=== PATIENT | female | born 1940 | race Caucasian/White ===

== ENCOUNTER 2017-04-30 22:44 | Inpatient (IN) | payer MEDICARE, OTHER, SELFPAY ==
[2017-04-30 22:53] VITALS: BP 136/67; PULSE 71; RESP 18; TEMP 36.5; O2SAT 100
--- NOTE | 2017-04-30 23:20 | PCM.HP.STD ---
Problem List (1) Generalized weakness Status: Acute (2) Anemia Status: Chronic Comment: acute on chronic (3) Anxiety Status: Chronic (4) COPD (chronic obstructive pulmonary disease) Status: Chronic (5) Constipation Status: Chronic (6) Coronary artery disease Status: Chronic (7) Depression Status: Chronic History of Present Illness Date of Admission: 04/30/17 Chief Complaint: Generalized weakness The patient is a 76 y/o female w/ h/o COPD, CAD, s/p total hip replacement, OA, rotator cuff tear, depression and HTN admitted for generalized weakness. She did a lot of walking yesterday and when she got home, she felt exhausted. She ate only once yesterday and this morning she had a light breakfast. She felt mostly sleepy and did not eat most part of the day. She was mildly SOB that started this morning. There is no cough. No chest pain. No confusion. She has chronic weakness in the right arm because of a rotator cuff tear. It was torn because she did not move by herself much and staff had to drag her. She was transferred from [place] to [place] for admission. 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, w/ acetabular component Osteoarthritis of left hip (Chronic) Edema (Chronic) Constipation (Chronic) Irritable bowel syndrome (Chronic) Anxiety (Chronic) Depression (Chronic) Respiratory acidosis (Chronic) Hypertension (Chronic) Hyperlipidemia (Chronic) GERD (gastroesophageal reflux disease) (Chronic) Fibromyalgia (Chronic) NSTEMI (non-ST elevated myocardial infarction) (Chronic) Allergies hydrocodone bitartrate [From Vicodin] Allergy (Unknown, Verified 08/19/16 12:01) Rash make me crazy propoxyphene Allergy (Unknown, Verified 08/19/16 12:01) Unknown Pt unsure NSAIDS (Non-Steroidal Anti-Inflamma Adverse Reaction (Unknown, Verified 08/19/16 12:01) Unknown doesn't work. Unsure of any reaction acetaminophen [From Tylenol] Adverse Reaction (Verified 08/19/16 12:01) Nausea diazepam [From Valium] Adverse Reaction (Verified 08/19/16 12:01) Other makes me crazy Home Medications: Ambulatory Orders Medication Instructions Recorded Gabapentin [Neurontin] 100 mg PO TID 05/15/15 Lorazepam [Ativan] 1 mg PO 4X/DAY PRN 02/28/17 Oxycodone [Oxyir] 20 mg PO 4X/DAY 02/28/17 Potassium Chloride [Klor-Con M10] 20 meq PO DAILY 02/28/17 Aspirin [Aspirin, Baby] 81 mg PO DAILY@0800 04/30/17 Lisinopril/Hydrochlorothiazide 1 each PO DAILY 04/30/17 [Zestoretic 20-12.5 mg Tablet] Naloxegol Oxalate [Movantik] 25 mg PO DAILY 04/30/17 Trazodone HCl [Desyrel] 50 mg PO QHS 04/30/17 Surgical History: herniorrhaphy - Ventral, hysterectomy, total hip arthroplasty - Left, 07/31/2013., total knee arthroplasty - Bilateral., - - Bilateral shoulder arthroscopy, R shoulder repair, L shoulder replacement 2012, L reverse total shoulder replacement 2015, Bladder surgery, back surgery x 2, LLE venous repair secondary to complications with knee replacement, carpal tunnel release, L Total Hip Revision. Psychiatric History: Anxiety, Depression PERIANESTHESIA RN History: No pertinent PERIANESTHESIA RN history Smoking Status: Never smoker - *Family History Offspring History Items: No pertinent history Maternal History Items: No pertinent history Paternal History Items: No pertinent history Review of Systems Constitutional: Denies: Chills, Fever, Weight Change HEENT: Denies: Head Aches, Sinus Congestion, Sinus Drainage Cardiovascular: Denies: Chest Pain, Palpitations Respiratory: Denies: Cough, Shortness of breath at rest, Sputum production Gastrointestinal: Denies: Abdominal Pain, Nausea, Vomiting Genitourinary: Denies: Dysuria Musculoskeletal: Denies: Joint Pain, Joint Tenderness Skin: Denies: Rash, Wounds Neurological: Denies: Numbness, Tingling, Focal weakness Psychiatric: Denies: Anxiety, Depression, Homicidal Ideations, Suicidal Ideations Hematologic/ Lymphatic: Denies: Easy Bruising, Easy Bleeding VTE Information - Inpt Only VTE Present on Admission: No VTE Mechan Device Prophylaxis: SCD's VTE Pharm Prophylaxis ordered?: Yes Patient Problems: Active and Suspected Problems Generalized weakness (Acute) - Physical Exam General: Alert, Oriented x3, Cooperative HEENT: Atraumatic, PERRLA, EOMI, Normocephalic Neck: Supple, No JVD, Negative Carotid Bruits Lungs: Clear to auscultation, Normal air movement Cardiovascular: Regular rate, No murmurs Abdomen: Bowel Sounds Present, Soft, Non Tender Extremities: No edema, Capillary Refill Less than 3 Seconds Skin: No rashes, No breakdown Musculoskeletal: No Tenderness to Palpation of Joints or Extremities Neurological: Cranial nerves II-XII grossly intact Psych/Mental Status: Normal Affect, Appropriate Vital Signs Temp Pulse Resp BP Pulse Ox 97.7 F L 71 18 136/67 H 100 04/30/17 22:53 04/30/17 22:53 04/30/17 22:53 04/30/17 22:53 04/30/17 22:53 Oxygen Delivery Method Room Air Assessment/Plan Active and Suspected Problems Generalized weakness (Acute) 76 y/o female w/ h/o COPD, CAD, s/p total hip replacement, OA, rotator cuff tear, depression and HTN admitted for generalized weakness. 1) Generalized weakness: Possible effort dependent as exam is very variable. Will get ammonia, B12, folate, and TSH. Will also get CT head in AM. Will also get cultures. PT/OT. 2) Pulmonary congestion: CTA disclosed no PE CT chest disclosed congestion. Will start lasix. Will follow electrolytes and renal function. 3) Chronic issues: HTN, COPD, CAD: Resume home meds. 4) Dispo: May need SNF placement as pt is a high risk for readmission and has multiple previous admissions.
[2017-04-30 23:29] VITALS: BMI 37.0
[2017-04-30 23:39] VITALS: BMI 37.1
[2017-05-01 01:26] LABS: Hematocrit 35.6 % (37-47); Hemoglobin 10.5 g/dl (12.0-15.0); Mean Corp Hgb Conc 29.5 g/gl (32-36); Mean Corpuscular Hgb 24.7 pg (27.0-32.0); Mean Corpuscular Volume 83.8 fL (81-99); Mean Platelet Vol. 9.6 fl (6.2-12.0); Platelet Count 232 K/mm3 (150-450); RBC Distribution Width CV 18.2 % (11.6-14.6); RBC Distribution Width SD 56.1 fl (35.1-43.9); Red Blood Count 4.25 M/mm3 (4.2-5.4); White Blood Count 6.2 K/mm3 (4.4-11.0)
[2017-05-01 01:29] LABS: Scan Indicated on CBC? Y/N NO
[2017-05-01 01:49] LABS: Anion Gap 6 (5-15); BUN 19 mg/dL (7-18); BUN/Creat Ratio 23.3 RATIO (10-20); Calcium,Total 8.3 mg/dL (8.5-10.1); Chloride 103 mmol/L (98-107); Creatinine, Serum 0.81 mg/dL (0.55-1.02); EST Glomerular Filtration Rate 73 mL/min (>60); Est Glom Filt Rate - Afr Amer 88 mL/min (>60); Estimated Creatinine Clearance 43.77 ml/min; Glucose 101 mg/dL (74-106); Potassium 3.7 mmol/L (3.5-5.1); Sodium Level 138 mmol/L (136-145); Thyroid Stim Hormone (TSH) 0.62 uIU/mL (0.358-3.74)
[2017-05-01 04:27] VITALS: BP 116/60; PULSE 76; RESP 19; TEMP 36.6; O2SAT 95
[2017-05-01 04:50] LABS: Absolute Lymphocyte Count 1.67 X10^3/ul (0.83-4.51); Absolute Neutrophil Count 3.6 X10^3/uL (2.0-7.7); Basophil# 0.01 X10^3/uL; Basophil% 0.2 % (0-1); Eosinophil# 0.17 X10^3/uL; Eosinophils% 2.9 % (0-5); Hematocrit 34.6 % (37-47); Hemoglobin 10.2 g/dl (12.0-15.0); Lymphocyte # 1.67 X10^3/ul (4.0); Lymphocyte % 28.4 % (19-41); Mean Corp Hgb Conc 29.5 g/gl (32-36); Mean Corpuscular Hgb 24.6 pg (27.0-32.0); Mean Corpuscular Volume 83.6 fL (81-99); Monocyte# 0.45 X10^3/uL; Monocyte% 7.7 % (0-10); Neutrophil # 3.56 X10^3/uL (2.7-7.7); Neutrophil % 60.6 % (47-70); Platelet Count 257 K/mm3 (150-450); RBC Distribution Width CV 18.2 % (11.6-14.6); RBC Distribution Width SD 56.2 fl (35.1-43.9); Red Blood Count 4.14 M/mm3 (4.2-5.4); White Blood Count 5.9 K/mm3 (4.4-11.0)
[2017-05-01 04:53] LABS: POSITIVE COUNT NO; POSITIVE DIFFERENTIAL NO; POSITIVE MORPHOLOGY NO
[2017-05-01 05:08] LABS: Anion Gap 6 (5-15); BUN 16 mg/dL (7-18); BUN/Creat Ratio 22.3 RATIO (10-20); Calcium,Total 8.5 mg/dL (8.5-10.1); Chloride 101 mmol/L (98-107); Cholesterol 149 mg/dL (200); Creatinine, Serum 0.72 mg/dL (0.55-1.02); EST Glomerular Filtration Rate 84 mL/min (>60); Est Glom Filt Rate - Afr Amer 102 mL/min (>60); Estimated Creatinine Clearance 35.45 ml/min; Glucose 103 mg/dL (74-106); High Density Lipoprotein 47 mg/dL; Sodium Level 137 mmol/L (136-145); Triglycerides 81 mg/dL; Very Low Density Lipoprotein 16 mg/dL (5-40)
--- NOTE | 2017-05-01 05:55 | CT_ITS ---
STUDY: CT BRAIN WITHOUT CONTRAST REASON FOR EXAM: Female, 76 years old. Weakness RADIATION DOSAGE (If Supplied By Facility): CTDIvol = ( 44.99 ) mGy, DLP = ( 745.49 ) mGycm TECHNIQUE: Transaxial CT imaging of the brain was performed without administration of intravenous contrast material. Individualized dose optimization techniques were used for this CT. COMPARISON: 03-14. FINDINGS: Normal soft tissue structures. Normal calvarium. There is mild cerebral atrophy with widening of the extra-axial spaces and ventricular dilatation. There are areas of decreased attenuation within the white matter tracts of the supratentorial brain, consistent with microvascular disease changes. Normal basal ganglia and thalami. Normal brainstem. Normal cerebellum. There is no intracranial hemorrhage. There are no findings of an acute ischemic infarction. Normal visualized paranasal sinuses. CT/Brain/Head without Contrast IMPRESSION: Normal unenhanced CT scan of the brain. Electronically Signed: Jaime Koch DO at 9:52 EST , Service support ,
[2017-05-01] MEDS: 0.9% NaCl Peripheral Flush Adult/Peds IV (06:18)
[2017-05-01] MEDS: Furosemide 20 MG/2 ML VIAL IV (06:18)
[2017-05-01 08:05] VITALS: BP 149/70; PULSE 79; RESP 18; TEMP 36.8; O2SAT 95
[2017-05-01] MEDS: Aspirin 81 MG TAB.CHEW PO (08:11)
[2017-05-01] MEDS: HYDROCHLOROTHIAZIDE 12.5 MG CAPSULE PO (08:12)
[2017-05-01] MEDS: Lisinopril 20 MG Tablet PO (08:12)
[2017-05-01] MEDS: Gabapentin 100 MG Capsule PO ×2 (08:12→11:52)
--- NOTE | 2017-05-01 10:37 | CASEMGMT ---
See RN CM Assessment. DC PLAN: Home on discharge. May need Home Health RN/PT. Will evaluate PT/OT notes. -pt states she has difficulty walking due to neuropathy on her L leg and weakness on right. Pt states she sleeps on day bed as it is lower and easier to get in and out. - provides transportation. -If home health is recommended, pt is agreeable to [facility]. Heena STEVENSON RN ACM
[2017-05-01 11:24] LABS: Color, Urine Straw (Yellow); Glucose, Dipstick Normal (Normal); Ketone-Dipstick Negative (Negative); Leukocyte Esterase-Dipstick Negative /ul (Negative); Nitrite-Dipstick Negative (Negative); Occult Blood-Urine Negative /ul (Negative); Protein-Dipstick Negative (Negative); Urine Bilirubin Dipstick Negative (Negative); Urine Clarity Clear (Clear); Urine Urobilinogen Normal (Normal)
[2017-05-01 11:50] VITALS: BP 165/82; PULSE 84; RESP 16; TEMP 36.9; O2SAT 96
--- NOTE | 2017-05-01 12:06 | PCM.PROGNOTE ---
Patient Problems: Active and Suspected Problems Generalized weakness (Acute) Subjective: Patient is a 76-year-old female with a past medical history of benzodiazepine dependence, chronic anxiety, COPD, coronary artery disease, depression and multiple joint replacements who was sent to [facility] from [facility] with a complaint of generalized weakness. She told the admitting physician that she had done a lot of walking on 05-16 and when she got home she felt exhausted. She is afebrile with stable vital signs. She is 95-100% saturated on room air. Lab at admission was unremarkable. Serial cardiac enzymes have been negative. TSH is normal at 0.62. UA was negative. - Physical Exam Vital Signs Temp Pulse Resp BP Pulse Ox 98.4 F 84 16 165/82 H 96 05/01/17 11:50 05/01/17 11:50 05/01/17 11:50 05/01/17 11:50 05/01/17 11:50 Oxygen Delivery Method Room Air Weight: 190 lb 0.615 oz Body Mass Index (BMI) 37.0 Intake and Output for Last 24 Hours 04/29/17 04/30/17 05/01/17 23:59 23:59 23:59 Intake Total 400 / 400 Output Total 600 / 600 Balance -200 / -200 Laboratory Tests Past 24 Hrs 05/01/17 05/01/17 05/01/17 01:05 01:05 04:33 WBC 6.2 5.9 RBC 4.25 4.14 L Hgb 10.5 L 10.2 L Hct 35.6 L 34.6 L MCV 83.8 83.6 MCH 24.7 L 24.6 L MCHC 29.5 L 29.5 L RDW 18.2 H 18.2 H RDW Differential 56.1 H 56.2 H Plt Count 232 257 MPV 9.6 10.0 Immature Gran % (Auto) 0.200 Neut % (Auto) 60.6 Lymph % (Auto) 28.4 [place] % (Auto) 7.7 Eos % (Auto) 2.9 Baso % (Auto) 0.2 Absolute Neuts (auto) 3.6 Absolute Lymphs (auto) 1.67 Total Counted Not Reportable Sodium 138 Potassium 3.7 Chloride 103 Carbon Dioxide 29.0 Anion Gap 6 BUN 19 H Creatinine 0.81 Estim Creat Clear Calc 43.77 Est GFR (MDRD) Af Amer 88 Est GFR (MDRD) Non-Af 73 BUN/Creatinine Ratio 23.3 H Glucose 101 Calcium 8.3 L Ammonia Troponin I < 0.02 Triglycerides Cholesterol LDL Cholesterol VLDL Cholesterol HDL Cholesterol Vitamin B12 Folate TSH 0.62 Cortisol Urine Color Urine Clarity Urine pH Ur Specific [place] Urine Protein Urine Glucose (UA) Urine Ketones Urine Occult Blood Urine Nitrite Urine Bilirubin Urine Urobilinogen Ur Leukocyte Esterase RPR 05/01/17 05/01/17 05/01/17 04:33 04:33 06:48 WBC RBC Hgb Hct MCV MCH MCHC RDW RDW Differential Plt Count MPV Immature Gran % (Auto) Neut % (Auto) Lymph % (Auto) [place] % (Auto) Eos % (Auto) Baso % (Auto) Absolute Neuts (auto) Absolute Lymphs (auto) Total Counted Sodium 137 Potassium 4.0 Chloride 101 Carbon Dioxide 30.0 Anion Gap 6 BUN 16 Creatinine 0.72 Estim Creat Clear Calc 35.45 Est GFR (MDRD) Af Amer 102 Est GFR (MDRD) Non-Af 84 BUN/Creatinine Ratio 22.3 H Glucose 103 Calcium 8.5 Ammonia Troponin I < 0.02 Triglycerides 81 Cholesterol 149 LDL Cholesterol 86 VLDL Cholesterol 16 HDL Cholesterol 47 Vitamin B12 Pending Folate TSH Cortisol Urine Color Urine Clarity Urine pH Ur Specific [place] Urine Protein Urine Glucose (UA) Urine Ketones Urine Occult Blood Urine Nitrite Urine Bilirubin Urine Urobilinogen Ur Leukocyte Esterase RPR 05/01/17 05/01/17 05/01/17 06:48 06:48 06:48 WBC RBC Hgb Hct MCV MCH MCHC RDW RDW Differential Plt Count MPV Immature Gran % (Auto) Neut % (Auto) Lymph % (Auto) [place] % (Auto) Eos % (Auto) Baso % (Auto) Absolute Neuts (auto) Absolute Lymphs (auto) Total Counted Sodium Potassium Chloride Carbon Dioxide Anion Gap BUN Creatinine Estim Creat Clear Calc Est GFR (MDRD) Af Amer Est GFR (MDRD) Non-Af BUN/Creatinine Ratio Glucose Calcium Ammonia Troponin I Triglycerides Cholesterol LDL Cholesterol VLDL Cholesterol HDL Cholesterol Vitamin B12 Folate 12.40 TSH Cortisol Pending Urine Color Urine Clarity Urine pH Ur Specific [place] Urine Protein Urine Glucose (UA) Urine Ketones Urine Occult Blood Urine Nitrite Urine Bilirubin Urine Urobilinogen Ur Leukocyte Esterase RPR Pending 05/01/17 05/01/17 05/01/17 06:48 07:15 08:00 WBC RBC Hgb Hct MCV MCH MCHC RDW RDW Differential Plt Count MPV Immature Gran % (Auto) Neut % (Auto) Lymph % (Auto) [place] % (Auto) Eos % (Auto) Baso % (Auto) Absolute Neuts (auto) Absolute Lymphs (auto) Total Counted Sodium Potassium Chloride Carbon Dioxide Anion Gap BUN Creatinine Estim Creat Clear Calc Est GFR (MDRD) Af Amer Est GFR (MDRD) Non-Af BUN/Creatinine Ratio Glucose Calcium Ammonia 13.0 Troponin I < 0.02 Triglycerides Cholesterol LDL Cholesterol VLDL Cholesterol HDL Cholesterol Vitamin B12 Folate TSH Cortisol Urine Color Straw Urine Clarity Clear Urine pH 7.0 Ur Specific [place] 1.010 Urine Protein Negative Urine Glucose (UA) Normal Urine Ketones Negative Urine Occult Blood Negative Urine Nitrite Negative Urine Bilirubin Negative Urine Urobilinogen Normal Ur Leukocyte Esterase Negative RPR Assessment/Plan Active and Suspected Problems Generalized weakness (Acute)
--- NOTE | 2017-05-01 12:12 | PCM.DC ---
- Discharge Diagnoses Current Active Problems: Current Active and Chronic Problems Generalized weakness (Acute) You will use the following diet at home:: Other - Resume previous diet Your food should be the consistency of: Regular Your liquids should be the consistency of: Regular/Thin Discharge Activity: - - Activity as tolerated Call your doctor if you observe: Fever of 101 or Higher, Shortness of breath, Dizziness, Fainting spells, Chest pain, Uncontrolled pain Additional Instructions: I think you did too much yesterday and that is why you got so tired. Try and pace yourself and do not try to get everything done in 1 day! Allergies/Adverse Reactions: Allergies hydrocodone bitartrate [From Vicodin] Allergy (Unknown, Verified 08/19/16 12:01) Rash make me crazy propoxyphene Allergy (Unknown, Verified 08/19/16 12:01) Unknown Pt unsure NSAIDS (Non-Steroidal Anti-Inflamma Adverse Reaction (Unknown, Verified 08/19/16 12:01) Unknown doesn't work. Unsure of any reaction acetaminophen [From Tylenol] Adverse Reaction (Verified 08/19/16 12:01) Nausea diazepam [From Valium] Adverse Reaction (Verified 08/19/16 12:01) Other makes me crazy Medications to take at Discharge Gabapentin [Neurontin] 100 mg PO TID 05/15/15 Lorazepam [Ativan] 1 mg PO 4X/DAY PRN 02/28/17 Oxycodone [Oxyir] 20 mg PO 4X/DAY 02/28/17 Potassium Chloride [Klor-Con M10] 20 meq PO DAILY 02/28/17 Aspirin [Aspirin, Baby] 81 mg PO DAILY@0800 04/30/17 Lisinopril/Hydrochlorothiazide [Zestoretic 20-12.5 mg Tablet] 1 each PO DAILY 04/30/17 Naloxegol Oxalate [Movantik] 25 mg PO DAILY 04/30/17 Trazodone HCl [Desyrel] 50 mg PO QHS 04/30/17 Primary Care Physician: Dada Arguelles MD [Primary Care Provider] - Please Follow Up With: Renata Mathews MD When: call the office Wednesday for an appt and tell them you were in the hospital Proposed Discharge Date: 05/01/17
--- NOTE | 2017-05-01 12:23 | DCINST_ITS ---
- Discharge Diagnoses Current Active Problems: Current Active and Chronic Problems Generalized weakness (Acute) You will use the following diet at home:: Other - Resume previous diet Your food should be the consistency of: Regular Your liquids should be the consistency of: Regular/Thin Discharge Activity: - - Activity as tolerated Call your doctor if you observe: Fever of 101 or Higher, Shortness of breath, Dizziness, Fainting spells, Chest pain, Uncontrolled pain Additional Instructions: I think you did too much yesterday and that is why you got so tired. Try and pace yourself and do not try to get everything done in 1 day! Allergies/Adverse Reactions: Allergies hydrocodone bitartrate [From Vicodin] Allergy (Unknown, Verified 08/19/16 12:01) Rash make me crazy propoxyphene Allergy (Unknown, Verified 08/19/16 12:01) Unknown Pt unsure NSAIDS (Non-Steroidal Anti-Inflamma Adverse Reaction (Unknown, Verified 12:01) Unknown doesn't work. Unsure of any reaction acetaminophen [From Tylenol] Adverse Reaction (Verified 08/19/16 12:01) Nausea diazepam [From Valium] Adverse Reaction (Verified 08/19/16 12:01) Other makes me crazy Medications to take at Discharge Gabapentin [Neurontin] 100 mg PO TID 05/15/15 Lorazepam [Ativan] 1 mg PO 4X/DAY PRN 02/28/17 Oxycodone [Oxyir] 20 mg PO 4X/DAY 02/28/17 Potassium Chloride [Klor-Con M10] 20 meq PO DAILY 02/28/17 Aspirin [Aspirin, Baby] 81 mg PO DAILY@0800 04/30/17 Lisinopril/Hydrochlorothiazide [Zestoretic 20-12.5 mg Tablet] 1 each PO DAILY Naloxegol Oxalate [Movantik] 25 mg PO DAILY 04/30/17 Trazodone HCl [Desyrel] 50 mg PO QHS 04/30/17 Primary Care Physician: Dada Arguelles MD [Primary Care Provider] - Please Follow Up With: Renata Mathews MD When: call the office Wednesday for an appt and tell them you were in the hospital Proposed Discharge Date: 05/01/17
[2017-05-01 12:25] VITALS: BP 165/82; PULSE 84; RESP 16; TEMP 37; O2SAT 96
--- NOTE | 2017-05-01 12:38 | DS.PCM_ITS ---
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, w/ acetabular component Osteoarthritis of left hip (Chronic) Edema (Chronic) Constipation (Chronic) Irritable bowel syndrome (Chronic) Anxiety (Chronic) Depression (Chronic) Respiratory acidosis (Chronic) Hypertension (Chronic) Hyperlipidemia (Chronic) GERD (gastroesophageal reflux disease) (Chronic) Fibromyalgia (Chronic) NSTEMI (non-ST elevated myocardial infarction) (Chronic) Hospital Course and Treatment Imaging Results: 05/01/17 05:55 CT Head [Brain/Head without Contrast] [CT] AM (NON MEDS) Clinical Impression(s) from Imaging Studies Brain CT 05/01/17 05:55 IMPRESSION: Normal unenhanced CT scan of the brain. Electronically Signed: Jaime Koch DO at 9:52 EST , Service support , Laboratory Results - last 24 hr 05/01/17 05/01/17 05/01/17 01:05 01:05 04:33 WBC 6.2 5.9 RBC 4.25 4.14 L Hgb 10.5 L 10.2 L Hct 35.6 L 34.6 L MCV 83.8 83.6 MCH 24.7 L 24.6 L MCHC 29.5 L 29.5 L RDW 18.2 H 18.2 H RDW Differential 56.1 H 56.2 H Plt Count 232 257 MPV 9.6 10.0 Immature Gran % (Auto) 0.200 Neut % (Auto) 60.6 Lymph % (Auto) 28.4 [place] % (Auto) 7.7 Eos % (Auto) 2.9 Baso % (Auto) 0.2 Absolute Neuts (auto) 3.6 Absolute Lymphs (auto) 1.67 Total Counted Not Reportable Sodium 138 Potassium 3.7 Chloride 103 Carbon Dioxide 29.0 Anion Gap 6 BUN 19 H Creatinine 0.81 Estim Creat Clear Calc 43.77 Est GFR (MDRD) Af Amer 88 Est GFR (MDRD) Non-Af 73 BUN/Creatinine Ratio 23.3 H Glucose 101 Calcium 8.3 L Ammonia Troponin I < 0.02 Triglycerides Cholesterol LDL Cholesterol VLDL Cholesterol HDL Cholesterol Folate TSH 0.62 Urine Color Urine Clarity Urine pH Ur Specific [place] Urine Protein Urine Glucose (UA) Urine Ketones Urine Occult Blood Urine Nitrite Urine Bilirubin Urine Urobilinogen Ur Leukocyte Esterase 05/01/17 05/01/17 05/01/17 04:33 04:33 06:48 WBC RBC Hgb Hct MCV MCH MCHC RDW RDW Differential Plt Count MPV Immature Gran % (Auto) Neut % (Auto) Lymph % (Auto) [place] % (Auto) Eos % (Auto) Baso % (Auto) Absolute Neuts (auto) Absolute Lymphs (auto) Total Counted Sodium 137 Potassium 4.0 Chloride 101 Carbon Dioxide 30.0 Anion Gap 6 BUN 16 Creatinine 0.72 Estim Creat Clear Calc 35.45 Est GFR (MDRD) Af Amer 102 Est GFR (MDRD) Non-Af 84 BUN/Creatinine Ratio 22.3 H Glucose 103 Calcium 8.5 Ammonia Troponin I < 0.02 Triglycerides 81 Cholesterol 149 LDL Cholesterol 86 VLDL Cholesterol 16 HDL Cholesterol 47 Folate 12.40 TSH Urine Color Urine Clarity Urine pH Ur Specific [place] Urine Protein Urine Glucose (UA) Urine Ketones Urine Occult Blood Urine Nitrite Urine Bilirubin Urine Urobilinogen Ur Leukocyte Esterase 05/01/17 05/01/17 05/01/17 06:48 07:15 08:00 WBC RBC Hgb Hct MCV MCH MCHC RDW RDW Differential Plt Count MPV Immature Gran % (Auto) Neut % (Auto) Lymph % (Auto) [place] % (Auto) Eos % (Auto) Baso % (Auto) Absolute Neuts (auto) Absolute Lymphs (auto) Total Counted Sodium Potassium Chloride Carbon Dioxide Anion Gap BUN Creatinine Estim Creat Clear Calc Est GFR (MDRD) Af Amer Est GFR (MDRD) Non-Af BUN/Creatinine Ratio Glucose Calcium Ammonia 13.0 Troponin I < 0.02 Triglycerides Cholesterol LDL Cholesterol VLDL Cholesterol HDL Cholesterol Folate TSH Urine Color Straw Urine Clarity Clear Urine pH 7.0 Ur Specific [place] 1.010 Urine Protein Negative Urine Glucose (UA) Normal Urine Ketones Negative Urine Occult Blood Negative Urine Nitrite Negative Urine Bilirubin Negative Urine Urobilinogen Normal Ur Leukocyte Esterase Negative none Operations: None, - - left shoulder hemiarthroplasty Procedures: None Summary of Care Provided: Patient is a 76-year-old female with a past medical history of benzodiazepine dependence, chronic anxiety, COPD, coronary artery disease, depression and multiple joint replacements who was sent to [facility] from [facility] with a complaint of generalized weakness. She told the admitting physician that she had done a lot of walking on 04/30/17 and when she got home she felt exhausted. CT brain at admission was unremarkable and had no acute findings. Vital signs in the emergency room were temp 97.7, pulse rate 71, blood pressure 136/67, respiratory rate 18 and she was 100% saturated on room air. White blood cell count was within normal limits and the differential was unremarkable. Hemoglobin was 10.5 and the MCV was 83.8. The RDW is increased at 18.2. Hemoglobin in 2016 was normal. BUN was mildly increased at 19 and creatinine was 0.81. She is on hydrochlorothiazide. Serial troponins were negative. TSH and folate were normal. B12 is still pending and iron studies are also pending. She was able to ambulate with a front wheeled walker and was happy that she could walk. She was recently released from all restrictions by Dr. Dia. She felt that she was ready to go home and thought that she would do better at home. She is a very anxious woman and was rather afraid to walk. She will continue the Ativan 1 mg 4 times daily at home which she has taken for many years. She was previously seen by Dr. Arguelles as an outpatient but is unable to follow- up with Dr. Arguelles anymore. She requested a referral to a primary care physician and I recommended Dr. Mathews. She would like to keep all her physicians in [place]. She was discharged home in a stable condition and will call Dr. Mathews's office on Wednesday to schedule an appointment. Physical exam at the time of discharge-alert and oriented ?3, no apparent distress. Skin is warm and dry with no wounds and no openings in the skin. Mucous membranes are moist. Lungs are clear to auscultation throughout and the heart had a regular rate and rhythm with no gallop and no murmur. She had no peripheral edema and the abdomen was soft, nontender nondistended. This note was generated with Dragon dictation software. It may contain incorrect words, spelling, and punctuation that were not noted in checking the note before signing. Discharge Activity: - - Activity as tolerated Call your doctor if you observe: Fever of 101 or Higher, Shortness of breath, Dizziness, Fainting spells, Chest pain, Uncontrolled pain Home Medications: Medications to take at Discharge Gabapentin [Neurontin] 100 mg PO TID 05/15/15 Lorazepam [Ativan] 1 mg PO 4X/DAY PRN 02/28/17 Oxycodone [Oxyir] 20 mg PO 4X/DAY 02/28/17 Potassium Chloride [Klor-Con M10] 20 meq PO DAILY 02/28/17 Aspirin [Aspirin, Baby] 81 mg PO DAILY@0800 04/30/17 Lisinopril/Hydrochlorothiazide [Zestoretic 20-12.5 mg Tablet] 1 each PO DAILY Naloxegol Oxalate [Movantik] 25 mg PO DAILY 04/30/17 Trazodone HCl [Desyrel] 50 mg PO QHS 04/30/17 Primary Care Physician: Dada Arguelles MD [Primary Care Provider] - Please Follow Up With: Renata Mathews MD When: call the office Wednesday for an appt and tell them you were in the hospital Disposition: Home Minutes spent on discharge:: 30 Meaningful Use Info Meaningful Use Diagnoses (Choose all that apply): None applicable Code Visit OBSV E&M: 02149 Observation care discharge
[2017-05-01] MEDS: ALPRAZolam 0.5 MG Tablet 1 MG PO (12:40)
[2017-05-03 10:04] LABS: Vitamin B12 288 pg/mL (211-911)
[2017-05-07 03:48] LABS: Rapid Plasmin Reagin (RPR) NONREACTIVE (NONREACTIVE)
== END 2017-05-01 13:20 | disposition home health service (06) | DRG 948 ==
PROVIDERS: Admitting Provider Internal Medicine; Family Provider Family Medicine; PCP Family Medicine; Visit Provider Internal Medicine Nephrology
DX: R53.1 Weakness (principal); J44.9 Chronic obstructive pulmonary disease, unspecified; D64.9 Anemia, unspecified; R09.89 Other specified symptoms and signs involving the circulatory and respiratory systems; I25.10 Atherosclerotic heart disease of native coronary artery without angina pectoris; I10 Essential (primary) hypertension; M16.12 Unilateral primary osteoarthritis, left hip; E78.5 Hyperlipidemia, unspecified; K58.1 Irritable bowel syndrome with constipation; M79.7 Fibromyalgia; K21.9 Gastro-esophageal reflux disease without esophagitis; F32.9 Major depressive disorder, single episode, unspecified; F41.9 Anxiety disorder, unspecified; F13.21 Sedative, hypnotic or anxiolytic dependence, in remission; Z96.612 Presence of left artificial shoulder joint; Z96.653 Presence of artificial knee joint, bilateral; I25.2 Old myocardial infarction; Z79.82 Long term (current) use of aspirin; Z79.891 Long term (current) use of opiate analgesic; Z79.899 Other long term (current) drug therapy
CPT/HCPCS: 36415; 70450; 80048; 80061; 81002; 82140; 82533; 82607; 82746; 84443; 84484; 85025; 85027; 86592; 87040; 87086; 87088; 97162; 97166; A4216; J1940

== ENCOUNTER → 2017-05-21 12:39 | Outpatient (CLI) | payer MEDICARE, OTHER, SELFPAY ==
--- NOTE | 2017-05-21 12:41 | CDU_ITS ---
Reason For Study: TIA Rt. Velocities/BP Lt. Velocities/BP Prox CCA 96.7/17.6 cm/sec. Prox CCA 109.0/21.1 cm/sec. Mid CCA 99.7/14.1 cm/sec. Mid CCA 107.0/20.5 cm/sec. Dist CCA 98.5/19.9 cm/sec. Dist CCA 94.4/18.2 cm/sec. Prox ICA 86.8/19.3 cm/sec. Prox ICA 104.0/19.3 cm/sec. Mid ICA 82.1/25.2 cm/sec. Mid ICA 88.5/24.0 cm/sec. Dist ICA 85.7/20.3 cm/sec. Dist ICA 84.4/21.0 cm/sec. Rt. ICA/CCA = 86.8/99.7=0.87. Lt. ICA/CCA = 104.0/107.0=0.95. Prox ECA 88.5/11.7 cm/sec. Prox ECA 210.0/22.6 cm/sec. Rt. Vert. 43.6/10.2 cm/sec. Lt. Vert. 59.7/14.6 cm/sec. Right Extracranial There is intimal thickening but no significant atherosclerotic plaque noted in the right common carotid artery. There is heterogeneous, irregular atherosclerotic plaque noted in the right internal carotid artery. The right internal carotid artery is very tortuous. There is intimal thickening but no significant atherosclerotic plaque noted in the right external carotid artery. Antegrade flow is noted in the right vertebral artery. There is heterogeneous, irregular atherosclerotic plaque noted in the right bulb. Left Extracranial There is homogeneous, smooth atherosclerotic plaque noted in the left common carotid artery. There is homogeneous, smooth atherosclerotic plaque noted in the left internal carotid artery. There is intimal thickening but no significant atherosclerotic plaque noted in the left external carotid artery. Antegrade flow is noted in the left vertebral artery. There is heterogeneous, irregular atherosclerotic plaque noted in the left bulb. Procedure Carotid Duplex 19650. The exam was diagnostic. Exam performed in department. Interpretation Summary Mild (<50%) stenosis right extracranial internal carotid. Mild (<50%) stenosis left extracranial internal carotid. Flow within the vertebral arteries is antegrade bilaterally. Elevated velocities within the left external carotid artery are suggestive of stenosis. Heterogeneous, irregular atherosclerotic plaque is noted in the carotid bulbs bilaterally, which does not appear to be hemodynamically significant. Ordering Physician: Radhames Hodges Referring Physician: Radhames Hodges Performed By: Zuleyma Fontenot, DEISY, RVT
== END ==
PROVIDERS: Family Provider Internal Medicine; PCP Internal Medicine; Visit Provider Internal Medicine
DX: Z86.73 Personal history of transient ischemic attack (TIA), and cerebral infarction without residual deficits (principal)
CPT/HCPCS: 93880

== ENCOUNTER 2018-05-10 14:11 | Emergency (ER) | payer MEDICARE, OTHER, SELFPAY ==
[2018-05-10 14:11] VITALS: BMI 37.0
[2018-05-10 14:12] VITALS: BP 202/114; PULSE 98; RESP 16; TEMP 36.6; O2SAT 99; BMI 40.8
--- NOTE | 2018-05-10 14:27 | VDLE_ITS ---
Reason For Study: pain RIGHT LEFT CFV is compressible, spontaneous, phasic, GSV is normal. competent and demonstrates normal CFV is compressible, spontaneous, phasic, augmentation. competent, and demonstrates normal Procedure augmentation. Exam performed portable in ED. FV is compressible, spontaneous, phasic, The exam was diagnostic. competent and demonstrates normal A preliminary report was called and/or faxed augmentation. to Dr. Bowman. POP V is compressible, spontaneous, phasic, competent and demonstrates normal augmentation. T/P Trunk is compressible. PTV is compressible. LT PerV is compressible. Interpretation Summary There is no evidence of left lower extremity deep vein thrombosis. Left greater saphenous vein appears patent and compressible segmentally. Normal flow patterns right common femoral vein Ordering Physician: Alvin Bowman Performed By: Vinod Reyez RVT
--- NOTE | 2018-05-10 14:30 | RAD_ITS ---
STUDY: X-RAY - PELVIS REASON FOR EXAM: Female, 77 years old. Total hip replacement. Pain. History of fall. TECHNIQUE: One view of the pelvis was obtained. COMPARISON: Comparison is made with prior examination dated December 15, 2016. FINDINGS: There is a non-specific bowel gas pattern. Normal visualized soft tissue structures. Normal bilateral iliac wings, sacroiliac joints and visualized sacrum. Normal visualized bilateral superior and inferior pubic rami. Normal pubic symphysis. Normal ischial tuberosities. The patient is status post left total hip replacement. There is good alignment. There has been no change. Osteoarthritis of the right hip joint. RAD/Pelvis 1 or 2 Views IMPRESSION: Stable examination. No fracture or dislocation is seen. Electronically Signed: Yuri Miller MD at 15:19 EST , Service support ,
--- NOTE | 2018-05-10 14:34 | ED.VISSUMM ---
- ER Visit Summary Date of Service: 05/10/18 Chief Complaint: Left hip and left thigh pain status post fall 2 months ago. History of Present Illness: The patient is a 77 F who presents for evaluation of left thigh and hip pain as well as left calf pain. She had a fall 2 months ago. She was seen by her PCP. No imaging was obtained. She is status post right and left total knee arthroplasty and left total hip arthroplasty. She denies shortness of breath or any type of chest pain. He denies history of PE or DVT. She does report decreased motility and difficulty walking because of pain. She states she took OxyContin 2 hours ago and the pain has not diminished. She denies any paresthesia, anesthesia motor weakness. She does complain of pain going down the backside of her leg. He denies bowel or bladder dysfunction. She denies saddle paresthesia or anesthesia. She denies foot drop. She denies weakness in her thigh muscles going up or down steps. She denies dysuria, frequency, urgency or hematuria. Past medical history of coronary disease with non-ST elevation ME, COPD, GERD, hypertension, hypercholesterolemia and fibromyalgia. There is history of depression anxiety as well. Physical Examination: Vital signs noted and remarkable for a blood pressure of 202/114. She appears uncomfortable. She is not hypoxic, tachycardic and tachypneic. Head is atraumatic normocephalic. Pupils are equal round reactive. Extraocular muscles are intact. TMs are pearly white with landmarks noted. Nares patent with no drainage. Posterior pharynx without erythema or exudate. Uvula is midline. There is no dysphonia or dysphasia. Trachea is midline. There is no stridor with auscultation of the neck. Lungs are clear to auscultation. Heart is regular. Abdomen soft nontender. There is pain palpation over the left ischial tuberosity. Logrolling of the left lower extremity causes no discomfort. She has minimal discomfort over the left greater trochanteric region. Incision is well-healed without evidence of infection. There is pain palpation along the distribution deep venous system in the calf popliteal region. There is bilateral edema. Pulses are palpable diminished, 1+. Straight leg test is negative. DTRs patella and ankle are 1+. EHL is intact. Normal perianal sensation. Test Results: Single view x-ray of the pelvis reveals no fracture. There is evidence of a left total hip arthroplasty. The hardware appears unremarkable. The right hip is unremarkable. Venous duplex study was negative for DVT. Emergency Department Course and Treatment: With recent immobility pain Distribution of deep venous system with swelling of the left lower extremity will obtain venous duplex study to evaluate for DVT. X-ray of the pelvis obtained since she has tenderness to palpation of the left ischial tuberosity to evaluate for healing fracture or nonhealing fracture. She was medicated with IV morphine. Treatment Plan: states Dr. Dai's office would like notification of the findings. Disposition: Discharge to home Impression: 1. Back pain with radiculopathy 2. Left hip pain status post fall 3. Left calf pain no evidence of DVT 4. Bilateral lymphedema left greater than right 5. History coronary disease 6. History of COPD 7. Hypertension This note was generated with [employer] dictation software. It may contain incorrect words, spelling, and punctuation that were not noted in review of the chart prior to signing ED Disposition - Plan for ED Patient: Disposition: Home or Assisted Living Instructions: ED Sciatica, ED Lymphedema, ED Hypertension Conf Out Of Control Referrals: Radhames Hodges MD [Primary Care Provider] - 5-7 Days Adrian Dai MD [STAFF PHYSICIAN] - 5-7 Days Additional Instructions: You need to follow-up with your primary care physician Dr. Radhames Hodges for blood pressure recheck in 5-7 days. You will need to follow-up with Dr. Dai for your persistent hip pain and back pain.
[2018-05-10] MEDS: Morphine 4 MG/ML Syringe IV (14:42)
[2018-05-10] MEDS: Ondansetron 4 MG/2 ML Vial IV (14:42)
[2018-05-10 15:18] VITALS: BP 180/89
== END 2018-05-10 15:20 | disposition home or self-care (01) ==
PROVIDERS: Emergency Provider Emergency Medicine; Family Provider Internal Medicine; PCP Internal Medicine
DX: M54.9 Dorsalgia, unspecified (principal); M54.10 Radiculopathy, site unspecified; M25.552 Pain in left hip; M79.662 Pain in left lower leg; I89.0 Lymphedema, not elsewhere classified; J44.9 Chronic obstructive pulmonary disease, unspecified; I25.10 Atherosclerotic heart disease of native coronary artery without angina pectoris; I10 Essential (primary) hypertension; E78.00 Pure hypercholesterolemia, unspecified; M79.7 Fibromyalgia; F32.9 Major depressive disorder, single episode, unspecified; F41.9 Anxiety disorder, unspecified; E66.9 Obesity, unspecified; K21.9 Gastro-esophageal reflux disease without esophagitis; Z79.899 Other long term (current) drug therapy; I25.2 Old myocardial infarction; Z96.653 Presence of artificial knee joint, bilateral; Z96.642 Presence of left artificial hip joint
CPT/HCPCS: 72170; 93971; 96374; 96375; 99282; A4216; J2405

== ENCOUNTER 2018-07-17 18:45 | Inpatient (IN) | payer MEDICARE, OTHER, SELFPAY ==
[2018-07-17] VITALS (7 sets, daily range): BP systolic 150–164; BP diastolic 77–92; PULSE 55–91; RESP 18; TEMP 36.7–36.8; O2SAT 91–99; BMI 39.8
--- NOTE | 2018-07-17 19:05 | HP.PCM_ITS ---
Problem List (1) Benzodiazepine withdrawal Status: Acute Qualifiers: Complication of substance-induced condition: with unspecified complication Qualified Code(s): F13.239 - Sedative, hypnotic or anxiolytic dependence with withdrawal, unspecified (2) Coronary artery disease Status: Chronic Qualifiers: Coronary Disease-Associated Artery/Lesion type: [place] artery [place] vs. transplanted heart: [place] heart Associated angina: without angina Qualified Code(s): I25.10 - Atherosclerotic heart disease of [place] coronary artery without angina pectoris (3) Hypertension Status: Chronic Qualifiers: Hypertension type: essential hypertension Qualified Code(s): I10 - Essential (primary) hypertension (4) Hyperlipidemia Status: Chronic Qualifiers: Hyperlipidemia type: pure hypercholesterolemia Qualified Code(s): E78.00 - Pure hypercholesterolemia, unspecified; E78.0 - Pure hypercholesterolemia (5) Fibromyalgia Status: Chronic History of Present Illness Date of Admission: 07/17/18 Chief Complaint: Generalized shaking, tremors The patient is a 78 year old F with past medical history of severe anxiety disorder, chronic pain syndrome, hypertension, hyperlipidemia who comes in as a transfer from [place] ED with complaints of generalized shakiness. Recent was initially transferred to the [place] ED by EMS for possible seizure. She was found by the to be sitting position, was said to be shaking, no loss of consciousness was reported from the . No slurred speech, no aphasia. Patient had admitted to loss of recent stresses including recovering from recent stroke, patient thinking that she generally is not able to do well. Workup for possible stroke was negative in the [place] ED. Her daughter reports that patient has run out of her chronic Ativan medication for the past 5 days. She initially had elevated blood pressure with tachycardia. These vital signs improved with 0.5 mg IV x1. Patient does have Ativan from her primary care doctor. Her family expresses concern about her multiple medications and the fact that patient has a lot of medications available at home from old prescriptions and previous doctors. She has been falling and has fallen twice over the last few days prior to admission. Patient admits to feeling very anxious, unable to control her anxiety, she has been using more Ativan than usual. Vitals on admission show temperature of 90 8.1F, heart rate 6 blood pressure 164/77, respiratory rate 18, SPO2 was 91% on room air. 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, w/ acetabular component Osteoarthritis of left hip (Chronic) Edema (Chronic) Constipation (Chronic) Irritable bowel syndrome (Chronic) Anxiety (Chronic) Depression (Chronic) Acute respiratory failure with hypoxia (Chronic) Respiratory acidosis (Chronic) Hypertension (Chronic) Hyperlipidemia (Chronic) GERD (gastroesophageal reflux disease) (Chronic) Fibromyalgia (Chronic) NSTEMI (non-ST elevated myocardial infarction) (Chronic) Medical History: Medical History (Last Updated 11/23/17 @ 16:43 by Ashely Esparza) Generalized weakness (Chronic) R53.1 COPD (chronic obstructive pulmonary disease) (Chronic) J44.9 Coronary artery disease (Chronic) I25.10 Anemia (Chronic) D64.9 acute on chronic Aseptic loosening of prosthetic hip (Resolved) T84.038A, Z96.649 Osteoarthritis of left hip (Chronic) M16.12 Edema (Chronic) R60.9 Constipation (Chronic) K59.00 Irritable bowel syndrome (Chronic) Anxiety (Chronic) F41.9 Depression (Chronic) F32.9 Acute respiratory failure with hypoxia (Chronic) J96.01 Respiratory acidosis (Chronic) E87.2 Hypertension (Chronic) I10 Hyperlipidemia (Chronic) E78.5 GERD (gastroesophageal reflux disease) (Chronic) K21.9 Fibromyalgia (Chronic) NSTEMI (non-ST elevated myocardial infarction) (Chronic) I21.4 Allergies hydrocodone bitartrate [From Vicodin] Allergy (Unknown, Verified 05/10/18 14:16) Rash make me crazy propoxyphene Allergy (Unknown, Verified 05/10/18 14:16) Unknown Pt unsure fentanyl Allergy (Verified 05/10/18 14:16) feels terrible NSAIDS (Non-Steroidal Anti-Inflamma Adverse Reaction (Unknown, Verified 05/10/18 14:16) Unknown doesn't work. Unsure of any reaction acetaminophen [From Tylenol] Adverse Reaction (Verified 05/10/18 14:16) Nausea diazepam [From Valium] Adverse Reaction (Verified 05/10/18 14:16) Other makes me crazy Home Medications: Ambulatory Orders Medication Instructions Recorded Lorazepam [Ativan] 1 mg PO 4X/DAY PRN 02/28/17 Oxycodone [Oxyir] 20 mg PO 4X/DAY 02/28/17 Naloxegol Oxalate [Movantik] 25 mg PO DAILY 04/30/17 potassium chloride ER 10 mEq 20 meq PO DAILY #180 tab 07/01/17 tablet,extended release(part/cryst) Surgical History: Surgical History (Last Updated 11/23/17 @ 16:43 by Ashely Esparza) Status post revision of total hip replacement (Chronic) Z96.649 left, w/ acetabular component History of bilateral knee replacement Z96.653 History of left heart catheterization Onset Date: ~01/15/15 Z98.890 History of total hysterectomy Z90.710 Surgical History: herniorrhaphy - Ventral, hysterectomy, total hip arthroplasty - Left, 07/31/2013., total knee arthroplasty - Bilateral., - - Bilateral shoulder arthroscopy, R shoulder repair, L shoulder replacement 2012, L reverse total shoulder replacement 2015, Bladder surgery, back surgery x 2, LLE venous repair secondary to complications with knee replacement, carpal tunnel release, L Total Hip Revision. Psychiatric History: Anxiety, Depression PROFESSIONAL SKATER History: No pertinent PROFESSIONAL SKATER history Lives: Spouse/ Significant Other, With Family Smoking Status: Never smoker Tobacco Use: Non-smoker Alcohol: None Drugs: None - *Family History Offspring Family History: Family History (Last Updated 11/23/17 @ 16:45 by Ashely Esparza) Father Heart disease Mother Hyperlipidemia Diabetes Sister Thyroid disorder Sister Thyroid disorder History Items: No pertinent history Maternal Family History: Family History (Last Updated 11/23/17 @ 16:45 by Ashely Esparza) Father Heart disease Mother Hyperlipidemia Diabetes Sister Thyroid disorder Sister Thyroid disorder History Items: Diabetes Paternal Family History: Family History (Last Updated 11/23/17 @ 16:45 by Ashely Esparza) Father Heart disease Mother Hyperlipidemia Diabetes Sister Thyroid disorder Sister Thyroid disorder History Items: Heart Disease Review of Systems Constitutional: Reports: Malaise, Weakness, Fatigue. Denies: Anorexia, Chills, Fever, Night Sweats, Weight Change Eyes: Denies: Blurred vision, Cataracts, Conjunctivae Inflammation, Double vision, Pain, Vision Change HEENT: Denies: Difficulty Hearing, Difficulty Swallowing, Head Aches, Sinus Congestion, Sinus Drainage Cardiovascular: Denies: Chest Pain, Claudication, Chest Pressure, Orthopnea, Palpitations, Paroxysmal Noc. Dyspnea Respiratory: Denies: Cough, Hemoptysis, Shortness of breath at rest, Shortness of breath upon exertion, Sputum production Gastrointestinal: Denies: Abdominal Pain, Constipation, Hematemesis, Hematochezia, Nausea, Vomiting Genitourinary: Denies: Dysuria Musculoskeletal: Denies: Joint Pain, Joint Tenderness Skin: Denies: Rash, Wounds Neurological: Denies: Numbness, Tingling, Focal weakness Psychiatric: Denies: Anxiety, Depression, Homicidal Ideations, Suicidal Ideations Hematologic/ Lymphatic: Denies: Easy Bruising, Easy Bleeding VTE Information - Inpt Only VTE Present on Admission: No VTE Pharm Prophylaxis ordered?: Yes Patient Problems: Active and Suspected Problems (Last Updated 11/23/17 @ 16:43 by Ashely Nolt) Benzodiazepine withdrawal (Acute) - Physical Exam General: Alert, Oriented x3, Cooperative, No apparent distress, - - anxious, crying, morbidly obese HEENT: Atraumatic, PERRLA, EOMI, Normocephalic Neck: Supple, No JVD, Negative Carotid Bruits Lungs: Normal air movement, Diminished Cardiovascular: Regular rate, Regular Rhythm, Normal S1, Normal S2, No murmurs Abdomen: Bowel Sounds Present, Soft, Non Tender, Non-Distended, No Hepato- splenomegaly, Obese Extremities: Edema - Bilateral lower extremity edema +1, chronic scab over the right lower extremity, Skin: - - Scalp over the lower extremity, scaliness of the skin Musculoskeletal: No Tenderness to Palpation of Joints or Extremities Lymphatic: No Cervical, Supraclavicular, or Inguinal Adenopathy Neurological: Cranial nerves II-XII grossly intact, Neuro grossly intact Psych/Mental Status: Appropriate, Anxious Vital Signs Temp Pulse Resp BP Pulse Ox 98.1 F 67 18 164/77 H 91 07/17/18 18:57 07/17/18 18:57 07/17/18 18:57 07/17/18 18:57 07/17/18 18:57 Oxygen Delivery Method Room Air Weight: 92.5 kg Body Mass Index (BMI) 39.8 Assessment/Plan All Active Problems (Last Updated 11/23/17 @ 16:43 by Ashely Nolt) Benzodiazepine withdrawal (Acute) Aseptic loosening of prosthetic hip (Resolved) Colitis, acute (Resolved) Encephalopathy acute (Resolved) Pneumonia (Resolved) Septic shock (Resolved) Severe sepsis with acute organ dysfunction (Resolved) 78 year old F with past medical history of severe anxiety disorder, chronic pain syndrome, hypertension, hyperlipidemia who comes in as a transfer from [place] ED with complaints of generalized shakiness confusion. Patient had run out of her Ativan 5 days prior. 1. Altered mental status due to benzodiazepine withdrawal, reports of running out of her chronic Ativan earlier because of increased use And request transfer to the [facility] from [place] ED. Patient is alert oriented x3 at the time of admission to [facility] Plan: Admit to PCU, monitor on telemetry, continue on chronic Ativan, monitor vitals closely especially oxygenation Discussed with the patient my concern for use of multiple medications. Patient would need to follow-up with a psychiatrist or therapist at discharge. 2. Hypoxia, noted in the low the ED, resolved, continue to monitor, incentive spirometer 3. Chronic pain syndrome, history of multiple surgeries, patient is on oxycodone 4 times a day, will decrease to 3 times a day with holding parameters Concern for drug interactions, will have to monitor the patient closely, continue with scheduled Tylenol, oxycodone 5 mg p.o. 3 times daily as needed 4. Hypertension, reported but not on medications, continue to monitor 5. Hyperlipidemia, reported in medical chart but not on medication, check lipid profile 6. Obesity, BMI 39.8 7. DVT prophylaxis with heparin subcu Consider patient for palliative care referral on discharge as her performance status is low. Code Visit Inpatient E&M: 10671 Init Hosp L3
[2018-07-17 20:46] LABS: Allen Test POS; Base Excess 3 mmol/L (-2 to +2); Bicarbonate 27.5 mmol/L (22-26); Blood Gas Specimen Type ART; O2 Delivery Device Room Air; PO2 53 mmHG (75-100); SITE L Radial; SO2 87 % (95-99); Time Given 2025; Total Carbon Dioxide 29 mmol/L; pCO2 43.7 mmHg (35-45); pH 7.41 (7.35-7.45)
[2018-07-17] MEDS: Heparin Injection (Vial) 5,000 UNIT/ML VIAL 5000 UNIT SC (22:01)
[2018-07-17] MEDS: oxyCODONE 5 MG Tablet PO (22:02)
[2018-07-18] VITALS (17 sets, daily range): BP systolic 156–196; BP diastolic 71–94; PULSE 58–98; RESP 16–18; TEMP 36.6–37.1; O2SAT 93–99
[2018-07-18] MEDS: LORazepam 1 MG Tablet PO ×4 (02:58→22:59)
[2018-07-18 05:58] LABS: Eosinophils% 2.6 % (0-5); Hematocrit 32.6 % (37-47); Lymphocyte % 24.7 % (19-41); Mean Corp Hgb Conc 30.7 g/gl (32-36); Mean Corpuscular Hgb 27.5 pg (27.0-32.0); Mean Corpuscular Volume 89.8 fL (81-99); Mean Platelet Vol. 10.3 fl (6.2-12.0); Monocyte% 6.3 % (0-10); Platelet Count 248 K/mm3 (150-450); RBC Distribution Width CV 15.7 % (11.6-14.6); RBC Distribution Width SD 50.9 fl (35.1-43.9); Red Blood Count 3.63 M/mm3 (4.2-5.4); White Blood Count 4.6 K/mm3 (4.4-11.0)
[2018-07-18 05:59] LABS: Absolute Lymphocyte Count 1.13 X10^3/ul (0.83-4.51); Basophil# 0.01 X10^3/uL; Basophil% 0.2 % (0-1); Eosinophil# 0.12 X10^3/uL; Lymphocyte # 1.13 X10^3/ul (4.0); Monocyte# 0.29 X10^3/uL; Neutrophil # 3.01 X10^3/uL (2.7-7.7)
[2018-07-18] MEDS: oxyCODONE 5 MG Tablet PO ×2 (05:59→13:45)
[2018-07-18] MEDS: Heparin Injection (Vial) 5,000 UNIT/ML VIAL 5000 UNIT SC ×3 (05:59→21:41)
[2018-07-18 06:09] LABS: Anion Gap 5 (5-15); BUN 17 mg/dL (7-18); BUN/Creat Ratio 23.5 RATIO (10-20); Calcium,Total 8.3 mg/dL (8.5-10.1); Chloride 108 mmol/L (98-107); Cholesterol 151 mg/dL (200); Creatinine, Serum 0.72 mg/dL (0.55-1.02); EST Glomerular Filtration Rate 83 mL/min (>60); Est Glom Filt Rate - Afr Amer 101 mL/min (>60); Estimated Creatinine Clearance 34.38 ml/min; Glucose 79 mg/dL (74-106); High Density Lipoprotein 58 mg/dL; Potassium 3.5 mmol/L (3.5-5.1); Sodium Level 142 mmol/L (136-145); Triglycerides 57 mg/dL; Very Low Density Lipoprotein 11 mg/dL (5-40)
[2018-07-18 06:15] LABS: POSITIVE COUNT NO; POSITIVE DIFFERENTIAL NO; POSITIVE MORPHOLOGY NO
--- NOTE | 2018-07-18 06:34 | PCM.PN.BLA ---
Progress Note Patient noted to have elevated blood pressures with current blood pressure 181/87. Nurse reported that per extended home medication list, patient was on lisinopril and hydrochlorothiazide. Patient thinks that her hydrochlorothiazide has been stopped and she is only on lisinopril. Patient is not 100% sure of this. Will start patient on lisinopril 10 mg PO daily; hydralazine 5 mg IV x1 and then as needed. Nurse reports the family will bring med list today.
[2018-07-18] MEDS: Ipratropium/Albuterol Sulfate 3 ML AMPUL.NEB INHALATION (06:51)
[2018-07-18] MEDS: hydrALAZINE 20 MG/ML Vial 5 MG IV ×3 (06:54→21:41)
[2018-07-18] MEDS: 0.9% NaCl Peripheral Flush Adult/Peds IV ×3 (06:54→21:43)
[2018-07-18] MEDS: Lisinopril 10 MG Tablet PO ×2 (07:30→15:33)
--- NOTE | 2018-07-18 11:32 | PCM.PROGNOTE ---
Subjective: The patient is a 78-year-old female with a past medical history of severe anxiety disorder, chronic pain syndrome, hypertension, morbid obesity and hyperlipidemia who was transferred to [facility] on 07/17/2018 from [facility] emergency department complaining of generalized shakiness. She was apparently found by her in the seated position shaking. There was no loss of consciousness and she had no slurred speech or difficulty with word finding. Her daughter reported that the patient had run out of her Ativan that she takes every day....ran out 5 days prior to presenting to the ED. She is prescribed 1 mg of Ativan 4 times a day as needed. She is also taking oxycodone 20 mg mg 3 times daily as needed. She has been falling at home. She has also been taking more Oxycodone than what she is prescribed. Her recently had a stroke and [facility] and recently returned home. While she was home by herself she was afraid at night and was taking extra Ativan. She manages her own medications with no supervision. She does not have a pill box. Her OARRS report was reviewed and she received 120 tablets of lorazepam 1 mg on 06/22/2018. Also on 06/22 she received 120 oxycodone 20 mg tablets. These prescriptions are being given to her monthly by Dr. Audi Ricci. The next RX for Oxycodone is for 10 mg tabs. - Physical Exam General: Alert, Oriented x3, Cooperative, - - very anxious HEENT: Atraumatic, PERRLA, EOMI, Normocephalic Oral: Moist Mucosa Neck: Supple, No JVD Lungs: Clear to auscultation Cardiovascular: Regular rate, Regular Rhythm, Normal S1, Normal S2, No murmurs, No Gallop Abdomen: Bowel Sounds Present, Soft, Non Tender, Non-Distended Extremities: No clubbing, No cyanosis, Edema - 1+ distal LE's and ankles Skin: - - dry skin Musculoskeletal: Arthritic Changes Neurological: Cranial nerves II-XII grossly intact, Neuro grossly intact Psych/Mental Status: Appropriate, Anxious Vital Signs Temp Pulse Resp BP Pulse Ox 98.3 F 94 18 156/71 H 96 07/18/18 09:20 07/18/18 09:20 07/18/18 09:20 07/18/18 09:20 07/18/18 09:20 Oxygen Flow Rate (L/min) 2 Oxygen Delivery Method Room Air Weight: 207 lb 3.752 oz Body Mass Index (BMI) 39.8 Intake and Output for Last 24 Hours 07/16/18 07/17/18 07/18/18 23:59 23:59 23:59 Intake Total 60 / 60 120 / 120 Output Total 250 / 250 300 / 300 Balance -190 / -190 -180 / -180 Laboratory Tests Past 24 Hrs 07/17/18 07/18/18 07/18/18 20:41 05:14 05:14 WBC 4.6 RBC 3.63 L Hgb 10.0 L Hct 32.6 L MCV 89.8 MCH 27.5 MCHC 30.7 L RDW 15.7 H RDW Differential 50.9 H Plt Count 248 MPV 10.3 Immature Gran % (Auto) 0.200 Neut % (Auto) 66.0 Lymph % (Auto) 24.7 [place] % (Auto) 6.3 Eos % (Auto) 2.6 Baso % (Auto) 0.2 Absolute Neuts (auto) 3.0 Absolute Lymphs (auto) 1.13 Total Counted Not Reportable Specimen Type ART Sample Site L Radial pH 7.41 Bicarbonate Actual 27.5 H POC Total CO2 29 Base Excess 3 H O2 Saturation 87 L ABG pCO2 43.7 ABG pO2 53 L Hans Test POS O2 Delivery Device Room Air Blood Gas Notified Whom HOSP Blood Gas Notified Time 2024 Sodium 142 Potassium 3.5 Chloride 108 H Carbon Dioxide 29.0 Anion Gap 5 BUN 17 Creatinine 0.72 Estim Creat Clear Calc 34.38 Est GFR (MDRD) Af Amer 101 Est GFR (MDRD) Non-Af 83 BUN/Creatinine Ratio 23.5 H Glucose 79 Calcium 8.3 L Triglycerides 57 Cholesterol 151 LDL Cholesterol 82 VLDL Cholesterol 11 HDL Cholesterol 58 Medical Necessity - Tobacco Use Smoking Status: Never smoker Tobacco Use: Non-smoker Assessment/Plan All Active Problems (Last Updated 11/23/17 @ 16:43 by Ashely Esparza) Benzodiazepine withdrawal (Acute) Aseptic loosening of prosthetic hip (Resolved) Colitis, acute (Resolved) Encephalopathy acute (Resolved) Pneumonia (Resolved) Septic shock (Resolved) Severe sepsis with acute organ dysfunction (Resolved) Impressions 1. acute benzodiazepine withdrawal with acute toxic encephalopathy 2. hypoxia - transient/resolved 3. chronic pain S with narcotic dependence 4. benzodiazepine dependence 5. chronic anxiety 6. obesity 7. HTN 8. HLD 9. non-compliance with medications/dosages keep in the hospital overnight and allow her to return to baseline. Dtr will meet with the KEISHA and DC vacation planner to establish a plan for care when she returns home. She can no longer be allowed to manage her own medications. Her dtr is going to throw away all the old medication that is in the house and has obtained a current list of meds from her pharmacy. Code Visit Inpatient E&M: 10753 Subs Hosp L2
--- NOTE | 2018-07-18 11:39 | PN_ITS ---
Subjective: The patient is a 78-year-old female with a past medical history of severe anxiety disorder, chronic pain syndrome, hypertension, morbid obesity and hyperlipidemia who was transferred to [facility] on 07/17/2018 from [facility] emergency department complaining of generalized shakiness. She was apparently found by her in the seated position shaking. There was no loss of consciousness and she had no slurred speech or difficulty with word finding. Her daughter reported that the patient had run out of her Ativan that she takes every day....ran out 5 days prior to presenting to the ED. She is prescribed 1 mg of Ativan 4 times a day as needed. She is also taking oxycodone 20 mg mg 3 times daily as needed. She has been falling at home. She has also been taking more Oxycodone than what she is prescribed. Her recently had a stroke and has been in halfway and recently returned home. While she was home by herself she was afraid at night and was taking extra Ativan. She manages her own medications with no supervision. She does not have a pill box. Her OARRS report was reviewed and she received 120 tablets of lorazepam 1 mg on 06/22/2018. Also on 06/22 she received 120 oxycodone 20 mg tablets. These prescriptions are being given to her monthly by Dr. Audi Ricci. The next RX for Oxycodone is for 10 mg tabs. - Physical Exam General: Alert, Oriented x3, Cooperative, - - very anxious HEENT: Atraumatic, PERRLA, EOMI, Normocephalic Oral: Moist Mucosa Neck: Supple, No JVD Lungs: Clear to auscultation Cardiovascular: Regular rate, Regular Rhythm, Normal S1, Normal S2, No murmurs, No Gallop Abdomen: Bowel Sounds Present, Soft, Non Tender, Non-Distended Extremities: No clubbing, No cyanosis, Edema - 1+ distal LE's and ankles Skin: - - dry skin Musculoskeletal: Arthritic Changes Neurological: Cranial nerves II-XII grossly intact, Neuro grossly intact Psych/Mental Status: Appropriate, Anxious Vital Signs Temp Pulse Resp BP Pulse Ox 98.3 F 94 18 156/71 H 96 07/18/18 09:20 07/18/18 09:20 07/18/18 09:20 07/18/18 09:20 07/18/18 09:20 Oxygen Flow Rate (L/min) 2 Oxygen Delivery Method Room Air Weight: 207 lb 3.752 oz Body Mass Index (BMI) 39.8 Intake and Output for Last 24 Hours 07/16/18 07/17/18 07/18/18 23:59 23:59 23:59 Intake Total 60 / 60 120 / 120 Output Total 250 / 250 300 / 300 Balance -190 / -190 -180 / -180 Laboratory Tests Past 24 Hrs 07/17/18 07/18/18 07/18/18 20:41 05:14 05:14 WBC 4.6 RBC 3.63 L Hgb 10.0 L Hct 32.6 L MCV 89.8 MCH 27.5 MCHC 30.7 L RDW 15.7 H RDW Differential 50.9 H Plt Count 248 MPV 10.3 Immature Gran % (Auto) 0.200 Neut % (Auto) 66.0 Lymph % (Auto) 24.7 [place] % (Auto) 6.3 Eos % (Auto) 2.6 Baso % (Auto) 0.2 Absolute Neuts (auto) 3.0 Absolute Lymphs (auto) 1.13 Total Counted Not Reportable Specimen Type ART Sample Site L Radial pH 7.41 Bicarbonate Actual 27.5 H POC Total CO2 29 Base Excess 3 H O2 Saturation 87 L ABG pCO2 43.7 ABG pO2 53 L Hans Test POS O2 Delivery Device Room Air Blood Gas Notified Whom HOSP Blood Gas Notified Time 2024 Sodium 142 Potassium 3.5 Chloride 108 H Carbon Dioxide 29.0 Anion Gap 5 BUN 17 Creatinine 0.72 Estim Creat Clear Calc 34.38 Est GFR (MDRD) Af Amer 101 Est GFR (MDRD) Non-Af 83 BUN/Creatinine Ratio 23.5 H Glucose 79 Calcium 8.3 L Triglycerides 57 Cholesterol 151 LDL Cholesterol 82 VLDL Cholesterol 11 HDL Cholesterol 58 Medical Necessity - Tobacco Use Smoking Status: Never smoker Tobacco Use: Non-smoker Assessment/Plan All Active Problems (Last Updated 11/23/17 @ 16:43 by Ashely Esparza) Benzodiazepine withdrawal (Acute) Aseptic loosening of prosthetic hip (Resolved) Colitis, acute (Resolved) Encephalopathy acute (Resolved) Pneumonia (Resolved) Septic shock (Resolved) Severe sepsis with acute organ dysfunction (Resolved) Impressions 1. acute benzodiazepine withdrawal with acute toxic encephalopathy 2. hypoxia - transient/resolved 3. chronic pain S with narcotic dependence 4. benzodiazepine dependence 5. chronic anxiety 6. obesity 7. HTN 8. HLD 9. non-compliance with medications/dosages keep in the hospital overnight and allow her to return to baseline. Dtr will meet with the KEISHA and DC estate planner to establish a plan for care when she returns home. She can no longer be allowed to manage her own medications. Her dtr is going to throw away all the old medication that is in the house and has obtained a current list of meds from her pharmacy. Code Visit Inpatient E&M: 23641 Subs Hosp L2
--- NOTE | 2018-07-18 15:15 | CASEMGMT ---
Per Dr. Weaver, pt needs assist with medication management and per José from [facility], they do go to [facility]. Order placed for [facility] at this time after ok from pt/daughter. Pt is active with [facility] for PT at this time and call to Amy at [facility] to notify about [facility] and that this RN CM is adding SW to order at this time, voices understanding. Pt also provided with local PCP list at this time per request. Pt/daughter voice no further questions/concerns/needs at this time. LENI order placed with addition of SW. Armin RN CM
[2018-07-18 15:41] LABS: Magnesium 2.2 mg/dL (1.6-2.6)
[2018-07-18] MEDS: oxyCODONE 5 MG Tablet 10 MG PO (21:40)
[2018-07-18] MEDS: traZODone 100 MG Tablet PO (21:40)
[2018-07-19] VITALS (10 sets, daily range): BP systolic 137–166; BP diastolic 75–103; PULSE 73–90; RESP 16; TEMP 36.8–37.1; O2SAT 93–95
[2018-07-19] MEDS: oxyCODONE 5 MG Tablet 10 MG PO ×2 (06:08→13:28)
[2018-07-19] MEDS: hydrALAZINE 20 MG/ML Vial 5 MG IV (06:09)
[2018-07-19] MEDS: 0.9% NaCl Peripheral Flush Adult/Peds IV (06:10)
[2018-07-19] MEDS: LORazepam 1 MG Tablet PO ×2 (06:32→14:29)
[2018-07-19 06:54] LABS: Hematocrit 36.8 % (37-47); Hemoglobin 11.9 g/dl (12.0-15.0); Mean Corp Hgb Conc 32.3 g/gl (32-36); Mean Corpuscular Hgb 27.9 pg (27.0-32.0); Mean Corpuscular Volume 86.2 fL (81-99); Platelet Count 282 K/mm3 (150-450); RBC Distribution Width CV 15.7 % (11.6-14.6); RBC Distribution Width SD 49.8 fl (35.1-43.9); Red Blood Count 4.27 M/mm3 (4.2-5.4); White Blood Count 7.5 K/mm3 (4.4-11.0)
[2018-07-19 06:56] LABS: Scan Indicated on CBC? Y/N NO
[2018-07-19 07:02] LABS: ALB/GLOB Ratio 0.7 RATIO (0.9-2.4); AST(SGOT) 18 U/L (15-37); Alanine Aminotransfer ALT/SGPT 12 U/L (13-56); Albumin, Serum 3.4 g/dL (3.2-5.0); Alkaline Phosphatase 77 U/L (45-117); Anion Gap 7 (5-15); BUN 12 mg/dL (7-18); Calcium,Total 8.9 mg/dL (8.5-10.1); Chloride 105 mmol/L (98-107); EST Glomerular Filtration Rate 86 mL/min (>60); Est Glom Filt Rate - Afr Amer 104 mL/min (>60); Estimated Creatinine Clearance 34.38 ml/min; Globulin 4.6 g/dL (2.2-4.2); Glucose 104 mg/dL (74-106); Phosphorus 2.4 mg/dL (2.5-4.9); Potassium 3.1 mmol/L (3.5-5.1); Sodium Level 139 mmol/L (136-145)
[2018-07-19] MEDS: Lisinopril 20 MG Tablet PO (09:23)
--- NOTE | 2018-07-19 11:20 | CASEMGMT ---
PATRICIO CRUZ assessment: Face to Face with patient for initial transition planning/care coordination assessment. RN NANCY introduced self and role at [facility], pt voices understanding and consents to assessment at this time. Pt is lying in bed in no distress at this time. Pt is A/Ox4 at this time and answers all questions appropriately at this time. Care providers, pharmacy, and demographics verified/updated at this time. PCP: Radhames Hodges but pt would like to switch to a Ronald PCP and provided with list at this time. Specialists: Abraham [facility]; Marija, cardio; ramon Dai Preferred Pharmacy: [facility] Insurance: [facility] A/B, [employer] Prescription Benefit: Silver Rx Living Will/HPOA: Pt states has LW/HPOA and that her daughter/son are HPOA's. Pt is aware that only the LW is on file at this time. LNOK: Myriam Eisenberg, daughter; Alli Waller, son Living Arrangements: Pt states lives with in ranch home with 2 steps into home and states no concerns at home at this time. Pt states that just recently had a stroke and was in a SNF/rehab for the last 30 days and was just discharged home on 07/16/18. Pt states is independent with ADL's but uses a walker to ambulate currently. Transportation: Pt states that neither her or her are cleared to drive at this time but states they have family to drives and states no transportation concerns. DME/HHC: Pt states has the following DME: cane, walker, w/c, grab bars, shower chair, and raised toilet seat. Pt states no need for any further DME at this time. Pt states is current with [facility] for PT and per note from yesterday, SW was added as well as referral to [facility] for med management. Pt states no hx of SNF in the past. Pt states no concerns with going home at time of discharge. Pt is retired. Pt states does not smoke or drink ETOH. Pt states no further concerns/needs at this time. CM to follow for any further discharge planning/needs. Advised pt to ask for CM if any further questions/concerns/needs arise, voices understanding. Plan: Home w/ [facility] and [facility]. SStaten PATRICIO CRUZ
[2018-07-19] MEDS: Heparin Injection (Vial) 5,000 UNIT/ML VIAL 5000 UNIT SC (13:26)
[2018-07-19] MEDS: Na Biphos/Potassium Phosphate PACKET 1 PACKET PO (14:23)
--- NOTE | 2018-07-19 17:13 | PCM.DC ---
- Discharge Diagnoses Current Active Problems: Current Active and Chronic Problems (Last Updated 11/23/17 @ 16:43 by Ashely Esparza) Benzodiazepine withdrawal (Acute) You will use the following diet at home:: Other - Resume previous diet Your food should be the consistency of: Regular Your liquids should be the consistency of: Regular/Thin Discharge Activity: Return to Normal Activity Call your doctor if you observe: Fever of 101 or Higher, Dizziness, Fainting spells, Chest pain, Calf discomfort Additional Instructions: Your body is addicted to Ativan (Lorazepam) and when you did not have any for a few days you went into withdrawal. Oxycodone is also an addictive drug and when you do not have it you can experience sweating, nausea, restless leg, diarrhea, and a runny nose. You would be better off if you can be weaned off these drugs. You have a lot of loss in your life and your stress level increased significantly while your was in the long-term. I really strongly encourage you to get some counselling to learn how to cope with stressors without using addictive drugs. There is a very good counselling center on [facility] called [facility] and their phone number is [phone]. They are very nice there and I think they can help you. Allergies/Adverse Reactions: Allergies hydrocodone bitartrate [From Vicodin] Allergy (Unknown, Verified 05/10/18 14:16) Rash make me crazy propoxyphene Allergy (Unknown, Verified 05/10/18 14:16) Unknown Pt unsure fentanyl Allergy (Verified 05/10/18 14:16) feels terrible NSAIDS (Non-Steroidal Anti-Inflamma Adverse Reaction (Unknown, Verified 05/10/18 14:16) Unknown doesn't work. Unsure of any reaction acetaminophen [From Tylenol] Adverse Reaction (Verified 05/10/18 14:16) Nausea diazepam [From Valium] Adverse Reaction (Verified 05/10/18 14:16) Other makes me crazy Medications to take at Discharge Naloxegol Oxalate [Movantik] 25 mg PO DAILY 04/30/17 potassium chloride ER 10 mEq tablet,extended release(part/cryst) 20 meq PO DAILY #180 tab 07/01/17 Betamethasone Valerate [Valisone Lotion] 1 applic TOPICAL BID 07/18/18 Escitalopram Oxalate [Lexapro] 20 mg PO DAILY 07/18/18 Fluticasone/Salmeterol [Advair 100-50 Diskus] 1 each IH BID 07/18/18 Lisinopril/Hydrochlorothiazide [Lisinopril-Hctz 10-12.5 mg Tab] 1 tab PO DAILY 07/18/18 Mupirocin 1 applic TOPICAL BID 07/18/18 Oxycodone [Oxyir] 10 mg PO 4X/DAY PRN 07/18/18 traZODone [Desyrel] 50 mg PO QHS 07/18/18 Lorazepam [Ativan] 1 mg PO TID PRN PRN #0 07/19/18 Na Biphos/Potassium Phosphate [Neutra-Phos Packet] 1 packet PO TID #6 packet 07/19/18 The following prescriptions were given: Na Biphos/Potassium Phosphate [Neutra-Phos Packet] 1 packet PO TID #6 packet Primary Care Physician: Radhames Hodges MD [Primary Care Provider] - Test Results: Test results from this visit will be discussed in further detail at your follow-up appointment, if applicable. Please Follow Up With: PCP - wants to see Tevin Borges When: within the next 2 weeks Proposed Discharge Date: 07/19/18
--- NOTE | 2018-07-19 17:21 | DCINST_ITS ---
- Discharge Diagnoses Current Active Problems: Current Active and Chronic Problems (Last Updated 11/23/17 @ 16:43 by Ashely Esparza) Benzodiazepine withdrawal (Acute) You will use the following diet at home:: Other - Resume previous diet Your food should be the consistency of: Regular Your liquids should be the consistency of: Regular/Thin Discharge Activity: Return to Normal Activity Call your doctor if you observe: Fever of 101 or Higher, Dizziness, Fainting spells, Chest pain, Calf discomfort Additional Instructions: Your body is addicted to Ativan (Lorazepam) and when you did not have any for a few days you went into withdrawal. Oxycodone is also an addictive drug and when you do not have it you can experience sweating, nausea, restless leg, diarrhea, and a runny nose. You would be better off if you can be weaned off these drugs. You have a lot of loss in your life and your stress level increased significantly while your was in the fpc. I really strongly encourage you to get some counselling to learn how to cope with stressors without using addictive drugs. There is a very good counselling center on [facility] called [facility] and their phone number is [phone]. They are very nice there and I think they can help you. Allergies/Adverse Reactions: Allergies hydrocodone bitartrate [From Vicodin] Allergy (Unknown, Verified 05/10/18 14:16) Rash make me crazy propoxyphene Allergy (Unknown, Verified 05/10/18 14:16) Unknown Pt unsure fentanyl Allergy (Verified 05/10/18 14:16) feels terrible NSAIDS (Non-Steroidal Anti-Inflamma Adverse Reaction (Unknown, Verified 05/10/18 14:16) Unknown doesn't work. Unsure of any reaction acetaminophen [From Tylenol] Adverse Reaction (Verified 05/10/18 14:16) Nausea diazepam [From Valium] Adverse Reaction (Verified 05/10/18 14:16) Other makes me crazy Medications to take at Discharge Naloxegol Oxalate [Movantik] 25 mg PO DAILY 04/30/17 potassium chloride ER 10 mEq tablet,extended release(part/cryst) 20 meq PO DAILY #180 tab 07/01/17 Betamethasone Valerate [Valisone Lotion] 1 applic TOPICAL BID 07/18/18 Escitalopram Oxalate [Lexapro] 20 mg PO DAILY 07/18/18 Fluticasone/Salmeterol [Advair 100-50 Diskus] 1 each IH BID 07/18/18 Lisinopril/Hydrochlorothiazide [Lisinopril-Hctz 10-12.5 mg Tab] 1 tab PO DAILY 07/18/18 Mupirocin 1 applic TOPICAL BID 07/18/18 Oxycodone [Oxyir] 10 mg PO 4X/DAY PRN 07/18/18 traZODone [Desyrel] 50 mg PO QHS 07/18/18 Lorazepam [Ativan] 1 mg PO TID PRN PRN #0 07/19/18 Na Biphos/Potassium Phosphate [Neutra-Phos Packet] 1 packet PO TID #6 packet 07/19/18 The following prescriptions were given: Na Biphos/Potassium Phosphate [Neutra-Phos Packet] 1 packet PO TID #6 packet Primary Care Physician: Radhames Hodges MD [Primary Care Provider] - Test Results: Test results from this visit will be discussed in further detail at your follow- up appointment, if applicable. Please Follow Up With: PCP - wants to see Tevin Borges When: within the next 2 weeks Proposed Discharge Date: 07/19/18
--- NOTE | 2018-07-19 17:22 | PCM.DC.SUM ---
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, w/ acetabular component Osteoarthritis of left hip (Chronic) Edema (Chronic) Constipation (Chronic) Irritable bowel syndrome (Chronic) Anxiety (Chronic) Depression (Chronic) Acute respiratory failure with hypoxia (Chronic) Respiratory acidosis (Chronic) Hypertension (Chronic) Hyperlipidemia (Chronic) GERD (gastroesophageal reflux disease) (Chronic) Fibromyalgia (Chronic) NSTEMI (non-ST elevated myocardial infarction) (Chronic) Benzodiazepine dependence Narcotic dependence Hospital Course and Treatment none Operations: None, - - left shoulder hemiarthroplasty Procedures: None Summary of Care Provided: The patient is a 78 year old F with a PMH of HTN, HLD, chronic pain S, severe anxiety, obesity, CAD, fibromyalgia, benzodiazepine dependence and narcotic dependence who was transferred to [facility] from the [facility] ED for possible seizure. she was found by her sitting in a chair shaking all over. She did not loss consciousness and was not incontinent. She did not bite her tongue and she had no hx of seizures. W/U from [facility] was negative for CVA. It later came out that she had been taking more than the prescribed amount of Ativan at home and had been out of Ativan for 5 days prior to coming to the ED. She had also been taking more than the prescribed amount of Oxycodone 20 mg although she had not yet run out. Her had recently been in the [place] for a stroke and she was afraid to stay at home by herself at night. Her DTR had come up from [place] to get things straightened out for her parents. The patient was administered Ativan in the ED and was admitted to the hospital and started on scheduled Ativan at a decreased dose. Her dtr contacted the pharmacy and got a list of medications the patient was currently prescribed. All old medication was thrown out. DC planning and the SW met with the dtr to make arrangements for proper administration of medication. she is already active with [facility]. The patient wanted a PCP in [place] as her other doctors all are in [place] and she was given a list to choose from. She chose Dr. Tevin Borges and will follow up within 2 weeks after DC. She was discharged home with her and daughter. I think she would benefit greatly from psychotherapy to learn to control her anxiety and pain without relying on addictive medications. she was discharged on decreased doses of Oxycodone and Ativan and I presume Dr. Borges will continue to taper these medications as appropriate. - Physical Exam General: Alert, Oriented x3, Cooperative, No apparent distress, - - much more calm today HEENT: Atraumatic, PERRLA, EOMI, Normocephalic Oral: Moist Mucosa Neck: Supple Lungs: Clear to auscultation, Diminished Cardiovascular: Regular rate, Regular Rhythm, Normal S1, Normal S2, No murmurs, No Gallop Abdomen: Bowel Sounds Present, Soft, Non Tender, Non-Distended Extremities: No clubbing, No cyanosis, No edema Skin: No rashes, - - dryskin Neurological: Cranial nerves II-XII grossly intact, Neuro grossly intact Psych/Mental Status: Normal Affect, Appropriate, Anxious - less anxious today andis aware that she will need further adjustments on medications Vital Signs Temp Pulse Resp BP Pulse Ox 98.7 F 76 16 165/87 H 93 07/19/18 16:58 07/19/18 16:58 07/19/18 16:58 07/19/18 16:58 07/19/18 16:58 Oxygen Flow Rate (L/min) 2 Oxygen Delivery Method Room Air Weight: 202 lb 6.15 oz Body Mass Index (BMI) 39.8 Intake and Output for Last 24 Hours 07/17/18 07/18/18 07/19/18 23:59 23:59 23:59 Intake Total 60 / 60 1100 / 1100 340 / 340 Output Total 250 / 250 1360 / 1360 Balance -190 / -190 -260 / -260 340 / 340 Laboratory Tests Past 24 Hrs 07/19/18 07/19/18 06:10 06:10 WBC 7.5 RBC 4.27 Hgb 11.9 L Hct 36.8 L MCV 86.2 MCH 27.9 MCHC 32.3 RDW 15.7 H RDW Differential 49.8 H Plt Count 282 MPV 10.0 Sodium 139 Potassium 3.1 L Chloride 105 Carbon Dioxide 27.0 Anion Gap 7 BUN 12 Creatinine 0.70 Estim Creat Clear Calc 34.38 Est GFR (MDRD) Af Amer 104 Est GFR (MDRD) Non-Af 86 BUN/Creatinine Ratio 17.0 Glucose 104 Calcium 8.9 Phosphorus 2.4 L Magnesium 2.0 Total Bilirubin 0.70 AST 18 ALT 12 L Alkaline Phosphatase 77 Total Protein 8.0 Albumin 3.4 Globulin 4.6 H Albumin/Globulin Ratio 0.7 L Discharge Activity: Return to Normal Activity Call your doctor if you observe: Fever of 101 or Higher, Dizziness, Fainting spells, Chest pain, Calf discomfort Home Medications: Medications to take at Discharge Naloxegol Oxalate [Movantik] 25 mg PO DAILY 04/30/17 potassium chloride ER 10 mEq tablet,extended release(part/cryst) 20 meq PO DAILY #180 tab 07/01/17 Betamethasone Valerate [Valisone Lotion] 1 applic TOPICAL BID 07/18/18 Escitalopram Oxalate [Lexapro] 20 mg PO DAILY 07/18/18 Fluticasone/Salmeterol [Advair 100-50 Diskus] 1 each IH BID 07/18/18 Lisinopril/Hydrochlorothiazide [Lisinopril-Hctz 10-12.5 mg Tab] 1 tab PO DAILY 07/18/18 Mupirocin 1 applic TOPICAL BID 07/18/18 Oxycodone [Oxyir] 10 mg PO 4X/DAY PRN 07/18/18 traZODone [Desyrel] 50 mg PO QHS 07/18/18 Lorazepam [Ativan] 1 mg PO TID #35 tab 07/19/18 Lorazepam [Ativan] 1 mg PO TID PRN PRN #0 07/19/18 Na Biphos/Potassium Phosphate [Neutra-Phos Packet] 1 packet PO TID #6 packet 07/19/18 Following Prescrptions Were Given to Patient: Lorazepam [Ativan] 1 mg PO TID #35 tab Na Biphos/Potassium Phosphate [Neutra-Phos Packet] 1 packet PO TID #6 packet Primary Care Physician: Radhames Hodges MD [Primary Care Provider] - Please Follow Up With: PCP - wants to see Tevin Borges When: within the next 2 weeks Disposition: Home Minutes spent on discharge:: 30 Patient Condition:: Stable Medical Necessity - Tobacco Use Smoking Status: Never smoker Tobacco Use: Non-smoker Meaningful Use Info Meaningful Use Diagnoses (Choose all that apply): None applicable Code Visit Inpatient E&M: 02621 Disch Hosp
--- NOTE | 2018-07-21 09:08 | CCN.REFER ---
PATIENT LIVES IN [facility], SO PATIENT DOES NOT QUALIFY FOR [facility]. [facility] SW IS SEEING PATIENT THIS MORNING, AND SHE IS GIVING INFORMATION ON [employer] FOR FAMILY TO PURCHASE. PATIENT'S DAUGHTER STATES PATIENT IS ALSO GETTING SOME HELP FROM A LOW INCOME HOME [facility]ALTH PROGRAM IN [facility].
== END 2018-07-19 18:02 | disposition home or self-care (01) | DRG 897 ==
PROVIDERS: Admitting Provider Internal Medicine; Family Provider Internal Medicine; PCP Internal Medicine; Visit Provider Internal Medicine
DX: F13.239 Sedative, hypnotic or anxiolytic dependence with withdrawal, unspecified (principal); G89.4 Chronic pain syndrome; R09.02 Hypoxemia; I10 Essential (primary) hypertension; E87.6 Hypokalemia; E83.39 Other disorders of phosphorus metabolism; J44.9 Chronic obstructive pulmonary disease, unspecified; Z96.642 Presence of left artificial hip joint; F41.9 Anxiety disorder, unspecified
CPT/HCPCS: 36415; 36600; 80048; 80053; 80061; 82803; 83735; 84100; 85025; 85027; 94640; 97162; 97166; 97530; A4216

== ENCOUNTER 2018-08-04 14:46 | Emergency (ER) | payer MEDICARE, OTHER, SELFPAY ==
[2018-07-17 18:57] VITALS: BMI 39.8
[2018-08-04 14:47] VITALS: BP 193/129; PULSE 98; RESP 12; TEMP 36.9; O2SAT 95; BMI 39.4
--- NOTE | 2018-08-04 15:11 | EKG12_ITS ---
Test Reason : CP Blood Pressure : / mmHG Vent. Rate : 098 BPM Atrial Rate : 098 BPM P-R Int : 188 ms QRS Dur : 126 ms QT Int : 390 ms P-R-T Axes : 052 -48 077 degrees QTc Int : 497 ms Normal sinus rhythm Left axis deviation , LAHB Left ventricular hypertrophy with QRS widening and repolarization abnormality Abnormal ECG Confirmed by REMI PURI ([id number]), film editor GRICELDA KOEHLER ([id number]) on 08/08/2018 2:08:17 PM Referred By: DARY Confirmed By:REMI PURI
--- NOTE | 2018-08-04 15:16 | RAD_ITS ---
STUDY: X-RAY CHEST REASON FOR EXAM: Female, 78 years old. Chest pain. TECHNIQUE: Single AP portable view of the chest. COMPARISON: Comparison is made with prior study dated February 28, 2017. FINDINGS: EKG electrodes are seen. The lungs are clear and expanded. There is no demonstrated pleural abnormality. Normal size heart. Normal mediastinum and jose. Normal visualized pulmonary arteries. There is atherosclerotic tortuosity of the aortic arch and descending thoracic aorta. There are diffuse degenerative changes of the visualized thoracic spine. Status post reverse left shoulder replacement. There is no demonstrated abnormality of the visualized soft tissue structures of the upper abdomen. RAD/Chest 1 View (Portable) IMPRESSION: No acute abnormality is seen. Electronically Signed: Yuri Miller, at 15:41 EDT , Service support ,
--- NOTE | 2018-08-04 15:26 | ED.DCSUM_ITS ---
- ER Visit Summary Date of Service: 08/04/18 Chief Complaint: [Chest pain] History of Present Illness: The patient is a 78 F [presents the emergency department with chest pain that started 3 days ago. Patient states the pains been intermittent. Patient describes it as sharp and stabbing and worse with deep breath. Patient tells me she has a history of chronic pericarditis. She currently rates her pain an 8 out of 10. Patient does feel somewhat short of breath with it. Patient denies recent travel or surgery. Patient states that she did have 2 falls 3 weeks ago but she does not think the pain is related. Patient has history of CHF, COPD, GERD, anxiety, depression, anemia, and pericarditis. Patient also states that her doctor has been taken her off her blood pressure medications. Patient currently taking lisinopril with hydrochlorothiazide. She denies severe headaches. She denies fever cough.] Physical Examination: [HEENT-PERRLA, EOMI. Cranial nerves II through XII grossly intact. TMs clear. Mucous membranes moist. No adenopathy. Cardiovascular-regular rate and rhythm without murmur or ectopy. Patient does have tenderness palpation over left anterior chest wall that somewhat reproduces her pain. Lungs-clear to auscultation, chest wall stable without crepitus or subcu emphysema Abdomen-normoactive bowel sounds, soft, nontender, no rebound or rigidity, no peritoneal signs. Extremities-intact ?4, normal range of motion, normal pulses, atraumatic] Test Results: [EKG obtained showed a sinus rhythm with a ventricular rate of 98 bpm with LVH noted and some early re-pole.] CBC with differential showed a white count of 5.7, hemoglobin 12.3, hematocrit 38, platelets 293. Sed rate was elevated 53. D-dimer was 1.51. Chemistries unremarkable other than a slightly depressed potassium at 3.1 which is a chronic finding for her. Troponin is less than 0.015. CTA of the chest was obtained due to the elevated d-dimer which showed no evidence for PE or dissection. Patient had a 5 mm nodule left lower lobe. Emergency Department Course and Treatment: [Patient given 4 mg of morphine and she had good pain relief.] Treatment Plan: [Patient will be given a prescription for a few oxycodone for her pain. Patient states she cannot take NSAIDs. Etiology of her pain is unclear however I do not feel is cardiac in either the she. Suspect it could be musculoskeletal versus pleurisy versus pericarditis although there are no EKGs changes to indicate this.] Disposition: [Discharged home in stable condition] Impression: [Chest pain-etiology uncertain] This note was generated with [employer] dictation software. It may contain incorrect words, spelling, and punctuation that were not noted in review of the chart prior to signing ED Disposition - Plan for ED Patient: Referrals: Radhames Hodges MD [NON-STAFF] -
[2018-08-04 15:34] VITALS: BP 187/99; PULSE 89
[2018-08-04] MEDS: Morphine 4 MG/ML Syringe IV (15:34)
[2018-08-04] MEDS: Nitroglycerin (INPATIENT USE) 0.4 MG TAB.SUBL SUBLINGUAL ×3 (15:34→15:55)
[2018-08-04] MEDS: Ondansetron 4 MG/2 ML Vial IV (15:34)
[2018-08-04 15:44] LABS: Absolute Lymphocyte Count 1.17 X10^3/ul (0.83-4.51); Absolute Neutrophil Count 4.2 X10^3/uL (2.0-7.7); Basophil# 0.01 X10^3/uL; Basophil% 0.2 % (0-1); Eosinophil# 0.08 X10^3/uL; Eosinophils% 1.4 % (0-5); Hematocrit 38.6 % (37-47); Hemoglobin 12.3 g/dl (12.0-15.0); Lymphocyte # 1.17 X10^3/ul (4.0); Lymphocyte % 20.5 % (19-41); Mean Corp Hgb Conc 31.9 g/gl (32-36); Mean Corpuscular Hgb 27.5 pg (27.0-32.0); Mean Corpuscular Volume 86.4 fL (81-99); Mean Platelet Vol. 10.1 fl (6.2-12.0); Monocyte% 5.2 % (0-10); Neutrophil # 4.15 X10^3/uL (2.7-7.7); Neutrophil % 72.5 % (47-70); Platelet Count 293 K/mm3 (150-450); RBC Distribution Width CV 14.7 % (11.6-14.6); RBC Distribution Width SD 46.1 fl (35.1-43.9); Red Blood Count 4.47 M/mm3 (4.2-5.4); White Blood Count 5.7 K/mm3 (4.4-11.0)
[2018-08-04 15:46] VITALS: BP 180/96; PULSE 93
[2018-08-04 15:49] LABS: POSITIVE COUNT NO; POSITIVE DIFFERENTIAL NO; POSITIVE MORPHOLOGY NO
[2018-08-04 15:53] LABS: D-Dimer Quantitative (DVT/PE) 1.51 FEU/ug/m (0.27-0.49)
--- NOTE | 2018-08-04 15:53 | CT_ITS ---
STUDY: CTA CHEST REASON FOR EXAM: Female, 78 years old. Chest pain with elevated d-dimer RADIATION DOSAGE (If Supplied By Facility): CTDIvol = ( 16.15 ) mGy, DLP = ( 660.59 ) mGycm TECHNIQUE: The examination was performed with the intravenous administration of 100 IV Isovue 370. Post-processing of the angiographic images was performed, with multiplanar reformation and 3D reconstruction. Individualized dose optimization techniques were used for this CT. COMPARISON: None. FINDINGS: Pulmonary arteries appear mildly dilated which may be consistent with pulmonary hypertension. Normal enhancement of the main pulmonary artery and right and left pulmonary arteries. Normal enhancement of the bilateral peripheral pulmonary arteries. There is no demonstrated pulmonary embolism. Atherosclerotic changes of the aorta without evidence for aneurysm. There is no demonstrated aortic dissection. Heart is enlarged and there is multivessel coronary artery calcification. Normal mediastinum. Normal hilar regions. Normal visualized trachea and bronchi. The lungs are well expanded. There is mild diffuse interstitial thickening most pronounced at the lung bases and mild focal bronchiectatic changes in left lower lobe. No focal infiltrates. There is a small rounded nodule in the right lower lobe measuring 5 mm in size Normal pleura. Normal chest wall structures. Dorsal spine demonstrates moderate spondylosis Moderate-sized hiatal hernia is noted Small cyst in the right lobe of the liver. CT/CTA Chest W/WO Contrast IMPRESSION: No evidence for pulmonary embolus Mild diffuse interstitial thickening and focal bronchiectatic changes at the left lung base Small noncalcified nodule in the right lower lobe measuring 5 mm in size Electronically Signed: David Escobar MD at 17:04 EDT , Service support ,
[2018-08-04 15:55] VITALS: BP 180/96; PULSE 96
[2018-08-04 16:14] VITALS: BP 187/100; PULSE 89; RESP 16; O2SAT 100
[2018-08-04 16:15] LABS: Erythrocyte Sedimentation Rate 53 mm/hr (0-30)
[2018-08-04 16:17] LABS: Anion Gap 8 (5-15); BUN 10 mg/dL (7-18); BUN/Creat Ratio 13.4 RATIO (10-20); Calcium,Total 9.1 mg/dL (8.5-10.1); Chloride 101 mmol/L (98-107); Creatinine, Serum 0.75 mg/dL (0.55-1.02); EST Glomerular Filtration Rate 80 mL/min (>60); Est Glom Filt Rate - Afr Amer 97 mL/min (>60); Estimated Creatinine Clearance 34.38 ml/min; Glucose 113 mg/dL (74-106); Potassium 3.1 mmol/L (3.5-5.1); Sodium Level 137 mmol/L (136-145)
--- NOTE | 2018-08-04 16:17 | ED.RN ---
LAB CALLED [facility] RESULT ON THIS PT OF D-DIMER OF 1.51
--- NOTE | 2018-08-04 17:29 | ED.DEP ---
ED Disposition - Plan for ED Patient: Instructions: ED Chest Pain Atypical Unkn Cause Prescriptions: Oxycodone [Oxyir] 5 mg PO Q4H PRN PRN #14 tab PRN Reason: Pain Referrals: Radhames Hodges MD [NON-STAFF] - Additional Instructions: Keep your doctor appointment next week.
[2018-08-04 17:38] VITALS: BP 161/77; PULSE 90; RESP 16; O2SAT 98
== END 2018-08-04 17:43 | disposition home or self-care (01) ==
LOC: ED 15:43
PROVIDERS: Emergency Provider Emergency Medicine; Family Provider Internal Medicine; PCP Internal Medicine
DX: R07.9 Chest pain, unspecified (principal); R91.1 Solitary pulmonary nodule; R70.0 Elevated erythrocyte sedimentation rate; R74.8 Abnormal levels of other serum enzymes; I31.9 Disease of pericardium, unspecified; I25.10 Atherosclerotic heart disease of native coronary artery without angina pectoris; I11.0 Hypertensive heart disease with heart failure; I50.9 Heart failure, unspecified; J44.9 Chronic obstructive pulmonary disease, unspecified; K58.9 Irritable bowel syndrome, unspecified; D64.9 Anemia, unspecified; K21.9 Gastro-esophageal reflux disease without esophagitis; F32.9 Major depressive disorder, single episode, unspecified; F41.9 Anxiety disorder, unspecified; R29.6 Repeated falls; Z79.899 Other long term (current) drug therapy
CPT/HCPCS: 71045; 71275; 80048; 84484; 85025; 85379; 85652; 93005; 96374; 96375; 99285; Q9967; A4216; J2405

== ENCOUNTER → 2018-09-05 14:59 | Outpatient (CLI) | payer MEDICARE, OTHER, SELFPAY ==
--- NOTE | 2018-09-05 15:04 | RAD_ITS ---
STUDY: X-RAY - LUMBAR SPINE REASON FOR EXAM: Female, 78 years old. Back pain TECHNIQUE: 5 view(s) of the lumbar spine were obtained. COMPARISON: CT of the abdomen and pelvis dated 05/16/2015 FINDINGS: There is no evidence of fracture or dislocation in the lumbar spine. The vertebral body heights are well-maintained. There are stable severe degenerative changes. RAD/L/S Spine Min 4 Views IMPRESSION: No fracture or dislocation in the lumbar spine. Stable severe degenerative changes. Electronically Signed: Adrian Cobb, at 16:34 EDT Tel , Service support ,
== END ==
PROVIDERS: Family Provider Internal Medicine; PCP Internal Medicine; Referring Provider Nurse Practitioner Family; Visit Provider Nurse Practitioner Family
DX: M54.9 Dorsalgia, unspecified (principal); M96.1 Postlaminectomy syndrome, not elsewhere classified
CPT/HCPCS: 72110

== ENCOUNTER → 2018-12-10 10:37 | Outpatient (CLI) | payer MEDICARE, OTHER, SELFPAY ==
[2018-11-07 14:07] VITALS: BMI 42.2
--- NOTE | 2018-12-10 10:46 | CT_ITS ---
STUDY: CT RIGHT SHOULDER REASON FOR EXAM: Female, 78 years old. Arthritis RADIATION DOSAGE (If Supplied By Facility): CTDIvol = ( 57.90 ) mGy, DLP = ( 1935.15 ) mGycm TECHNIQUE: The patient was scanned in a multi detector CT scanner. High resolution transaxial imaging was performed without the administration of intravenous contrast material. Sagittal and coronal images were reconstructed. Individualized dose optimization techniques were used for this CT. COMPARISON: None. FINDINGS: There is severe osteoarthritis, with severe articular joint space narrowing, osteoarthritic spurring, articular remodeling, and with articular erosions. Degenerative remodeling of the glenoid but no discrete fracture or destructive process. Fixation anchor of the lateral and anterior humerus identified. Cephalad migration of the humeral head in relation to the glenoid fossa compatible chronic rotator cuff injury. Normal coracoid process. Normal visualized lateral clavicle. There is severe hypertrophic osteoarthritis with prominent osseous hypertrophy, with a potential for impingement upon the supraspinatus muscle. There is a Type II morphology (curved), with a neutral orientation. There is a small volume joint effusion in the subdeltoid and subcoracoid bursae. CT/Extremity Upper without Contra IMPRESSION: 1. Glenohumeral and acromioclavicular joint arthrosis without erosive features. 2. Cephalad migration of the humeral head suggesting chronic rotator cuff pathology. 3. Prior surgery 4. Small joint effusion. Electronically Signed: Naveen Scott MD ([place]) at 19:06 EDT , Service support ,
== END ==
PROVIDERS: Family Provider Internal Medicine; PCP Internal Medicine; Referring Provider Specialist; Visit Provider Specialist
DX: M19.211 Secondary osteoarthritis, right shoulder (principal)
CPT/HCPCS: 73200

== ENCOUNTER → 2020-02-28 14:23 | Outpatient (CLI) | payer MEDICARE, OTHER, SELFPAY ==
[2018-11-07 14:07] VITALS: BMI 42.2
--- NOTE | 2020-02-28 14:26 | RAD_ITS ---
STUDY: X-RAY - ABDOMEN/PELVIS REASON FOR EXAM: Female, 79 years old. PAIN, BLOATING, ABDOMEN IS STIFF TO THE TOUCH TECHNIQUE: AP supine and upright views of the abdomen and pelvis. COMPARISON: None. FINDINGS: Normal visualized lung bases. Moderate-sized hiatal hernia. There is an abundance of fecal material throughout the colon. There is no demonstrated free abdominal air. The visualized liver, spleen and kidneys are grossly normal in size and morphology. Normal soft tissue structures. Dextroscoliosis of the thoracolumbar spine with degenerative disc disease. RAD/Abd Inc Decub and/or Erect IMPRESSION: Suspect constipation. Electronically Signed: Danish Miner MD at 17:01 EST Tel , Service support ,
== END ==
PROVIDERS: PCP Internal Medicine; Referring Provider Internal Medicine Gastroenterology; Visit Provider Internal Medicine Gastroenterology
DX: R10.9 Unspecified abdominal pain (principal); R14.0 Abdominal distension (gaseous)
CPT/HCPCS: 74019

== ENCOUNTER → 2020-03-28 14:11 | Outpatient (CLI) | payer MEDICARE, OTHER, SELFPAY ==
[2018-11-07 14:07] VITALS: BMI 42.2
[2020-03-28 16:56] LABS: Absolute Lymphocyte Count 2.42 X10^3/uL (0.83-4.51); Absolute Neutrophil Count 3.5 X10^3/uL (2.0-7.7); Basophil# 0.03 X10^3/uL; Basophil% 0.5 % (0-1); Eosinophil# 0.13 X10^3/uL; Hematocrit 41.3 % (37-47); Lymphocyte # 2.42 X10^3/ul (4.0); Lymphocyte % 37.7 % (19-41); Mean Corp Hgb Conc 31.5 g/dL (32-36); Mean Corpuscular Hgb 29.3 pg (27.0-32.0); Monocyte# 0.38 X10^3/uL; Monocyte% 5.9 % (0-10); NRBC Flagged by Analyzer 0 % (0-5); Neutrophil # 3.45 X10^3/uL (2.7-7.7); Neutrophil % 53.7 % (47-70); Platelet Count 249 K/mm3 (150-450); RBC Distribution Width CV 13.2 % (11.6-14.6); RBC Distribution Width SD 45.4 fl (35.1-43.9); Red Blood Count 4.44 M/mm3 (4.2-5.4); White Blood Count 6.4 K/mm3 (4.4-11.0)
[2020-03-28 17:25] LABS: Erythrocyte Sedimentation Rate 32 mm/hr (0-30)
== END ==
PROVIDERS: PCP Internal Medicine; Referring Provider Specialist; Visit Provider Specialist
DX: Z96.611 Presence of right artificial shoulder joint (principal)
CPT/HCPCS: 36415; 85025; 85652; 86140

== ENCOUNTER → 2020-04-11 09:17 | Outpatient (CLI) | payer MEDICARE, OTHER, SELFPAY ==
[2018-11-07 14:07] VITALS: BMI 42.2
--- NOTE | 2020-04-11 09:25 | RAD_ITS ---
PROCEDURE: Fluoroscopic guided right shoulder aspiration. DATE: 04/11/2020 INDICATION: Female, 79 years old. Painful right shoulder. The patient is status post right shoulder replacement. PHYSICIAN: Yuri Miller M.D. ACCESS SITE: Right shoulder. NEEDLE: 22-gauge spinal needle. FLUOROSCOPY TIME (if supplied): (0:32) minutes/seconds FINDINGS: The risks, benefits, and alternatives to the procedure were explained to the patient. The specific risks of bleeding, infection, and neurovascular injury were detailed and accepted. Witnessed informed consent was obtained. A 22-gauge spinal needle was positioned under radiographic fluoroscopic localization. No fluid was aspirated. The patient tolerated the procedure well without any immediate complications. RAD/Inj/Asp Lee Jt Should/Hip/Knee IMPRESSION: Attempted right shoulder aspiration. No fluid was aspirated. Electronically Signed: Yuri Miller, at 10:15 EST , Service support ,
== END ==
PROVIDERS: PCP Internal Medicine; Referring Provider Family Medicine; Visit Provider Family Medicine
DX: Z96.611 Presence of right artificial shoulder joint (principal)
CPT/HCPCS: 20610; 77002; Q9965

== ENCOUNTER → 2020-05-22 15:04 | Outpatient (CLI) | payer MEDICARE, OTHER, SELFPAY ==
[2018-11-07 14:07] VITALS: BMI 42.2
--- NOTE | 2020-05-22 15:09 | RAD_ITS ---
STUDY: X-RAY - LEFT FOOT CLINICAL: Female, 79 years old. Inflammatory polyarthropathy TECHNIQUE: 3 view(s) of the foot. COMPARISON: Right foot x-ray May 22, 2020 FINDINGS: There is a plantar calcaneal spur. There is visualized degenerative change of the midfoot. There is degenerative change of the carpometacarpal joints. There is demineralization of the metatarsi. There is degenerative arthrosis of the metatarsophalangeal joint of the hallux with a hallux valgus deformity. Normal tibial and fibular sesamoid bones. There is mild degenerative arthrosis of the interphalangeal joint of the great toe. Normal phalanges of the great toe. There is angulation of the second and third metatarsophalangeal joints and degenerative change. There is Hammer toe deformity of the second through fifth toes. The soft tissue structures are unremarkable. RAD/Foot min 3 Views IMPRESSION: Degenerative changes as detailed above fairly similar to the right side. There is a severe hallux valgus deformity with degenerative change. There is degenerative change of the metatarsophalangeal joints of the second and third digits with degenerative change of the midfoot. No visualized acute fracture. There is a plantar spur. Electronically Signed: Marely Aguilar MD at 2:44 EST Tel , Service support ,
--- NOTE | 2020-05-22 15:09 | RAD_ITS ---
STUDY: X-RAY - LEFT HAND REASON FOR EXAM: Female, 79 years old. Inflammatory polyarthropathy TECHNIQUE: 3 view(s) of the hand. There is a bracelet overlying the wrist. COMPARISON: None. FINDINGS: There is mild narrowing radiocarpal articulation. Degenerative distal radioulnar joint. There is diffuse demineralization of the carpal bones. Normal carpal articulations There is degenerative arthrosis of the carpometacarpal (CMC) articulation of the thumb. Normal second through fifth carpometacarpal joints. There are marginal erosions. There is narrowing of the second and third metacarpophalangeal joints. There is slight volar subluxation of the phalanges relative to the metacarpal similar to the right side but to a lesser extreme. Normal metacarpophalangeal joint of the thumb. Normal interphalangeal joint of the thumb. Normal proximal and distal phalanges of the thumb. There is metacarpophalangeal joint and predominantly second and third digit. There is mild articular joint space narrowing of the proximal and distal interphalangeal joints of the second through fifth fingers, but without erosive changes or periarticular soft tissue swelling. Normal phalanges of the second through fifth fingers. The soft tissue structures are unremarkable. RAD/Hand Min 3 Views IMPRESSION: Degenerative change of the left hand as detailed above with findings suggestive of possible rheumatoid arthritis versus psoriatic arthritis. There are also findings of osteoarthritis involving the first carpometacarpal joint. Electronically Signed: Marely Aguilar MD at 3:24 EST Tel , Service support ,
--- NOTE | 2020-05-22 15:09 | RAD_ITS ---
STUDY: X-RAY - RIGHT FOOT CLINICAL: Female, 79 years old. Inflammatory polyarthropathy TECHNIQUE: 3 view(s) of the foot. COMPARISON: None. FINDINGS: There is a plantar calcaneal spur. There is degenerative change within the tarsometatarsal joints and tarsometatarsal joints. Normal visualized subtalar, talonavicular, calcaneocuboid, tarsal and tarsometatarsal articulations. There is demineralization of the metatarsi. There is significant degenerative arthrosis of the metatarsophalangeal joint of the hallux with a hallux valgus deformity. Normal tibial and fibular sesamoid bones. There is degenerative arthrosis of the interphalangeal joint of the great toe. Normal phalanges of the great toe. There is medial apex angulation of the metatarsophalangeal joints. There is Hammer toe deformity of the second through fifth toes. Soft tissue edema overlying the midfoot. RAD/Foot min 3 Views IMPRESSION: Degenerative change including a prominent hallux valgus deformity of the metatarsophalangeal joint of the first digit. No visualized acute fracture. Plantar spur. Soft tissue edema. Electronically Signed: Marely Aguilar MD at 2:32 EST Tel , Service support ,
--- NOTE | 2020-05-22 15:09 | RAD_ITS ---
STUDY: X-RAY - RIGHT HAND REASON FOR EXAM: Female, 79 years old. Inflammatory polyarthropathy TECHNIQUE: 3 view(s) of the hand. COMPARISON: None. FINDINGS: Normal radiocarpal articulation. There is a negative ulnar variant of the distal radioulnar articulation. There is diffuse demineralization of the carpal bones. There is mild degenerative joint disease of the scaphotrapezium / trapezoid articulation. The remainder of the carpal articulations are normal. There is degenerative arthrosis of the carpometacarpal articulation of the thumb with lateral subluxation of the first metacarpus. Normal second through fifth carpometacarpal joints. There is marginal erosion. There is volar subluxation of the proximal phalanges relative to the metacarpal joints at the level at the second and third digits. There is foreshortening. There is soft tissue edema. There is visualizing hooklike osteophyte at the second and third metacarpal. Normal metacarpophalangeal joint of the thumb. Normal interphalangeal joint of the thumb. Normal proximal and distal phalanges of the thumb. Normal metacarpophalangeal joints of the second through fifth fingers. There is minimal articular joint space narrowing of the proximal and distal interphalangeal joints of the second through fifth fingers, but without erosive changes or periarticular soft tissue swelling. Normal phalanges of the second through fifth fingers. RAD/Hand Min 3 Views IMPRESSION: Degenerative change which appears to predominate the metacarpophalangeal joints of the second and third digit with subluxation with a mixed pattern of osteoarthritis at the first carpometacarpal joint. Consider possible mixed arthritides, with metatarsophalangeal predominance rheumatoid arthritis versus psoriatic arthritis. There is soft tissue edema. Electronically Signed: Marely Aguilar MD at 2:36 EST Tel , Service support ,
[2020-05-22 17:49] LABS: Absolute Lymphocyte Count 1.64 X10^3/uL (0.83-4.51); Absolute Neutrophil Count 3.8 X10^3/uL (2.0-7.7); Basophil# 0.01 X10^3/uL; Basophil% 0.2 % (0-1); Eosinophil# 0.15 X10^3/uL; Eosinophils% 2.5 % (0-5); Hematocrit 37.6 % (37-47); Hemoglobin 11.6 g/dL (12.0-15.0); Lymphocyte # 1.64 X10^3/ul (4.0); Lymphocyte % 27.5 % (19-41); Mean Corp Hgb Conc 30.9 g/dL (32-36); Mean Corpuscular Hgb 29.2 pg (27.0-32.0); Mean Corpuscular Volume 94.7 fL (81-99); Monocyte# 0.34 X10^3/uL; Monocyte% 5.7 % (0-10); NRBC Flagged by Analyzer 0 % (0-5); Neutrophil # 3.82 X10^3/uL (2.7-7.7); Neutrophil % 63.9 % (47-70); Platelet Count 267 K/mm3 (150-450); RBC Distribution Width CV 13.3 % (11.6-14.6); RBC Distribution Width SD 45.4 fl (35.1-43.9); Red Blood Count 3.97 M/mm3 (4.2-5.4)
[2020-05-22 18:49] LABS: ALB/GLOB Ratio 0.8 RATIO (0.9-2.4); AST(SGOT) 14 U/L (15-37); Alanine Aminotransfer ALT/SGPT 15 U/L (13-56); Albumin, Serum 3.4 g/dL (3.2-5.0); Alkaline Phosphatase 95 U/L (45-117); Anion Gap 7 (5-15); BUN 18 mg/dL (7-18); BUN/Creat Ratio 17.5 RATIO (10-20); Calcium,Total 8.9 mg/dL (8.5-10.1); Chloride 102 mmol/L (98-107); Creatinine, Serum 1.03 mg/dL (0.55-1.02); EST Glomerular Filtration Rate 55 mL/min (>60); Est Glom Filt Rate - Afr Amer 67 mL/min (>60); Globulin 4.5 g/dL (2.2-4.2); Glucose 121 mg/dL (74-106); Potassium 3.7 mmol/L (3.5-5.1); Protein, Total 7.9 g/dL (6.4-8.2); Sodium Level 139 mmol/L (136-145)
[2020-05-23 09:17] LABS: Hepatitis B Surface Antibody Non-Reactive; Hepatitis B Surface Antigen Non-Reactive (Nonreactive); Hepatitis C Antibody Non-Reactive (Nonreactive)
[2020-05-24 14:10] LABS: SJOGREN'S Anti-SS-A test 6.2 AI (0.0-0.9); SJOGREN'S Anti-SS-B test < 0.2 AI (0.0-0.9)
[2020-05-24 17:04] LABS: ANTINUCLEAR ANTIBODIES DIRECT Positive (Negative)
[2020-05-25 09:19] LABS: CCP IgG Antibodies 4 units (0-19)
== END ==
PROVIDERS: PCP Internal Medicine; Referring Provider Internal Medicine Rheumatology; Visit Provider Internal Medicine Rheumatology
DX: M06.4 Inflammatory polyarthropathy (principal); M79.7 Fibromyalgia; M35.00 Sjogren syndrome, unspecified; M21.41 Flat foot [pes planus] (acquired), right foot; M47.897 Other spondylosis, lumbosacral region; K21.9 Gastro-esophageal reflux disease without esophagitis; F41.9 Anxiety disorder, unspecified; I11.0 Hypertensive heart disease with heart failure; I50.9 Heart failure, unspecified; I11.9 Hypertensive heart disease without heart failure; K44.9 Diaphragmatic hernia without obstruction or gangrene; J45.909 Unspecified asthma, uncomplicated; G62.9 Polyneuropathy, unspecified; M19.042 Primary osteoarthritis, left hand; M19.041 Primary osteoarthritis, right hand; M19.072 Primary osteoarthritis, left ankle and foot; M19.071 Primary osteoarthritis, right ankle and foot; M20.12 Hallux valgus (acquired), left foot; M20.11 Hallux valgus (acquired), right foot
CPT/HCPCS: 36415; 73130; 73630; 80053; 85025; 86038; 86200; 86235; 86431; 86706; 86803; 87340

== ENCOUNTER → 2020-06-27 14:43 | Outpatient (CLI) | payer MEDICARE, OTHER, SELFPAY ==
[2018-11-07 14:07] VITALS: BMI 42.2
[2020-06-27 17:34] LABS: Absolute Lymphocyte Count 1.92 X10^3/uL (0.83-4.51); Absolute Neutrophil Count 3.7 X10^3/uL (2.0-7.7); Basophil# 0.02 X10^3/uL; Basophil% 0.3 % (0-1); Eosinophil# 0.28 X10^3/uL; Eosinophils% 4.4 % (0-5); Hematocrit 39.2 % (37-47); Hemoglobin 11.9 g/dL (12.0-15.0); Lymphocyte # 1.92 X10^3/ul (4.0); Mean Corp Hgb Conc 30.4 g/dL (32-36); Mean Corpuscular Hgb 28.3 pg (27.0-32.0); Mean Corpuscular Volume 93.1 fL (81-99); Mean Platelet Vol. 10.8 fl (6.2-12.0); Monocyte# 0.43 X10^3/uL; Monocyte% 6.7 % (0-10); NRBC Flagged by Analyzer 0 % (0-5); Neutrophil # 3.74 X10^3/uL (2.7-7.7); Neutrophil % 58.3 % (47-70); Platelet Count 313 K/mm3 (150-450); RBC Distribution Width CV 14.3 % (11.6-14.6); RBC Distribution Width SD 47.6 fl (35.1-43.9); Red Blood Count 4.21 M/mm3 (4.2-5.4); White Blood Count 6.4 K/mm3 (4.4-11.0)
[2020-06-27 20:29] LABS: ALB/GLOB Ratio 0.8 RATIO (0.9-2.4); AST(SGOT) 17 U/L (15-37); Alanine Aminotransfer ALT/SGPT 15 U/L (13-56); Albumin, Serum 3.8 g/dL (3.2-5.0); Alkaline Phosphatase 89 U/L (45-117); Anion Gap 8 (5-15); BUN 22 mg/dL (7-18); BUN/Creat Ratio 22.7 RATIO (10-20); Calcium,Total 9.3 mg/dL (8.5-10.1); Chloride 101 mmol/L (98-107); Creatinine, Serum 0.97 mg/dL (0.55-1.02); EST Glomerular Filtration Rate 59 mL/min (>60); Est Glom Filt Rate - Afr Amer 72 mL/min (>60); Globulin 4.7 g/dL (2.2-4.2); Glucose 79 mg/dL (74-106); Potassium 3.8 mmol/L (3.5-5.1); Protein, Total 8.5 g/dL (6.4-8.2); Sodium Level 136 mmol/L (136-145)
== END ==
PROVIDERS: PCP Internal Medicine; Referring Provider Internal Medicine Rheumatology; Visit Provider Internal Medicine Rheumatology
DX: M06.4 Inflammatory polyarthropathy (principal); M79.7 Fibromyalgia; M35.00 Sjogren syndrome, unspecified; M21.41 Flat foot [pes planus] (acquired), right foot; M47.897 Other spondylosis, lumbosacral region; K21.9 Gastro-esophageal reflux disease without esophagitis; F41.9 Anxiety disorder, unspecified; I11.0 Hypertensive heart disease with heart failure; I50.9 Heart failure, unspecified; K44.9 Diaphragmatic hernia without obstruction or gangrene; J45.909 Unspecified asthma, uncomplicated; G62.9 Polyneuropathy, unspecified; Z79.899 Other long term (current) drug therapy
CPT/HCPCS: 36415; 80053; 85025

== ENCOUNTER → 2020-08-12 14:06 | Outpatient (CLI) | payer MEDICARE, OTHER, SELFPAY ==
[2018-11-07 14:07] VITALS: BMI 42.2
[2020-08-12 15:20] LABS: Absolute Lymphocyte Count 1.91 X10^3/uL (0.83-4.51); Basophil# 0.03 X10^3/uL; Basophil% 0.3 % (0-1); Eosinophil# 0.16 X10^3/uL; Eosinophils% 1.9 % (0-5); Hematocrit 40.9 % (37-47); Hemoglobin 12.8 g/dL (12.0-15.0); Lymphocyte # 1.91 X10^3/ul (0.83-4.51); Lymphocyte % 22.2 % (19-41); Mean Corp Hgb Conc 31.3 g/dL (32-36); Mean Corpuscular Hgb 28.7 pg (27.0-32.0); Mean Corpuscular Volume 91.7 fL (81-99); Mean Platelet Vol. 10.6 fl (6.2-12.0); Monocyte# 0.51 X10^3/uL; Monocyte% 5.9 % (0-10); NRBC Flagged by Analyzer 0 % (0-5); Neutrophil # 5.97 X10^3/uL (2.7-7.7); Neutrophil % 69.5 % (47-70); Platelet Count 356 K/mm3 (150-450); RBC Distribution Width CV 15.2 % (11.6-14.6); RBC Distribution Width SD 51.4 fl (35.1-43.9); Red Blood Count 4.46 M/mm3 (4.2-5.4); White Blood Count 8.6 K/mm3 (4.4-11.0)
[2020-08-12 16:00] LABS: ALB/GLOB Ratio 0.8 RATIO (0.9-2.4); AST(SGOT) 16 U/L (15-37); Alanine Aminotransfer ALT/SGPT 15 U/L (13-56); Albumin, Serum 3.8 g/dL (3.2-5.0); Alkaline Phosphatase 101 U/L (45-117); Anion Gap 7 (5-15); BUN 29 mg/dL (7-18); BUN/Creat Ratio 29.4 RATIO (10-20); Chloride 101 mmol/L (98-107); Creatinine, Serum 0.99 mg/dL (0.55-1.02); EST Glomerular Filtration Rate 58 mL/min (>60); Est Glom Filt Rate - Afr Amer 70 mL/min (>60); Globulin 4.8 g/dL (2.2-4.2); Glucose 111 mg/dL (74-106); Potassium 3.8 mmol/L (3.5-5.1); Protein, Total 8.6 g/dL (6.4-8.2); Sodium Level 136 mmol/L (136-145)
== END ==
PROVIDERS: PCP Internal Medicine; Referring Provider Internal Medicine Rheumatology; Visit Provider Internal Medicine Rheumatology
DX: M05.79 Rheumatoid arthritis with rheumatoid factor of multiple sites without organ or systems involvement (principal); M79.7 Fibromyalgia; M35.00 Sjogren syndrome, unspecified; M21.41 Flat foot [pes planus] (acquired), right foot; M21.42 Flat foot [pes planus] (acquired), left foot; M47.897 Other spondylosis, lumbosacral region; K21.9 Gastro-esophageal reflux disease without esophagitis; I11.0 Hypertensive heart disease with heart failure; I50.9 Heart failure, unspecified; F41.9 Anxiety disorder, unspecified; K44.9 Diaphragmatic hernia without obstruction or gangrene; J45.909 Unspecified asthma, uncomplicated; G62.9 Polyneuropathy, unspecified; Z79.899 Other long term (current) drug therapy
CPT/HCPCS: 36415; 80053; 85025

== ENCOUNTER → 2020-10-02 14:37 | Outpatient (CLI) | payer MEDICARE, OTHER, SELFPAY ==
[2018-11-07 14:07] VITALS: BMI 42.2
--- NOTE | 2020-10-02 14:41 | RAD_ITS ---
STUDY: X-RAY - LEFT WRIST REASON FOR EXAM: Female, 80 years old. PAIN FROM INJURY TECHNIQUE: 3 view(s) of the wrist were obtained. COMPARISON: None. FINDINGS: No acute fracture or dislocation. Scaphoid cyst/erosion. Osteopenia. Moderate first carpometacarpal joint arthrosis. Mild/moderate radiocarpal arthrosis. Mild intracarpal joint arthrosis. Mild soft tissue swelling. RAD/Wrist min 3 Views IMPRESSION: Left wrist acutely intact Degenerative changes, as above Mild soft tissue swelling Electronically Signed: Tevin Joy DO at 12:36 EDT Tel , Service support ,
[2020-10-02 17:41] LABS: Absolute Lymphocyte Count 1.36 X10^3/uL (0.83-4.51); Absolute Neutrophil Count 4.5 X10^3/uL (2.0-7.7); Basophil# 0.04 X10^3/uL; Basophil% 0.6 % (0-1); Eosinophil# 0.21 X10^3/uL; Eosinophils% 3.2 % (0-5); Hematocrit 37.4 % (37-47); Hemoglobin 11.9 g/dL (12.0-15.0); Lymphocyte # 1.36 X10^3/ul (0.83-4.51); Lymphocyte % 20.9 % (19-41); Mean Corp Hgb Conc 31.8 g/dL (32-36); Mean Corpuscular Volume 91.2 fL (81-99); Mean Platelet Vol. 10.3 fl (6.2-12.0); Monocyte# 0.43 X10^3/uL; Monocyte% 6.6 % (0-10); NRBC Flagged by Analyzer 0 % (0-5); Neutrophil # 4.45 X10^3/uL (2.7-7.7); Neutrophil % 68.4 % (47-70); Platelet Count 311 K/mm3 (150-450); RBC Distribution Width CV 15.5 % (11.6-14.6); RBC Distribution Width SD 51.6 fl (35.1-43.9); White Blood Count 6.5 K/mm3 (4.4-11.0)
[2020-10-02 18:15] LABS: ALB/GLOB Ratio 0.8 RATIO (0.9-2.4); AST(SGOT) 19 U/L (15-37); Alanine Aminotransfer ALT/SGPT 22 U/L (13-56); Albumin, Serum 3.6 g/dL (3.2-5.0); Alkaline Phosphatase 96 U/L (45-117); Anion Gap 8 (5-15); BUN 21 mg/dL (7-18); BUN/Creat Ratio 26.4 RATIO (10-20); Chloride 92 mmol/L (98-107); Creatinine, Serum 0.79 mg/dL (0.55-1.02); EST Glomerular Filtration Rate 74 mL/min (>60); Est Glom Filt Rate - Afr Amer 90 mL/min (>60); Globulin 4.5 g/dL (2.2-4.2); Glucose 86 mg/dL (74-106); Protein, Total 8.1 g/dL (6.4-8.2); Sodium Level 130 mmol/L (136-145)
== END ==
PROVIDERS: Internal Medicine Rheumatology; PCP Internal Medicine; Referring Provider Nurse Practitioner Family; Visit Provider Nurse Practitioner Family
DX: M05.79 Rheumatoid arthritis with rheumatoid factor of multiple sites without organ or systems involvement (principal); Z79.899 Other long term (current) drug therapy; M79.7 Fibromyalgia; M35.00 Sjogren syndrome, unspecified; M21.41 Flat foot [pes planus] (acquired), right foot; M47.897 Other spondylosis, lumbosacral region; K21.9 Gastro-esophageal reflux disease without esophagitis; F41.9 Anxiety disorder, unspecified; I50.9 Heart failure, unspecified; I51.81 Takotsubo syndrome; K44.9 Diaphragmatic hernia without obstruction or gangrene; J45.909 Unspecified asthma, uncomplicated; G62.9 Polyneuropathy, unspecified; I11.0 Hypertensive heart disease with heart failure
CPT/HCPCS: 36415; 73110; 80053; 85025

== ENCOUNTER → 2020-11-29 15:21 | Outpatient (CLI) | payer MEDICARE, OTHER, SELFPAY ==
[2020-11-29 17:40] LABS: Absolute Lymphocyte Count 1.43 X10^3/uL (0.83-4.51); Absolute Neutrophil Count 3.3 X10^3/uL (2.0-7.7); Basophil# 0.03 X10^3/uL; Basophil% 0.6 % (0-1); Eosinophil# 0.16 X10^3/uL; Hematocrit 36.8 % (37-47); Hemoglobin 11.8 g/dL (12.0-15.0); Lymphocyte # 1.43 X10^3/ul (0.83-4.51); Lymphocyte % 27.2 % (19-41); Mean Corp Hgb Conc 32.1 g/dL (32-36); Mean Corpuscular Hgb 29.9 pg (27.0-32.0); Mean Corpuscular Volume 93.2 fL (81-99); Mean Platelet Vol. 10.6 fl (6.2-12.0); Monocyte# 0.32 X10^3/uL; Monocyte% 6.1 % (0-10); NRBC Flagged by Analyzer 0 % (0-5); Neutrophil % 62.7 % (47-70); Platelet Count 272 K/mm3 (150-450); RBC Distribution Width CV 15.8 % (11.6-14.6); RBC Distribution Width SD 52.8 fl (35.1-43.9); Red Blood Count 3.95 M/mm3 (4.2-5.4); White Blood Count 5.3 K/mm3 (4.4-11.0)
[2020-11-29 18:01] LABS: ALB/GLOB Ratio 0.9 RATIO (0.9-2.4); AST(SGOT) 17 U/L (15-37); Alanine Aminotransfer ALT/SGPT 23 U/L (13-56); Albumin, Serum 3.7 g/dL (3.2-5.0); Alkaline Phosphatase 80 U/L (45-117); Anion Gap 8 (5-15); BUN 18 mg/dL (7-18); BUN/Creat Ratio 20.5 RATIO (10-20); Calcium,Total 8.8 mg/dL (8.5-10.1); Chloride 94 mmol/L (98-107); Creatinine, Serum 0.88 mg/dL (0.55-1.02); EST Glomerular Filtration Rate 66 mL/min (>60); Est Glom Filt Rate - Afr Amer 80 mL/min (>60); Globulin 3.9 g/dL (2.2-4.2); Glucose 101 mg/dL (74-106); Potassium 3.8 mmol/L (3.5-5.1); Protein, Total 7.6 g/dL (6.4-8.2); Sodium Level 131 mmol/L (136-145)
== END ==
PROVIDERS: PCP Internal Medicine; Referring Provider Internal Medicine Rheumatology; Visit Provider Internal Medicine Rheumatology
DX: M05.79 Rheumatoid arthritis with rheumatoid factor of multiple sites without organ or systems involvement (principal); Z79.899 Other long term (current) drug therapy; M79.7 Fibromyalgia; M35.00 Sjogren syndrome, unspecified
CPT/HCPCS: 36415; 80053; 85025

== ENCOUNTER → 2021-01-24 14:16 | Outpatient (CLI) | payer MEDICARE, OTHER, SELFPAY ==
[2021-01-24 17:32] LABS: Absolute Lymphocyte Count 1.66 X10^3/uL (0.83-4.51); Absolute Neutrophil Count 3.6 X10^3/uL (2.0-7.7); Basophil# 0.04 X10^3/uL; Basophil% 0.7 % (0-1); Eosinophil# 0.15 X10^3/uL; Eosinophils% 2.7 % (0-5); Lymphocyte # 1.66 X10^3/ul (0.83-4.51); Lymphocyte % 29.4 % (19-41); Mean Corp Hgb Conc 32.4 g/dL (32-36); Mean Corpuscular Volume 95.6 fL (81-99); Mean Platelet Vol. 10.8 fl (6.2-12.0); Monocyte# 0.23 X10^3/uL; Monocyte% 4.1 % (0-10); NRBC Flagged by Analyzer 0 % (0-5); Neutrophil # 3.55 X10^3/uL (2.7-7.7); Neutrophil % 62.7 % (47-70); Platelet Count 256 K/mm3 (150-450); RBC Distribution Width CV 17.2 % (11.6-14.6); RBC Distribution Width SD 59.4 fl (35.1-43.9); Red Blood Count 3.87 M/mm3 (4.2-5.4); White Blood Count 5.7 K/mm3 (4.4-11.0)
[2021-01-24 18:04] LABS: ALB/GLOB Ratio 0.9 RATIO (0.9-2.4); AST(SGOT) 18 U/L (15-37); Alanine Aminotransfer ALT/SGPT 18 U/L (13-56); Albumin, Serum 3.8 g/dL (3.2-5.0); Alkaline Phosphatase 72 U/L (45-117); Anion Gap 7 (5-15); BUN 16 mg/dL (7-18); BUN/Creat Ratio 16.5 RATIO (10-20); Calcium,Total 9.5 mg/dL (8.5-10.1); Chloride 99 mmol/L (98-107); Creatinine, Serum 0.97 mg/dL (0.55-1.02); EST Glomerular Filtration Rate 59 mL/min (>60); Est Glom Filt Rate - Afr Amer 71 mL/min (>60); Globulin 4.4 g/dL (2.2-4.2); Glucose 90 mg/dL (74-106); Potassium 3.3 mmol/L (3.5-5.1); Protein, Total 8.2 g/dL (6.4-8.2); Sodium Level 135 mmol/L (136-145)
== END ==
PROVIDERS: PCP Internal Medicine; Referring Provider Internal Medicine Rheumatology; Visit Provider Internal Medicine Rheumatology
DX: M05.79 Rheumatoid arthritis with rheumatoid factor of multiple sites without organ or systems involvement (principal); M79.7 Fibromyalgia; M35.00 Sjogren syndrome, unspecified; M21.41 Flat foot [pes planus] (acquired), right foot; M21.42 Flat foot [pes planus] (acquired), left foot; M47.897 Other spondylosis, lumbosacral region; K21.9 Gastro-esophageal reflux disease without esophagitis; F32.A Depression, unspecified; F41.9 Anxiety disorder, unspecified; I11.0 Hypertensive heart disease with heart failure; I50.9 Heart failure, unspecified; K44.9 Diaphragmatic hernia without obstruction or gangrene; J45.909 Unspecified asthma, uncomplicated; G62.9 Polyneuropathy, unspecified; Z79.899 Other long term (current) drug therapy
CPT/HCPCS: 36415; 80053; 85025

== ENCOUNTER → 2021-02-04 15:43 | Outpatient (CLI) | payer MEDICARE, OTHER, SELFPAY ==
--- NOTE | 2021-02-04 15:45 | RAD_ITS ---
STUDY: X-RAY - RIGHT FOOT CLINICAL: Female, 80 years old. FOOT/ TOE ULCER TECHNIQUE: 3 view(s) of the foot. COMPARISON: None. FINDINGS: Normal talus, calcaneus, and tarsal bones. Small plantar calcaneal enthesophyte. Severe midfoot arthrosis primarily of the tarsometatarsal joints. Normal metatarsi. There is degenerative arthrosis of the metatarsophalangeal joint of the hallux with a hallux valgus deformity. Normal tibial and fibular sesamoid bones. Normal interphalangeal joint of the great toe. Normal phalanges of the great toe. Normal second through fifth metatarsophalangeal joints. There is Hammer toe deformity of the second through fifth toes. The soft tissue structures are unremarkable. RAD/Foot min 3 Views IMPRESSION: 1. No radiographic evidence of osteomyelitis. 2. Severe hallux valgus deformity. 3. Severe tarsometatarsal joint arthrosis. 4. Hammertoe deformities. Electronically Signed: Danish Miner MD at 8:41 EST Tel , Service support ,
== END ==
PROVIDERS: PCP Internal Medicine; Referring Provider Podiatrist; Visit Provider Podiatrist
DX: L97.512 Non-pressure chronic ulcer of other part of right foot with fat layer exposed (principal); M20.41 Other hammer toe(s) (acquired), right foot; M19.071 Primary osteoarthritis, right ankle and foot; M20.11 Hallux valgus (acquired), right foot
CPT/HCPCS: 11042; 73630

== ENCOUNTER 2021-02-05 13:00 | Outpatient (RCR) | payer MEDICARE, OTHER, SELFPAY ==
[2021-01-29 13:16] VITALS: BP 175/99; PULSE 84; RESP 16; TEMP 36.5; BMI 40.6
--- NOTE | 2021-01-29 14:35 | HP.PCM_ITS ---
History of Present Illness Date of Service: 01/29/21 Chief Complaint: right fourth toe ulcer History of Wound: This pleasant 80-year-old female that is hard of hearing was seen at the wound healing center today for right fourth painful toe ulcer. She does have a history of diabetes and her toes are very close approximation. She noticed this within the past month. She denies injury. She denies claudication. She denies burning tingling numbness. She denies odor or redness. She has been applying Neosporin. It is hard for her to keep pressure off of the site. She is seen by receipt and report clerk, Dr. Hodges. Progress of Wound: stable [facility] Medical History (Updated 01/31/21 @ 16:[address] Yumiko Shea, TOS[place]) Anemia Anxiety Arthritis Aseptic loosening of prosthetic hip Asthma Back problem Carpal tunnel syndrome Constipation COPD (chronic obstructive pulmonary disease) Coronary artery disease Depression Edema Fibromyalgia Gastrointestinal problem Generalized weakness GERD (gastroesophageal reflux disease) Heart disease Heart valve problem History of blood transfusion History of emotional problems History of pneumonia Hyperlipidemia Hypertension Irritable bowel syndrome NSTEMI (non-ST elevated myocardial infarction) Osteoarthritis of left hip Ulcer Home Medications potassium chloride 10 mEq tablet,extended release(part/cryst) 20 meq PO DAILY #180 tab 07/01/17 [Rx Last Taken 07/17/18 05:00] lisinopril-hydrochlorothiazide 1 tab PO DAILY 07/18/18 [History Last Taken Unknown] oxycodone 20 mg tablet 20 mg PO DAILY 08/09/18 [History Last Taken Unknown] lorazepam 1 mg tablet 0.5 mg PO TID PRN PRN tab 11/07/18 [History Last Taken Unknown] folic acid 1 mg PO DAILY 01/29/21 [History Last Taken Unknown] methotrexate (PF) 25 mg SUBCUT QWEEK 01/29/21 [History Last Taken Unknown] pantoprazole 20 mg PO DAILY 01/29/21 [History Last Taken Unknown] Allergy/AdvReac Type Severity Reaction Status Date / Time hydrocodone bitartrate Allergy Unknown Rash Verified 01/29/21 13:34 [From Vicodin] propoxyphene Allergy Unknown Unknown Verified 11/07/18 14:07 fentanyl Allergy feels Verified 01/29/21 13:34 terrible NSAIDS (Non-Steroidal AdvReac Unknown Unknown Verified 11/07/18 14:07 Anti-Inflamma acetaminophen [From Tylenol] AdvReac Nausea Verified 11/07/18 14:07 diazepam [From Valium] AdvReac Other Verified 11/07/18 14:07 oxycodone [From Percocet] AdvReac Other Verified 01/29/21 13:41 Family History Father Heart disease Myocardial infarction Mother Hyperlipidemia Diabetes Anxiety Arthritis Depression Sister Thyroid disorder Sister Thyroid disorder Surgical History History of bilateral knee replacement History of left heart catheterization (~01/15/15) History of total hysterectomy Status post revision of total hip replacement Social History (Updated 11/07/18 @ 14:46 by Amy GLASS, PA) Smoking Status: Never smoker alcohol intake: never caffeine: No what type of physical activity do you participate in: other frequency: 3-4 times per week ROS ROS Narrative Reports foot deformities consistent with her rheumatoid arthritis and joint pains Denies shortness of breath or chest pain or cough Denies fever, chill, nausea, vomiting, claudication, neuropathy Vital Signs Vital Signs Vital Signs: 01/29/21 13:16 Temperature 97.7 F L Temperature Source Temporal Pulse Rate 84 Respiratory Rate 16 Blood Pressure 175/99 H Blood Pressure Mean 124 Blood Pressure Source Monitor Blood Pressure Position Sitting Blood Pressure Location Right Forearm Oxygen Delivery Method Room Air Weight Weight: 85.275 kg Body Mass Index (BMI) 40.6 Physical Exam Const alert and oriented x3 General Appearance: cooperative HEENT normocephalic Extremity Extremity Narrative: No calf tenderness Diminished pulses; palpable DP and nonpalpable PT. Capillary fill time is less than 3 seconds to all digits of the right foot Edema moderate bilateral lower extremities with varicosities Muscle wasting noted Fibular deviation of toe and hammertoe deformities with prominent metatarsal heads. Lesser toes abut General Extremity: edema and no tenderness to palpation of joints or extremities; Negative for cyanosis Skin Skin Narrative: no purulence, no streaking, no odor, no infection. Perfectly circumscribed ulcer to the fourth toe without probe to bone. The ulcer bed is mainly granular and there is no purulence or erythema. There is no exposed bone or joint General Skin Exam: Negative for erythema Neuro Neuro Narrative: normal epicritic sensation via light touch-very painful Psych cooperative and affect normal Debridement Note Debridement Note Post-Debridement Measurements and Additional Note: Post-Debridement Measurements/Treatment - Nurse 1 - General Ulcer Assessment Start: 01/29/21 13:10 Freq: Status: Active Protocol: AZIZA Activity Type Activity Date Activity User E-Sign Co-Sign Detail Recorded Client Recorded Date Recorded By Document 01/29/21 13:16 [facility] [id number] 01/29/21 13:33 [facility] 01/29/21 13:16 - Today's Visit Information Type of service Initial Visit Arrival Mode Ambulatory, Walker Transfer Assistance None Patient Identification Verified (Name & Yes ) Patient Requires Transmission-Based No Precautions Height and Weight Height 4 ft 9 in Weight 85.275 kg Weight in Pounds 188.0 lbs Weight Measurement Method Stated by Patient Body Mass Index (BMI) 40.6 BMI Classification Obese BSA - Rito 1.75 Vital Signs Temperature (97.8 F-99.1 F) 97.7 F L Temperature Source Temporal Pulse Rate (60-100) 84 Pulse Location Monitor Respiratory Rate (12-18) 16 Respiratory rate source Observation Oxygen Delivery Method Room Air Blood Pressure (90/60-120/80) 175/99 H Blood Pressure Mean 124 Source Monitor Position Sitting Blood Pressure Location Right Forearm History Since Last Visit- (Skip if this is Patient's initial visit) Left Footwear Regular Shoe Right Footwear Regular Shoe Pain Scale: 0-10 Numeric Is Patient Pain Free? Yes Lower Extremity Assessment/ Foot Assessment/ Toe Nail Assessment Right -Posterior Tibial Palpable Yes -Posterior Tibial Doppler Multiphasic -Dorsalis Pedis Palpable Yes -Dorsalis Pedis Doppler Multiphasic -Extremity Color Pale -Hair Growth on Legs No -Hair Growth on Toes No -Temperature of Extremity Cool -Other Deformity No -Prior Foot Ulcer No -Charcot Joint No -Prior Amputation No -Thick Yes -Discolored Yes -Deformed No -Improper Length & Hygeine No Left -Posterior Tibial Palpable Yes -Posterior Tibial Doppler Multiphasic -Dorsalis Pedis Palpable Yes -Dorsalis Pedis Doppler Multiphasic -Extremity Color Pale -Hair Growth on Legs No -Hair Growth on Toes No -Temperature of Extremity Cool -Capillary Refill Less than 3 Seconds -Other Deformity No -Prior Foot Ulcer No -Charcot Joint No -Prior Amputation No -Thick Yes -Discolored Yes -Deformed No -Improper Length & Hygeine No Neuropathy Assessment Feet - Top Side and Bottom <Entered> (a) Communication Assessment Preferred language Swedish Gang Pusher Required No Able to Read Yes Able to Write Yes Communication Tools None Right Hearing Abillity Normal Left Hearing Abillity Normal Visual Assistive Devices Glasses Teaching Assessment Preferences Verbal,Written, Audio/Visual, Demonstration Barriers to Learning None Readiness To Learn Excellent Willingness to Engage in Self Management High Activies Readiness to Engage in Self Management High Activities Anxiety Level Calm Cooperation Cooperative Perception Coherent Interest in Health Problem Asks Questions Education Importance Acknowledges Need Does Patient Smoke tobacco or other No substances Smoking Status Never smoker Is Patient Diabetic No Functional Assessment Recent Decline in Ability to Perform Denies Any Declines Culture/Anabaptist/Rolloff Driver Cultural/Anabaptist Needs that may affect No Treatment Plan Teaching: Wound Center *Welcome to the Wound Center -Person Taught Patient -Teaching Method Discussion -Response to teaching Verbalize understanding Welcome to the Wound Care Center Swedish (a) 1 - + 2 - - 3 - + 4 - - 5 - + 6 - - WC - Nurse 1 - General Ulcer Measurement Start: 01/29/21 13:10 Freq: Status: Active Protocol: Activity Type Activity Date Activity User E-Sign Co-Sign Detail Recorded Client Recorded Date Recorded By Document 01/29/21 13:16 [facility] [id number] 01/29/21 13:33 [facility] 01/29/21 13:16 Wound Center Nurse 1 #1- R 4TH TOE -Combined with other wound No -Current Size (cm) - Length 0.5 -Current Size (cm) - Width 0.3 -Current Size (cm) - Depth 0.2 -Total Square Cm 0.15 -Date of Last Picture (Recall this 01/29/21 field) -Photo Taken Yes -Epithelialization None Present -Tunneling No -Undermining/Tunneling No -Circular Undermining No -Exudate Amt Small -Exudate Type Serosanguineous -Wound Margin Distinct, Outline Attached -Granulation Amt Large (67-100%) -Granulation Quality Red -Slough/Fibrin No -Necrosis Amt None Present (0 %) -Texture (Jayla-wound Skin Appearance) Assessed, Scarring -Moisture (Jayla-wound Skin Appearance) Assessed, Maceration -Color (Jayla-wound Skin Appearance) No Abnormality, Erythema,Palor -Temperature (Jayla-wound Skin No Abnormality Appearance) (Pt Warm) -Tenderness on Palpation (Jayla-wound No Skin Appearance) -Ulcer Cleansing Rinsed/ Irrigated with Saline -Foul Odor after Cleansing No -Anesthetic Used 5% Lidocaine Gel Lower Limb Edema Present Yes Right Calf (cm) 40.6 Right Ankle (cm) 27.5 Left Calf (cm) 40.1 Left Ankle (cm) 28.3 - Nurse 2 - General Ulcer CM Notes Start: 01/29/21 13:10 Freq: Status: Active Protocol: Activity Type Activity Date Activity User E-Sign Co-Sign Detail Recorded Client Recorded Date Recorded By Document 01/29/21 13:57 [id number] 01/29/21 14:09 01/29/21 13:57 Wound Center Nurse 2 #1- R 4TH TOE -Time 13:57 -Correct Patient No -Correct Side, Site, Position No -Correct Procedure No -Procedure Performed No -Tunneling No -Undermining/Tunneling No -Circular Undermining No -Wound/Ulcer Outcome Not Healed -Bleeding Controlled with NA -Offloading Yes -Type of Offloading Surgical Shoe -Treatment Response Procedure Tolerated Well Pain Scale: 0-10 Numeric Is Patient Pain Free? Yes - Nurse 3 - General Ulcer D/C NN Start: 01/29/21 13:10 Freq: Status: Active Protocol: Activity Type Activity Date Activity User E-Sign Co-Sign Detail Recorded Client Recorded Date Recorded By Document 01/29/21 14:18 [id number] 01/29/21 14:19 01/29/21 14:18 Wound Care Nurse 3 #1- R 4TH TOE -Ulcer Cleansing Rinsed/ Irrigated with Saline -Primary Dressing Applied C Hydrogel ($) -Primary Dressing Covered/Secured with Dry Gauze,Dry Gauze & Roll Gauze,Secured with Tape Treatment Response Procedure Tolerated Well Pain Scale: 0-10 Numeric Is Patient Pain Free? Yes - Visit Discharge Discharge Condition Stable Ambulatory Status Wheelchair Transportation Private Auto Medication Reconcilliation completed & No provided to patient/care provider Clinical Summary of Care Provided Yes Assessment/Plan Assessment/Plan (1) Ulcer of right foot with fat layer exposed: CODE(S): L97.512 - Non-pressure chronic ulcer of other part of right foot with fat layer exposed (2) Hammer toe of right foot: CODE(S): M20.41 - Other hammer toe(s) (acquired), right foot (3) Rheumatoid arthritis: CODE(S): M06.9 - Rheumatoid arthritis, unspecified (4) Other specified peripheral vascular diseases: CODE(S): I73.89 - Other specified peripheral vascular diseases (5) Venous insufficiency (chronic) (peripheral): CODE(S): I87.2 - Venous insufficiency (chronic) (peripheral) PLAN: I reviewed and discussed his case today. Debridement was not performed today because she is not able to tolerate this due to pain. The following work up and care recommendations were made: Dressing: Change daily with hydrogel and gauze Wash: Antibacterial soap and water. Avoid soaking Tissue growth optimization: This will be considered after her initial work-up if continued delayed healing is noted Offload: I recommend wearing a surgical shoe and this was offered today. To also apply the gauze to the base of the interdigital space to take pressure off of the 2 abutting toes. This was demonstrated Vascular: I recommend noninvasive vascular studies screening test including HUGH, systolic toe pressure and segmental limb pressures. An order was provided Edema: To wear Tubigrip. To elevate. She will also be screened with a venous duplex Doppler with reflux evaluation to assess for venous insufficiency Infection: She was reassured no local signs of infection are noted. She was advised to monitor. I do not recommend antibiotics. Pain: Debridement was avoided today due to pain intolerance. Her also will be better offloaded to reduce pain. She already feels better with the toe spacer in place. Host factors: Her rheumatoid arthritis is noted. She understands prednisone may reduce her healing capabilities. Is noted she is only taking methotrexate for her rheumatoid arthritis and was advised to follow-up with her receipt and report clerk. I recommend nutritional supplementation to optimize healing with Bryan and by eating whole food low processed diet. Diagnostic data: I recommend foot x-rays in order was provided today. I did review her most recent labs that are on file from 10?29 with a white blood cell count of 5.7. Is also noted that she does have some reduced kidney function with a GFR of 59. I answered all the patient's questions. To return to the wound healing center in 1 week or call sooner if the patient has any questions or concerns. The medical decision making level is moderate. There is noted moderate risk of morbidity after considering this treatment plan and diagnostic data. Considerations were given to prescription management, decisions regarding surgical options, or social determinants of health. The medical decision making level is moderate based on data including at least three of the following: review of prior external notes, review of a test, ordering a test, assessment requiring an independent historian.
[2021-02-05 13:02] VITALS: BP 158/99; PULSE 75; RESP 16; TEMP 35.7; BMI 40.6
--- NOTE | 2021-02-05 16:04 | PN.PCM_ITS ---
History of Present Illness Date of Service: 02/05/21 Chief Complaint: right fourth toe ulcer History of Wound: This pleasant 80-year-old female that is hard of hearing was seen at the wound healing center today for right fourth painful toe ulcer. She does have a history of rheumatoid arthritis and her toes are very close approximation. She denies claudication. She denies burning tingling numbness. She denies odor or redness. It is hard for her to keep pressure off of the site; she has been using a gauze roll toe spacer this past week. She is seen by hazardous materials handler, Dr. Hodges. Progress of Wound: stable Objective Data Objective Data Vital Signs: Vital Signs Temp Pulse Resp BP 96.2 F L 75 16 158/99 H 02/05/21 13:02 02/05/21 13:02 02/05/21 13:02 02/05/21 13:02 Oxygen Delivery Method Room Air Weight: 85.275 kg Body Mass Index (BMI) 40.6 Physical Exam Const alert and oriented x3 General Appearance: cooperative HEENT normocephalic Extremity Extremity Narrative: No calf tenderness Diminished pulses; palpable DP and nonpalpable PT. Capillary fill time is less than 3 seconds to all digits of the right foot Edema moderate bilateral lower extremities with varicosities Muscle wasting noted Fibular deviation of toe and hammertoe deformities with prominent metatarsal heads. Lesser toes abut General Extremity: edema and no tenderness to palpation of joints or extremities; Negative for cyanosis Skin Skin Narrative: no purulence, no streaking, no odor, no infection. Perfectly circumscribed ulcer to the fourth toe without probe to bone. The ulcer bed is mainly granular and there is no purulence or erythema. There is no exposed bone or joint General Skin Exam: Negative for erythema Neuro Neuro Narrative: normal epicritic sensation via light touch-very painful Psych cooperative and affect normal Debridement Note Debridement Note Wound debrided: right fourth toe Type of Debridement: Excisional debridement Anesthesia Used: 4% Lidocaine Solution Depth: in the subcutaneous layer Percentage of wound debrided: 100 Instrument Used: #15 blade Tissue Removed: fibrous, devitalized subcutaneous, biofilm, slough Severity: Fat Layer Exposed Amount of bleeding with debridement: Mild Bleeding Controlled with: Pressure Patient tolerated procedure: Patient tolerated procedure well Post-Debridement Measurements and Additional Note: Post-Debridement Measurements/Treatment WC - Nurse 1 - General Ulcer Assessment Start: 01/29/21 13:10 Freq: Status: Active Protocol: WC.LOWEXT Activity Type Activity Date Activity User E-Sign Co-Sign Detail Recorded Client Recorded Date Recorded By Document 01/29/21 13:16 [facility] [id number] 01/29/21 13:33 [facility] Document 02/05/21 13:02 [facility] [id number] 02/05/21 13:07 [facility] 01/29/21 02/05/21 13:16 13:02 WC - Today's Visit Information Type of service Initial Visit Follow-up Visit (Physician/BROOM STITCHER ) Arrival Mode Ambulatory, Ambulatory, Walker Walker Transfer Assistance None None Patient Identification Verified (Name & Yes Yes ) Patient Requires Transmission-Based No No Precautions Height and Weight Height 4 ft 9 in Weight 85.275 kg Weight in Pounds 188.0 lbs Weight Measurement Method Stated by Patient Body Mass Index (BMI) 40.6 40.6 BMI Classification Obese Obese BSA - Rito 1.75 Vital Signs Temperature (97.8 F-99.1 F) 97.7 F L 96.2 F L Temperature Source Temporal Temporal Pulse Rate (60-100) 84 75 Pulse Location Monitor Monitor Respiratory Rate (12-18) 16 16 Respiratory rate source Observation Observation Oxygen Delivery Method Room Air Room Air Blood Pressure (90/60-120/80) 175/99 H 158/99 H Blood Pressure Mean (mm Hg) 124 118 Source Monitor Monitor Position Sitting Sitting Blood Pressure Location Right Forearm Right Arm Have you changed medications since your Yes last visit? Any new allergies or adverse reactions No Had a fall/change in ADL's that may No increase risk of falls Signs or symptoms of abuse and/or No neglect since last visit Have you been in the hospital since your No last visit? Has dressing in place as prescribed Yes Has compression in place as prescribed N/A Has offloadiing in place as prescribed Yes Experienced any changes in pain level or No management History Since Last Visit- (Skip if this is Patient's initial visit) Left Footwear Regular Shoe Regular Shoe Right Footwear Regular Shoe Surgical Shoe with pressure relief insole Pain Scale: 0-10 Numeric Is Patient Pain Free? Yes Lower Extremity Assessment/ Foot Assessment/ Toe Nail Assessment Right -Posterior Tibial Palpable Yes -Posterior Tibial Doppler Multiphasic -Dorsalis Pedis Palpable Yes -Dorsalis Pedis Doppler Multiphasic -Extremity Color Pale -Hair Growth on Legs No -Hair Growth on Toes No -Temperature of Extremity Cool -Other Deformity No -Prior Foot Ulcer No -Charcot Joint No -Prior Amputation No -Thick Yes -Discolored Yes -Deformed No -Improper Length & Hygeine No Left -Posterior Tibial Palpable Yes -Posterior Tibial Doppler Multiphasic -Dorsalis Pedis Palpable Yes -Dorsalis Pedis Doppler Multiphasic -Extremity Color Pale -Hair Growth on Legs No -Hair Growth on Toes No -Temperature of Extremity Cool -Capillary Refill Less than 3 Seconds -Other Deformity No -Prior Foot Ulcer No -Charcot Joint No -Prior Amputation No -Thick Yes -Discolored Yes -Deformed No -Improper Length & Hygeine No Neuropathy Assessment Feet - Top Side and Bottom <Entered> (a) Communication Assessment Preferred language Maltese Behavior Clinician Required No Able to Read Yes Able to Write Yes Communication Tools None Right Hearing Abillity Normal Left Hearing Abillity Normal Visual Assistive Devices Glasses Teaching Assessment Preferences Verbal,Written, Audio/Visual, Demonstration Barriers to Learning None Readiness To Learn Excellent Willingness to Engage in Self Management High Activies Readiness to Engage in Self Management High Activities Anxiety Level Calm Cooperation Cooperative Perception Coherent Interest in Health Problem Asks Questions Education Importance Acknowledges Need Does Patient Smoke tobacco or other No substances Smoking Status Never smoker Is Patient Diabetic No Functional Assessment Recent Decline in Ability to Perform Denies Any Declines Culture/Orthodoxy/Videogame Tester Cultural/Orthodoxy Needs that may affect No Treatment Plan Teaching: Wound Center *Welcome to the Wound Center -Person Taught Patient -Teaching Method Discussion -Response to teaching Verbalize understanding Welcome to the Wound Care Center Maltese (a) 1 - + 2 - - 3 - + 4 - - 5 - + 6 - - WC - Nurse 1 - General Ulcer Measurement Start: 01/29/21 13:10 Freq: Status: Active Protocol: Activity Type Activity Date Activity User E-Sign Co-Sign Detail Recorded Client Recorded Date Recorded By Document 01/29/21 13:16 [facility] [id number] 01/29/21 13:33 [facility] Document 02/05/21 13:02 [facility] [id number] 02/05/21 13:07 [facility] 01/29/21 02/05/21 13:16 13:02 Wound Center Nurse 1 #1- R 4TH TOE -Combined with other wound No No -Current Size (cm) - Length 0.5 0.3 -Current Size (cm) - Width 0.3 0.3 -Current Size (cm) - Depth 0.2 0.3 -Total Square Cm 0.15 0.09 -Date of Last Picture (Recall this 01/29/21 field) -Photo Taken Yes No -Epithelialization None Present Small 1-33% -Tunneling No No -Undermining/Tunneling No No -Circular Undermining No No -Exudate Amt Small Small -Exudate Type Serosanguineous Serosanguineous -Wound Margin Distinct, Distinct, Outline Outline Attached Attached -Granulation Amt Large (67-100%) Large (67-100%) -Granulation Quality Red Red -Slough/Fibrin No No -Necrosis Amt None Present (0 None Present (0 %) %) -Texture (Jayla-wound Skin Appearance) Assessed, Assessed Scarring -Moisture (Jayla-wound Skin Appearance) Assessed, Assessed, Maceration Maceration -Color (Jayla-wound Skin Appearance) No Abnormality, Assessed, Erythema,Palor Erythema,Palor -Temperature (Jayla-wound Skin No Abnormality No Abnormality Appearance) (Pt Warm) (Pt Warm) -Tenderness on Palpation (Jayla-wound No Yes Skin Appearance) -Ulcer Cleansing Rinsed/ Rinsed/ Irrigated with Irrigated with Saline Saline -Foul Odor after Cleansing No No -Anesthetic Used 5% Lidocaine 5% Lidocaine Gel Gel Lower Limb Edema Present Yes Right Calf (cm) 40.6 Right Ankle (cm) 27.5 Left Calf (cm) 40.1 Left Ankle (cm) 28.3 WC - Nurse 2 - General Ulcer CM Notes Start: 01/29/21 13:10 Freq: Status: Active Protocol: Activity Type Activity Date Activity User E-Sign Co-Sign Detail Recorded Client Recorded Date Recorded By Document 01/29/21 13:57 JF [id number] 01/29/21 14:09 Document 02/05/21 13:23 JF [id number] 02/05/21 13:28 01/29/21 02/05/21 13:57 13:23 Wound Center Nurse 2 #1- R 4TH TOE -Time 13:57 13:24 -Correct Patient No Yes -Correct Side, Site, Position No Yes -Correct Procedure No Yes -Procedure Performed No Yes -Type of Procedure Debridement -Clinical Debridement Subcutaneous -Tissue Removed Subcutaneous -Post Debridement (cm) - Length 0.4 -Post Debridement (cm) - Width 0.4 -Post Debridement (cm) - Depth 0.1 -Total Square (Post) (cm) 0.16 -Area of Debridement (cm) - Length 0.4 -Area of Debridement (cm) - Width 0.4 -Total Square (Area) (cm) 0.16 -Tunneling No -Undermining/Tunneling No No -Circular Undermining No No -Wound/Ulcer Outcome Not Healed Not Healed -Ulcer Cleansing Rinsed/ Irrigated with Saline -Foul Odor after Cleansing No -Bioengineered Tissue No -Bleeding Controlled with NA Pressure -Offloading Yes Yes -Type of Offloading Surgical Shoe Camwalker -Treatment Response Procedure Procedure Tolerated Well Tolerated Well -Debridement - Subq, 1st 20sq cm Yes Pain Scale: 0-10 Numeric Is Patient Pain Free? Yes Yes - Nurse 3 - General Ulcer D/C NN Start: 01/29/21 13:10 Freq: Status: Active Protocol: Activity Type Activity Date Activity User E-Sign Co-Sign Detail Recorded Client Recorded Date Recorded By Document 01/29/21 14:18 [id number] 01/29/21 14:19 RB Document 02/05/21 13:44 RB [id number] 02/05/21 13:46 RB 01/29/21 02/05/21 14:18 13:44 Wound Care Nurse 3 #1- R 4TH TOE -Ulcer Cleansing Rinsed/ Rinsed/ Irrigated with Irrigated with Saline Saline -Primary Dressing Applied C Hydrogel ($) -Other Dressing hyrdogel 2x2 between 4th toe -Primary Dressing Covered/Secured with Dry Gauze,Dry Dry Gauze,Dry Gauze & Roll Gauze & Roll Gauze,Secured Gauze,Secured with Tape with Tape Treatment Response Procedure Procedure Tolerated Well Tolerated Well Pain Scale: 0-10 Numeric Is Patient Pain Free? Yes Yes - Visit Discharge Discharge Condition Stable Stable Ambulatory Status Wheelchair Ambulatory Transportation Private Auto Private Auto Medication Reconcilliation completed & No No provided to patient/care provider Clinical Summary of Care Provided Yes Yes Assessment/Plan Assessment/Plan (1) Ulcer of right foot with fat layer exposed: CODE(S): L97.512 - Non-pressure chronic ulcer of other part of right foot with fat layer exposed (2) Hammer toe of right foot: CODE(S): M20.41 - Other hammer toe(s) (acquired), right foot (3) Rheumatoid arthritis: CODE(S): M06.9 - Rheumatoid arthritis, unspecified (4) Other specified peripheral vascular diseases: CODE(S): I73.89 - Other specified peripheral vascular diseases (5) Venous insufficiency (chronic) (peripheral): CODE(S): I87.2 - Venous insufficiency (chronic) (peripheral) PLAN: I reviewed and discussed his case today. Debridement was performed today as noted. The following work up and care recommendations were made: Dressing: Change daily with hydrogel and gauze Wash: Antibacterial soap and water. Avoid soaking Tissue growth optimization: This will be considered after her initial work-up if continued delayed healing is noted Offload: I recommend wearing a surgical shoe and this was offered today. To also apply the gauze to the base of the interdigital space to take pressure off of the 2 abutting toes. This was demonstrated Vascular: I recommend noninvasive vascular studies screening test including HUGH, systolic toe pressure and segmental limb pressures. An order was provided and she is waiting to schedule. Edema: To wear Tubigrip. To elevate. She will also be screened with a venous duplex Doppler with reflux evaluation to assess for venous insufficiency Infection: She was reassured no local signs of infection are noted. She was advised to monitor. I do not recommend antibiotics. Pain: Debridement was avoided today due to pain intolerance. Her also will be better offloaded to reduce pain. She already feels better with the toe spacer in place. Host factors: Her rheumatoid arthritis is noted. She understands prednisone may reduce her healing capabilities. Is noted she is only taking methotrexate for her rheumatoid arthritis and was advised to follow-up with her hazardous materials handler. I recommend nutritional supplementation to optimize healing with Bryan and by eating whole food low processed diet. Diagnostic data: I recommend foot x-rays in order was provided today. I did review her most recent labs that are on file from ?29 with a white blood cell count of 5.7. Is also noted that she does have some reduced kidney function with a GFR of 59. I answered all the patient's questions. To return to the wound healing center in 1 week or call sooner if the patient has any questions or concerns. The medical decision making level is limited based on data including the review of prior external notes, review of a prior test, or ordering a test. The medical decision making level is low. There is noted low risk of morbidity after considering this treatment plan and diagnostic data.
== END 2021-02-25 23:59 ==
LOC: WC 13:00
PROVIDERS: PCP Internal Medicine; Visit Provider Podiatrist
DX: E11.621 Type 2 diabetes mellitus with foot ulcer (principal); L97.512 Non-pressure chronic ulcer of other part of right foot with fat layer exposed; E11.51 Type 2 diabetes mellitus with diabetic peripheral angiopathy without gangrene; J44.9 Chronic obstructive pulmonary disease, unspecified; I25.10 Atherosclerotic heart disease of native coronary artery without angina pectoris; M79.7 Fibromyalgia; K21.9 Gastro-esophageal reflux disease without esophagitis; E78.5 Hyperlipidemia, unspecified; I25.2 Old myocardial infarction; I10 Essential (primary) hypertension; I51.9 Heart disease, unspecified; K58.9 Irritable bowel syndrome, unspecified; Z79.899 Other long term (current) drug therapy; M20.41 Other hammer toe(s) (acquired), right foot; M06.9 Rheumatoid arthritis, unspecified; I87.2 Venous insufficiency (chronic) (peripheral)
CPT/HCPCS: 11042; 99214; G0463

== ENCOUNTER 2021-03-05 15:45 | Outpatient (RCR) | payer MEDICARE, OTHER, SELFPAY ==
[2021-02-26 00:09] VITALS: BP 158/99; PULSE 75; RESP 16; TEMP 35.7; BMI 40.6
[2021-02-26 15:09] VITALS: BP 190/97; PULSE 98; RESP 18; TEMP 36.5; BMI 40.6
--- NOTE | 2021-02-26 15:38 | PCM.WC.PN ---
History of Present Illness Date of Service: 02/26/21 Chief Complaint: right fourth toe ulcer History of Wound: This pleasant 80-year-old female that is hard of hearing was seen at the wound healing center today for right fourth painful toe ulcer. She does have a history of rheumatoid arthritis and her toes are very close approximation. She denies claudication. She denies burning tingling numbness. She denies odor or redness. It is hard for her to keep pressure off of the site; she has been using a gauze roll toe spacer this past week. She is seen by architectural associate, Dr. Hodges. Progress of Wound: stable Objective Data Objective Data Vital Signs: Vital Signs Temp Pulse Resp BP 97.7 F L 98 18 190/97 H 02/26/21 15:09 02/26/21 15:09 02/26/21 15:09 02/26/21 15:09 Weight: 85.275 kg Body Mass Index (BMI) 40.6 Physical Exam Const alert and oriented x3 General Appearance: cooperative HEENT normocephalic Extremity Extremity Narrative: No calf tenderness Diminished pulses; palpable DP and nonpalpable PT. Capillary fill time is less than 3 seconds to all digits of the right foot Edema moderate bilateral lower extremities with varicosities Muscle wasting noted Fibular deviation of toe and hammertoe deformities with prominent metatarsal heads. Lesser toes abut General Extremity: edema and no tenderness to palpation of joints or extremities; Negative for cyanosis Skin Skin Narrative: no purulence, no streaking, no odor, no infection. Perfectly circumscribed ulcer to the fourth toe without probe to bone. The ulcer bed is mainly granular and there is no purulence or erythema. There is no exposed bone or joint General Skin Exam: Negative for erythema Neuro Neuro Narrative: normal epicritic sensation via light touch-very painful Psych cooperative and affect normal Debridement Note Debridement Note Wound debrided: right fourth toe Wound Grade/Stage: Type of Debridement: Excisional debridement Anesthesia Used: 4% Lidocaine Solution Depth: in the subcutaneous layer Percentage of wound debrided: 100 Instrument Used: #15 blade Tissue Removed: fibrous, devitalized subcutaneous, biofilm, slough Severity: Fat Layer Exposed Amount of bleeding with debridement: Mild Bleeding Controlled with: Pressure Patient tolerated procedure: Patient tolerated procedure well Post-Debridement Measurements and Additional Note: Post-Debridement Measurements/Treatment WC - Nurse 1 - General Ulcer Assessment Start: 02/26/21 15:08 Freq: Status: Active Protocol: AZIZA Activity Type Activity Date Activity User E-Sign Co-Sign Detail Recorded Client Recorded Date Recorded By Document 02/26/21 15:09 RB [id number] 02/26/21 15:10 RB 02/26/21 15:09 WC - Today's Visit Information Type of service Follow-up Visit (Physician/SCALE AGENT ) Arrival Mode Ambulatory, Walker Transfer Assistance None Patient Identification Verified (Name & Yes ) Patient Requires Transmission-Based No Precautions Height and Weight Body Mass Index (BMI) 40.6 BMI Classification Obese Vital Signs Temperature (97.8 F-99.1 F) 97.7 F L Temperature Source Temporal Pulse Rate (60-100) 98 Pulse Location Monitor Respiratory Rate (12-18) 18 Respiratory rate source Observation Blood Pressure (90/60-120/80) 190/97 H Blood Pressure Mean (mm Hg) 128 Source Monitor Position Sitting Blood Pressure Location Left Arm History Since Last Visit- (Skip if this is Patient's initial visit) Have you changed medications since your No last visit? Any new allergies or adverse reactions No Had a fall/change in ADL's that may No increase risk of falls Signs or symptoms of abuse and/or No neglect since last visit Have you been in the hospital since your No last visit? Has dressing in place as prescribed Yes Has compression in place as prescribed No Has offloadiing in place as prescribed No Experienced any changes in pain level or No management - Nurse 1 - General Ulcer Measurement Start: 02/26/21 15:08 Freq: Status: Active Protocol: Activity Type Activity Date Activity User E-Sign Co-Sign Detail Recorded Client Recorded Date Recorded By Document 02/26/21 15:09 [id number] 02/26/21 15:10 RB 02/26/21 15:09 Wound Center Nurse 1 #1- R 4TH TOE -Combined with other wound No -Current Size (cm) - Length 0.2 -Current Size (cm) - Width 0.2 -Current Size (cm) - Depth 0.2 -Total Square Cm 0.04 -Tunneling No -Undermining/Tunneling No -Circular Undermining No -Exudate Amt Small -Exudate Type Serosanguineous -Wound Margin Flat & Intact -Granulation Amt Medium (34-66%) -Granulation Quality Paul -Slough/Fibrin Yes -Necrosis Amt Medium (34-66%) -Necrotic Tissue Type Adherent Slough -Structure Exposed N/A -Texture (Jayla-wound Skin Appearance) Assessed -Moisture (Jayla-wound Skin Appearance) Assessed -Color (Jayla-wound Skin Appearance) Assessed -Temperature (Jayla-wound Skin No Abnormality Appearance) (Pt Warm) -Tenderness on Palpation (Jayla-wound No Skin Appearance) -Ulcer Cleansing Wound Cleanser -Foul Odor after Cleansing No -Anesthetic Used 5% Lidocaine Gel WC - Nurse 2 - General Ulcer CM Notes Start: 02/26/21 15:08 Freq: Status: Active Protocol: Activity Type Activity Date Activity User E-Sign Co-Sign Detail Recorded Client Recorded Date Recorded By Document 02/26/21 15:32 RAE [id number] 02/26/21 15:34 RAE 02/26/21 15:32 Wound Center Nurse 2 -Time 15:32 -Correct Patient Yes -Correct Side, Site, Position Yes -Correct Procedure Yes -Procedure Performed Yes -Type of Procedure Debridement -Clinical Debridement Subcutaneous -Tissue Removed Subcutaneous -Post Debridement (cm) - Length 0.3 -Post Debridement (cm) - Width 0.2 -Post Debridement (cm) - Depth 0.2 -Total Square (Post) (cm) 0.06 -Area of Debridement (cm) - Length 0.3 -Area of Debridement (cm) - Width 0.2 -Total Square (Area) (cm) 0.06 -Tunneling No -Undermining/Tunneling No -Circular Undermining No -Wound/Ulcer Outcome Not Healed -Ulcer Cleansing Rinsed/ Irrigated with Saline -Foul Odor after Cleansing No -Bioengineered Tissue No -Bleeding Controlled with Pressure -Offloading Yes -Type of Offloading Surgical Shoe -Treatment Response Procedure Tolerated Well -Debridement - Subq, 1st 20sq cm Yes Pain Scale: 0-10 Numeric Is Patient Pain Free? Yes Assessment/Plan Assessment/Plan (1) Ulcer of right foot with fat layer exposed: CODE(S): L97.512 - Non-pressure chronic ulcer of other part of right foot with fat layer exposed (2) Hammer toe of right foot: CODE(S): M20.41 - Other hammer toe(s) (acquired), right foot (3) Rheumatoid arthritis: CODE(S): M06.9 - Rheumatoid arthritis, unspecified (4) Other specified peripheral vascular diseases: CODE(S): I73.89 - Other specified peripheral vascular diseases (5) Venous insufficiency (chronic) (peripheral): CODE(S): I87.2 - Venous insufficiency (chronic) (peripheral) PLAN: I reviewed and discussed his case today. Debridement was performed today as noted. The following work up and care recommendations were made: Dressing: Change daily with hydrogel and gauze Wash: Antibacterial soap and water. Avoid soaking Tissue growth optimization: This will be considered after her initial work-up if continued delayed healing is noted Offload: I recommend wearing a surgical shoe and this was offered today. To also apply the gauze to the base of the interdigital space to take pressure off of the 2 abutting toes. This was demonstrated Vascular: I recommend noninvasive vascular studies screening test including HUGH, systolic toe pressure and segmental limb pressures. An order was provided and she is waiting to schedule. She was advised to proceed forward in a timely manner. Edema: To wear Tubigrip. To elevate. She will also be screened with a venous duplex Doppler with reflux evaluation to assess for venous insufficiency Infection: She was reassured no local signs of infection are noted. She was advised to monitor. I do not recommend antibiotics. Pain: Debridement was avoided today due to pain intolerance. Her also will be better offloaded to reduce pain. She already feels better with the toe spacer in place. Host factors: Her rheumatoid arthritis is noted. She understands prednisone may reduce her healing capabilities. Is noted she is only taking methotrexate for her rheumatoid arthritis and was advised to follow-up with her architectural associate. I recommend nutritional supplementation to optimize healing with Bryan and by eating whole food low processed diet. Diagnostic data: Her x-rays were reviewed from 02-04-21 with forefoot deformities including hallux valgus and hammertoes. This is consistent with a rheumatoid foot. There is no osseous destruction, soft tissue emphysema or foreign body of the right foot. I did review her most recent labs that are on file from with a white blood cell count of 5.7. Is also noted that she does have some reduced kidney function with a GFR of 59. I answered all the patient's questions. To return to the wound healing center in 1 week or call sooner if the patient has any questions or concerns. The medical decision making level is limited based on data including the review of prior external notes, review of a prior test, or ordering a test. The medical decision making level is low. There is noted low risk of morbidity after considering this treatment plan and diagnostic data.
[2021-03-05 15:42] VITALS: RESP 22; TEMP 37; BMI 40.6
--- NOTE | 2021-03-05 16:06 | PCM.WC.PN ---
History of Present Illness Date of Service: 03/05/21 Chief Complaint: right fourth toe ulcer History of Wound: This pleasant 80-year-old female that is hard of hearing was seen at the wound healing center today for right fourth painful toe ulcer. She does have a history of rheumatoid arthritis and her toes are very close approximation. She denies claudication. She denies burning tingling numbness. She denies odor or redness. It is hard for her to keep pressure off of the site; she has been using a gauze roll toe spacer this past week. She is seen by director broadcast, Dr. Hodges. She is going to [place] and will return in March. She was unable to get her vascular scheduled until March as well. Progress of Wound: Improving Objective Data Objective Data Vital Signs: Vital Signs Temp Pulse Resp BP 98.6 F 98 22 H 190/97 H 03/05/21 15:42 02/26/21 15:09 03/05/21 15:42 02/26/21 15:09 Weight: 85.275 kg Body Mass Index (BMI) 40.6 Physical Exam Extremity Extremity Narrative: No calf tenderness Diminished pulses; palpable DP and nonpalpable PT. Capillary fill time is less than 3 seconds to all digits of the right foot Edema moderate bilateral lower extremities with varicosities Muscle wasting noted Fibular deviation of toe and hammertoe deformities with prominent metatarsal heads. Lesser toes abut Skin Skin Narrative: no purulence, no streaking, no odor, no infection. Perfectly circumscribed ulcer to the fourth toe without probe to bone. The ulcer bed is mainly granular and there is no purulence or erythema. There is no exposed bone or joint- decreased size Neuro Neuro Narrative: normal epicritic sensation via light touch-very painful Debridement Note Debridement Note Wound debrided: toe Wound Grade/Stage: Type of Debridement: Excisional debridement Anesthesia Used: 4% Lidocaine Solution Depth: in the subcutaneous layer Percentage of wound debrided: 100 Instrument Used: #15 blade Tissue Removed: fibrous, devitalized subcutaneous, biofilm, slough Severity: Fat Layer Exposed Amount of bleeding with debridement: Mild Bleeding Controlled with: Pressure Patient tolerated procedure: Patient tolerated procedure well Post-Debridement Measurements and Additional Note: Post-Debridement Measurements/Treatment MAG - Nurse 1 - General Ulcer Assessment Start: 02/26/21 15:08 Freq: Status: Active Protocol: WC.LOWEXT Activity Type Activity Date Activity User E-Sign Co-Sign Detail Recorded Client Recorded Date Recorded By Document 02/26/21 15:09 RB [id number] 02/26/21 15:10 RB Document 03/05/21 15:42 DL [id number] 03/05/21 15:45 DL 02/26/21 03/05/21 15:09 15:42 WC - Today's Visit Information Type of service Follow-up Visit Follow-up Visit (Physician/PARAPROFESSIONAL AIDE (Physician/PARAPROFESSIONAL AIDE ) ) Arrival Mode Ambulatory, Wheelchair Walker Transfer Assistance None Manual Transfer Assist (Other) x1 Patient Identification Verified (Name & Yes Yes ) Patient Requires Transmission-Based No No Precautions Height and Weight Body Mass Index (BMI) 40.6 40.6 BMI Classification Obese Obese Vital Signs Temperature (97.8 F-99.1 F) 97.7 F L 98.6 F Temperature Source Temporal Temporal Pulse Rate (60-100) 98 Pulse Location Monitor Respiratory Rate (12-18) 18 22 H Respiratory rate source Observation Observation Blood Pressure (90/60-120/80) 190/97 H Blood Pressure Mean (mm Hg) 128 Source Monitor Position Sitting Blood Pressure Location Left Arm History Since Last Visit- (Skip if this is Patient's initial visit) Have you changed medications since your No No last visit? Any new allergies or adverse reactions No No Had a fall/change in ADL's that may No No increase risk of falls Signs or symptoms of abuse and/or No No neglect since last visit Have you been in the hospital since your No No last visit? Has dressing in place as prescribed Yes Yes Has compression in place as prescribed No N/A Has offloadiing in place as prescribed No Yes Experienced any changes in pain level or No No management Right Footwear Surgical Shoe with pressure relief insole Pain Scale: 0-10 Numeric Is Patient Pain Free? Yes WC - Nurse 1 - General Ulcer Measurement Start: 02/26/21 15:08 Freq: Status: Active Protocol: Activity Type Activity Date Activity User E-Sign Co-Sign Detail Recorded Client Recorded Date Recorded By Document 02/26/21 15:09 RB [id number] 02/26/21 15:10 RB Document 03/05/21 15:42 DL [id number] 03/05/21 15:45 DL 02/26/21 03/05/21 15:09 15:42 Wound Center Nurse 1 #1- R 4TH TOE -Combined with other wound No -Current Size (cm) - Length 0.2 0.8 -Current Size (cm) - Width 0.2 0.7 -Current Size (cm) - Depth 0.2 0.2 -Total Square Cm 0.04 0.56 -Photo Taken No -Tunneling No -Undermining/Tunneling No -Circular Undermining No -Exudate Amt Small Small -Exudate Type Serosanguineous Serosanguineous -Wound Margin Flat & Intact Distinct, Outline Attached -Granulation Amt Medium (34-66%) Large (67-100%) -Granulation Quality [place] -Slough/Fibrin Yes -Necrosis Amt Medium (34-66%) Small (1-33%) -Necrotic Tissue Type Adherent Slough Adherent Slough -Structure Exposed N/A N/A -Texture (Jayla-wound Skin Appearance) Assessed Localized Edema ,Scarring -Moisture (Jayla-wound Skin Appearance) Assessed Maceration -Color (Jayla-wound Skin Appearance) Assessed Erythema -Temperature (Jayla-wound Skin No Abnormality No Abnormality Appearance) (Pt Warm) (Pt Warm) -Tenderness on Palpation (Jayla-wound No No Skin Appearance) -Ulcer Cleansing Wound Cleanser Rinsed/ Irrigated with Saline -Foul Odor after Cleansing No No -Anesthetic Used 5% Lidocaine 4% Lidocaine Gel Solution WC - Nurse 2 - General Ulcer CM Notes Start: 02/26/21 15:08 Freq: Status: Active Protocol: Activity Type Activity Date Activity User E-Sign Co-Sign Detail Recorded Client Recorded Date Recorded By Document 02/26/21 15:32 [id number] 02/26/21 15:34 Document 03/05/21 15:51 [id number] 03/05/21 15:53 02/26/21 03/05/21 15:32 15:51 Wound Center Nurse 2 #1- R 4TH TOE -Time 15:32 15:51 -Correct Patient Yes Yes -Correct Side, Site, Position Yes Yes -Correct Procedure Yes Yes -Procedure Performed Yes Yes -Type of Procedure Debridement Debridement -Clinical Debridement Subcutaneous Subcutaneous -Tissue Removed Subcutaneous Subcutaneous -Post Debridement (cm) - Length 0.3 0.4 -Post Debridement (cm) - Width 0.2 0.3 -Post Debridement (cm) - Depth 0.2 0.2 -Total Square (Post) (cm) 0.06 0.12 -Area of Debridement (cm) - Length 0.3 0.4 -Area of Debridement (cm) - Width 0.2 0.3 -Total Square (Area) (cm) 0.06 0.12 -Tunneling No No -Undermining/Tunneling No No -Circular Undermining No No -Wound/Ulcer Outcome Not Healed Not Healed -Ulcer Cleansing Rinsed/ Rinsed/ Irrigated with Irrigated with Saline Saline -Foul Odor after Cleansing No No -Bioengineered Tissue No No -Bleeding Controlled with Pressure Pressure -Offloading Yes Yes -Type of Offloading Surgical Shoe Surgical Shoe -Treatment Response Procedure Procedure Tolerated Well Tolerated Well -Debridement - Subq, 1st 20sq cm Yes Yes Pain Scale: 0-10 Numeric Is Patient Pain Free? Yes Yes - Nurse 3 - General Ulcer D/C NN Start: 02/26/21 15:08 Freq: Status: Active Protocol: Activity Type Activity Date Activity User E-Sign Co-Sign Detail Recorded Client Recorded Date Recorded By Document 02/26/21 15:44 [facility] [id number] 02/26/21 15:45 [facility] 02/26/21 15:44 Wound Care Nurse 3 #1- R 4TH TOE -Ulcer Cleansing Rinsed/ Irrigated with Saline -Foul Odor after Cleansing No -Primary Dressing Applied C Hydrogel ($) -Other Dressing drsg per ak casino banker -Other Covering apperture pad Treatment Response Procedure Tolerated Well Pain Scale: 0-10 Numeric Is Patient Pain Free? Yes - Visit Discharge Discharge Condition Stable Ambulatory Status Ambulatory, Walker Assessment/Plan Assessment/Plan (1) Ulcer of right foot with fat layer exposed: CODE(S): L97.512 - Non-pressure chronic ulcer of other part of right foot with fat layer exposed (2) Hammer toe of right foot: CODE(S): M20.41 - Other hammer toe(s) (acquired), right foot (3) Rheumatoid arthritis: CODE(S): M06.9 - Rheumatoid arthritis, unspecified (4) Other specified peripheral vascular diseases: CODE(S): I73.89 - Other specified peripheral vascular diseases (5) Venous insufficiency (chronic) (peripheral): CODE(S): I87.2 - Venous insufficiency (chronic) (peripheral) PLAN: I reviewed and discussed his case today. Debridement was performed today as noted. The following work up and care recommendations were made: Dressing: Change daily with hydrogel and gauze Wash: Antibacterial soap and water. Avoid soaking Tissue growth optimization: This will be considered after her initial work-up if continued delayed healing is noted Offload: I recommend wearing a surgical shoe and this was offered today. To also apply the gauze to the base of the interdigital space to take pressure off of the 2 abutting toes. This was demonstrated Vascular: I recommend noninvasive vascular studies screening test including HUGH, systolic toe pressure and segmental limb pressures. An order was provided and she is waiting to schedule. She is schedule in March 2021. Edema: To wear Tubigrip. To elevate. She will also be screened with a venous duplex Doppler with reflux evaluation to assess for venous insufficiency Infection: She was reassured no local signs of infection are noted. She was advised to monitor. I do not recommend antibiotics. Pain: Debridement was avoided today due to pain intolerance. Her also will be better offloaded to reduce pain. She already feels better with the toe spacer in place. Host factors: Her rheumatoid arthritis is noted. She understands prednisone may reduce her healing capabilities. Is noted she is only taking methotrexate for her rheumatoid arthritis and was advised to follow-up with her director broadcast. I recommend nutritional supplementation to optimize healing with [place] and by eating whole food low processed diet. Diagnostic data: Her x-rays were reviewed from 02-04-21 with forefoot deformities including hallux valgus and hammertoes. This is consistent with a rheumatoid foot. There is no osseous destruction, soft tissue emphysema or foreign body of the right foot. I did review her most recent labs that are on file from with a white blood cell count of 5.7. Is also noted that she does have some reduced kidney function with a GFR of 59. I answered all the patient's questions. To return to the wound healing center in 1 week or call sooner if the patient has any questions or concerns. She is leaving the state and will return to clinic in about a month.
== END 2021-03-28 23:59 ==
LOC: WC 15:45
PROVIDERS: PCP Internal Medicine; Visit Provider Podiatrist
DX: I87.2 Venous insufficiency (chronic) (peripheral) (principal); L97.512 Non-pressure chronic ulcer of other part of right foot with fat layer exposed; M20.41 Other hammer toe(s) (acquired), right foot; M06.9 Rheumatoid arthritis, unspecified; I73.89 Other specified peripheral vascular diseases
CPT/HCPCS: 11042

== ENCOUNTER 2021-04-24 16:45 | Outpatient (CLI) | payer MEDICARE, OTHER, SELFPAY ==
--- NOTE | 2021-04-24 16:58 | CT_ITS ---
EXAM: CT RIGHT UPPER EXTREMITY WITHOUT INTRAVENOUS CONTRAST, SHOULDER : 1940 CLINICAL INDICATION: PAIN IN RT SHOULDER TECHNIQUE: Helically acquired images were obtained of the right shoulder without intravenous contrast. 2-D reformats were performed by the technologist. This CT exam was performed using one or more of the following dose reduction techniques: automated exposure control, adjustment of the mA and/or kV according to patient size, and/or use of iterative reconstruction technique. This report was created using [employer] report [employer] technology. COMPARISON: December 10, 2018 FINDINGS: BONES/JOINTS: Interval placement of a reverse shoulder prosthesis which appears in satisfactory position. No evidence of hardware failure. The prominent arthrosis involving the AC joint is again seen. Residual fluid collection noted within the subacromial bursa. No acute fracture. No subluxation. Normal alignment. No sclerotic or destructive changes. SOFT TISSUES: Unremarkable. No soft tissue swelling or gas. No radiopaque foreign body. CT/Extremity Upper without Contra IMPRESSION: 1. Satisfactory postop changes. 2. Residual fluid within the subacromial bursa. Individualized dose optimization techniques were used for this CT. at 1000 Reported and signed by: Gabino Marcano MD Electronically Signed: Gabino Marcano MD at 9:58 EST ,
== END 2021-04-24 23:59 | disposition short-term general hospital (02) ==
LOC: CT 16:50
PROVIDERS: PCP Internal Medicine; Referring Provider Specialist; Visit Provider Specialist
DX: M25.511 Pain in right shoulder (principal)
CPT/HCPCS: 73200

== ENCOUNTER 2021-05-06 14:59 | Outpatient (CLI) | payer MEDICARE, OTHER, SELFPAY ==
[2021-05-06 17:18] LABS: Absolute Lymphocyte Count 3.12 X10^3/uL (0.83-4.51); Absolute Neutrophil Count 6.7 X10^3/uL (2.0-7.7); Basophil# 0.04 X10^3/uL; Basophil% 0.4 % (0-1); Eosinophil# 0.25 X10^3/uL; Eosinophils% 2.3 % (0-5); Hematocrit 41.8 % (37-47); Hemoglobin 13.9 g/dL (12.0-15.0); Lymphocyte # 3.12 X10^3/ul (0.83-4.51); Mean Corp Hgb Conc 33.3 g/dL (32-36); Mean Corpuscular Hgb 31.6 pg (27.0-32.0); Mean Platelet Vol. 11.3 fl (6.2-12.0); Monocyte# 0.58 X10^3/uL; Monocyte% 5.4 % (0-10); NRBC Flagged by Analyzer 0 % (0-5); Neutrophil # 6.74 X10^3/uL (2.7-7.7); Neutrophil % 62.6 % (47-70); Platelet Count 281 K/mm3 (150-450); RBC Distribution Width CV 13.2 % (11.6-14.6); RBC Distribution Width SD 46.5 fl (35.1-43.9); White Blood Count 10.8 K/mm3 (4.4-11.0)
[2021-05-06 17:55] LABS: ALB/GLOB Ratio 0.9 RATIO (0.9-2.4); AST(SGOT) 14 U/L (15-37); Alanine Aminotransfer ALT/SGPT 14 U/L (13-56); Alkaline Phosphatase 86 U/L (45-117); Anion Gap 7 (5-15); BUN 19 mg/dL (7-18); BUN/Creat Ratio 20.1 RATIO (10-20); Calcium,Total 9.3 mg/dL (8.5-10.1); Chloride 104 mmol/L (98-107); Creatinine, Serum 0.94 mg/dL (0.55-1.02); EST Glomerular Filtration Rate 61 mL/min (>60); Est Glom Filt Rate - Afr Amer 74 mL/min (>60); Globulin 4.6 g/dL (2.2-4.2); Glucose 100 mg/dL (74-106); Potassium 3.5 mmol/L (3.5-5.1); Protein, Total 8.6 g/dL (6.4-8.2); Sodium Level 139 mmol/L (136-145); Thyroid Stim Hormone (TSH) 1.47 uIU/mL (0.358-3.74)
[2021-05-07 10:53] LABS: Hepatitis C Antibody Non-Reactive (Nonreactive)
== END 2021-05-06 23:59 | disposition home or self-care (01) ==
LOC: POLAB3 15:00
PROVIDERS: PCP Family Medicine Geriatric Medicine; Visit Provider Family Medicine Geriatric Medicine
DX: Z00.00 Encounter for general adult medical examination without abnormal findings (principal); E55.9 Vitamin D deficiency, unspecified; R53.83 Other fatigue
CPT/HCPCS: 36415; 80053; 82306; 84443; 85025; 86803

== ENCOUNTER 2021-05-16 11:21 | Outpatient (CLI) | payer MEDICARE, OTHER, SELFPAY ==
[2021-05-16 12:41] LABS: Absolute Lymphocyte Count 1.26 X10^3/uL (0.83-4.51); Absolute Neutrophil Count 5.4 X10^3/uL (2.0-7.7); Basophil# 0.02 X10^3/uL; Basophil% 0.3 % (0-1); Eosinophil# 0.12 X10^3/uL; Eosinophils% 1.7 % (0-5); Hematocrit 39.5 % (37-47); Hemoglobin 12.3 g/dL (12.0-15.0); Lymphocyte # 1.26 X10^3/ul (0.83-4.51); Lymphocyte % 17.9 % (19-41); Mean Corp Hgb Conc 31.1 g/dL (32-36); Mean Corpuscular Hgb 30.4 pg (27.0-32.0); Mean Corpuscular Volume 97.5 fL (81-99); Mean Platelet Vol. 11.4 fl (6.2-12.0); Monocyte# 0.26 X10^3/uL; Monocyte% 3.7 % (0-10); NRBC Flagged by Analyzer 0 % (0-5); Neutrophil # 5.35 X10^3/uL (2.7-7.7); Neutrophil % 76.1 % (47-70); Platelet Count 213 K/mm3 (150-450); RBC Distribution Width CV 13.2 % (11.6-14.6); RBC Distribution Width SD 47.3 fl (35.1-43.9); Red Blood Count 4.05 M/mm3 (4.2-5.4)
[2021-05-16 13:05] LABS: ALB/GLOB Ratio 0.9 RATIO (0.9-2.4); AST(SGOT) 14 U/L (15-37); Alanine Aminotransfer ALT/SGPT 12 U/L (13-56); Albumin, Serum 3.6 g/dL (3.2-5.0); Alkaline Phosphatase 83 U/L (45-117); Anion Gap 5 (5-15); BUN 16 mg/dL (7-18); BUN/Creat Ratio 17.6 RATIO (10-20); Calcium,Total 9.1 mg/dL (8.5-10.1); Chloride 101 mmol/L (98-107); Creatinine, Serum 0.91 mg/dL (0.55-1.02); EST Glomerular Filtration Rate 64 mL/min (>60); Est Glom Filt Rate - Afr Amer 77 mL/min (>60); Globulin 4.1 g/dL (2.2-4.2); Glucose 91 mg/dL (74-106); Potassium 4.1 mmol/L (3.5-5.1); Protein, Total 7.7 g/dL (6.4-8.2); Sodium Level 136 mmol/L (136-145)
== END 2021-05-16 23:59 | disposition home or self-care (01) ==
LOC: LAB 11:23
PROVIDERS: PCP Family Medicine Geriatric Medicine; Visit Provider Internal Medicine Rheumatology
DX: M05.79 Rheumatoid arthritis with rheumatoid factor of multiple sites without organ or systems involvement (principal); M35.00 Sjogren syndrome, unspecified; I50.9 Heart failure, unspecified; I11.0 Hypertensive heart disease with heart failure; M79.7 Fibromyalgia; M21.41 Flat foot [pes planus] (acquired), right foot; K21.9 Gastro-esophageal reflux disease without esophagitis; F41.9 Anxiety disorder, unspecified; K44.9 Diaphragmatic hernia without obstruction or gangrene; J45.909 Unspecified asthma, uncomplicated; G62.9 Polyneuropathy, unspecified; Z79.899 Other long term (current) drug therapy
CPT/HCPCS: 36415; 80053; 85025

== ENCOUNTER 2021-06-10 15:41 | Outpatient (CLI) | payer MEDICARE, OTHER, SELFPAY ==
--- NOTE | 2021-06-10 15:48 | CT_ITS ---
INDICATION: ABD PAIN EXAMINATION: CT Abdomen And Pelvis W/ Contrast Injection TECHNIQUE: Helically acquired images were obtained of the abdomen and pelvis after IV contrast. A radiation dose optimization technique was used for this scan. IV Contrast dosage and agent: Oral and amp; IV . and amp; 100mL Isovue-300 Oral contrast: None. COMPARISON: 08/04/2018. FINDINGS: Visualized lung bases: Unremarkable Liver: Scattered hepatic cysts. Gallbladder: Unremarkable Spleen: Unremarkable Pancreas: Fatty atrophic changes. Adrenal Glands: Unremarkable Kidneys: Scattered too small to characterize subcentimeter hypodensities bilaterally. Vasculature: Mild scattered aortoiliac atherosclerotic calcifications. GI Tract: Moderate hiatal hernia. Scattered colonic scattered colonic diverticula. There is a large amount of stool within the colon. Lymphadenopathy: None Peritoneum: No ascites. Bladder: Unremarkable Reproductive organs: Status post hysterectomy. Bones/Soft tissues: There are diffuse degenerative changes of the spine. Multilevel spondylolisthesis. Left-sided hip replacement. CT/Abdomen/Pelvis WITH Contrast IMPRESSION: No acute abnormalities in the abdomen or pelvis. Moderate hiatal hernia. Large colonic stool burden. Diverticulosis. Electronically Signed: Randy Arzate MD at 20:16 EDT ,
== END 2021-06-10 23:59 | disposition home or self-care (01) ==
LOC: CT 15:43
PROVIDERS: PCP Family Medicine Geriatric Medicine; Referring Provider Family Medicine Geriatric Medicine; Visit Provider Family Medicine Geriatric Medicine
DX: K44.9 Diaphragmatic hernia without obstruction or gangrene (principal); K57.30 Diverticulosis of large intestine without perforation or abscess without bleeding
CPT/HCPCS: 74177; Q9967

== ENCOUNTER 2021-06-18 11:42 | Outpatient (CLI) | payer MEDICARE, OTHER, SELFPAY ==
[2021-06-18 15:13] LABS: Absolute Lymphocyte Count 1.65 X10^3/uL (0.83-4.51); Absolute Neutrophil Count 3.6 X10^3/uL (2.0-7.7); Basophil# 0.03 X10^3/uL; Basophil% 0.5 % (0-1); Eosinophil# 0.21 X10^3/uL; Eosinophils% 3.6 % (0-5); Hematocrit 36.9 % (37-47); Hemoglobin 11.8 g/dL (12.0-15.0); Lymphocyte # 1.65 X10^3/ul (0.83-4.51); Lymphocyte % 28.6 % (19-41); Mean Corpuscular Hgb 30.2 pg (27.0-32.0); Mean Corpuscular Volume 94.4 fL (81-99); Mean Platelet Vol. 11.1 fl (6.2-12.0); Monocyte# 0.24 X10^3/uL; Monocyte% 4.2 % (0-10); NRBC Flagged by Analyzer 0 % (0-5); Neutrophil # 3.62 X10^3/uL (2.7-7.7); Neutrophil % 62.8 % (47-70); Platelet Count 241 K/mm3 (150-450); RBC Distribution Width CV 13.6 % (11.6-14.6); Red Blood Count 3.91 M/mm3 (4.2-5.4); White Blood Count 5.8 K/mm3 (4.4-11.0)
[2021-06-18 15:15] LABS: Erythrocyte Sedimentation Rate 40 mm/hr (0-30)
[2021-06-18 15:30] LABS: CRP 7.42 mg/L (0.0-3.0)
== END 2021-06-18 23:59 | disposition home or self-care (01) ==
LOC: MTLAB 11:43
PROVIDERS: PCP Family Medicine Geriatric Medicine; Referring Provider Specialist; Visit Provider Specialist
DX: M25.511 Pain in right shoulder (principal); Z96.611 Presence of right artificial shoulder joint
CPT/HCPCS: 36415; 85025; 85652; 86140

== ENCOUNTER 2021-07-07 09:39 | Outpatient (CLI) | payer MEDICARE, OTHER, SELFPAY ==
--- NOTE | 2021-07-07 09:50 | ECHOD_ITS ---
Reason For Study: PRIMARY CARDIOMYOPATHY Left Ventricle Normal LV size. Left ventricular systolic function is normal. The estimated ejection fraction is 60 %. No regional wall motion abnormalities noted. Right Ventricle Normal RV size. Normal systolic function. Atria Normal left atrium. Normal right atrium. Mitral Valve Normal mitral valve. Mild (1+) mitral valve insufficiency. Tricuspid Valve Normal tricuspid valve. Trivial tricuspid valve insufficiency. Aortic Valve Trisinus/trileaflet aortic valve. Mild (1+) aortic valve insufficiency. Pulmonic Valve Normal pulmonic valve. Great Vessels Normal aortic root. Pericardium/Pleural No pericardial effusion. MMode/2D Measurements & Calculations LVIDd: 4.4 cm IVSd: 1.1 cm Ao root diam: 2.8 cm LVIDs: 2.6 cm LVPWd: 1.2 cm RVDd: 3.2 cm FS: 39.6 % LAV(MOD-bp): 61.6 ml LA A4 area: 21.5 cm2 LA dimension(2D): 4.2 cm LAV(MOD-bp) Indexed: 31.4 ml/m2 LAV(MOD-sp2): 56.3 ml LAV(MOD-sp4): 64.5 ml RA A4 area: 12.2 cm2 Doppler Measurements & Calculations Lat Peak E' [place]: 9.9 cm/sec Med Peak E' [place]: 5.6 cm/sec Ao V2 max: 153.2 cm/sec Ao max P.4 mmHg LV V1 max: 97.3 cm/sec PA V2 max: 78.1 cm/sec LV V1 max P.8 mmHg ECHO/Echo Complete Interpretation Summary Normal LV size. Left ventricular systolic function is normal. The estimated ejection fraction is 60 %. Mild (1+) mitral valve insufficiency. Trivial tricuspid valve insufficiency. Mild (1+) aortic valve insufficiency. Ordering Physician: Art Verduzco Referring Physician: Art Verduzco Chi Performed By: Zuleyma Fontenot, RDCS, RVT
== END 2021-07-07 23:59 | disposition home or self-care (01) ==
LOC: CVS 09:40
PROVIDERS: PCP Family Medicine Geriatric Medicine; Visit Provider Family Medicine Geriatric Medicine
DX: I42.8 Other cardiomyopathies (principal)
CPT/HCPCS: 93306

== ENCOUNTER 2021-07-16 15:27 | Inpatient (IN) | payer MEDICARE, OTHER, SELFPAY ==
[2021-07-16] VITALS (19 sets, daily range): BP systolic 107–204; BP diastolic 82–147; PULSE 95–122; RESP 12–32; TEMP 35.7–36.3; O2SAT 77–100; BMI 42.3; BMI 36.5
--- NOTE | 2021-07-16 15:42 | EKG12_ITS ---
Test Reason : CHEST PAIN Blood Pressure : / mmHG Vent. Rate : 107 BPM Atrial Rate : 107 BPM P-R Int : 180 ms QRS Dur : 114 ms QT Int : 326 ms P-R-T Axes : 047 -48 087 degrees QTc Int : 435 ms Sinus tachycardia Left anterior fascicular block Septal infarct , age undetermined T wave abnormality, consider lateral ischemia Abnormal ECG Confirmed by SAMUEL MORRIS, TC ([id number]), purchase request editor GRICELDA KOEHLER ([id number]) on 07/17/2021 12:49:37 P M Referred By: ZAY Confirmed By:EVIE BAKER MD
[2021-07-16] MEDS: LORazepam 2 MG/ML Syringe 0.5 MG IV (15:55)
--- NOTE | 2021-07-16 16:00 | RAD_ITS ---
EXAM: XR CHEST, 1 VIEW : 1940 CLINICAL INDICATION: sob TECHNIQUE: Frontal view of the chest. This report was created using SSEV report generation technology. COMPARISON: 08/04/2018 FINDINGS: LUNGS AND PLEURAL SPACES: There is a bilateral airspace disease. No pneumothorax. No effusion. HEART: Unremarkable. Cardiac silhouette not enlarged. MEDIASTINUM: Central airways and mediastinal contour are unremarkable. BONES/JOINTS: There are bilateral shoulder prostheses. SOFT TISSUES: Unremarkable. RAD/Chest 1 View (Portable) IMPRESSION: Bilateral airspace disease which may represent pneumonia. at 1624 Reported and signed by: Ash Hahn MD Electronically Signed: Ash Hahn MD at 16:23 EDT ,
--- NOTE | 2021-07-16 16:02 | EDS_ITS ---
HPI History of Present Illness Chief Complaint: Hypertension Informant: patient Narrative Narrative: Patient sent down from pain management office for evaluation for elevated blood pressure 208/110. Reports was being seen for increasing pain in her right arm. She has had pain in the right arm for past 2 years getting worse. She had shoulder issues managed previously followed by Dr. Dai. With her arm pain states needed to discuss with her pain management doctors for possible nerve block. She is on oxycodone 20 mg twice daily. She also states she takes Ativan as needed. Reports history of cardiomyopathy increasing leg swelling over the past 4 days. Reports orthopnea. Reports increasing dyspnea and weight gain. She denies cough. Today states has chest pains. However states having pain discomfort in right arm. Cannot do IV opioids however states Ativan can help her symptoms. She does not know her baseline blood pressure. Reports followed by cardiology Dr. Dutton. History of COPD no home oxygen. During evaluation oxygen pulse ox with good waveform fluctuating 88 to 91%. She does states she takes Bumex as needed has not taken in a while she states she is full to take 1 today however had her pain management appointment. [facility] Medical History Anemia Anxiety Arthritis Aseptic loosening of prosthetic hip Asthma Back problem Carpal tunnel syndrome Constipation COPD (chronic obstructive pulmonary disease) Coronary artery disease Depression Edema Fibromyalgia Gastrointestinal problem Generalized weakness GERD (gastroesophageal reflux disease) Heart disease Heart valve problem History of blood transfusion History of emotional problems History of pneumonia Hyperlipidemia Hypertension Irritable bowel syndrome NSTEMI (non-ST elevated myocardial infarction) Osteoarthritis of left hip Ulcer Home Medications potassium chloride 10 mEq tablet,extended release(part/cryst) 20 meq PO DAILY #180 tab 07/01/17 [Rx Last Taken 07/16/21] lisinopril-hydrochlorothiazide 1 tab PO DAILY 07/18/18 [History Last Taken 07/16/21] oxycodone 20 mg tablet 20 mg PO BID 08/09/18 [History Last Taken 07/16/21] lorazepam 1 mg tablet 0.5 mg PO TID PRN PRN tab 11/07/18 [History Last Taken 07/16/21] pantoprazole 20 mg PO DAILY 01/29/21 [History Last Taken 07/16/21] Allergy/AdvReac Type Severity Reaction Status Date / Time hydrocodone bitartrate Allergy Unknown Rash Verified 01/29/21 13:34 [From Vicodin] propoxyphene Allergy Unknown Unknown Verified 11/07/18 14:07 fentanyl Allergy feels Verified 01/29/21 13:34 terrible NSAIDS (Non-Steroidal AdvReac Unknown Unknown Verified 11/07/18 14:07 Anti-Inflamma acetaminophen [From Tylenol] AdvReac Nausea Verified 11/07/18 14:07 diazepam [From Valium] AdvReac Other Verified 11/07/18 14:07 oxycodone [From Percocet] AdvReac Other Verified 01/29/21 13:41 Family History Father Heart disease Myocardial infarction Mother Hyperlipidemia Diabetes Anxiety Arthritis Depression Sister Thyroid disorder Sister Thyroid disorder Surgical History History of bilateral knee replacement History of left heart catheterization (~01/15/15) History of total hysterectomy Status post revision of total hip replacement Social History Smoking Status: Never smoker alcohol intake: never caffeine: No what type of physical activity do you participate in: other frequency: 3-4 times per week ROS ROS ED Constitutional Constitutional ED: Denies chills, fever(s) or sweats Eyes Eyes: Denies change in vision ENT ENT ED: Denies dysphagia or sore throat Cardiovascular Cardiovascular: Reports chest pain; Denies leg edema, palpitations or racing heartbeat Respiratory/Chest Respiratory/Chest: Reports dyspnea; Denies cough or dyspnea on exertion Gastrointestinal Gastrointestinal: Denies abdominal pain, diarrhea, nausea or vomiting Genitourinary Genitourinary ED: Denies dysuria, hematuria or urinary frequency Musculoskeletal Musculoskeletal: Reports other Details: Right arm pain ; Denies back pain, extremity pain or neck pain Integumentary Denies rash or wounds Neurologic Neurologic: Denies headache(s), paresthesias or weakness EXAM Physical Exam Const Vital Signs: 07/16/21 15:28 07/16/21 15:33 07/16/21 15:45 Temperature 97.4 F L Temperature Source Temporal Pulse Rate 110 H Respiratory Rate 23 H Respiratory Effort Normal Respiratory Pattern Tachypnea Blood Pressure 189/132 H Blood Pressure Mean 151 Pulse Ox 92 Oxygen Delivery Method Room Air Nasal Cannula Oxygen Flow Rate (L/min) 3 Fraction of Inspired Oxygen (FIO2) 07/16/21 15:57 07/16/21 16:20 07/16/21 16:54 Temperature Temperature Source Pulse Rate Respiratory Rate Respiratory Effort Short of Breath Labored Respiratory Pattern Blood Pressure Blood Pressure Mean Pulse Ox 88 77 Oxygen Delivery Method Nasal Cannula Nasal Cannula Nasal Cannula Oxygen Flow Rate (L/min) 3 4 6 Fraction of Inspired Oxygen (FIO2) 07/16/21 17:05 07/16/21 17:10 07/16/21 17:15 Temperature Temperature Source Pulse Rate 122 H 120 H 110 H Respiratory Rate 28 H 32 H Respiratory Effort Respiratory Pattern Tachypnea Blood Pressure 204/147 H 204/147 H 176/134 H Blood Pressure Mean 166 148 Pulse Ox 94 Oxygen Delivery Method Bi-pap Bi-pap Oxygen Flow Rate (L/min) Fraction of Inspired Oxygen (FIO2) 80 07/16/21 17:20 Temperature Temperature Source Pulse Rate Respiratory Rate Respiratory Effort Respiratory Pattern Blood Pressure Blood Pressure Mean Pulse Ox Oxygen Delivery Method Oxygen Flow Rate (L/min) Fraction of Inspired Oxygen (FIO2) 70 Positive well nourished and well developed General Appearance ED: well developed and NAD HEENT Reports moist mucous membranes normocephalic and atraumatic Eyes PERRL, EOMs intact bilaterally and conjunctivae normal General Eye ED: Yes normal appearance of both eyes Neck no lymphadenopathy and supple General: Negative for tenderness Chest Wall Chest: Negative for tenderness Resp normal respiratory effort and normal air movement Effort and Inspection: symmetric chest movement; Negative for respiratory distress Cardio regular rhythm and no murmurs Rate: tachycardic Peripheral Pulses: pulses 2+ throughout GI normal to inspection, nondistended, normoactive bowel sounds and non-tender Palpation: Negative for guarding or rebound tenderness present Back/Spine no CVA tenderness and no thoracic nor lumbar tenderness Extremity normal to inspection Extremity Narrative: 2+ lower extremity edema. General Extremety ED: Yes edema; Negative for tenderness General Extremity: edema Neuro oriented x3 and no sensory deficits noted Sensorium / Orientation: awake and alert Skin no rashes or lesions noted and no wounds MDM MDM MDM Narrative Medical decision making narrative: Patient presenting with elevated blood pressure systolic 180s over 110s on arrival she is tachycardic. She is complaining for right arm pain that is chronic initial concerns for pain induced tachycardia and hypertension. However she was not hypoxic with good waveform from 88 to 91% during my evaluation. She has some leg swelling. CHF work-up was initiated. She was placed on oxygen per nursing up to 4 L. Chest x-ray 1 view reviewed by myself and read by radiology noted signs of bilateral infiltrate, however she denies any cough symptoms. Her labs white count is 7 hemoglobin 13 troponin with her chest pain returned negative at 12. Creatinine 0.91 BNP 240. I did discuss with hospitalist, Dr. Broussard after initially seeing the patient he saw the patient and saw the hypoxia and understands she will require admission. She did have a normal echocardiogram 9 days ago EF of 60% with trace mitral and atrial valve insufficiency is a 1+ noted. 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 However during treatment she was requiring more oxygen without cough symptoms and hypoxia a CT angiogram was obtained to rule out PE this returned negative. However reporting diffuse interstitial opacifications concerning for COVID. She is vaccinated with the booster along with influenza vaccination. Her blood pressure became elevated with her dyspnea into the systolic 200s over 140s. She denies any pneumonia symptoms. White count is normal. Respiratory placed her on a BiPAP reporting there was pink frothy sputum. Concern for potential flash pulmonary edema with her hypertension. She was given 80 of IV Lasix with her BiPAP along with the nitroglycerin paste. Her blood pressure heart rate was improving with this she is having urine output. Her ABG obtained noted PaO2 of 48 on a nonrebreather. pH of 7.3. I rediscussed with hospitalist for admission to ICU. Lab Data Attestation: I reviewed the patient's lab results. Labs: Laboratory Results - last 24 hr 07/16/21 07/16/21 07/16/21 15:40 15:40 15:40 WBC 7.0 RBC 4.34 Hgb 13.3 Hct 42.1 MCV 97.0 MCH 30.6 MCHC 31.6 L RDW Std Deviation 53.4 H RDW Coeff of Sin 15.0 H Plt Count 276 MPV 11.0 Immature Gran % (Auto) 0.300 Neut % (Auto) 56.2 Lymph % (Auto) 32.3 Crenshaw % (Auto) 8.2 Eos % (Auto) 2.6 Baso % (Auto) 0.4 Absolute Neuts (auto) 3.9 Absolute Lymphs (auto) 2.26 Nucleated RBC % 0 Sodium 137 Potassium 3.7 Chloride 103 Carbon Dioxide 26.0 Anion Gap 8 BUN 20 H Creatinine 0.91 Estim Creat Clear Calc 70.27 Est GFR (MDRD) Af Amer 76 Est GFR (MDRD) Non-Af 63 BUN/Creatinine Ratio 21.9 H Glucose 160 H Calcium 9.3 Troponin I High Sens 12 B-Natriuretic Peptide 240.4 H ABG Data ABG results: ABG 07/16/21 17:05 Specimen Type ART Sample Site L Radial pH 7.30 L Bicarbonate Actual 25.8 Total CO2 27 Base Excess -1 O2 Saturation 79 L O2 % 100 ABG pCO2 52.7 H ABG pO2 48 L O2 Delivery Device NRB Radiography Chest X-Ray - ED: 1 View, Read by ED Physician and Read by Radiologist Diagnostic Testing: Clinical Impression(s) from Imaging Studies Chest X-Ray 07/16/21 16:00 IMPRESSION: Bilateral airspace disease which may represent pneumonia. at 1624 Reported and signed by: Ash Hahn MD Electronically Signed: Ash Hahn MD at 16:23 EDT , Chest CTA 07/16/21 16:31 IMPRESSION: No demonstrated PE, or thoracic aortic aneurysm or dissection Diffuse interstitial and airspace opacifications in both lung ghotra without effusions. This pattern of opacification is highly suspicious for Covid pneumonia. No suspicious noncalcified mass or nodule Calcified coronary vessels No suspicious adenopathy Hiatal hernia Simple hepatic cyst, no specific follow-up needed Degenerative bony changes Electronically Signed: Evert Kilpatrick MD at 17:10 EDT , EKG Initial EKG: Attestation: I personally reviewed and interpreted this EKG as follows: Comments: Sinus rate of 107, no ST changes, T wave inversions leads I and aVL. Q waves noted in anterior leads. Critical Care Time Critical Care Time: Yes Critical care time (excluding procedures): 30-74 minutes, Discussing w/Patient &/or Family/Quotation Clerk, Discussing w/Consultants, Arranging Admission or Transfer, Performing Direct Patient Care at Bedside and - (45 minutes) Discharge Plan Dx/Rx/DC Orders Clinical Impression: Acute respiratory failure, CHF (congestive heart failure), Pulmonary edema, History of COPD, Hypoxemia Disposition Disposition: Acute Care Hospital [facility] Discharge Date/Time: 07/16/21 18:48
[2021-07-16 16:20] LABS: Absolute Lymphocyte Count 2.26 X10^3/uL (0.83-4.51); Absolute Neutrophil Count 3.9 X10^3/uL (2.0-7.7); Basophil# 0.03 X10^3/uL; Basophil% 0.4 % (0-1); Eosinophil# 0.18 X10^3/uL; Eosinophils% 2.6 % (0-5); Hematocrit 42.1 % (37-47); Hemoglobin 13.3 g/dL (12.0-15.0); Lymphocyte # 2.26 X10^3/ul (0.83-4.51); Lymphocyte % 32.3 % (19-41); Mean Corp Hgb Conc 31.6 g/dL (32-36); Mean Corpuscular Hgb 30.6 pg (27.0-32.0); Monocyte# 0.57 X10^3/uL; Monocyte% 8.2 % (0-10); NRBC Flagged by Analyzer 0 % (0-5); Neutrophil # 3.93 X10^3/uL (2.7-7.7); Neutrophil % 56.2 % (47-70); Platelet Count 276 K/mm3 (150-450); RBC Distribution Width SD 53.4 fl (35.1-43.9); Red Blood Count 4.34 M/mm3 (4.2-5.4)
[2021-07-16 16:24] LABS: Anion Gap 8 (5-15); BUN 20 mg/dL (7-18); BUN/Creat Ratio 21.9 RATIO (10-20); Calcium,Total 9.3 mg/dL (8.5-10.1); Chloride 103 mmol/L (98-107); Creatinine, Serum 0.91 mg/dL (0.55-1.02); EST Glomerular Filtration Rate 63 mL/min (>60); Est Glom Filt Rate - Afr Amer 76 mL/min (>60); Estimated Creatinine Clearance 70.27 ml/min; Glucose 160 mg/dL (74-106); Potassium 3.7 mmol/L (3.5-5.1); Sodium Level 137 mmol/L (136-145); Troponin-I HS 12 pg/mL (3.0-54.0)
--- NOTE | 2021-07-16 16:31 | CT_ITS ---
STUDY: CTA CHEST REASON FOR EXAM: Female, 81 years old. Shortness of breath, hypoxia RADIATION DOSAGE (If Supplied By Facility): CTDIvol = ( 15.04 ) mGy, DLP = ( 505.72 ) mGycm TECHNIQUE: The examination was performed with the intravenous administration of IV 100mL Isovue-370. Post-processing of the angiographic images was performed, with multiplanar reformation and 3D reconstruction. Individualized dose optimization techniques were used for this CT. COMPARISON: None. FINDINGS: Normal enhancement of the main pulmonary artery and right and left pulmonary arteries. Normal enhancement of the bilateral peripheral pulmonary arteries. There is no demonstrated pulmonary embolism. Normal thoracic aorta and visualized great vessels. There is no demonstrated aortic dissection. Normal heart and pericardium. There are calcifications of the coronary arteries. Normal mediastinum. Normal hilar regions. There is peribronchial thickening. The lungs are well expanded. Diffuse interstitial and airspace opacifications in both lung ghotra without effusions. This pattern of opacification is suspicious for Covid pneumonia. Follow-up recommended to a shorter complete resolution. Normal pleura. Normal chest wall structures. There are degenerative changes of thoracic spine. Limited cuts through the upper abdomen show intracardiac hiatal hernia. There is a simple right hepatic cyst. Bony structures show degenerative change CT/CTA Chest W/WO Contrast IMPRESSION: No demonstrated PE, or thoracic aortic aneurysm or dissection Diffuse interstitial and airspace opacifications in both lung ghotra without effusions. This pattern of opacification is highly suspicious for Covid pneumonia. No suspicious noncalcified mass or nodule Calcified coronary vessels No suspicious adenopathy Hiatal hernia Simple hepatic cyst, no specific follow-up needed Degenerative bony changes Electronically Signed: Evert Kilpatrick MD at 17:10 EDT ,
[2021-07-16 17:10] LABS: Base Excess -1 mmol/L (-2 to +2); Bicarbonate 25.8 mmol/L (22-26); Blood Gas Specimen Type ART; FI02 100; O2 Delivery Device NRB; PO2 48 mmHG (75-100); SITE L Radial; SO2 79 % (95-99); Total Carbon Dioxide 27 mmol/L; pCO2 52.7 mmHg (35-45)
[2021-07-16] MEDS: Nitroglycerin Oint 1 INCH PACKET TD (17:10)
[2021-07-16] MEDS: Furosemide 100 MG/10 ML Vial 80 MG IV (17:10)
[2021-07-16 17:12] LABS: BNP,B-Type NATRIURETIC PEPTIDE 240.4 pg/mL (0-100)
--- NOTE | 2021-07-16 17:15 | CPS ---
DR. VO AT BEDSIDE AND GAVE ORDER FOR BIPAP SETUP.
--- NOTE | 2021-07-16 17:37 | PCM.HP.STD ---
Documented by User: William GLASS 07/16/21 18:04 HPI - General HPI Narrative PADMA DAHL is a 81-year-old female who presents to the ED at [facility] on 07/16/2021 with a chief complaint of elevated blood pressure. Patient reports that she was at her pain management clinic where she is being managed for chronic shoulder pain, it was noted about the pain management clinic that her blood pressures were significantly elevated with systolics above 200. While being evaluated in the ED patient became significantly hypoxic and short of breath, throughout her time in the ED she has had increasing oxygen requirements, as she was on BiPAP on my evaluation. Although not on the initial complaint, patient does report that she has been short of breath and that her lower extremities have been swollen for about the past 3 to 4 days. Patient denies any orthopnea or paroxysmal nocturnal dyspnea. Patient denies any infectious symptoms to include fevers, chills, difficulty urinating or N/V/D. Patient does report a significant past med history of Takotsubo's cardiomyopathy as well as asthma. Vital signs in the ED are temperature 97.4 ?F, HR 110, BP of 176/134, RR of 32 and patient is currently satting 97% on BiPAP. Chest x-ray shows bilateral airspace disease concerning for pneumonia. CT-A does not demonstrate any PE or aortic dissection, although there is diffuse interstitial and airspace opacifications bilaterally concerning for possible COVID-pneumonia. CBC is unremarkable. Arterial gas shows pH of 7.3, PCO2 52.7, HCO3 of 25.8 and pO2 48. BMP is unremarkable. BNP is mildly elevated to 40.4 rapid COVID and flu are negative. [facility] Medical History Anemia Anxiety Arthritis Aseptic loosening of prosthetic hip Asthma Back problem Carpal tunnel syndrome Constipation COPD (chronic obstructive pulmonary disease) Coronary artery disease Depression Edema Fibromyalgia Gastrointestinal problem Generalized weakness GERD (gastroesophageal reflux disease) Heart disease Heart valve problem History of blood transfusion History of emotional problems History of pneumonia Hyperlipidemia Hypertension Irritable bowel syndrome NSTEMI (non-ST elevated myocardial infarction) Osteoarthritis of left hip Ulcer Home Medications potassium chloride 10 mEq tablet,extended release(part/cryst) 20 meq PO DAILY #180 tab 07/01/17 [Rx Last Taken 07/17/18 05:00] lisinopril-hydrochlorothiazide 1 tab PO DAILY 07/18/18 [History Last Taken Unknown] oxycodone 20 mg tablet 20 mg PO BID 08/09/18 [History Last Taken Unknown] lorazepam 1 mg tablet 0.5 mg PO TID PRN PRN tab 11/07/18 [History Last Taken Unknown] pantoprazole 20 mg PO DAILY 01/29/21 [History Last Taken Unknown] Allergy/AdvReac Type Severity Reaction Status Date / Time hydrocodone bitartrate Allergy Unknown Rash Verified 01/29/21 13:34 [From Vicodin] propoxyphene Allergy Unknown Unknown Verified 11/07/18 14:07 fentanyl Allergy feels Verified 01/29/21 13:34 terrible NSAIDS (Non-Steroidal AdvReac Unknown Unknown Verified 11/07/18 14:07 Anti-Inflamma acetaminophen [From Tylenol] AdvReac Nausea Verified 11/07/18 14:07 diazepam [From Valium] AdvReac Other Verified 11/07/18 14:07 oxycodone [From Percocet] AdvReac Other Verified 01/29/21 13:41 Family History Father Heart disease Myocardial infarction Mother Hyperlipidemia Diabetes Anxiety Arthritis Depression Sister Thyroid disorder Sister Thyroid disorder Surgical History History of bilateral knee replacement History of left heart catheterization (~01/15/15) History of total hysterectomy Status post revision of total hip replacement Social History Smoking Status: Never smoker alcohol intake: never caffeine: No what type of physical activity do you participate in: other frequency: 3-4 times per week ROS Constitutional Constitutional: Denies anorexia, change in weight, chills, fatigue, fever(s), malaise, night sweats, weakness or other Eyes Eyes: Denies blurry vision, change in eye color, change in vision, discharge from eye(s), double vision, erythema, eye pain, loss of vision or other ENT HEENT: Denies abnormal hearing, dysphagia, ear pain, epistaxis, headache(s), hearing loss, nasal congestion, nasal discharge, post nasal drip, sinus pressure, sore throat or other Cardiovascular Cardiovascular: Reports dyspnea on exertion and edema; Denies chest pain, claudication, lightheadedness, orthopnea, palpitations, paroxysmal nocturnal dyspnea, rapid heart rate, syncope or other Respiratory/Chest Respiratory/Chest: Reports cough, productive cough, shortness of breath at rest and shortness of breath with exertion; Denies dyspnea, excessive phlegm production, hemoptysis, wheezing or other Gastrointestinal Gastrointestinal: Denies abdominal pain, coffee ground emesis, constipation, diarrhea, dyspepsia, hematemesis, hematochezia, loose stools, melena, nausea, vomiting or other Genitourinary Genitourinary: Denies burning urination, difficulty urinating, dysuria, hematuria, nocturia, urinary frequency, urinary hesitancy, urinary incontinence, urinary urgency or other Musculoskeletal Musculoskeletal: Denies arthralgias, back pain, joint pain, joint stiffness, joint swelling, myalgias, neck pain or other Neurologic Neurologic: Denies abnormal gait, abnormal speech, confusion, disequilibrium, dizziness, focal weakness, headache(s), numbness, paresthesias, seizure-like activity, seizures, syncope, tingling, tremor(s) or other Psychiatric Psychiatric: Denies anxiety, depression, homicidal ideation, suicidal ideation or other Endocrine Endocrinology: Denies change in body appearance, cold intolerance, excessive sweating, heat intolerance, polydipsia, polyuria or other Hematologic/Lymphatic Hematologic/Lymphatic: Denies anemia, easy bleeding, easy bruising, lymphadenopathy or other Allergic/Immunologic Allergic/Immunologic: Denies rhinitis, hives, eczemia, asthma or other Vital Signs Vital Signs Vital Signs: 07/16/21 15:28 07/16/21 15:33 07/16/21 15:45 Temperature 97.4 F L Temperature Source Temporal Pulse Rate 110 H Respiratory Rate 23 H Respiratory Effort Normal Respiratory Pattern Tachypnea Blood Pressure 189/132 H Blood Pressure Mean 151 Pulse Ox 92 Oxygen Delivery Method Room Air Nasal Cannula Oxygen Flow Rate (L/min) 3 Fraction of Inspired Oxygen (FIO2) 07/16/21 15:57 07/16/21 16:20 07/16/21 16:54 Temperature Temperature Source Pulse Rate Respiratory Rate Respiratory Effort Short of Breath Labored Respiratory Pattern Blood Pressure Blood Pressure Mean Pulse Ox 88 77 Oxygen Delivery Method Nasal Cannula Nasal Cannula Nasal Cannula Oxygen Flow Rate (L/min) 3 4 6 Fraction of Inspired Oxygen (FIO2) 07/16/21 17:05 07/16/21 17:10 07/16/21 17:15 Temperature Temperature Source Pulse Rate 122 H 120 H 110 H Respiratory Rate 28 H 32 H Respiratory Effort Respiratory Pattern Tachypnea Blood Pressure 204/147 H 204/147 H 176/134 H Blood Pressure Mean 166 148 Pulse Ox 94 Oxygen Delivery Method Bi-pap Bi-pap Oxygen Flow Rate (L/min) Fraction of Inspired Oxygen (FIO2) 80 07/16/21 17:20 Temperature Temperature Source Pulse Rate Respiratory Rate Respiratory Effort Respiratory Pattern Blood Pressure Blood Pressure Mean Pulse Ox Oxygen Delivery Method Oxygen Flow Rate (L/min) Fraction of Inspired Oxygen (FIO2) 70 Weight Weight: 195 lb 12.328 oz Body Mass Index (BMI) 42.3 Physical Exam Const alert and oriented x3 General Appearance: cooperative HEENT normocephalic, head/scalp atraumatic and hearing grossly normal bilaterally Eyes PERRL and conjunctivae normal Neck no lymphadenopathy, supple and no JVD Resp Effort and Inspection: tachypneic, respiratory distress and labored Auscultation: rhonchi left lower Cardio no murmurs and no JVD Rate: tachycardic GI normal to inspection, nondistended, normoactive bowel sounds Extremity Extremity Narrative: 2+ pitting edema bilaterally. Skin no rashes or lesions noted and no wounds Neuro CN's II-XII intact bilaterally Psych affect normal Results Lab / Micro Data Result Diagrams: 07/16/21 15:40 07/16/21 15:40 Labs: Laboratory Results - last 24 hr 07/16/21 15:40: WBC 7.0, RBC 4.34, Hgb 13.3, Hct 42.1, MCV 97.0, MCH 30.6, MCHC 31.6 L, RDW Std Deviation 53.4 H, RDW Coeff of Sin 15.0 H, Plt Count 276, MPV 11.0, Immature Gran % (Auto) 0.300, Neut % (Auto) 56.2, Lymph % (Auto) 32.3, [place] % (Auto) 8.2, Eos % (Auto) 2.6, Baso % (Auto) 0.4, Absolute Neuts (auto) 3.9, Absolute Lymphs (auto) 2.26, Nucleated RBC % 0 07/16/21 15:40: Sodium 137, Potassium 3.7, Chloride 103, Carbon Dioxide 26.0, Anion Gap 8, BUN 20 H, Creatinine 0.91, Estim Creat Clear Calc 70.27, Est GFR (MDRD) Af Amer 76, Est GFR (MDRD) Non-Af 63, BUN/Creatinine Ratio 21.9 H, Glucose 160 H, Calcium 9.3, Troponin I High Sens 12 07/16/21 15:40: B-Natriuretic Peptide 240.4 H Micro: Microbiology 07/16/21 16:05 Nasal Secretion SARS-CoV-2 & FLU Antigen (Rapid) - Final ABG Data ABG results: ABG 07/16/21 17:05 Specimen Type ART Sample Site L Radial pH 7.30 L Bicarbonate Actual 25.8 Total CO2 27 Base Excess -1 O2 Saturation 79 L O2 % 100 ABG pCO2 52.7 H ABG pO2 48 L O2 Delivery Device NRB Radiology Impression Chest X-Ray 07/16/21 16:00 IMPRESSION: Bilateral airspace disease which may represent pneumonia. at 1624 Reported and signed by: Ash Hahn MD Electronically Signed: Ash Hahn MD at 16:23 EDT , Chest CTA 07/16/21 16:31 IMPRESSION: No demonstrated PE, or thoracic aortic aneurysm or dissection Diffuse interstitial and airspace opacifications in both lung ghotra without effusions. This pattern of opacification is highly suspicious for Covid pneumonia. No suspicious noncalcified mass or nodule Calcified coronary vessels No suspicious adenopathy Hiatal hernia Simple hepatic cyst, no specific follow-up needed Degenerative bony changes Electronically Signed: Evert Kilpatrick MD at 17:10 EDT , Assessment & Plan Assessment/Plan (1) Respiratory acidosis: (2) Acute respiratory failure with hypoxia: (3) (HFpEF) heart failure with preserved ejection fraction: PLAN: Patient is a 81-year-old female who presents to the ED at [facility] on 07/16/2021 with a chief complaint of hypertensive emergency and shortness of breath. 1)Acute hypoxic respiratory failure Unclear etiology at this time, believe it is either due to community-acquired pneumonia or an acute HFpEF exacerbation. Chest x-ray demonstrates bilateral airspace disease concerning for pneumonia. Chest CTA was negative for PE or aortic dissection, but did show bilateral diffuse interstitial and airspace opacifications consistent with COVID-pneumonia. Rapid COVID is negative. Echocardiogram from 07/07/2021 demonstrated normal LV size and systolic function with an EF of 60% and no comment of diastolic dysfunction. Patient does report taking Bumex as needed at home. Plan; admit to ICU given increasing oxygen requirements, initiate IV Lasix, supplemental oxygen as needed, obtain troponins, initiate Levaquin, pulmonary consult ordered. 2) acute respiratory acidosis Secondary to #1, plan as above. 3) hypertensive emergency Patient with blood pressures in the 200s systolic while in the ED and at pain management clinic. There is evidence of endorgan damage given her heart failure. Initiate Norvasc, continue lisinopril hydrochlorothiazide and as needed hydralazine ordered. 4) morbid obesity Patient BMI is 42.4. Weight loss advised, calorie controlled diet ordered. Medications not reconciled at the time of this dictation, will continue or hold as appropriate. CODE STATUS: Full code. Patient seen by William Lynn PA-C, under the supervision of Dr. Broussard. Time spent on patient care: 25 minutes. Documented by User: Dr. Vince Broussard, 07/16/21 18:24 HPI - General General Date of Admission: 07/16/21 [facility] Medical History Anemia Anxiety Arthritis Aseptic loosening of prosthetic hip Asthma Back problem Carpal tunnel syndrome Constipation COPD (chronic obstructive pulmonary disease) Coronary artery disease Depression Edema Fibromyalgia Gastrointestinal problem Generalized weakness GERD (gastroesophageal reflux disease) Heart disease Heart valve problem History of blood transfusion History of emotional problems History of pneumonia Hyperlipidemia Hypertension Irritable bowel syndrome NSTEMI (non-ST elevated myocardial infarction) Osteoarthritis of left hip Ulcer Home Medications potassium chloride 10 mEq tablet,extended release(part/cryst) 20 meq PO DAILY #180 tab 07/01/17 [Rx Last Taken 07/17/18 05:00] lisinopril-hydrochlorothiazide 1 tab PO DAILY 07/18/18 [History Last Taken Unknown] oxycodone 20 mg tablet 20 mg PO BID 08/09/18 [History Last Taken Unknown] lorazepam 1 mg tablet 0.5 mg PO TID PRN PRN tab 11/07/18 [History Last Taken Unknown] pantoprazole 20 mg PO DAILY 01/29/21 [History Last Taken Unknown] Allergy/AdvReac Type Severity Reaction Status Date / Time hydrocodone bitartrate Allergy Unknown Rash Verified 01/29/21 13:34 [From Vicodin] propoxyphene Allergy Unknown Unknown Verified 11/07/18 14:07 fentanyl Allergy feels Verified 01/29/21 13:34 terrible NSAIDS (Non-Steroidal AdvReac Unknown Unknown Verified 11/07/18 14:07 Anti-Inflamma acetaminophen [From Tylenol] AdvReac Nausea Verified 11/07/18 14:07 diazepam [From Valium] AdvReac Other Verified 11/07/18 14:07 oxycodone [From Percocet] AdvReac Other Verified 01/29/21 13:41 Family History Father Heart disease Myocardial infarction Mother Hyperlipidemia Diabetes Anxiety Arthritis Depression Sister Thyroid disorder Sister Thyroid disorder Surgical History History of bilateral knee replacement History of left heart catheterization (~01/15/15) History of total hysterectomy Status post revision of total hip replacement Social History Smoking Status: Never smoker alcohol intake: never caffeine: No what type of physical activity do you participate in: other frequency: 3-4 times per week Results Lab / Micro Data Result Diagrams: 07/16/21 15:40 07/16/21 15:40 Charges/Coding Addendum Addendum: Patient was seen and examined today independently of William Lynn, she was sent to the emergency room at [facility] from her pain management physician's office due to elevated blood pressure. Patient's medical problems include hypertension, past history of Takotsubo's cardiomyopathy, osteoarthritis, chronic pain, and morbid obesity. Patient complained of shortness of breath, she did not complain of any chest pain to this examiner. On examination she appeared her stated age, she appeared to be in moderate distress at the time of my examination due to shortness of breath. Vital signs as documented. Skin warm and dry and without overt rashes. Neck without JVD, thyroid appears normal, trachea is midline, neck is supple. Lungs scattered expiratory rhonchi were noted bilaterally, decreased breath sounds were noted bilaterally. Heart exam notable for regular rhythm, normal sounds and absence of murmurs, rubs or gallops. Abdomen unremarkable and without evidence of organomegaly, masses, or abdominal aortic enlargement, bowel sounds are present in all 4 quadrants, no abdominal tenderness was noted. Extremities severely edematous lower legs, no cyanosis was noted, no clubbing was noted. Neuro: Cranial nerves II through XII are grossly intact, no focal motor deficits were noted, sensation to light touch and pinprick is intact, motor exam 5/5 throughout. Psych: Patient is alert and oriented x3, she does not appear anxious or depressed, she does not appear agitated. During the time the patient was in the emergency room, her respiratory status decompensated and she went from nasal cannula oxygen to being placed on BiPAP. Blood gases were obtained on a nonrebreather which showed a pH of 7.30, PCO2 of 52, PaO2 of 48. Labs were obtained, patient had normal white blood cell count, hemoglobin was normal, chemistry profile was remarkable for a glucose of 160 and a BUN of 20. Patient's beta natruretic peptide was elevated at 240, patient had a chest x-ray which showed bilateral infiltrates, rapid COVID test was performed which was negative, and patient had a CTA of the chest which showed no evidence of pulmonary emboli but showed the presence of bilateral infiltrates. Patient's narrative did not fit bilateral pneumonia, I felt that the patient most likely had acute congestive heart failure due to hypertensive emergency, she will be admitted to ICU, she is on BiPAP at this time, pulse ox will be monitored, I have decided to obtain a COVID PCR-patient is fully vaccinated and boosted-I think it is unlikely she has COVID but just to be on the safe side, I have ordered a PCR. Patient will be placed on IV Lasix, she will be given IV hydralazine as needed for hypertension, cardiac enzymes will be cycled, patient had an echocardiogram within the last 2 weeks which showed a normal EF-I do not feel at this time is necessary to repeat this echocardiogram. Finally, I have decided to place the patient on IV Levaquin, this can be discontinued at the discretion of pulmonary medicine who will be seeing the patient tomorrow. Impression: #1 acute combined respiratory failure-secondary to acute pulmonary edema from hypertensive emergency-again patient will be given IV Lasix, she will be seen in consultation by pulmonary medicine, pulse ox will be monitored. #2 hypertensive emergency-patient will be placed on her home blood pressure medication in addition I have decided to add Norvasc and give the patient IV hydralazine as needed. Again patient will be given IV Lasix and this will probably result in a lowering of her blood pressure. #3 acute diastolic congestive heart failure-again IV Lasix will be administered, chest x-ray will be repeated tomorrow, cardiac enzymes will be obtained #4 morbid obesity-complicates recovery prognosis and care #5 essential hypertension-again patient's blood pressure medications will be adjusted #6 chronic pain-patient is on OxyContin 20 mg twice daily, she will remain on this medication, patient tells me she cannot tolerate Tylenol due to nausea. IV morphine will be given as needed for pain control I have reviewed William Lynn's history and physical including his medical assessment and plan of care and with the above additions endorse it. Total clinical time spent by myself addressing the patient's medical issues, reviewing the patient's medical record, and collaborating with the patient's care team: 50 minutes Visit Charges Inpatient E&M: [id number] Init Hosp L3
--- NOTE | 2021-07-16 18:21 | ED.RN ---
Report given to [facility] ICU.
--- NOTE | 2021-07-16 20:05 | NURSING ---
Pt's son, Alli, and DIL, Silvia, called to convey that pt's spouse is very ELEM, lost a hearing aid and has had a hemorrhagic stroke so has difficulty understanding and remembering things having been told to him. Alli and Silvia given updates, as pt stated that this was ok to do. Alli and Silvia added to contact list per pt request.
[2021-07-16 20:17] LABS: Troponin-I HS 647 pg/mL (3.0-54.0)
[2021-07-16] MEDS: levoFLOXacin IV 750 MG/150 ML BAG 100 MG IV (20:26)
[2021-07-16] MEDS: oxyCODONE 5 MG Tablet 20 MG PO (21:16)
[2021-07-16] MEDS: Potassium Chloride Oral Tablet 20 MEQ PO (21:23)
[2021-07-16] MEDS: Furosemide 40 MG/4 ML Vial IV (21:26)
[2021-07-16] MEDS: Heparin Injection (Vial) 5,000 UNIT/ML VIAL 5000 UNIT SC (21:28)
[2021-07-16 23:37] LABS: Troponin-I HS 1188 pg/mL (3.0-54.0)
[2021-07-16] MEDS: LORazepam 2 MG/ML Syringe 0.25 MG IV (23:56)
[2021-07-16] MEDS: amLODIPine 5 MG Tablet PO (23:56)
[2021-07-17] VITALS (18 sets, daily range): BP systolic 111–136; BP diastolic 70–99; PULSE 76–115; RESP 13–20; TEMP 36.3–37; O2SAT 90–99
[2021-07-17 04:50] LABS: Absolute Lymphocyte Count 1.49 X10^3/uL (0.83-4.51); Absolute Neutrophil Count 8.2 X10^3/uL (2.0-7.7); Basophil# 0.01 X10^3/uL; Basophil% 0.1 % (0-1); Eosinophil# 0.01 X10^3/uL; Eosinophils% 0.1 % (0-5); Hematocrit 40.8 % (37-47); Hemoglobin 13.1 g/dL (12.0-15.0); Lymphocyte # 1.49 X10^3/ul (0.83-4.51); Lymphocyte % 14.5 % (19-41); Mean Corp Hgb Conc 32.1 g/dL (32-36); Mean Corpuscular Hgb 30.5 pg (27.0-32.0); Mean Corpuscular Volume 95.1 fL (81-99); Mean Platelet Vol. 10.8 fl (6.2-12.0); Monocyte# 0.51 X10^3/uL; NRBC Flagged by Analyzer 0 % (0-5); Neutrophil # 8.23 X10^3/uL (2.7-7.7); Platelet Count 293 K/mm3 (150-450); RBC Distribution Width SD 51.5 fl (35.1-43.9); Red Blood Count 4.29 M/mm3 (4.2-5.4); White Blood Count 10.3 K/mm3 (4.4-11.0)
[2021-07-17 05:03] LABS: Anion Gap 8 (5-15); BUN 20 mg/dL (7-18); BUN/Creat Ratio 21.8 RATIO (10-20); Calcium,Total 8.5 mg/dL (8.5-10.1); Chloride 97 mmol/L (98-107); Creatinine, Serum 0.92 mg/dL (0.55-1.02); EST Glomerular Filtration Rate 63 mL/min (>60); Est Glom Filt Rate - Afr Amer 76 mL/min (>60); Estimated Creatinine Clearance 64.26 ml/min; Glucose 140 mg/dL (74-106); Potassium 3.6 mmol/L (3.5-5.1); Sodium Level 138 mmol/L (136-145)
[2021-07-17] MEDS: Heparin Injection (Vial) 5,000 UNIT/ML VIAL 5000 UNIT SC ×3 (05:49→20:00)
[2021-07-17] MEDS: Furosemide 40 MG/4 ML Vial IV (05:50)
--- NOTE | 2021-07-17 05:55 | RAD_ITS ---
STUDY: X-RAY CHEST REASON FOR EXAM: Female, 81 years old. CHF TECHNIQUE: AP portable COMPARISON: None. FINDINGS: Infiltrate in the right mid in the left lower lung field has cleared. There is no demonstrated pleural abnormality. Normal size heart. Normal mediastinum and jose. Normal visualized pulmonary arteries. Normal visualized aortic arch and descending thoracic aorta. Normal visualized thoracic spine. Normal visualized ribs, clavicles, and shoulders. There is no demonstrated abnormality of the visualized soft tissue structures of the upper abdomen. RAD/Chest 1 View (Portable) IMPRESSION: Infiltrate seen previously has cleared. Electronically Signed: Dennis Mccray MD at 5:43 EDT ,
--- NOTE | 2021-07-17 06:07 | CON.PCM.CC_ITS ---
Assessment & Plan Assessment/Plan (1) Acute respiratory failure: PLAN: RECOMMENDATIONS: 1. Okay to discontinue Lasix for now, given interval improvement respiratory status and possible contraction alkalosis. 2. Antibiotics can be discontinued from my perspective. 3. Encourage incentive spirometer use and mobilize patient as tolerated. 4. Aggressive blood pressure control. 5. Encourage incentive spirometer use and mobilize patient as tolerated. 6. The patient is medically stable for transfer out of the intensive care unit. IMPRESSIONS: 1. Acute combined respiratory failure Appears to be most likely secondary to flash pulmonary edema in the setting of hypertensive emergency. The patient was noted to have a systolic pressure in excess of 200 mmHg upon presentation. COVID testing was negative. The patient responded avidly to the use of noninvasive positive pressure ventilatory support and IV diuretic therapy. She has been weaned to room air as of this morning. Recommend continue to encourage incentive spirometer use. Continue aggressive blood pressure control. Given that the patient's respiratory status has impr dana and she appears to have developed a contraction alkalosis overnight, will hold her Lasix. In addition, my suspicion for an underlying pulmonary infectious process is quite low. Therefore, antibiotics can be discontinued from my perspective. 2. Advanced age/obesity/hypertension/anxiety/GERD Complicates care, management, recovery and prognosis. The patient has a great deal of home social stressors. Consultation will be placed to case management and social work. Ultimately, I think the patient will benefit from some form of outpatient psychological therapy, as she appears to be clinically depressed. This note was generated with Ce[employer] dictation software. It may contain incorrect words, spelling, and punctuation that were not noted in checking the note before signing. HPI Consult Data Date of Consult: 07/17/21 HPI Narrative Reason for Consultation: Respiratory failure HPI Narrative: The patient is a 81-year-old female, with a history as outlined below, who presented to the emergency department on July 16 via EMS with uncontrolled hypertension. According to EMS documentation, on arrival, the patient was noted to have a blood pressure of 208/112 mmHg. 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 Upon having her blood pressure checked there, she was noted to be significantly hypertensive. The patient does have a medical history that includes prior Takotsubo cardiomyopathy, hypertension, hyperlipidemia, and chronic pain syndrome. She also appears to have a great deal of home stressors, becoming tearful at times when discussing her who had some form of a brain bleed several years ago and has been relatively sedentary since that time. This is left a great deal of the home upkeep to the patient, who was ultimately unable to do everything on her own. Surface echocardiogram from July 07 demonstrated normal LV size and function with an ejection fraction of 60%. Pulmonary function studies completed in 2015 demonstrated no evidence of COPD. On presentation to the emergency department, the patient was noted to be hypertensive, tachycardic and tachypneic. There are documented blood pressures in the emergency department in excess of 200 mmHg systolic. Laboratory evaluation revealed no evidence of a leukocytosis. Chemistry profile was unremarkable. Initial troponin was negative. However, her troponin increased over the course of the night to 1188. BNP was elevated at 240. COVID PCR was negative. CTA chest showed no evidence for pulmonary embolism. However, there was evidence of interstitial septal thickening along with bilateral groundglass opacities. The patient was ultimately placed on BiPAP therapy and admitted to the medical intensive care unit. The patient was managed with aggressive blood pressure control and IV diuretic therapy. [facility] Medical History Anemia Anxiety Arthritis Aseptic loosening of prosthetic hip Asthma Back problem Carpal tunnel syndrome Constipation COPD (chronic obstructive pulmonary disease) Coronary artery disease Depression Edema Fibromyalgia Gastrointestinal problem Generalized weakness GERD (gastroesophageal reflux disease) Heart disease Heart valve problem History of blood transfusion History of emotional problems History of pneumonia Hyperlipidemia Hypertension Irritable bowel syndrome NSTEMI (non-ST elevated myocardial infarction) Osteoarthritis of left hip Ulcer Home Medications potassium chloride 10 mEq tablet,extended release(part/cryst) 20 meq PO DAILY #180 tab 07/01/17 [Rx Last Taken 07/16/21] lisinopril-hydrochlorothiazide 1 tab PO DAILY 07/18/18 [History Last Taken 07/16/21] oxycodone 20 mg tablet 20 mg PO BID 08/09/18 [History Last Taken 07/16/21] lorazepam 1 mg tablet 0.5 mg PO TID PRN PRN tab 11/07/18 [History Last Taken 07/16/21] pantoprazole 20 mg PO DAILY 01/29/21 [History Last Taken 07/16/21] Allergy/AdvReac Type Severity Reaction Status Date / Time hydrocodone bitartrate Allergy Unknown Rash Verified 01/29/21 13:34 [From Vicodin] propoxyphene Allergy Unknown Unknown Verified 11/07/18 14:07 fentanyl Allergy feels Verified 01/29/21 13:34 terrible NSAIDS (Non-Steroidal AdvReac Unknown Unknown Verified 11/07/18 14:07 Anti-Inflamma acetaminophen [From Tylenol] AdvReac Nausea Verified 11/07/18 14:07 diazepam [From Valium] AdvReac Other Verified 11/07/18 14:07 Family History Father Heart disease Myocardial infarction Mother Hyperlipidemia Diabetes Anxiety Arthritis Depression Sister Thyroid disorder Sister Thyroid disorder Surgical History History of bilateral knee replacement History of left heart catheterization (~01/15/15) History of total hysterectomy Status post revision of total hip replacement Social History Smoking Status: Never smoker alcohol intake: never caffeine: No what type of physical activity do you participate in: other frequency: 3-4 times per week ROS Constitutional Constitutional: Denies chills, fatigue or fever(s) Eyes Eyes: Denies blurry vision or change in vision ENT HEENT: Denies dysphagia, epistaxis or headache(s) Cardiovascular Cardiovascular: Reports chest pain and edema Respiratory/Chest Respiratory/Chest: Denies cough Gastrointestinal Gastrointestinal: Denies abdominal pain, diarrhea, nausea or vomiting Genitourinary Genitourinary: Denies difficulty urinating Musculoskeletal Musculoskeletal: Reports arthralgias and joint pain Integumentary Integumentary: Denies lesions, rash or skin ulcer Neurologic Neurologic: Denies abnormal gait, abnormal speech or confusion Psychiatric Psychiatric: Reports anxiety and depression Endocrine Endocrinology: Denies fatigue, polydipsia or polyuria Hematologic/Lymphatic Hematologic/Lymphatic: Denies easy bleeding or easy bruising Physical Exam Const alert and oriented x3 General Appearance: cooperative Nutritional Appearance: obese HEENT normocephalic, head/scalp atraumatic and moist oral mucous membranes Eyes PERRL, EOMs intact bilaterally and conjunctivae normal Neck supple General: trachea midline Chest inspection of chest normal Resp normal respiratory effort Auscultation: Negative for rales, rhonchi or wheezes Cardio regular rate and regular rhythm GI normal to inspection, nondistended, normoactive bowel sounds Extremity General Extremity: edema; Negative for clubbing Skin no rashes or lesions noted Neuro CN's II-XII intact bilaterally, moves all extremities and no focal motor deficits Psych Psych Narrative: Tearful at times during my interaction with her. Mood & Affect: anxious Lab / Micro Data Result Diagrams: 07/17/21 04:36 07/17/21 04:36 Labs: Laboratory Results - last 24 hr 07/16/21 15:40: WBC 7.0, RBC 4.34, Hgb 13.3, Hct 42.1, MCV 97.0, MCH 30.6, MCHC 31.6 L, RDW Std Deviation 53.4 H, RDW Coeff of Sin 15.0 H, Plt Count 276, MPV 11.0, Immature Gran % (Auto) 0.300, Neut % (Auto) 56.2, Lymph % (Auto) 32.3, [place] % (Auto) 8.2, Eos % (Auto) 2.6, Baso % (Auto) 0.4, Absolute Neuts (auto) 3.9, Absolute Lymphs (auto) 2.26, Nucleated RBC % 0 07/16/21 15:40: Sodium 137, Potassium 3.7, Chloride 103, Carbon Dioxide 26.0, Anion Gap 8, BUN 20 H, Creatinine 0.91, Estim Creat Clear Calc 70.27, Est GFR (MDRD) Af Amer 76, Est GFR (MDRD) Non-Af 63, BUN/Creatinine Ratio 21.9 H, Glucose 160 H, Calcium 9.3, Troponin I High Sens 12 07/16/21 15:40: B-Natriuretic Peptide 240.4 H 07/16/21 18:18: COVID-19 (NIKA) Not Detected 07/16/21 18:25: Troponin I High Sens 647 H* 07/16/21 22:41: Troponin I High Sens 1188 H* 07/17/21 04:36: WBC 10.3, RBC 4.29, Hgb 13.1, Hct 40.8, MCV 95.1, MCH 30.5, MCHC 32.1, RDW Std Deviation 51.5 H, RDW Coeff of Sin 15.0 H, Plt Count 293, MPV 10.8, Immature Gran % (Auto) 0.300, Neut % (Auto) 80.0 H, Lymph % (Auto) 14.5 L, [place] % (Auto) 5.0, Eos % (Auto) 0.1, Baso % (Auto) 0.1, Absolute Neuts (auto) 8.2 H, Absolute Lymphs (auto) 1.49, Nucleated RBC % 0 07/17/21 04:36: Sodium 138, Potassium 3.6, Chloride 97 L, Carbon Dioxide 33.0 H, Anion Gap 8, BUN 20 H, Creatinine 0.92, Estim Creat Clear Calc 64.26, Est GFR (MDRD) Af Amer 76, Est GFR (MDRD) Non-Af 63, BUN/Creatinine Ratio 21.8 H, Glucose 140 H, Calcium 8.5 Micro: Microbiology 07/16/21 16:05 Nasal Secretion SARS-CoV-2 & FLU Antigen (Rapid) - Final ABG Data ABG results: ABG 07/16/21 17:05 Specimen Type ART Sample Site L Radial pH 7.30 L Bicarbonate Actual 25.8 Total CO2 27 Base Excess -1 O2 Saturation 79 L O2 % 100 ABG pCO2 52.7 H ABG pO2 48 L O2 Delivery Device NRB Radiology Impression Chest X-Ray 07/16/21 16:00 IMPRESSION: Bilateral airspace disease which may represent pneumonia. at 1624 Reported and signed by: Ash Hahn MD Electronically Signed: Ash Hahn MD at 16:23 EDT , Chest CTA 07/16/21 16:31 IMPRESSION: No demonstrated PE, or thoracic aortic aneurysm or dissection Diffuse interstitial and airspace opacifications in both lung ghotra without effusions. This pattern of opacification is highly suspicious for Covid pneumonia. No suspicious noncalcified mass or nodule Calcified coronary vessels No suspicious adenopathy Hiatal hernia Simple hepatic cyst, no specific follow-up needed Degenerative bony changes Electronically Signed: Evert Kilpatrick MD at 17:10 EDT , Chest X-Ray 07/17/21 05:55 IMPRESSION: Infiltrate seen previously has cleared. Electronically Signed: Dennis Mccray MD at 5:43 EDT , Charges/Coding Visit Charges Inpatient E&M: 12442 Init Hosp L3
--- NOTE | 2021-07-17 07:24 | PCM.PN.HOSP ---
Subjective Subjective Patient is very anxious and looks sad. Shortness of breath is improved. Objective Data Objective Data Vital Signs: Vital Signs Temp Pulse Resp BP Pulse Ox 97.8 F 91 13 134/85 H 95 07/17/21 04:00 07/17/21 07:00 07/17/21 07:00 07/17/21 07:00 07/17/21 07:00 Oxygen Flow Rate (L/min) 2 Oxygen Delivery Method Room Air Weight: 175 lb 11.2 oz Body Mass Index (BMI) 36.5 Intake & Output: Intake and Output for Last 24 Hours 07/15/21 07/16/21 07/17/21 23:59 23:59 23:59 Intake Total 150 / 150 Output Total 3550 / 3550 1100 / 1100 Balance -3400 / -3400 -1100 / -1100 Lab / Micro Data Result Diagrams: 07/17/21 04:36 07/17/21 04:36 Labs: Laboratory Results - last 24 hr 07/16/21 15:40: WBC 7.0, RBC 4.34, Hgb 13.3, Hct 42.1, MCV 97.0, MCH 30.6, MCHC 31.6 L, RDW Std Deviation 53.4 H, RDW Coeff of Sin 15.0 H, Plt Count 276, MPV 11.0, Immature Gran % (Auto) 0.300, Neut % (Auto) 56.2, Lymph % (Auto) 32.3, [place] % (Auto) 8.2, Eos % (Auto) 2.6, Baso % (Auto) 0.4, Absolute Neuts (auto) 3.9, Absolute Lymphs (auto) 2.26, Nucleated RBC % 0 07/16/21 15:40: Sodium 137, Potassium 3.7, Chloride 103, Carbon Dioxide 26.0, Anion Gap 8, BUN 20 H, Creatinine 0.91, Estim Creat Clear Calc 70.27, Est GFR (MDRD) Af Amer 76, Est GFR (MDRD) Non-Af 63, BUN/Creatinine Ratio 21.9 H, Glucose 160 H, Calcium 9.3, Troponin I High Sens 12 07/16/21 15:40: B-Natriuretic Peptide 240.4 H 07/16/21 18:18: COVID-19 (NIKA) Not Detected 07/16/21 18:25: Troponin I High Sens 647 H* 07/16/21 22:41: Troponin I High Sens 1188 H* 07/17/21 04:36: WBC 10.3, RBC 4.29, Hgb 13.1, Hct 40.8, MCV 95.1, MCH 30.5, MCHC 32.1, RDW Std Deviation 51.5 H, RDW Coeff of Sin 15.0 H, Plt Count 293, MPV 10.8, Immature Gran % (Auto) 0.300, Neut % (Auto) 80.0 H, Lymph % (Auto) 14.5 L, [place] % (Auto) 5.0, Eos % (Auto) 0.1, Baso % (Auto) 0.1, Absolute Neuts (auto) 8.2 H, Absolute Lymphs (auto) 1.49, Nucleated RBC % 0 07/17/21 04:36: Sodium 138, Potassium 3.6, Chloride 97 L, Carbon Dioxide 33.0 H, Anion Gap 8, BUN 20 H, Creatinine 0.92, Estim Creat Clear Calc 64.26, Est GFR (MDRD) Af Amer 76, Est GFR (MDRD) Non-Af 63, BUN/Creatinine Ratio 21.8 H, Glucose 140 H, Calcium 8.5 Micro: Microbiology 07/16/21 16:05 Nasal Secretion SARS-CoV-2 & FLU Antigen (Rapid) - Final ABG Data ABG results: ABG 07/16/21 17:05 Specimen Type ART Sample Site L Radial pH 7.30 L Bicarbonate Actual 25.8 Total CO2 27 Base Excess -1 O2 Saturation 79 L O2 % 100 ABG pCO2 52.7 H ABG pO2 48 L O2 Delivery Device NRB Radiography Diagnostic Testing: Radiology Impression Chest X-Ray 07/16/21 16:00 IMPRESSION: Bilateral airspace disease which may represent pneumonia. -[phone], Service support , Chest CTA 07/16/21 16:31 IMPRESSION: No demonstrated PE, or thoracic aortic aneurysm or dissection Diffuse interstitial and airspace opacifications in both lung ghotra without effusions. This pattern of opacification is highly suspicious for Covid pneumonia. No suspicious noncalcified mass or nodule Calcified coronary vessels No suspicious adenopathy Hiatal hernia Simple hepatic cyst, no specific follow-up needed Degenerative bony changes Chest X-Ray 07/17/21 05:55 IMPRESSION: Infiltrate seen previously has cleared. 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 Besides that, she has worsening shortness of breath 4 days and has chronic left-sided chest pain most likely due to pericarditis. She has typical symptoms of pain over left side on deep breathing and coughing and she had it for long time, no change in frequency, severity or characteristic recently. She also has increased swelling of lower extremity last 4 days. General: Alert, Oriented x3, Cooperative HEENT: Atraumatic, PERRLA, EOMI, Normocephalic Oral: No Gingival or Mucosal Lesions/ Ulcerations Neck: Supple, No JVD, Negative Carotid Bruits Lungs: Air entry diminished in bilateral lung bases. No crepitation/rhonchi Cardiovascular: Regular rate, Regular Rhythm, Normal S1, Normal S2, No murmurs/rub/gallop Abdomen: Bowel Sounds Present, Soft, Non Tender, Non-Distended : No renal angle tenderness. No suprapubic tenderness. Extremities: Bilateral ankle pitting edema, Capillary Refill Less than 3 Seconds Skin: No rashes, No breakdown Musculoskeletal: No Tenderness to Palpation of Joints or Extremities Neurological: Cranial nerves II-XII grossly intact, DTR 2+/4 and Symmetrical, Neuro grossly intact Psych/Mental Status: Anxious, easily distractible. Assessment & Plan Assessment/Plan (1) Respiratory acidosis: (2) Acute respiratory failure with hypoxia: (3) (HFpEF) heart failure with preserved ejection fraction: PLAN: Patient is a 81-year-old female who presents to the ED at [facility] on 07/16/2021 with a chief complaint of uncontrolled hypertension, hypertensive emergency and shortness of breath. 1) Acute hypoxic respiratory failure most likely due to a flash pulmonary edema due to acute CHF exacerbation on chronic HFpEF: This might have been exacerbated by hypertensive emergency. BP was 208/112 patient is being admitted in ICU and evaluated by teacher tutor. Patient responded to IV diuretic and BiPAP. BP controlled. Chest CTA was negative for PE or aortic dissection, but did show bilateral diffuse interstitial and airspace opacifications. Rapid COVID and flu test is negative. Respiratory panel ordered. Echocardiogram from 07/07/2021 demonstrated normal LV size and systolic function with an EF of 60% mild MR. Patient on as needed Bumex at home probably has chronic HFpEF. COVID-19 PCR negative. Repeat chest x-ray shows clearance of alveolar opacity consistent with flash pulmonary edema. Patient empirically on Levaquin until infectious process is ruled out although less likely 2) non-STEMI most likely type II event due to increased demand ischemia/acute on chronic HFpEF/hypertensive emergency: Troponin went high, maximal 1188. BNP 240. Discussed with final operations technician Dr. Aragon. Limited echo ordered to look for pericardial effusion and change in EF. 3. Acute respiratory acidosis due to pulmonary edema: 7.3/52/48 on nonrebreather mask 4) hypertensive emergency with evidence of endorgan compromise, flash pulmonary edema: As mentioned above. Patient was treated with Lasix but currently on hold due to metabolic alkalosis. On amlodipine lisinopril. 4) morbid obesity BMI is 42.4. Weight loss advised, calorie controlled diet ordered. CODE STATUS: Full code. Total time of the visit including total time spent in counseling or coordination of care, (more than 50% of the total time, spent in obtaining medical information from nurses and other ancillary care providers,explaining to the patient about labs, imaging, diagnosis and management), discussion with consultants, review of labs and imaging is 40 minutes. Charges/Coding Visit Charges Inpatient E&M: 64359 Subs Hosp L3
[2021-07-17] MEDS: Potassium Chloride Oral Tablet 20 MEQ PO ×2 (07:50→17:05)
--- NOTE | 2021-07-17 08:21 | ECHOL_ITS ---
Reason For Study: PULM EDEMA, R/O PERICARDIAL EFFUSION Procedure This was a limited 2D transthoracic echocardiogram. Exam performed portable in ICU/CCU. Left Ventricle The estimated ejection fraction is 35 %. Base of the LV is luis well. Rest of the LV is akinetic. MMode/2D Measurements & Calculations LVAd ap4: 23.8 cm2 SV(MOD-sp4): 26.4 ml SV(sp4-el): 28.4 ml LVLd ap4: 7.7 cm EDV(MOD-sp4): 58.7 ml EDV(sp4-el): 62.1 ml LVAs ap4: 16.4 cm2 LVLs ap4: 6.8 cm ESV(MOD-sp4): 32.3 ml ESV(sp4-el): 33.7 ml EF(MOD-sp4): 45.0 % EF(sp4-el): 45.8 % ECHO/Echo, Limited Study Interpretation Summary Limited study done to evaluate LV systolic function and regional wall motion ab normalities. Left ventricular ejection fraction is 35% Base of the LV is luis well, rest of the LV is akinetic Ordering Physician: Reymundo Grullon Referring Physician: BORIS MUÑOZ Performed By: Jewell Donnelly, DEISY
[2021-07-17 08:24] LABS: Procalcitonin < 0.04 ng/mL (0.00-0.09)
[2021-07-17] MEDS: oxyCODONE 5 MG Tablet 20 MG PO ×2 (09:59→21:44)
[2021-07-17] MEDS: CHLORHEXIDINE GLUC 2% CLOTH 1 EACH TOWELETTE TOPICAL (09:59)
[2021-07-17] MEDS: amLODIPine 5 MG Tablet PO (10:00)
[2021-07-17] MEDS: Lisinopril 20 MG Tablet PO (10:00)
--- NOTE | 2021-07-17 10:33 | CON.PCM.CA_ITS ---
Assessment & Plan Assessment/Plan (1) CHF (congestive heart failure): QUALIFIERS: Heart failure type: systolic Heart failure chronicity: acute on chronic Qualified Code(s): I50.23 - Acute on chronic systolic (congestive) heart failure PLAN: Appears to be secondary to recurrence of Takotsubo cardiomyopathy. Discussed coronary angiography with the patient. Patient prefers to wait. There is a reasonable approach. We will proceed with a stress test. We can discontinue the amlodipine and add carvedilol. (2) NSTEMI (non-ST elevated myocardial infarction): PLAN: Appears to be secondary to Takotsubo cardiomyopathy. We will check a stress test. HPI Consult Data Date of Consult: 07/17/21 HPI Narrative HPI Narrative: PADMA DAHL, is a 81 F who presents with leg swelling, shortness of breath. 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 Patient states that she has been having leg edema and shortness of breath for the last 4 days. She has also been having chest pain on and off for several days. Patient's troponin was elevated. She responded well to Lasix and her shortness of breath and lower extremity edema have improved. She had a 2D echo which reveals wall motion abnormalities similar to Takotsubo cardiomyopathy. Patient states that she has been under a lot of stress recently with her pain issues and also because her mother is in a long term. Her also has some medical issues. Patient states that she has had recurrences of Takotsubo cardiomyopathy several times over the years. I discussed coronary angiography as her last coronary angiogram appears to be in 2014. Patient prefers to wait and see as she feels that her current presentation is not unusual for her due to recurrences of cardiomyopathy. Her 2D echo from July 07, 2021 reveals preserved EF with no significant wall motion abnormalities. Review of systems: All systems reviewed. All else is negative except that in [facility] Medical History Anemia Anxiety Arthritis Aseptic loosening of prosthetic hip Asthma Back problem Carpal tunnel syndrome Constipation COPD (chronic obstructive pulmonary disease) Coronary artery disease Depression Edema Fibromyalgia Gastrointestinal problem Generalized weakness GERD (gastroesophageal reflux disease) Heart disease Heart valve problem History of blood transfusion History of emotional problems History of pneumonia Hyperlipidemia Hypertension Irritable bowel syndrome NSTEMI (non-ST elevated myocardial infarction) Osteoarthritis of left hip Ulcer Home Medications potassium chloride 10 mEq tablet,extended release(part/cryst) 20 meq PO DAILY #180 tab 07/01/17 [Rx Last Taken 07/16/21] lisinopril-hydrochlorothiazide 1 tab PO DAILY 07/18/18 [History Last Taken 07/16/21] oxycodone 20 mg tablet 20 mg PO BID 08/09/18 [History Last Taken 07/16/21] lorazepam 1 mg tablet 0.5 mg PO TID PRN PRN tab 11/07/18 [History Last Taken 07/16/21] pantoprazole 20 mg PO DAILY 01/29/21 [History Last Taken 07/16/21] Allergy/AdvReac Type Severity Reaction Status Date / Time hydrocodone bitartrate Allergy Unknown Rash Verified 01/29/21 13:34 [From Vicodin] propoxyphene Allergy Unknown Unknown Verified 11/07/18 14:07 fentanyl Allergy feels Verified 01/29/21 13:34 terrible NSAIDS (Non-Steroidal AdvReac Unknown Unknown Verified 11/07/18 14:07 Anti-Inflamma acetaminophen [From Tylenol] AdvReac Nausea Verified 11/07/18 14:07 diazepam [From Valium] AdvReac Other Verified 11/07/18 14:07 Family History Father Heart disease Myocardial infarction Mother Hyperlipidemia Diabetes Anxiety Arthritis Depression Sister Thyroid disorder Sister Thyroid disorder Surgical History History of bilateral knee replacement History of left heart catheterization (~01/15/15) History of total hysterectomy Status post revision of total hip replacement Social History Smoking Status: Never smoker alcohol intake: never caffeine: No what type of physical activity do you participate in: other frequency: 3-4 times per week Physical Exam Const alert and oriented x3 Orientation / Consciousness: awake HEENT normocephalic Eyes no scleral icterus Neck supple Chest inspection of chest normal Resp normal respiratory effort and clear to auscultation bilaterally Cardio regular rate Extremity General Extremity: edema bilateral lower extremity Details: moderate Neuro oriented x3 Psych mental status grossly normal Risk Stratification Risk Stratification Applicable: No Charges/Coding Visit Charges Inpatient E&M: 94946 Init Hosp L2 Objective Data Vital Signs: Vital Signs Temp Pulse Resp BP Pulse Ox 97.7 F L 100 17 134/89 H 92 07/17/21 08:00 07/17/21 08:00 07/17/21 08:00 07/17/21 08:00 07/17/21 08:00 Oxygen Flow Rate (L/min) 2 Oxygen Delivery Method Room Air Weight: 175 lb 11.2 oz Body Mass Index (BMI) 36.5 Intake & Output: Intake and Output for Last 24 Hours 07/15/21 07/16/21 07/17/21 23:59 23:59 23:59 Intake Total 150 / 150 Output Total 3550 / 3550 1100 / 1100 Balance -3400 / -3400 -1100 / -1100 Lab / Micro Data Result Diagrams: 07/17/21 04:36 07/17/21 04:36 Labs: Laboratory Results - last 24 hr 07/16/21 15:40: WBC 7.0, RBC 4.34, Hgb 13.3, Hct 42.1, MCV 97.0, MCH 30.6, MCHC 31.6 L, RDW Std Deviation 53.4 H, RDW Coeff of Sin 15.0 H, Plt Count 276, MPV 11.0, Immature Gran % (Auto) 0.300, Neut % (Auto) 56.2, Lymph % (Auto) 32.3, [place] % (Auto) 8.2, Eos % (Auto) 2.6, Baso % (Auto) 0.4, Absolute Neuts (auto) 3.9, Absolute Lymphs (auto) 2.26, Nucleated RBC % 0 07/16/21 15:40: Sodium 137, Potassium 3.7, Chloride 103, Carbon Dioxide 26.0, Anion Gap 8, BUN 20 H, Creatinine 0.91, Estim Creat Clear Calc 70.27, Est GFR (MDRD) Af Amer 76, Est GFR (MDRD) Non-Af 63, BUN/Creatinine Ratio 21.9 H, Glucose 160 H, Calcium 9.3, Troponin I High Sens 12 07/16/21 15:40: B-Natriuretic Peptide 240.4 H 07/16/21 18:18: COVID-19 (NIKA) Not Detected 07/16/21 18:25: Troponin I High Sens 647 H* 07/16/21 22:41: Troponin I High Sens 1188 H* 07/17/21 04:36: WBC 10.3, RBC 4.29, Hgb 13.1, Hct 40.8, MCV 95.1, MCH 30.5, MCHC 32.1, RDW Std Deviation 51.5 H, RDW Coeff of Sin 15.0 H, Plt Count 293, MPV 10.8, Immature Gran % (Auto) 0.300, Neut % (Auto) 80.0 H, Lymph % (Auto) 14.5 L, [place] % (Auto) 5.0, Eos % (Auto) 0.1, Baso % (Auto) 0.1, Absolute Neuts (auto) 8.2 H, Absolute Lymphs (auto) 1.49, Nucleated RBC % 0 07/17/21 04:36: Sodium 138, Potassium 3.6, Chloride 97 L, Carbon Dioxide 33.0 H, Anion Gap 8, BUN 20 H, Creatinine 0.92, Estim Creat Clear Calc 64.26, Est GFR (MDRD) Af Amer 76, Est GFR (MDRD) Non-Af 63, BUN/Creatinine Ratio 21.8 H, Glucose 140 H, Calcium 8.5 07/17/21 06:50: Procalcitonin < 0.04 Micro: Microbiology 07/16/21 16:05 Nasal Secretion SARS-CoV-2 & FLU Antigen (Rapid) - Final ABG Data ABG results: ABG 07/16/21 17:05 Specimen Type ART Sample Site L Radial pH 7.30 L Bicarbonate Actual 25.8 Total CO2 27 Base Excess -1 O2 Saturation 79 L O2 % 100 ABG pCO2 52.7 H ABG pO2 48 L O2 Delivery Device NRB Cardiology Labs/Tests 07/16/21 15:40: WBC 7.0, RBC 4.34, Hgb 13.3, Hct 42.1, MCV 97.0, MCH 30.6, MCHC 31.6 L, Plt Count 276, MPV 11.0, Immature Gran % (Auto) 0.300, Neut % (Auto) 56.2, Lymph % (Auto) 32.3, [place] % (Auto) 8.2, Eos % (Auto) 2.6, Baso % (Auto) 0.4, Absolute Neuts (auto) 3.9, Nucleated RBC % 0 07/16/21 15:40: Sodium 137, Potassium 3.7, Chloride 103, Carbon Dioxide 26.0, Anion Gap 8, BUN 20 H, Creatinine 0.91, Est GFR (MDRD) Af Amer 76, Est GFR (MDRD) Non-Af 63, BUN/Creatinine Ratio 21.9 H, Glucose 160 H, Calcium 9.3 07/16/21 15:40: B-Natriuretic Peptide 240.4 H 07/16/21 17:05: pH 7.30 L, Bicarbonate Actual 25.8, Base Excess -1, O2 Saturation 79 L, ABG pCO2 52.7 H, ABG pO2 48 L 07/17/21 04:36: WBC 10.3, RBC 4.29, Hgb 13.1, Hct 40.8, MCV 95.1, MCH 30.5, MCHC 32.1, Plt Count 293, MPV 10.8, Immature Gran % (Auto) 0.300, Neut % (Auto) 80.0 H, Lymph % (Auto) 14.5 L, [place] % (Auto) 5.0, Eos % (Auto) 0.1, Baso % (Auto) 0.1, Absolute Neuts (auto) 8.2 H, Nucleated RBC % 0 07/17/21 04:36: Sodium 138, Potassium 3.6, Chloride 97 L, Carbon Dioxide 33.0 H, Anion Gap 8, BUN 20 H, Creatinine 0.92, Est GFR (MDRD) Af Amer 76, Est GFR (MDRD) Non-Af 63, BUN/Creatinine Ratio 21.8 H, Glucose 140 H, Calcium 8.5 Rhythm: EKG: ECHO: Stress Test: Cardiac Cath: PCI: CT Surgery: Holter monitor: EPS: PPM: CXR: Chest CT Scan: Radiography Diagnostic Testing: Radiology Impression Chest X-Ray 07/16/21 16:00 IMPRESSION: Bilateral airspace disease which may represent pneumonia. at 1624 Reported and signed by: Ash Hahn MD Electronically Signed: Ash Hahn MD at 16:23 EDT , Chest CTA 07/16/21 16:31 IMPRESSION: No demonstrated PE, or thoracic aortic aneurysm or dissection Diffuse interstitial and airspace opacifications in both lung ghotra without effusions. This pattern of opacification is highly suspicious for Covid pneumonia. No suspicious noncalcified mass or nodule Calcified coronary vessels No suspicious adenopathy Hiatal hernia Simple hepatic cyst, no specific follow-up needed Degenerative bony changes Electronically Signed: Evert Kilpatrcik MD at 17:10 EDT , Chest X-Ray 07/17/21 05:55 IMPRESSION: Infiltrate seen previously has cleared. Electronically Signed: Dennis Mccray MD at 5:43 EDT , Echocardiogram 07/17/21 08:21 Interpretation Summary Limited study done to evaluate LV systolic function and regional wall motion abnormalities. Left ventricular ejection fraction is 35% Base of the LV is luis well, rest of the LV is akinetic Ordering Physician: Reymundo Grullon Referring Physician: BORIS MUÑOZ Performed By: Jewell Donnelly RDCS
[2021-07-17] MEDS: Carvedilol 6.25 MG Tablet PO ×2 (11:12→20:00)
[2021-07-17] MEDS: LORazepam 0.5 MG Tablet PO ×2 (11:12→20:01)
--- NOTE | 2021-07-17 14:22 | CASEMGMT ---
Social Work SW received referral from physician due to limited support and pt anxiety. SW introduced self and role at [facility]. Pt and pt spouse present and pt agreeable to meet with spouse present. Pt is A/O at this time and answers all questions appropriately. Initial assessment completed. PCP: Dax Specialists: Suhas Dutton Zachary Insurance: medicare and secondary Living Will/HPOA: Pt has a living will on file but no Health Care POA on file LNOK: Filipe, Son Alli lives [facility] and Daughter Myriam lives [place] Living Arrangements: Pt lives in a single story home with 3 steps to enter. Pt lives with her spouse and states that she is independent with all self care and she and spouse share household responsibilities. Transportation: Pt does not drive, pts spouse provides needed transportation DME: Pt uses a walker for ambulation. Has a walk in shower with a shower chair, high rise toilet with grab bars HHC/SNF:Pt has been to [facility] in the past and has utilized [facility] previously Substance Use: Pt denies any illegal substances. Pt states she has been on Ativan since she was 37 years old. Pt stating that approximately 3 years ago she got in trouble with it but has used it correctly ever since. Pt stating she has been on pain medication for the last 7 years and that she cannot stop her mind from racing at night so takes ZzzQuil nightly to sleep. Mental Health: Pt has a diagnosis of anxiety and depression. Pt denies any concerns other than anxiety. Pt states she has seen a counselor in the past although she in unable to remember her name or what practice she was at other than on [place]. Pt unable to say when she last saw the pratictioner or why she stopped. Pt presentation upon visit is very anxious. Prior to SW asking questions, pt starts speaking about family problems, frustrations, anxieties and poor coping. Difficult to direct pt to questions at hand. Pt perseverating on one idea and then moves on to the next and next. Pt discussing childhood trauma, of adult son 11 years ago and inability to recover from this loss, anger at PCP and other health care providers, son Alli's treatment of pt, pt frustration with 's disability from stroke and his behavior. Pt becomes agitated and raising voice and then crying and voicing despair with anxiety. SW spoke with pt regarding coping strategies and ways to relieve stress. At this time pt unable to discuss barriers to returning home as her anxiety is prohibiting further conversation. SW spoke with pt regarding restarting counseling and pt and are agreeable and would like to return to [place]. Phone call to [facility] at the [place] [facility]. They reviewed records and pt has not been seen at that clinic before. This worker is unaware of any other practices on [facility]. SW will followup with pt to discuss choosing another counseling service and revisit discharge plan. KAUR Fernandez
--- NOTE | 2021-07-17 22:02 | CPS ---
pt refusing bipap currently
[2021-07-17] MEDS: LORazepam 2 MG/ML Syringe 0.25 MG IV (23:08)
[2021-07-17] MEDS: 0.9% Saline Lock 10 ML Syringe IV (23:09)
[2021-07-18] VITALS (12 sets, daily range): BP systolic 94–113; BP diastolic 61–70; PULSE 66–96; RESP 16–18; TEMP 36.3–37; O2SAT 91–98
[2021-07-18] MEDS: LORazepam 0.5 MG Tablet PO ×2 (05:31→13:45)
[2021-07-18] MEDS: Lisinopril 20 MG Tablet PO (05:31)
--- NOTE | 2021-07-18 05:55 | EKG12_ITS ---
Test Reason : PRE OP Blood Pressure : / mmHG Vent. Rate : 071 BPM Atrial Rate : 071 BPM P-R Int : 188 ms QRS Dur : 114 ms QT Int : 552 ms P-R-T Axes : 030 -59 207 degrees QTc Int : 599 ms Normal sinus rhythm Left anterior fascicular block ST & Marked T wave abnormality, consider anterolateral ischemia Prolonged QT Abnormal ECG Confirmed by DAE MORRIS, ONI ([id number]), writer editor GRICELDA KOEHLER ([id number]) on 07/21/2021 11:37:53 AM Referred By: CONSTANCE Confirmed By:ONI PEARL MD
--- NOTE | 2021-07-18 06:54 | PN.CC_ITS ---
Assessment & Plan Assessment/Plan (1) Acute respiratory failure: PLAN: RECOMMENDATIONS: 1. Antibiotics can be discontinued from my perspective. 2. Encourage incentive spirometer use and mobilize patient as tolerated. 3. Aggressive blood pressure control. 4. Encourage incentive spirometer use and mobilize patient as tolerated. 5. Given the patient's lack of further ICU or pulmonary needs, will sign off. Please call with any additional questions. IMPRESSIONS: 1. Acute combined respiratory failure Appears to be most likely secondary to flash pulmonary edema in the setting of hypertensive emergency. The patient was noted to have a systolic pressure in excess of 200 mmHg upon presentation. COVID testing was negative. The patient responded avidly to the use of noninvasive positive pressure ventilatory support and IV diuretic therapy. Recommend continue to encourage incentive spirometer use. Continue aggressive blood pressure control. In addition, my suspicion for an underlying pulmonary infectious process is quite low. Therefore, antibiotics can be discontinued from my perspective. 2. Advanced age/obesity/hypertension/anxiety/GERD Complicates care, management, recovery and prognosis. The patient has a great deal of home social stressors. Ultimately, I think the patient will benefit from some form of outpatient psychological therapy, as she appears to be clinically depressed. This note was generated with myOrder dictation software. It may contain incorrect words, spelling, and punctuation that were not noted in checking the note before signing. Subjective Subjective The patient was seen and examined at the bedside this morning. Events from the last 24 hours have been reviewed. The patient is currently afebrile, hemodynamically stable and maintaining appropriate oxygen saturations on room air. The patient is scheduled to undergo a cardiac stress test this morning. Objective Data Objective Data The patient's most recent lab work, culture data and imaging studies have all been personally reviewed. Surface echocardiogram demonstrated an ejection fraction of 35%. Vital Signs: Vital Signs Temp Pulse Resp BP Pulse Ox 98.6 F 76 18 113/63 93 07/18/21 02:00 07/18/21 03:19 07/18/21 02:00 07/18/21 05:34 07/18/21 02:00 Oxygen Flow Rate (L/min) 2 Oxygen Delivery Method Room Air Weight: 78.1 kg Body Mass Index (BMI) 36.5 Intake & Output: Intake and Output for Last 24 Hours 04/20/22 04/21/22 04/22/22 23:59 23:59 23:59 Intake Total 150 / 150 320 / 320 50 / 50 Output Total 3550 / 3550 2650 / 2650 100 / 100 Balance -3400 / -3400 -2330 / -2330 -50 / -50 Lab / Micro Data Attestation: I reviewed the patient's lab results. Result Diagrams: 07/17/21 04:36 07/17/21 04:36 Labs: Laboratory Results - last 24 hr 07/17/21 06:50: Procalcitonin < 0.04 Micro: Microbiology 07/17/21 08:30 Mucosa - Nasopharyngeal Respiratory Panel (PCR) - Final 07/16/21 16:05 Nasal Secretion SARS-CoV-2 & FLU Antigen (Rapid) - Final Radiography Diagnostic Testing: Radiology Impression Echocardiogram 07/17/21 08:21 Interpretation Summary Limited study done to evaluate LV systolic function and regional wall motion abnormalities. Left ventricular ejection fraction is 35% Base of the LV is luis well, rest of the LV is akinetic Ordering Physician: Reymundo Grullon Referring Physician: BORIS MUÑOZ Performed By: Jewell Donnelly RDCS Physical Exam Const alert and oriented x3 General Appearance: cooperative Nutritional Appearance: obese HEENT normocephalic, head/scalp atraumatic and moist oral mucous membranes Eyes PERRL, EOMs intact bilaterally and conjunctivae normal Neck supple General: trachea midline Chest inspection of chest normal Resp normal respiratory effort Auscultation: Negative for rales, rhonchi or wheezes Cardio regular rate and regular rhythm GI normal to inspection, nondistended, normoactive bowel sounds Extremity General Extremity: edema; Negative for clubbing Skin no rashes or lesions noted Neuro CN's II-XII intact bilaterally, moves all extremities and no focal motor deficits Psych Psych Narrative: Tearful at times during my interaction with her. Mood & Affect: anxious Charges/Coding Visit Charges Inpatient E&M: 44884 Subs Hosp L2
--- NOTE | 2021-07-18 07:29 | PN.HOSP_ITS ---
Objective Data Objective Data Vital Signs: Vital Signs Temp Pulse Resp BP Pulse Ox 98.6 F 76 18 113/63 93 07/18/21 02:00 07/18/21 03:19 07/18/21 02:00 07/18/21 05:34 07/18/21 02:00 Oxygen Flow Rate (L/min) 2 Oxygen Delivery Method Room Air Weight: 172 lb 2.896 oz Body Mass Index (BMI) 36.5 Intake & Output: Intake and Output for Last 24 Hours 07/16/21 07/17/21 07/18/21 23:59 23:59 23:59 Intake Total 150 / 150 320 / 320 50 / 50 Output Total 3550 / 3550 2650 / 2650 100 / 100 Balance -3400 / -3400 -2330 / -2330 -50 / -50 Lab / Micro Data Result Diagrams: 07/17/21 04:36 07/17/21 04:36 Labs: Laboratory Results - last 24 hr 07/17/21 06:50: Procalcitonin < 0.04 Micro: Microbiology 07/17/21 08:30 Mucosa - Nasopharyngeal Respiratory Panel (PCR) - Final 07/16/21 16:05 Nasal Secretion SARS-CoV-2 & FLU Antigen (Rapid) - Final Radiography Diagnostic Testing: Radiology Impression Echocardiogram 07/17/21 08:21 Interpretation Summary Limited study done to evaluate LV systolic function and regional wall motion abnormalities. 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 Besides that, she has worsening shortness of breath 4 days and has chronic left-sided chest pain most likely due to pericarditis. She has typical symptoms of pain over left side on deep breathing and coughing and she had it for long time, no change in frequency, severity or characteristic recen tly. She also has increased swelling of lower extremity last 4 days. General: Alert, Oriented x3, Cooperative HEENT: Atraumatic, PERRLA, EOMI, Normocephalic Oral: No Gingival or Mucosal Lesions/ Ulcerations Neck: Supple, No JVD, Negative Carotid Bruits Lungs: Air entry diminished in bilateral lung bases. No crepitation/rhonchi Cardiovascular: Regular rate, Regular Rhythm, Normal S1, Normal S2, No murmurs/rub/gallop Abdomen: Bowel Sounds Present, Soft, Non Tender, Non-Distended : No renal angle tenderness. No suprapubic tenderness. Extremities: Bilateral ankle pitting edema, Capillary Refill Less than 3 Seconds Skin: No rashes, No breakdown Musculoskeletal: No Tenderness to Palpation of Joints or Extremities Neurological: Cranial nerves II-XII grossly intact, DTR 2+/4 and Symmetrical, Neuro grossly intact Psych/Mental Status: Anxious, easily distractible. Assessment & Plan Assessment/Plan (1) Respiratory acidosis: (2) Acute respiratory failure with hypoxia: (3) (HFpEF) heart failure with preserved ejection fraction: PLAN: Patient is a 81-year-old female who presents to the ED at [facility] on 07/16/2021 with a chief complaint of uncontrolled hypertension, hypertensive emergency and shortness of breath. 1) Acute hypoxic respiratory failure most likely due to a flash pulmonary edema due to acute CHF exacerbation on chronic HFpEF: This might have been exacerbated by hypertensive emergency. BP was 208/112 patient is being admitted in ICU and evaluated by publishing agent. Patient responded to IV diuretic and BiPAP. BP controlled. Chest CTA was negative for PE or aortic dissection, but did show bilateral diffuse interstitial and airspace opacifications. Rapid COVID and flu test is negative. Respiratory panel ordered. Echocardiogram from 07/07/2021 demonstrated normal LV size and systolic function with an EF of 60% mild MR. Patient on as needed Bumex at home probably has chronic HFpEF. COVID-19 PCR negative. Repeat chest x-ray shows clearance of alveolar opacity consistent with flash pulmonary edema. Patient empirically on Levaquin until infectious process is ruled out although less likely 2) non-STEMI most likely type II event due to increased demand ischemia/acute on chronic HFpEF/hypertensive emergency: Troponin went high, maximal 1188. BNP 240. Discussed with edi developer Dr. Aragon. Limited echo ordered to look for pericardial effusion and change in EF. 07/18: Limited 2D echo reported as EF 35% with base of LV luis well, rest LV akinetic consistent with recurrence of Takotsubo cardiomyopathy. Remelt Furnace Expediter discussed with the patient regarding cardiac cath but she wanted to wait for it but want to go for stress test. Stress test is planned. Amlodipine discontinued. Coreg decreased. 3. Acute respiratory acidosis due to pulmonary edema: 7.3/52/48 on nonrebreather mask 4) hypertensive emergency with evidence of endorgan compromise, flash pulmonary edema: As mentioned above. Patient was treated with Lasix but currently on hold due to metabolic alkalosis. On amlodipine lisinopril. 4) morbid obesity BMI is 42.4. Weight loss advised, calorie controlled diet ordered. CODE STATUS: Full code. Total time of the visit including total time spent in counseling or coordination of care, (more than 50% of the total time, spent in obtaining medical information from nurses and other ancillary care providers,explaining to the patient about labs, imaging, diagnosis and management), discussion with consultants, review of labs and imaging is 40 minutes.
--- NOTE | 2021-07-18 09:01 | NURSING ---
to stress test per bed
[2021-07-18] MEDS: Potassium Chloride Oral Tablet 20 MEQ PO (10:32)
[2021-07-18] MEDS: levoFLOXacin IV 750 MG/150 ML BAG 100 MG IV (10:32)
[2021-07-18] MEDS: Carvedilol 6.25 MG Tablet PO (10:33)
[2021-07-18] MEDS: oxyCODONE 5 MG Tablet 20 MG PO (10:33)
[2021-07-18] MEDS: 0.9% Saline Lock 10 ML Syringe IV (10:36)
--- NOTE | 2021-07-18 11:04 | CASEMGMT ---
Social Work SW met with pt and spouse in room. Pt much calmer today. Pt stating she remembers conversation with SW yesterday and doesn't want to talk about all that stuff again. SW reassured pt that she did not need to review information from yesterday. SW did speak with pt regarding discharge plan. Pt feels she can return home and denies need for home health services. SW provided pt with list of private duty aids and the Healthcare Provider Directory as pt is unhappy with current PCP. Pt is appreciative of information. Phone call to [facility] and they do have a psychologist Alaina Calloway who sees clients at the [place] [facility] [address]. SW made appointment for August 04 at 2pm. Pt updated and agreeable to appointment. No further SW needs. KAUR Fernandez
--- NOTE | 2021-07-18 11:06 | DCINST_ITS ---
Discharge Instructions Diet Discharge Diet: Low fat / Low cholesterol, 6 Cup Fluid Restriction and 2000 mg Sodium Diet Dressing / Incision Call your doctor if you observe: Fever of 101 or Higher, Coldness, Increased Pain, Numbness or Tingling, Change in Color, Inability to urinate, Inability to have a bowel movement, Using more than 1 pad per hour, Shortness of breath, Dizziness, Fainting spells, Swelling in the ankles, Chest pain, Prolonged hiccupping, Increased palpitations (irregular heartbeat), Calf discomfort and Uncontrolled pain Follow Up Care Test Results: Test results from this visit will be discussed in further detail at your follow-up appointment, if applicable. Discharge Plan Admission Admit Date/Time: 07/16/21 17:46 Attending Provider: Reymundo Grullon Primary Care Provider: Art Verduzco Chi Consulting Providers: Trudy Aragon ; Hilton Ross ; Devendra Payan ; Miracle Hinton TRANSMISSION SUPERVISOR Instructions Additional Instructions / Restrictions: Lisinopril HCTZ is discontinued Discharge Orders/Prescriptions Prescriptions: New carvedilol 6.25 mg Tablet 6.25 mg PO BID Qty: 60 RF: 1 lisinopril 20 mg Tablet 20 mg PO DAILY Qty: 30 RF: 1 aspirin 81 mg tablet,delayed release (DR/EC) 81 mg PO DAILY Qty: 30 RF: 2 furosemide [Lasix] 20 mg tablet 20 mg PO DAILY Qty: 30 RF: 2 Continued oxycodone 20 mg tablet 20 mg PO BID RF: 0 lorazepam 1 mg tablet 0.5 mg PO TID PRN PRN (Reason: Anxiety) RF: 0 pantoprazole 20 mg Tablet,Delayed Release (Dr/Ec) 20 mg PO DAILY RF: 0 potassium chloride 10 mEq tablet,ER particles/crystals 20 meq PO DAILY Qty: 180 RF: 4 No Action lisinopril-hydrochlorothiazide 1 EACH tablet 1 tab PO DAILY RF: 0 Referrals / Follow Up: Alaina Calloway, Psychologist [Other] - 08/04/21 2:00 pm Art Verduzco Chi, MD [Primary Care Provider] - Within 2 Weeks Amy Jean PA [PHYSICIAN EQUIPMENT OPERATING ENGINEER] - Within 2 Weeks (For heart failure and Takotsubo cardiomyopathy ) Disposition Disposition (needs filled in before D/C Order can be placed): Home, Self Care
--- NOTE | 2021-07-18 12:36 | PCM.PN.CARD ---
Documented by User: Amy GLASS, QUAN 07/18/21 15:10 Subjective Subjective Pt has not had any further CP or SOB. She is very tearful today and talking about her stressors at home. Objective Data Vital Signs: Vital Signs Temp Pulse Resp BP Pulse Ox 98.1 F 96 16 103/70 98 07/18/21 07:33 07/18/21 11:42 07/18/21 07:33 07/18/21 07:33 07/18/21 07:33 Oxygen Flow Rate (L/min) 2 Oxygen Delivery Method Room Air Weight: 172 lb 2.896 oz Body Mass Index (BMI) 36.5 Intake & Output: Intake and Output for Last 24 Hours 07/16/21 07/17/21 07/18/21 23:59 23:59 23:59 Intake Total 150 / 150 320 / 320 153.33 / 153.33 Output Total 3550 / 3550 2650 / 2650 100 / 100 Balance -3400 / -3400 -2330 / -2330 53.33 / 53.33 Lab / Micro Data Result Diagrams: 07/17/21 04:36 07/17/21 04:36 Micro: Microbiology 07/17/21 08:30 Mucosa - Nasopharyngeal Respiratory Panel (PCR) - Final Cardiology Labs/Tests EKG: ECHO: Limited study done to evaluate LV systolic function and regional wall motion abnormalities. Left ventricular ejection fraction is 35% Base of the LV is luis well, rest of the LV is akinetic Stress Test: Physical Exam Const alert and oriented x3 Orientation / Consciousness: awake HEENT normocephalic Eyes no scleral icterus Neck supple Chest inspection of chest normal Resp normal respiratory effort and clear to auscultation bilaterally Cardio regular rate Extremity General Extremity: edema bilateral lower extremity Details: moderate Neuro oriented x3 Psych mental status grossly normal Assessment & Plan Assessment/Plan (1) CHF (congestive heart failure): QUALIFIERS: Heart failure chronicity: acute on chronic Heart failure type: systolic Qualified Code(s): I50.23 - Acute on chronic systolic (congestive) heart failure (2) NSTEMI (non-ST elevated myocardial infarction): PLAN: Appears to be secondary to recurrence of Takotsubo cardiomyopathy. Discussed coronary angiography with the patient. Patient prefered to wait. Stress was done, this is normal. Will continue with her Coreg and Lisinopril. Will not resume her amlodipine on an out pt basis. Will f/u on OP basis will repeat echo in 3 months, will continue to optimize medications on OP basis. Charges/Coding Visit Charges Inpatient E&M: 89939 Subs Hosp L2 Documented by User: Dr. Rosa Haq MD 07/18/21 17:48 Lab / Micro Data Result Diagrams: 07/17/21 04:36 07/17/21 04:36 Assessment & Plan Assessment/Plan (1) NSTEMI (non-ST elevated myocardial infarction): (2) (HFpEF) heart failure with preserved ejection fraction: (3) Coronary artery disease: QUALIFIERS: Coronary Disease-Associated Artery/Lesion type: [place] artery [place] vs. transplanted heart: [place] heart Associated angina: without angina Qualified Code(s): I25.10 - Atherosclerotic heart disease of [place] coronary artery without angina pectoris PLAN: I independently reviewed the clinical data of this patient, including the processing specialist, telemetry, lab test, echocardiogram, Lexiscan sestamibi marker perfusion study And I formulated cardiac care plan as per midlevel documentation
--- NOTE | 2021-07-18 13:21 | NURSING ---
patient care taken over by this RN at this time.
--- NOTE | 2021-07-18 14:14 | DS.PCM_ITS ---
Providers Date of Admission: 07/16/21 Primary Care Physician: Dr. Art Verduzco MD Consultations 07/16/21 18:26 Consult: Director Of Labor And Delivery / Pulmonary Medicine Routine Consulting Provider: [facility] Reason for Consult: respiratory failure EMERGENT Consult: No Notified: Yes Date Notified: 07/16/21 Time Notified: 17:56 Method of Notification: Text 07/17/21 08:21 Consult: Cardiology Routine Consulting Provider: Trudy Aragon Reason for Consult: high trop, Pulm edema/HTN emergency EMERGENT Consult: No Notified: Yes Date Notified: 07/17/21 Time Notified: 08:23 Method of Notification: Verbal Reason For Visit: respiratory failure Diagnosis Discharge Diagnosis (1) CHF (congestive heart failure): Status: Acute Code(s): I50.9 - Heart failure, unspecified Qualifiers: Heart failure type: systolic Heart failure chronicity: acute on chronic Qualified Code(s): I50.23 - Acute on chronic systolic (congestive) heart failure (2) NSTEMI (non-ST elevated myocardial infarction): Status: Chronic Code(s): I21.4 - Non-ST elevation (NSTEMI) myocardial infarction Medications at Discharge Home Medications lisinopril-hydrochlorothiazide 1 tab PO DAILY 07/18/18 oxycodone 20 mg tablet 20 mg PO BID 08/09/18 lorazepam 1 mg tablet 0.5 mg PO TID PRN PRN tab 11/07/18 pantoprazole 20 mg PO DAILY 01/29/21 aspirin 81 mg PO DAILY #30 tab 07/18/21 atorvastatin 20 mg PO QHS #30 tab 07/18/21 carvedilol 6.25 mg PO BID #60 tab 07/18/21 furosemide [Lasix] 20 mg PO DAILY #30 tab 07/18/21 lisinopril 20 mg PO DAILY #30 tab 07/18/21 potassium chloride 20 meq PO DAILY #180 tab 07/18/21 Hospital Course Summary of Care Provided Hospital Course: Patient is a 81-year-old female who presents to the ED at [facility] on 07/16[facility]2021 with a chief complaint of uncontrolled hypertension, hypertensive emergency and shortness of breath. 1) Acute hypoxic respiratory failure most likely due to a flash pulmonary edema due to acute CHF exacerbation on acute on chronic systolic and diastolic combined heart failure: This might have been exacerbated by hypertensive emergency. BP was 208/112 patient is being admitted in ICU and evaluated by pasteurizing supervisor. Patient responded to IV diuretic and BiPAP. BP controlled. Chest CTA was negative for PE or aortic dissection, but did show bilateral diffuse interstitial and airspace opacifications. Rapid COVID and flu test is negative. Echocardiogram from 07/07/2021 demonstrated normal LV size and systolic function with an EF of 60% mild MR. Patient on as needed Bumex at home probably has chronic HFpEF. COVID-19 PCR negative. Repeat chest x-ray shows clearance of alveolar opacity consistent with flash pulmonary edema. Patient empirically on Levaquin until infectious process is ruled out although less likely 07/18: Patient was transferred to PCU on 07/17. Over the next 24 hours patient did well. Pulse ox 98% on room air. Acute hypoxic respiratory failure resolved . Lungs clear. Pulmonary edema resolved. Respiratory panel negative. Infectious Work-up negative. Pneumonia ruled out. Levaquin discontinued. Diuretic was held yesterday because of metabolic alkalosis, bicarb 33. Discussed with the manufacturing controller. Furosemide can be resumed at lower dose 20 mg daily as patient is diuretic sensitive. Discharged on furosemide 20 mg daily along with potassium supplement. 2) non-STEMI most likely type II event due to increased demand ischemia/acute on chronic combined systolic and diastolic heart failure/hypertensive emergency: Troponin went high, maximal 1188. BNP 240. Discussed with manufacturing controller Dr. Aragon. Limited echo ordered to look for pericardial effusion and change in EF. 07/18: Limited 2D echo reported as EF 35% with base of LV luis well, rest LV akinetic consistent with recurrence of Takotsubo cardiomyopathy. Channel Supervisor discussed with the patient regarding cardiac cath but she wanted to wait for it but want to go for stress test. Stress test was negative for acute ischemia amlodipine discontinued. Coreg decreased to 6.25 mg twice daily. Patient is discharged on baby aspirin, carvedilol, lisinopril and atorvastatin. 3. Acute respiratory acidosis due to pulmonary edema: 7.3/48 on nonrebreather mask. 07/18: Resolved 4) hypertensive emergency with evidence of endorgan compromise, flash pulmonary edema: As mentioned above. Patient was treated with Lasix but currently on hold due to metabolic alkalosis. Follow-up PCP in 1 week with BMP. 4) morbid obesity BMI is 42.4. Weight loss advised, calorie controlled diet ordered. CODE STATUS: Full code. Discharge medication reconciliation done. Discharge follow-up instructions completed. Discharge process discussed with the patient and all questions were answered to patient's satisfaction. Lisinopril HCTZ home combination pill discontinued Total time spent, exact 35 minutes on discharge meds reconciliation, examination, coordination of care with nurses and ancillary staff, review of imaging and blood test and discussion with the patient on follow-up instructions. Physical Exam Narrative General: Alert, Oriented x3, Cooperative HEENT: Atraumatic, PERRLA, EOMI, Normocephalic Oral: No Gingival or Mucosal Lesions/ Ulcerations Neck: Supple, No JVD, Negative Carotid Bruits Lungs: Air entry diminished in bilateral lung bases. No crepitation/rhonchi. Lungs clear Cardiovascular: Regular rate, Regular Rhythm, Normal S1, Normal S2, No murmurs/rub/gallop Abdomen: Bowel Sounds Present, Soft, Non Tender, Non-Distended : No renal angle tenderness. No suprapubic tenderness. Extremities: Bilateral ankle pitting edema, much improved. Capillary Refill Less than 3 Seconds Skin: No rashes, No breakdown Musculoskeletal: No Tenderness to Palpation of Joints or Extremities Neurological: Cranial nerves II-XII grossly intact, DTR 2+/4 and Symmetrical, Neuro grossly intact Psych/Mental Status: Anxious, easily distractible. Weight / BMI Weight Weight: 172 lb 2.896 oz Body Mass Index (BMI) 36.5 ABG / Lab / Microbiology Data Result Diagrams: 07/17/21 04:36 07/17/21 04:36 Microbiology: Microbiology 07/17/21 08:30 Mucosa - Nasopharyngeal Respiratory Panel (PCR) - Final 07/16/21 16:05 Nasal Secretion SARS-CoV-2 & FLU Antigen (Rapid) - Final D/C Instructions Discharge Diet: Low fat / Low cholesterol, 6 Cup Fluid Restriction and 2000 mg Sodium Diet Call your doctor if you observe: Fever of 101 or Higher, Coldness, Increased Pain, Numbness or Tingling, Change in Color, Inability to urinate, Inability to have a bowel movement, Using more than 1 pad per hour, Shortness of breath, Dizziness, Fainting spells, Swelling in the ankles, Chest pain, Prolonged hiccupping, Increased palpitations (irregular heartbeat), Calf discomfort and Uncontrolled pain Meaningful Use Info Meaningful Use Diagnoses (Choose all that apply): AMI and CHF AMI/Post PCI/Angioplasty Aspirin given w/in 24hrs of arrival?: Yes ASA at discharge?: Yes Statins at discharge?: Yes Piero/ARB at discharge?: Yes Beta Lonny at discharge?: Yes Done w/ Acute SC measure.: Yes CHF PIERO/ARB ordered at discharge?: Yes Documented LVEF (%): 35 Discharge Plan Admission Admit Date/Time: 07/16/21 17:46 Attending Provider: Reymundo Grullon Primary Care Provider: Art Verduzco Chi Consulting Providers: Trudy Aragon ; Hilton Ross ; Devendra Payan ; Miracle Hinton NEURO INTENSIVIST PHYSICIAN Instructions Additional Instructions / Restrictions: Lisinopril HCTZ is discontinued Discharge Orders/Prescriptions Prescriptions: New carvedilol 6.25 mg Tablet 6.25 mg PO BID Qty: 60 RF: 1 lisinopril 20 mg Tablet 20 mg PO DAILY Qty: 30 RF: 1 aspirin 81 mg tablet,delayed release (DR/EC) 81 mg PO DAILY Qty: 30 RF: 2 furosemide [Lasix] 20 mg tablet 20 mg PO DAILY Qty: 30 RF: 2 atorvastatin 20 mg tablet 20 mg PO QHS Qty: 30 RF: 2 Continued oxycodone 20 mg tablet 20 mg PO BID RF: 0 lorazepam 1 mg tablet 0.5 mg PO TID PRN PRN (Reason: Anxiety) RF: 0 pantoprazole 20 mg Tablet,Delayed Release (Dr/Ec) 20 mg PO DAILY RF: 0 potassium chloride 10 mEq tablet,ER particles/crystals 20 meq PO DAILY Qty: 180 RF: 4 No Action lisinopril-hydrochlorothiazide 1 EACH tablet 1 tab PO DAILY RF: 0 Referrals / Follow Up: Alaina Calloway Psychologist [Other] - 08/04/21 2:00 pm Art Verduzco Chi, MD [Primary Care Provider] - Within 2 Weeks Amy Jean, PA [PHYSICIAN MD OPHTHALMOLOGIST] - Within 2 Weeks (For heart failure and Takotsubo cardiomyopathy ) Disposition Disposition (needs filled in before D/C Order can be placed): Home, Self Care Charges/Coding Visit Charges Inpatient E&M: 93202 Disch Hosp
--- NOTE | 2021-07-18 14:22 | CHAPLAIN ---
Type of Pastoral Visit _x__ Initial Visit ___ Follow-up Visit ___ On-call Visit ___ General Patient Visit ___ Spiritual Assessment ___ Family Conference ___ Bereavement ___ Rapid Response ___ Code Blue ___ Other (describe below) Pastoral Care Referral From _x__ Patient ___ Family ___ Nurse ___ Physician ___ Bureau Director ___ Derrick Hand ___ Other (describe below) Sacrament/Intervention _x__ Active listening ___ Anointing ___ Protestant ___ Bereavement ___ Communion _x__ Naty exploration ___ _x__ Life review _x__ Prayer ___ Reconciliation ___ Sacrament of Sick _x__ Supportive presence ___ Wedding ___ Other (describe below) Pastoral Comments patient clearly states that she is seeking spiritual support and comfort as she starts her life story and the many hurts and wounds that she has from her past; once pt starts telling life review this supervisor gate services remembers her admission to [facility] a few years ago and the very same story of her life accompanied by the emotional pain and anxiety it has caused her; much listening and presence given; pt talks over many examples of her past and the difficulties she is facing now; pt states that she is overwhelmed and is frustrated at inability to do what she wants to do; pt speaks of naty in God but also her inability to find true peace; pt asks for prayer; pt very expressive about 'gratitude for listening to her story and being available'; prayer and offer of ongoing support while she is a patient
[2021-07-18 15:13] LABS: Cholesterol 230 mg/dL (200); High Density Lipoprotein 75 mg/dL; Triglycerides 69 mg/dL; Very Low Density Lipoprotein 14 mg/dL (5-40)
--- NOTE | 2021-07-18 16:05 | STRESSREP_ITS ---
Stress Test Report Pharmacologic/Lexiscan myocardial perfusion stress test. Indication; 81-year-old patient, presented with bilateral lower extremity swelling shortness of breath. Patient had 2D echo from July 07, 2021 revealed preserved ejection fraction and had a history of Takotsubo and last cardiac catheterization was in 2014. Stress protocol: Resting EKG demonstrates. Normal sinus rhythm. T wave inversion was noted in the anterior leads V2 V3 0.4 mg of regadenoson was infused per usual protocol followed by rapid intravenous saline flush injection continuous EKG monitoring was performed. The maximum heart rate attained was 100 bpm which was 70% of maximum predicted heart . Stress EKG showed no significant change from the resting EKG, with maximum heart rate of 100 bpm. Arrhythmia: No arrhythmia demonstrated Symptoms: Patient had no symptoms of chest pain Blood pressure at rest: 118/82 mmHg blood pressure at the end of stress: 122/70 mmHg Myocardial perfusion protocol. 14.7 mCi ]of Technetium 99m Sestamibi was injected at rest. [ 0.4 mg ]of Regadenoson was infused per usual protocol peak infusion 44.5 mCi ]of Technetium 99m sestamibi was injected. Stress images were obtained stress and rest images were reconstructed and compared in the short axis vertical and horizontal long axis. Gated images were also obtained Perfusion SPECT analysis: Review of the images demonstrate normal uptake of sestamibi at rest, post stress images demonstrate similar uptake of sestamibi to the resting images, homogeneous tracer uptake With no evidence of reversible myocardial ischemia. Gated SPECT analysis: The gated ejection fraction is 63% Normal LV systolic function and normal left ventricular wall motion. Conclusion: Negative Lexiscan sestamibi myocardial perfusion study for reversible myocardial ischemia Normal LV systolic function . Rosa Haq MD,FACC,[facility]
== END 2021-07-18 15:35 | disposition home or self-care (01) | DRG 280 ==
LOC: ED 17:29 → ICU 18:29 → PCU 07-17 15:15
PROVIDERS: Internal Medicine Critical Care Medicine; Admitting Provider Internal Medicine; Emergency Provider Emergency Medicine; PCP Family Medicine Geriatric Medicine; Visit Provider Internal Medicine
DX: I11.0 Hypertensive heart disease with heart failure (principal); I21.A1 Myocardial infarction type 2; I50.33 Acute on chronic diastolic (congestive) heart failure; J96.01 Acute respiratory failure with hypoxia; J96.02 Acute respiratory failure with hypercapnia; J81.0 Acute pulmonary edema; Z68.41 Body mass index [BMI] 40.0-44.9, adult; I16.1 Hypertensive emergency; J44.9 Chronic obstructive pulmonary disease, unspecified; E66.01 Morbid (severe) obesity due to excess calories; F41.9 Anxiety disorder, unspecified; M79.7 Fibromyalgia; K21.9 Gastro-esophageal reflux disease without esophagitis; E78.5 Hyperlipidemia, unspecified; K58.9 Irritable bowel syndrome, unspecified; I25.2 Old myocardial infarction; M16.12 Unilateral primary osteoarthritis, left hip; I25.10 Atherosclerotic heart disease of native coronary artery without angina pectoris; F32.A Depression, unspecified; Z87.01 Personal history of pneumonia (recurrent); Z79.899 Other long term (current) drug therapy; G89.4 Chronic pain syndrome; I51.81 Takotsubo syndrome
CPT/HCPCS: 36415; 36600; 71045; 71275; 78452; 80048; 80053; 80061; 82803; 83880; 84145; 84484; 85025; 87428; 87633; 87635; 93005; 93017; 93308; 94002; 97110; 97162; 97166; 97530; 97535; 97802; 99251; 99285; A9500; A4216; G0463; J1940; J2785; U0003; U0005

== ENCOUNTER → 2021-07-16 | Outpatient (CLI) | payer MEDICARE, OTHER, SELFPAY ==
[2021-07-16 15:13] LABS: Absolute Lymphocyte Count 1.89 X10^3/uL (0.83-4.51); Absolute Neutrophil Count 3.1 X10^3/uL (2.0-7.7); Basophil# 0.03 X10^3/uL; Basophil% 0.5 % (0-1); Eosinophil# 0.18 X10^3/uL; Eosinophils% 3.2 % (0-5); Hematocrit 39.8 % (37-47); Hemoglobin 12.5 g/dL (12.0-15.0); Lymphocyte # 1.89 X10^3/ul (0.83-4.51); Lymphocyte % 33.9 % (19-41); Mean Corp Hgb Conc 31.4 g/dL (32-36); Mean Corpuscular Hgb 30.3 pg (27.0-32.0); Mean Corpuscular Volume 96.6 fL (81-99); Monocyte% 7.2 % (0-10); NRBC Flagged by Analyzer 0 % (0-5); Neutrophil # 3.06 X10^3/uL (2.7-7.7); Platelet Count 252 K/mm3 (150-450); RBC Distribution Width SD 52.7 fl (35.1-43.9); Red Blood Count 4.12 M/mm3 (4.2-5.4); White Blood Count 5.6 K/mm3 (4.4-11.0)
[2021-07-16 15:47] LABS: AST(SGOT) 19 U/L (15-37); Alanine Aminotransfer ALT/SGPT 15 U/L (13-56); Albumin, Serum 4.2 g/dL (3.2-5.0); Alkaline Phosphatase 89 U/L (45-117); Anion Gap 6 (5-15); BUN 19 mg/dL (7-18); BUN/Creat Ratio 21.4 RATIO (10-20); Calcium,Total 9.2 mg/dL (8.5-10.1); Chloride 101 mmol/L (98-107); Creatinine, Serum 0.89 mg/dL (0.55-1.02); EST Glomerular Filtration Rate 65 mL/min (>60); Est Glom Filt Rate - Afr Amer 79 mL/min (>60); Globulin 4.2 g/dL (2.2-4.2); Glucose 82 mg/dL (74-106); Potassium 3.6 mmol/L (3.5-5.1); Protein, Total 8.4 g/dL (6.4-8.2); Sodium Level 137 mmol/L (136-145)
== END | disposition home or self-care (01) ==
LOC: MTLAB 12:34
PROVIDERS: PCP Family Medicine Geriatric Medicine; Referring Provider Internal Medicine Rheumatology; Visit Provider Internal Medicine Rheumatology
DX: M05.79 Rheumatoid arthritis with rheumatoid factor of multiple sites without organ or systems involvement (principal); M35.00 Sjogren syndrome, unspecified; I50.9 Heart failure, unspecified; I11.0 Hypertensive heart disease with heart failure; M79.7 Fibromyalgia; M21.41 Flat foot [pes planus] (acquired), right foot; M47.897 Other spondylosis, lumbosacral region; K21.9 Gastro-esophageal reflux disease without esophagitis; F41.9 Anxiety disorder, unspecified; K44.9 Diaphragmatic hernia without obstruction or gangrene; J45.909 Unspecified asthma, uncomplicated; G62.9 Polyneuropathy, unspecified; Z79.899 Other long term (current) drug therapy
CPT/HCPCS: 36415; 80053; 85025

== ENCOUNTER → 2021-07-29 | Outpatient (CLI) | payer MEDICARE, OTHER, SELFPAY ==
[2021-07-29 17:18] LABS: Absolute Lymphocyte Count 2.04 X10^3/uL (0.83-4.51); Basophil# 0.03 X10^3/uL; Basophil% 0.4 % (0-1); Eosinophil# 0.23 X10^3/uL; Eosinophils% 3.4 % (0-5); Hematocrit 37.5 % (37-47); Lymphocyte # 2.04 X10^3/ul (0.83-4.51); Lymphocyte % 30.2 % (19-41); Mean Corpuscular Hgb 30.5 pg (27.0-32.0); Mean Corpuscular Volume 95.4 fL (81-99); Mean Platelet Vol. 11.9 fl (6.2-12.0); Monocyte# 0.44 X10^3/uL; Monocyte% 6.5 % (0-10); NRBC Flagged by Analyzer 0 % (0-5); Neutrophil # 3.98 X10^3/uL (2.7-7.7); Neutrophil % 59.1 % (47-70); Platelet Count 278 K/mm3 (150-450); RBC Distribution Width CV 14.6 % (11.6-14.6); RBC Distribution Width SD 49.8 fl (35.1-43.9); Red Blood Count 3.93 M/mm3 (4.2-5.4); White Blood Count 6.8 K/mm3 (4.4-11.0)
[2021-07-29 17:19] LABS: ALB/GLOB Ratio 0.9 RATIO (0.9-2.4); AST(SGOT) 18 U/L (15-37); Alanine Aminotransfer ALT/SGPT 15 U/L (13-56); Albumin, Serum 3.9 g/dL (3.2-5.0); Alkaline Phosphatase 77 U/L (45-117); Anion Gap 6 (5-15); BUN 48 mg/dL (7-18); BUN/Creat Ratio 37.2 RATIO (10-20); Calcium,Total 9.7 mg/dL (8.5-10.1); Chloride 99 mmol/L (98-107); Creatinine, Serum 1.29 mg/dL (0.55-1.02); EST Glomerular Filtration Rate 42 mL/min (>60); Est Glom Filt Rate - Afr Amer 51 mL/min (>60); Globulin 4.5 g/dL (2.2-4.2); Glucose 104 mg/dL (74-106); Potassium 4.4 mmol/L (3.5-5.1); Protein, Total 8.4 g/dL (6.4-8.2); Sodium Level 136 mmol/L (136-145); Thyroid Stim Hormone (TSH) 2.13 uIU/mL (0.358-3.74)
[2021-07-29 17:23] LABS: Vitamin D,25 Hydroxy 16.1 ng/mL
== END | disposition home or self-care (01) ==
LOC: POLAB3 13:50
PROVIDERS: PCP Family Medicine Geriatric Medicine; Visit Provider Family Medicine Geriatric Medicine
DX: E55.9 Vitamin D deficiency, unspecified (principal); I10 Essential (primary) hypertension
CPT/HCPCS: 36415; 80053; 82306; 84443; 85025

== ENCOUNTER → 2021-10-06 | Outpatient (CLI) | payer MEDICARE, OTHER, SELFPAY ==
--- NOTE | 2021-10-06 14:39 | ECHOL_ITS ---
Reason For Study: Takotsubo CM Procedure This was a limited 2D transthoracic echocardiogram. Exam performed in department. Left Ventricle Normal LV size. Left ventricular systolic function is normal. The estimated ejection fraction is 60 %. No regional wall motion abnormalities noted. Right Ventricle Normal RV size. Normal systolic function. Atria Normal left atrium. Normal right atrium. Mitral Valve Normal mitral valve. Tricuspid Valve Normal tricuspid valve. Moderate (2+) tricuspid valve insufficiency. Pulmonary artery systolic pressure is 60 mmHg. Moderate pulmonary hypertension. Aortic Valve Normal aortic valve. Pulmonic Valve Normal pulmonic valve. Great Vessels Normal aortic root. The pulmonary artery is normal size. Normal inferior vena cava. Pericardium/Pleural No pericardial effusion. MMode/2D Measurements & Calculations LVIDd: 4.3 cm IVSd: 1.1 cm LVAd ap4: 21.2 cm2 LVIDs: 2.7 cm LVPWd: 1.1 cm LVLd ap4: 7.0 cm FS: 37.2 % EDV(MOD-sp4): 53.3 ml EDV(sp4-el): 55.0 ml LVAs ap4: 10.7 cm2 LVLs ap4: 5.8 cm ESV(MOD-sp4): 17.5 ml ESV(sp4-el): 16.6 ml EF(MOD-sp4): 67.2 % EF(sp4-el): 69.9 % SV(MOD-sp4): 35.8 ml SV(sp4-el): 38.5 ml Doppler Measurements & Calculations TR max sandra: 379.1 cm/sec TR max P.5 mmHg ECHO/Echo, Limited Study Interpretation Summary Normal LV size. Left ventricular systolic function is normal. The estimated ejection fraction is 60 %. Pulmonary artery systolic pressure is 60 mmHg. Moderate pulmonary hypertension. Compared to previous study, the left ventricular systolic function has improved .. Ordering Physician: William Fonseca Referring Physician: Art Verduzco Performed By: Nani Fonseca RDCS, RVT
== END | disposition home or self-care (01) ==
LOC: CVS 14:37
PROVIDERS: PCP Family Medicine Geriatric Medicine; Referring Provider Nurse Practitioner Family; Visit Provider Nurse Practitioner Family
DX: I51.81 Takotsubo syndrome (principal); I25.10 Atherosclerotic heart disease of native coronary artery without angina pectoris; I10 Essential (primary) hypertension; E78.00 Pure hypercholesterolemia, unspecified
CPT/HCPCS: 93308

== ENCOUNTER → 2021-10-17 | Outpatient (CLI) | payer MEDICARE, OTHER, SELFPAY ==
[2021-10-17 17:56] LABS: Absolute Lymphocyte Count 1.64 X10^3/uL (0.83-4.51); Absolute Neutrophil Count 3.5 X10^3/uL (2.0-7.7); Basophil# 0.03 X10^3/uL; Basophil% 0.5 % (0-1); Eosinophil# 0.26 X10^3/uL; Eosinophils% 4.4 % (0-5); Hematocrit 35.2 % (37-47); Hemoglobin 11.4 g/dL (12.0-15.0); Lymphocyte # 1.64 X10^3/ul (0.83-4.51); Mean Corp Hgb Conc 32.4 g/dL (32-36); Mean Corpuscular Hgb 31.4 pg (27.0-32.0); Mean Platelet Vol. 11.2 fl (6.2-12.0); Monocyte# 0.43 X10^3/uL; Monocyte% 7.4 % (0-10); NRBC Flagged by Analyzer 0 % (0-5); Neutrophil # 3.48 X10^3/uL (2.7-7.7); Neutrophil % 59.5 % (47-70); Platelet Count 210 K/mm3 (150-450); RBC Distribution Width CV 13.4 % (11.6-14.6); RBC Distribution Width SD 47.8 fl (35.1-43.9); Red Blood Count 3.63 M/mm3 (4.2-5.4); White Blood Count 5.9 K/mm3 (4.4-11.0)
[2021-10-17 18:20] LABS: ALB/GLOB Ratio 0.9 RATIO (0.9-2.4); AST(SGOT) 20 U/L (15-37); Alanine Aminotransfer ALT/SGPT 16 U/L (13-56); Albumin, Serum 3.4 g/dL (3.2-5.0); Alkaline Phosphatase 84 U/L (45-117); Anion Gap 8 (5-15); BUN 43 mg/dL (7-18); BUN/Creat Ratio 21.1 RATIO (10-20); Calcium,Total 8.7 mg/dL (8.5-10.1); Chloride 88 mmol/L (98-107); Creatinine, Serum 2.04 mg/dL (0.55-1.02); EST Glomerular Filtration Rate 25 mL/min (>60); Est Glom Filt Rate - Afr Amer 30 mL/min (>60); Globulin 3.9 g/dL (2.2-4.2); Glucose 80 mg/dL (74-106); Potassium 3.1 mmol/L (3.5-5.1); Protein, Total 7.3 g/dL (6.4-8.2); Sodium Level 130 mmol/L (136-145)
== END | disposition home or self-care (01) ==
LOC: MTLAB 14:24
PROVIDERS: PCP Family Medicine Geriatric Medicine; Referring Provider Internal Medicine Rheumatology; Visit Provider Internal Medicine Rheumatology
DX: M05.79 Rheumatoid arthritis with rheumatoid factor of multiple sites without organ or systems involvement (principal); M35.00 Sjogren syndrome, unspecified; I11.0 Hypertensive heart disease with heart failure; I50.9 Heart failure, unspecified; Z79.899 Other long term (current) drug therapy; M79.7 Fibromyalgia; M21.41 Flat foot [pes planus] (acquired), right foot; M47.897 Other spondylosis, lumbosacral region; K21.9 Gastro-esophageal reflux disease without esophagitis; F41.9 Anxiety disorder, unspecified; I51.81 Takotsubo syndrome; K44.9 Diaphragmatic hernia without obstruction or gangrene; J45.909 Unspecified asthma, uncomplicated; G62.9 Polyneuropathy, unspecified
CPT/HCPCS: 36415; 80053; 85025

== ENCOUNTER → 2021-10-27 | Outpatient (CLI) | payer MEDICARE, OTHER, SELFPAY ==
[2021-10-27 16:07] LABS: Absolute Lymphocyte Count 1.23 X10^3/uL (0.83-4.51); Absolute Neutrophil Count 4.1 X10^3/uL (2.0-7.7); Basophil# 0.03 X10^3/uL; Basophil% 0.5 % (0-1); Eosinophil# 0.16 X10^3/uL; Eosinophils% 2.7 % (0-5); Hematocrit 35.2 % (37-47); Hemoglobin 11.9 g/dL (12.0-15.0); Lymphocyte # 1.23 X10^3/ul (0.83-4.51); Lymphocyte % 20.7 % (19-41); Mean Corp Hgb Conc 33.8 g/dL (32-36); Mean Corpuscular Hgb 31.1 pg (27.0-32.0); Mean Corpuscular Volume 91.9 fL (81-99); Mean Platelet Vol. 10.8 fl (6.2-12.0); Monocyte# 0.37 X10^3/uL; Monocyte% 6.2 % (0-10); NRBC Flagged by Analyzer 0 % (0-5); Neutrophil # 4.14 X10^3/uL (2.7-7.7); Neutrophil % 69.6 % (47-70); Platelet Count 213 K/mm3 (150-450); RBC Distribution Width SD 43.2 fl (35.1-43.9); Red Blood Count 3.83 M/mm3 (4.2-5.4)
[2021-10-27 16:23] LABS: Vitamin D,25 Hydroxy 17.1 ng/mL
[2021-10-27 16:30] LABS: ALB/GLOB Ratio 0.9 RATIO (0.9-2.4); AST(SGOT) 23 U/L (15-37); Alanine Aminotransfer ALT/SGPT 19 U/L (13-56); Albumin, Serum 3.8 g/dL (3.2-5.0); Alkaline Phosphatase 85 U/L (45-117); Anion Gap 9 (5-15); BUN 35 mg/dL (7-18); BUN/Creat Ratio 22.7 RATIO (10-20); Chloride 81 mmol/L (98-107); Creatinine, Serum 1.54 mg/dL (0.55-1.02); EST Glomerular Filtration Rate 35 mL/min (>60); Est Glom Filt Rate - Afr Amer 42 mL/min (>60); Globulin 4.1 g/dL (2.2-4.2); Glucose 96 mg/dL (74-106); Potassium 2.9 mmol/L (3.5-5.1); Protein, Total 7.9 g/dL (6.4-8.2); Sodium Level 124 mmol/L (136-145)
== END | disposition home or self-care (01) ==
LOC: POLAB3 13:18
PROVIDERS: PCP Family Medicine Geriatric Medicine; Visit Provider Family Medicine Geriatric Medicine
DX: E55.9 Vitamin D deficiency, unspecified (principal); R53.83 Other fatigue
CPT/HCPCS: 36415; 80053; 82306; 84443; 85025

== ENCOUNTER → 2021-11-04 | Outpatient (CLI) | payer MEDICARE, OTHER, SELFPAY ==
[2021-11-04 15:30] LABS: Anion Gap 8 (5-15); BUN 37 mg/dL (7-18); Calcium,Total 9.2 mg/dL (8.5-10.1); Chloride 85 mmol/L (98-107); Creatinine, Serum 1.76 mg/dL (0.55-1.02); EST Glomerular Filtration Rate 30 mL/min (>60); Est Glom Filt Rate - Afr Amer 36 mL/min (>60); Glucose 106 mg/dL (74-106); Potassium 3.8 mmol/L (3.5-5.1); Sodium Level 123 mmol/L (136-145)
== END | disposition home or self-care (01) ==
LOC: POLAB3 14:47
PROVIDERS: PCP Family Medicine Geriatric Medicine; Visit Provider Family Medicine Geriatric Medicine
DX: E87.6 Hypokalemia (principal)
CPT/HCPCS: 36415; 80048

== ENCOUNTER → 2021-12-11 | Outpatient (CLI) | payer MEDICARE, OTHER, SELFPAY ==
[2021-12-11 18:01] LABS: Anion Gap 6 (5-15); BUN 25 mg/dL (7-18); BUN/Creat Ratio 23.8 RATIO (10-20); Calcium,Total 8.9 mg/dL (8.5-10.1); Chloride 99 mmol/L (98-107); Creatinine, Serum 1.05 mg/dL (0.55-1.02); EST Glomerular Filtration Rate 54 mL/min (>60); Est Glom Filt Rate - Afr Amer 65 mL/min (>60); Glucose 94 mg/dL (74-106); Potassium 2.8 mmol/L (3.5-5.1); Sodium Level 136 mmol/L (136-145)
[2021-12-11 18:04] LABS: Urine Sodium 50 mmol/L (Not Establ.)
[2021-12-11 18:34] LABS: Osmolality, Serum 299 mOsm/KG (280-301)
[2021-12-11 18:46] LABS: Osmolality, Urine 288 mOsm/KG
== END | disposition home or self-care (01) ==
LOC: MTLAB 15:50
PROVIDERS: PCP Family Medicine Geriatric Medicine; Referring Provider Family Medicine Geriatric Medicine; Visit Provider Family Medicine Geriatric Medicine
DX: E87.1 Hypo-osmolality and hyponatremia (principal)
CPT/HCPCS: 36415; 80048; 83930; 83935; 84300

== ENCOUNTER → 2021-12-29 | Outpatient (CLI) | payer MEDICARE, OTHER, SELFPAY ==
[2021-12-29 18:15] LABS: Absolute Lymphocyte Count 1.33 X10^3/uL (0.83-4.51); Absolute Neutrophil Count 3.9 X10^3/uL (2.0-7.7); Basophil# 0.03 X10^3/uL; Basophil% 0.5 % (0-1); Eosinophil# 0.24 X10^3/uL; Hematocrit 37.1 % (37-47); Lymphocyte # 1.33 X10^3/ul (0.83-4.51); Lymphocyte % 22.2 % (19-41); Mean Corp Hgb Conc 32.3 g/dL (32-36); Mean Corpuscular Hgb 31.2 pg (27.0-32.0); Mean Corpuscular Volume 96.4 fL (81-99); Mean Platelet Vol. 11.7 fl (6.2-12.0); Monocyte# 0.46 X10^3/uL; Monocyte% 7.7 % (0-10); NRBC Flagged by Analyzer 0 % (0-5); Neutrophil # 3.92 X10^3/uL (2.7-7.7); Neutrophil % 65.4 % (47-70); Platelet Count 224 K/mm3 (150-450); RBC Distribution Width CV 13.1 % (11.6-14.6); RBC Distribution Width SD 46.6 fl (35.1-43.9); Red Blood Count 3.85 M/mm3 (4.2-5.4)
[2021-12-29 18:20] LABS: ALB/GLOB Ratio 0.8 RATIO (0.9-2.4); AST(SGOT) 21 U/L (15-37); Alanine Aminotransfer ALT/SGPT 17 U/L (13-56); Albumin, Serum 3.5 g/dL (3.2-5.0); Alkaline Phosphatase 93 U/L (45-117); Anion Gap 8 (5-15); BUN 51 mg/dL (7-18); BUN/Creat Ratio 26.4 RATIO (10-20); Calcium,Total 8.9 mg/dL (8.5-10.1); Chloride 102 mmol/L (98-107); Creatinine, Serum 1.93 mg/dL (0.55-1.02); EST Glomerular Filtration Rate 27 mL/min (>60); Est Glom Filt Rate - Afr Amer 32 mL/min (>60); Globulin 4.6 g/dL (2.2-4.2); Glucose 89 mg/dL (74-106); Protein, Total 8.1 g/dL (6.4-8.2); Sodium Level 137 mmol/L (136-145)
== END | disposition home or self-care (01) ==
PROVIDERS: PCP Family Medicine Geriatric Medicine; Referring Provider Internal Medicine Rheumatology; Visit Provider Internal Medicine Rheumatology
DX: M05.79 Rheumatoid arthritis with rheumatoid factor of multiple sites without organ or systems involvement (principal); M35.00 Sjogren syndrome, unspecified; I11.0 Hypertensive heart disease with heart failure; I50.9 Heart failure, unspecified; M79.7 Fibromyalgia; M47.897 Other spondylosis, lumbosacral region; K21.9 Gastro-esophageal reflux disease without esophagitis; G62.9 Polyneuropathy, unspecified; Z79.899 Other long term (current) drug therapy
CPT/HCPCS: 36415; 80053; 85025

== ENCOUNTER 2022-01-16 11:05 | Day surgery (SDC) | payer MEDICARE, OTHER, SELFPAY ==
[2022-01-16] VITALS (7 sets, daily range): BP systolic 93–132; BP diastolic 45–69; PULSE 77–78; RESP 16; TEMP 36.2–36.8; O2SAT 95–100; BMI 32.5
[2022-01-16] MEDS: Lactated Ringers 1,000 ML 15 ML IV (11:49)
[2022-01-16] MEDS: Cefazolin 2 GM in 0.9% Normal Saline 100 ML IV (12:56)
--- NOTE | 2022-01-16 13:00 | BON_PTH ---
PATIENT: PADAM DAHL [place]: [facility] [place][id number] AGE/SX: 81/F ROOM: RE01/16/[address]: Dr. Radhames Jones DPM : 1940 BED: DIS: 01/16/2022 SPEC #: [id number] RECD: 01/19/22 07:01 STATUS: AUDREY REShira #: [id number] LELO: 01/16/22 13:[address]: Radhames Jones DEPT: SURGICAL PATHOLOGY RECD BY: Erica Arriaga ENTERED: 01/19/22 09:07 SP TYPE: Bone OTHR DR: Dr. Art Verduzco MD Tissues: Toe, NOS Procedures: Decalcification bone/plaque Surgery Specimen Level IV HEADER OPERATION: Amputation of fourth digit PRE-OP DIAGNOSIS: Ulceration fourth right foot digit TISSUE SUBMITTED: Right fourth toe MICROSCOPIC DIAGNOSIS Right fourth toe, amputation: Skin with hyperkeratosis. Bone with reparative and reactive change. No evidence of osteomyelitis. AM:gayla 01/22/2022 MICROSCOPIC DESCRIPTION Slides are reviewed. GROSS DESCRIPTION Received in fixative is one container labeled with the patient's name and designated right fourth toe. The specimen consists of a distal toe with nail, soft tissue and attached bone measuring 4 x 1.5 x 1.5 cm. No mass lesions are identified. A longitudinal of entire toe is submitted in two cassettes after decalcification. / AM:gayla 01/19/2022 TC:5 CPT: 11000, 66454
--- NOTE | 2022-01-16 13:06 | RAD_ITS ---
STUDY: X-RAY - RIGHT FOOT CLINICAL: Female, 81 years old. Fourth toe amputation TECHNIQUE: Four intraoperative view(s) of the foot. COMPARISON: None. FINDINGS: 4 limited intraoperative studies performed as the patient has undergone amputation of the phalanges of the fourth toe RAD/Foot 2 Views IMPRESSION: No intraoperative complications during amputation of the phalanges of the fourth toe Electronically Signed: Evert Kilpatrick MD at 14:35 EDT ,
[2022-01-16] MEDS: Bupivacaine 0.25% 30 ML Vial (13:15)
[2022-01-16] MEDS: Lidocaine 1% (30 ml sdv) 30 ML Vial (13:22)
--- NOTE | 2022-01-16 14:13 | DCINST_ITS ---
Discharge Instructions Diet Discharge Diet: No restrictions Activity Discharge Activity: Use Walker (partial weightbearing to right heel in surgical shoe) Weight Bearing Status: Partial weight bearing (Partial weightbearing to right heel in surgical shoe with assistance of a walker) Dressing / Incision Call your doctor if you observe: Fever of 101 or Higher, Chest pain, Calf discomfort and Uncontrolled pain Change Dressing in: do not change dressing (Leave dressing clean dry and intact to the right foot. Do not get wet) Cleanse incision/area with: Do not get Incision Wet (May shower with cast bag covering over her foot while seated) Follow Up Care Please Follow Up With: Radhames Jones DPM When: 1 week Test Results: Test results from this visit will be discussed in further detail at your follow- up appointment, if applicable. Discharge Plan Admission Primary Reason for Your Visit: 4th digit amputation Right foot Attending Provider: Radhames Jones Primary Care Provider: Art Verduzco Chi Instructions Additional Instructions / Restrictions: Keep dressings clean, dry, and intact to right foot. Physician will change post- operative dressing at appointment. Do not get wet May shower with cast bag covering while seated Partial weight bearing to Right heel in surgical shoe and walker assistance May apply ice as needed to anterior ankle of right foot Discharge Orders/Prescriptions Prescriptions: No Action lorazepam 0.5 mg tablet 1 mg PO BID Label Comments: TAKE 2 TABLETS BY MOUTH TWICE DAILY oxycodone 10 mg tablet 10 mg PO TID PRN (Reason: Pain) tizanidine 4 mg tablet 4 mg PO TID PRN (Reason: LEG Cramps) aspirin 325 mg Tablet 325 mg PO DAILY hydroxychloroquine [Plaquenil] 200 mg Tablet 200 mg PO DAILY pantoprazole [address] For Susp In Packet 40 mg PO BID cholecalciferol (vitamin D3) [Vitamin D3] 125 mcg (5,000 unit) Tablet 125 mcg PO DAILY Linzess 290 mcg Capsule 290 mcg PO DAILY potassium chloride 10 mEq tablet extended release 10 meq PO 4X/DAY fluticasone propion-salmeterol [Advair Diskus] 100-50 mcg/dose Blister With Device 1 inh INHALATION BID PRN PRN (Reason: BREATHING) diphenhydramine HCl [ZzzQuil] 25 mg Capsule 25 mg PO QHS PRN (Reason: Sleep) atorvastatin 20 mg tablet 20 mg PO QHS Qty: 90 3RF carvedilol 6.25 mg tablet 6.25 mg PO BID Qty: 180 3RF furosemide [Lasix] 20 mg tablet 20 mg PO .COMPLEX Qty: 180 3RF Rx Instructions: Daily: Take an additional 20 mg dose at 5 PM for increased leg swelling or weight gain 5 pounds in 1 week. lisinopril-hydrochlorothiazide 20-12.5 mg tablet 1 tab PO BID Qty: 180 3RF Referrals / Follow Up: Radhames Jones DPM [Med Staff - Active Staff] - Art Verduzco Chi, MD [Primary Care Provider] - Disposition Disposition (needs filled in before D/C Order can be placed): Home, Self Care
--- NOTE | 2022-01-16 14:15 | OP.PCM_ITS ---
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: (2) Chronic pain of toe of right foot: Report of Operation Date of Procedure: 01/16/22 Pre-Operative Diagnosis: Chronic ulceration of 4th digit right foot Post-Operative Diagnosis: Chronic ulceration of 4th digit right foot Surgery/Procedure Performed:: Amputation of fourth digit right foot Description of Surgical Findings:: See operative note for findings Surgeon: Radhames Jnoes filleter: Usman Allen DPM PGY-1 Type of Anesthesia: Local (5cc 0.25% Marcaine Plain and 16cc 1% Lidocaine Plain) and MAC Specimen's removed: Fourth digit right foot Drains: None Estimated Blood Loss (mL): < 5mL Description of Procedure: HPI/indication: Patient is a 81-year-old female who presents to the office with a nonhealing chronic wound to the medial aspect of the fourth digit. Patient had previously saw another provider who removed a cyst from this digit. She states that following excision of the cyst her wound never healed and due to her rheumatoid arthritis her toes continue to rub together creating a nonhealing ulcer to the medial aspect of the right fourth digit. She states the wound has previously healed but continues to reopen and she has been in pain for 1 year duration. I discussed options consisting of local wound care versus arthroplasty of the fourth digit versus amputation of the fourth digit. Risk and benefits of each procedure was discussed in detail. Patient stated she was specifically worried that despite intervention of wound care and arthroplasty that her wound may never heal and infection may be a possible risk. Patient specifically stated I can no longer deal with the pain, I want the toe gone. I then discussed elective amputation of the fourth digit of the right foot. I have discussed risks and benefits related to amputation of the fourth digit. I discussed the risks and complications include but are not limited to infection, neuritis, numbness, phantom digit pain, persistent symptoms of pain, CRPS, swelling, scar tissue/scarring, need for additional surgery, further deviation of the digits, allergic reaction, blood clot, loss of function, loss of limb, and loss of life. Patient voices understanding of these risks. Patient able to repeat these back. Patient underwent medical clearance by her primary care physician. Patient was scheduled for amputation of the fourth digit of the right foot at [facility] on 01/16/2022. Procedure: Patient was brought into the operating room under mild sedation and placed on the table in the supine position. Following induction of anesthesia a pneumatic ankle tourniquet was placed about the patient's right ankle. A local anesthetic block was performed about the fourth metatarsal consisting of 5 cc 0.25% Marcaine plain and 16 cc 1% lidocaine plain. The foot was then scrubbed, prepped, and draped in the usual aseptic manner. The right leg was then elevated and the pneumatic ankle tourniquet was inflated to 250 mmHg. At this time attention was directed to the right foot fourth digit. Fluoroscopic guidance was utilized prior to incision placement secondary to her rheumatoid arthritis and lateral deviation of the lesser digits. A dorsal racquet shaped incision was utilized with a #15 blade preserving as much healthy tissue as possible for skin flap closure. Her medial ulceration was distal to this incision placement. Sharp dissection was carried deep to bone. The digit was sharply disarticulated at the corresponding metatarsophalangeal joint and ulceration was excised in toto with the digit. Extensor and flexor tendons to the digit were identified and transected as far proximal as possible. There was no abscess formation, no purulent drainage, and no surrounding necrotic tissue encountered. The site was then flushed with copious amounts of normal sterile saline. Fluoroscopic images were obtained confirming amputation of the digit in multiple views. The skin flap was remodeled for an aesthetically pleasing postoperative appearance. The deep tissues were reapproximated with a 4-0 Monocryl. The skin was then closed with a 3-0 Prolene. At this time the pneumatic ankle tourniquet was deflated and a prompt hyperemic response was noted to the digits of the right foot. The site was dressed with Betadine soaked Adaptic, 4 x 4 fluff, 4 x 4 gauze, Kerlix, and an Piero wrap rolled onto the foot. The patient tolerated the procedure and anesthesia well and was transported to PACU with vital signs stable and vascular status intact to the right foot. Patient is instructed to keep her dressings clean dry and intact to the right foot. Physician will change the dressings at first postoperative visit. She was instructed to remain partial weightbearing to the right heel with surgical shoe and assistance of her walker. These instructions were outlined in her postoperative discharge packet/discharge instructions. Grafts/Implants Used: None Complications None Admit VTE Documentation VTE Present on Admission: No VTE Mechan Device Prophylaxis: SCD's VTE Pharm Prophylaxis ordered?: No Reason prophylaxis not ordered:: Procedure Not Indicated
--- NOTE | 2022-01-16 14:20 | RAD_ITS ---
STUDY: X-RAY - RIGHT FOOT CLINICAL: Female, 81 years old. Postop from phalangeal amputation TECHNIQUE: 3 view(s) of the foot. COMPARISON: 02/04/2021 FINDINGS: Patient is postop from amputation of the phalanges of the fourth toe. Normal postoperative soft tissue swelling identified. No fracture or erosive lesion noted in the fourth metatarsal. Degenerative arthritic changes noted at all joint spaces of the right foot most notably at the first MTP joint where there is hallux valgus deformity and in the tarsal metatarsal junctions. Prominent calcaneal spurs. No demonstrated fracture RAD/Foot min 3 Views IMPRESSION: No postoperative complications noted after amputation of the fourth toe phalanges Normal postoperative soft tissue swelling Polyarticular arthrosis Hallux valgus deformity of the first great toe Calcaneal spurs Electronically Signed: Evert Kilpatrick MD at 14:37 EDT ,
== END 2022-01-16 15:17 | disposition home or self-care (01) ==
LOC: SDC 11:06 → AC 11:08
PROVIDERS: PCP Family Medicine Geriatric Medicine; Referring Provider Student in an Organized Health Care Education/Training Program; Visit Provider Student in an Organized Health Care Education/Training Program
PROC: (CPT 28820; principal; 2022-01-16 12:45)
DX: L89.893 Pressure ulcer of other site, stage 3 (principal); M06.9 Rheumatoid arthritis, unspecified; J44.9 Chronic obstructive pulmonary disease, unspecified; I27.20 Pulmonary hypertension, unspecified; I11.9 Hypertensive heart disease without heart failure; G89.29 Other chronic pain; I25.2 Old myocardial infarction; E78.00 Pure hypercholesterolemia, unspecified; G62.9 Polyneuropathy, unspecified; M79.7 Fibromyalgia; F32.A Depression, unspecified; F41.9 Anxiety disorder, unspecified; Z79.899 Other long term (current) drug therapy
CPT/HCPCS: 28820; 01480; 73620; 73630; 76000; 88305; 88311; J7120; J2405

== ENCOUNTER → 2022-02-24 | Outpatient (CLI) | payer MEDICARE, OTHER, SELFPAY ==
[2022-02-24 13:57] LABS: Albumin, Serum 3.6 g/dL (3.2-5.0); BUN 54 mg/dL (7-18); BUN/Creat Ratio 29.7 RATIO (10-20); Chloride 96 mmol/L (98-107); Creatinine, Serum 1.82 mg/dL (0.55-1.02); EST Glomerular Filtration Rate 28 mL/min (>60); Est Glom Filt Rate - Afr Amer 34 mL/min (>60); Glucose 94 mg/dL (74-106); Potassium 3.6 mmol/L (3.5-5.1); Sodium Level 133 mmol/L (136-145)
== END | disposition home or self-care (01) ==
PROVIDERS: PCP Family Medicine Geriatric Medicine; Visit Provider Internal Medicine Nephrology
DX: N17.9 Acute kidney failure, unspecified (principal)
CPT/HCPCS: 36415; 80069

== ENCOUNTER → 2022-02-27 | Outpatient (CLI) | payer MEDICARE, OTHER, SELFPAY | END | disposition home or self-care (01) | LOC: PSN 13:36 | PROVIDERS: PCP Family Medicine Geriatric Medicine; Referring Provider Family Medicine Geriatric Medicine; Visit Provider Family Medicine Geriatric Medicine | DX: R68.83 Chills (without fever) (principal) | CPT/HCPCS: 87635; 87804; 87807; C9803; U0003; U0005 ==

== ENCOUNTER → 2022-03-10 | Outpatient (CLI) | payer MEDICARE, OTHER, SELFPAY ==
[2022-03-10 15:32] LABS: Albumin, Serum 3.5 g/dL (3.2-5.0); BUN 26 mg/dL (7-18); Chloride 103 mmol/L (98-107); Creatinine, Serum 1.04 mg/dL (0.55-1.02); EST Glomerular Filtration Rate 54 mL/min (>60); Est Glom Filt Rate - Afr Amer 66 mL/min (>60); Glucose 100 mg/dL (74-106); Potassium 3.8 mmol/L (3.5-5.1); Sodium Level 139 mmol/L (136-145)
== END | disposition home or self-care (01) ==
LOC: LAB 14:31
PROVIDERS: PCP Family Medicine Geriatric Medicine; Referring Provider Internal Medicine Nephrology; Visit Provider Internal Medicine Nephrology
DX: N17.9 Acute kidney failure, unspecified (principal)
CPT/HCPCS: 36415; 80069

== ENCOUNTER → 2022-04-13 | Outpatient (CLI) | payer MEDICARE, OTHER, SELFPAY ==
[2022-04-13 12:28] LABS: Anion Gap 6 (5-15); BUN 38 mg/dL (7-18); BUN/Creat Ratio 34.2 RATIO (10-20); Chloride 99 mmol/L (98-107); Creatinine, Serum 1.11 mg/dL (0.55-1.02); EST Glomerular Filtration Rate 50 mL/min (>60); Est Glom Filt Rate - Afr Amer 61 mL/min (>60); Glucose 99 mg/dL (74-106); Potassium 3.9 mmol/L (3.5-5.1); Sodium Level 136 mmol/L (136-145)
== END | disposition home or self-care (01) ==
LOC: MTLAB 10:38
PROVIDERS: PCP Family Medicine Geriatric Medicine; Referring Provider Internal Medicine Nephrology; Visit Provider Internal Medicine Nephrology
DX: N17.9 Acute kidney failure, unspecified (principal)
CPT/HCPCS: 36415; 80048

== ENCOUNTER → 2022-06-05 | Outpatient (CLI) | payer MEDICARE, OTHER, SELFPAY ==
[2022-06-05 11:52] LABS: Absolute Lymphocyte Count 1.44 X10^3/uL (0.83-4.51); Basophil# 0.03 X10^3/uL; Basophil% 0.6 % (0-1); Eosinophil# 0.22 X10^3/uL; Eosinophils% 4.3 % (0-5); Hematocrit 33.7 % (37-47); Hemoglobin 10.8 g/dL (12.0-15.0); Lymphocyte # 1.44 X10^3/ul (0.83-4.51); Lymphocyte % 27.9 % (19-41); Mean Corpuscular Volume 93.6 fL (81-99); Mean Platelet Vol. 11.7 fl (6.2-12.0); Monocyte# 0.38 X10^3/uL; Monocyte% 7.4 % (0-10); NRBC Flagged by Analyzer 0 % (0-5); Neutrophil # 3.03 X10^3/uL (2.7-7.7); Neutrophil % 58.6 % (47-70); Platelet Count 207 K/mm3 (150-450); RBC Distribution Width CV 13.3 % (11.6-14.6); RBC Distribution Width SD 45.8 fl (35.1-43.9); White Blood Count 5.2 K/mm3 (4.4-11.0)
[2022-06-05 12:05] LABS: Vitamin D,25 Hydroxy 36.1 ng/mL
[2022-06-05 12:11] LABS: ALB/GLOB Ratio 0.9 RATIO (0.9-2.4); AST(SGOT) 20 U/L (15-37); Alanine Aminotransfer ALT/SGPT 18 U/L (13-56); Albumin, Serum 3.7 g/dL (3.2-5.0); Alkaline Phosphatase 79 U/L (45-117); Anion Gap 11 (5-15); BUN 86 mg/dL (7-18); BUN/Creat Ratio 34.4 RATIO (10-20); Chloride 93 mmol/L (98-107); EST Glomerular Filtration Rate 20 mL/min (>60); Est Glom Filt Rate - Afr Amer 24 mL/min (>60); Globulin 3.9 g/dL (2.2-4.2); Glucose 89 mg/dL (74-106); Potassium 3.7 mmol/L (3.5-5.1); Protein, Total 7.6 g/dL (6.4-8.2); Sodium Level 134 mmol/L (136-145); Thyroid Stim Hormone (TSH) 4.63 uIU/mL (0.358-3.74)
== END | disposition home or self-care (01) ==
LOC: POLAB3 09:35
PROVIDERS: PCP Family Medicine Geriatric Medicine; Visit Provider Family Medicine Geriatric Medicine
DX: E55.9 Vitamin D deficiency, unspecified (principal); R53.83 Other fatigue
CPT/HCPCS: 36415; 80053; 82306; 84443; 85025

== ENCOUNTER → 2022-06-12 | Outpatient (CLI) | payer MEDICARE, OTHER, SELFPAY ==
[2022-06-12 13:39] LABS: Absolute Lymphocyte Count 1.15 X10^3/uL (0.83-4.51); Absolute Neutrophil Count 4.2 X10^3/uL (2.0-7.7); Basophil# 0.03 X10^3/uL; Basophil% 0.5 % (0-1); Eosinophil# 0.11 X10^3/uL; Eosinophils% 1.9 % (0-5); Hematocrit 38.5 % (37-47); Hemoglobin 12.2 g/dL (12.0-15.0); Lymphocyte # 1.15 X10^3/ul (0.83-4.51); Lymphocyte % 19.8 % (19-41); Mean Corp Hgb Conc 31.7 g/dL (32-36); Mean Corpuscular Volume 94.6 fL (81-99); Mean Platelet Vol. 11.3 fl (6.2-12.0); Monocyte# 0.27 X10^3/uL; Monocyte% 4.7 % (0-10); NRBC Flagged by Analyzer 0 % (0-5); Neutrophil # 4.21 X10^3/uL (2.7-7.7); Neutrophil % 72.6 % (47-70); Platelet Count 237 K/mm3 (150-450); RBC Distribution Width CV 13.1 % (11.6-14.6); RBC Distribution Width SD 45.5 fl (35.1-43.9); RET-HE 32.8 pg (30-35); Red Blood Count 4.07 M/mm3 (4.2-5.4); Reticulocyte Count 1.44 % (0.5-1.5); White Blood Count 5.8 K/mm3 (4.4-11.0)
[2022-06-12 14:08] LABS: Vitamin B12 403 pg/mL (211-911)
[2022-06-12 14:16] LABS: Ferritin 23 ng/mL (8-252); Iron 83 ug/dL (50-170); Iron Binding Capacity,Total 337 ug/dL (250-450); PERCENT IRON SATURATION 24.6 % (15.0-55.0)
== END | disposition home or self-care (01) ==
LOC: LAB 12:59
PROVIDERS: PCP Family Medicine Geriatric Medicine; Referring Provider Family Medicine Geriatric Medicine; Visit Provider Family Medicine Geriatric Medicine
DX: D50.9 Iron deficiency anemia, unspecified (principal)
CPT/HCPCS: 36415; 82607; 82728; 82746; 83540; 83550; 85025; 85045

== ENCOUNTER → 2022-06-25 | Outpatient (CLI) | payer MEDICARE, OTHER, SELFPAY ==
[2022-06-25 13:40] LABS: Absolute Lymphocyte Count 1.53 X10^3/uL (0.83-4.51); Absolute Neutrophil Count 6.1 X10^3/uL (2.0-7.7); Basophil# 0.01 X10^3/uL; Basophil% 0.1 % (0-1); Eosinophils% 1.2 % (0-5); Hematocrit 33.2 % (37-47); Hemoglobin 10.4 g/dL (12.0-15.0); Lymphocyte # 1.53 X10^3/ul (0.83-4.51); Lymphocyte % 18.3 % (19-41); Mean Corp Hgb Conc 31.3 g/dL (32-36); Mean Corpuscular Volume 95.7 fL (81-99); Mean Platelet Vol. 10.9 fl (6.2-12.0); Monocyte# 0.62 X10^3/uL; Monocyte% 7.4 % (0-10); NRBC Flagged by Analyzer 0 % (0-5); Neutrophil # 6.06 X10^3/uL (2.7-7.7); Neutrophil % 72.8 % (47-70); Platelet Count 169 K/mm3 (150-450); RBC Distribution Width CV 13.4 % (11.6-14.6); RBC Distribution Width SD 46.7 fl (35.1-43.9); Red Blood Count 3.47 M/mm3 (4.2-5.4); White Blood Count 8.3 K/mm3 (4.4-11.0)
[2022-06-25 14:48] LABS: ALB/GLOB Ratio 0.9 RATIO (0.9-2.4); AST(SGOT) 20 U/L (15-37); Alanine Aminotransfer ALT/SGPT 13 U/L (13-56); Albumin, Serum 3.5 g/dL (3.2-5.0); Alkaline Phosphatase 81 U/L (45-117); Anion Gap 7 (5-15); BUN 107 mg/dL (7-18); BUN/Creat Ratio 28.5 RATIO (10-20); Calcium,Total 8.6 mg/dL (8.5-10.1); Chloride 99 mmol/L (98-107); Creatinine, Serum 3.75 mg/dL (0.55-1.02); EST Glomerular Filtration Rate 12 mL/min (>60); Est Glom Filt Rate - Afr Amer 15 mL/min (>60); Globulin 4.1 g/dL (2.2-4.2); Glucose 93 mg/dL (74-106); Potassium 4.3 mmol/L (3.5-5.1); Protein, Total 7.6 g/dL (6.4-8.2); Sodium Level 132 mmol/L (136-145)
== END | disposition home or self-care (01) ==
LOC: LAB 13:15
PROVIDERS: PCP Family Medicine Geriatric Medicine; Visit Provider Internal Medicine Rheumatology
DX: M05.79 Rheumatoid arthritis with rheumatoid factor of multiple sites without organ or systems involvement (principal); Z79.899 Other long term (current) drug therapy
CPT/HCPCS: 36415; 80053; 85025

== ENCOUNTER → 2022-11-25 | Outpatient (CLI) | payer MEDICARE, OTHER, SELFPAY ==
[2022-11-25 12:42] LABS: Albumin, Serum 3.4 g/dL (3.2-5.0); BUN 42 mg/dL (7-18); BUN/Creat Ratio 26.2 RATIO (10-20); Calcium,Total 8.5 mg/dL (8.5-10.1); Chloride 92 mmol/L (98-107); EST Glomerular Filtration Rate 33 mL/min (>60); Est Glom Filt Rate - Afr Amer 40 mL/min (>60); Glucose 97 mg/dL (74-106); Phosphorus 4.1 mg/dL (2.5-4.9); Potassium 2.9 mmol/L (3.5-5.1); Sodium Level 132 mmol/L (136-145)
== END | disposition home or self-care (01) ==
LOC: POLAB3 11:52
PROVIDERS: PCP Family Medicine Geriatric Medicine; Visit Provider Internal Medicine Nephrology
DX: N18.31 Chronic kidney disease, stage 3a (principal)
CPT/HCPCS: 36415; 80069

== ENCOUNTER → 2022-12-09 | Outpatient (CLI) | payer MEDICARE, OTHER, SELFPAY ==
[2022-12-09 14:35] LABS: Absolute Lymphocyte Count 1.34 X10^3/uL (0.83-4.51); Absolute Neutrophil Count 3.5 X10^3/uL (2.0-7.7); Basophil# 0.02 X10^3/uL; Basophil% 0.4 % (0-1); Eosinophil# 0.16 X10^3/uL; Hematocrit 36.3 % (37-47); Hemoglobin 11.7 g/dL (12.0-15.0); Lymphocyte # 1.34 X10^3/ul (0.83-4.51); Lymphocyte % 25.1 % (19-41); Mean Corp Hgb Conc 32.2 g/dL (32-36); Mean Corpuscular Hgb 30.6 pg (27.0-32.0); Monocyte# 0.34 X10^3/uL; Monocyte% 6.4 % (0-10); NRBC Flagged by Analyzer 0 % (0-5); Neutrophil # 3.46 X10^3/uL (2.7-7.7); Neutrophil % 64.9 % (47-70); Platelet Count 213 K/mm3 (150-450); RBC Distribution Width CV 13.1 % (11.6-14.6); RBC Distribution Width SD 45.6 fl (35.1-43.9); Red Blood Count 3.82 M/mm3 (4.2-5.4); White Blood Count 5.3 K/mm3 (4.4-11.0)
[2022-12-09 14:47] LABS: Vitamin D,25 Hydroxy 44.3 ng/mL
[2022-12-09 14:58] LABS: ALB/GLOB Ratio 0.9 RATIO (0.9-2.4); AST(SGOT) 22 U/L (15-37); Alanine Aminotransfer ALT/SGPT 12 U/L (13-56); Albumin, Serum 3.7 g/dL (3.2-5.0); Alkaline Phosphatase 87 U/L (45-117); Anion Gap 7 (5-15); BUN 41 mg/dL (7-18); Calcium,Total 8.9 mg/dL (8.5-10.1); Chloride 94 mmol/L (98-107); Cholesterol 131 mg/dL (200); Creatinine, Serum 1.28 mg/dL (0.55-1.02); EST Glomerular Filtration Rate 43 mL/min (>60); Est Glom Filt Rate - Afr Amer 52 mL/min (>60); Globulin 4.2 g/dL (2.2-4.2); Glucose 94 mg/dL (74-106); High Density Lipoprotein 74 mg/dL; Potassium 3.3 mmol/L (3.5-5.1); Protein, Total 7.9 g/dL (6.4-8.2); Sodium Level 133 mmol/L (136-145); Triglycerides 60 mg/dL; Very Low Density Lipoprotein 12 mg/dL (5-40)
== END | disposition home or self-care (01) ==
LOC: POLAB3 13:24
PROVIDERS: PCP Family Medicine Geriatric Medicine; Visit Provider Family Medicine Geriatric Medicine
DX: E55.9 Vitamin D deficiency, unspecified (principal); E78.5 Hyperlipidemia, unspecified; R53.83 Other fatigue; N39.0 Urinary tract infection, site not specified
CPT/HCPCS: 36415; 80053; 80061; 82306; 84443; 85025; 87077; 87086; 87088

== ENCOUNTER → 2022-12-26 | Outpatient (CLI) | payer MEDICARE, OTHER, SELFPAY ==
[2022-12-26 11:21] LABS: Absolute Neutrophil Count 3.3 X10^3/uL (2.0-7.7); Basophil# 0.03 X10^3/uL; Basophil% 0.6 % (0-1); Eosinophil# 0.09 X10^3/uL; Eosinophils% 1.8 % (0-5); Hematocrit 34.7 % (37-47); Hemoglobin 11.2 g/dL (12.0-15.0); Lymphocyte % 25.3 % (19-41); Mean Corp Hgb Conc 32.3 g/dL (32-36); Mean Corpuscular Hgb 31.2 pg (27.0-32.0); Mean Corpuscular Volume 96.7 fL (81-99); Mean Platelet Vol. 10.7 fl (6.2-12.0); Monocyte# 0.39 X10^3/uL; Monocyte% 7.6 % (0-10); NRBC Flagged by Analyzer 0 % (0-5); Neutrophil # 3.32 X10^3/uL (2.7-7.7); Neutrophil % 64.5 % (47-70); Platelet Count 209 K/mm3 (150-450); RBC Distribution Width CV 12.8 % (11.6-14.6); RBC Distribution Width SD 45.8 fl (35.1-43.9); Red Blood Count 3.59 M/mm3 (4.2-5.4); White Blood Count 5.1 K/mm3 (4.4-11.0)
[2022-12-26 11:54] LABS: ALB/GLOB Ratio 0.9 RATIO (0.9-2.4); AST(SGOT) 20 U/L (15-37); Alanine Aminotransfer ALT/SGPT 14 U/L (13-56); Albumin, Serum 3.6 g/dL (3.2-5.0); Alkaline Phosphatase 81 U/L (45-117); Anion Gap 7 (5-15); BUN 42 mg/dL (7-18); BUN/Creat Ratio 29.2 RATIO (10-20); Calcium,Total 8.7 mg/dL (8.5-10.1); Chloride 96 mmol/L (98-107); Creatinine, Serum 1.44 mg/dL (0.55-1.02); EST Glomerular Filtration Rate 37 mL/min (>60); Est Glom Filt Rate - Afr Amer 45 mL/min (>60); Globulin 3.9 g/dL (2.2-4.2); Glucose 82 mg/dL (74-106); Potassium 2.9 mmol/L (3.5-5.1); Protein, Total 7.5 g/dL (6.4-8.2); Sodium Level 136 mmol/L (136-145)
== END | disposition home or self-care (01) ==
LOC: LAB 10:43
PROVIDERS: PCP Family Medicine Geriatric Medicine; Referring Provider Internal Medicine Rheumatology; Visit Provider Internal Medicine Rheumatology
DX: M05.79 Rheumatoid arthritis with rheumatoid factor of multiple sites without organ or systems involvement (principal); M79.7 Fibromyalgia; E87.6 Hypokalemia; Z79.899 Other long term (current) drug therapy
CPT/HCPCS: 36415; 80053; 85025

== ENCOUNTER → 2023-01-13 | Outpatient (CLI) | payer MEDICARE, OTHER, SELFPAY ==
[2023-01-13 17:26] LABS: Albumin, Serum 3.6 g/dL (3.2-5.0); BUN 69 mg/dL (7-18); BUN/Creat Ratio 32.2 RATIO (10-20); Calcium,Total 8.6 mg/dL (8.5-10.1); Chloride 96 mmol/L (98-107); Creatinine, Serum 2.14 mg/dL (0.55-1.02); EST Glomerular Filtration Rate 24 mL/min (>60); Est Glom Filt Rate - Afr Amer 29 mL/min (>60); Glucose 127 mg/dL (74-106); Phosphorus 4.9 mg/dL (2.5-4.9); Potassium 3.2 mmol/L (3.5-5.1); Sodium Level 137 mmol/L (136-145)
== END | disposition home or self-care (01) ==
LOC: LAB 16:29
PROVIDERS: PCP Family Medicine Geriatric Medicine; Visit Provider Internal Medicine Nephrology
DX: N17.9 Acute kidney failure, unspecified (principal); E87.6 Hypokalemia
CPT/HCPCS: 36415; 80069

== ENCOUNTER → 2023-03-03 | Outpatient (CLI) | payer MEDICARE, OTHER, SELFPAY ==
--- NOTE | 2023-03-03 13:55 | RAD_ITS ---
STUDY: X-RAY - RIGHT HAND REASON FOR EXAM: Female, 82 years old. RIGHT HAND PAIN TECHNIQUE: 3 view(s) of the hand. COMPARISON: Comparison is made with prior study dated May 22, 2020. FINDINGS: Normal radiocarpal articulation. Normal distal radioulnar joint. Normal visualized carpal bones. Normal carpal articulations There is degenerative arthrosis of the carpometacarpal articulation of the thumb with lateral subluxation of the first metacarpus. Normal second through fifth carpometacarpal joints. Flattening of the distal portion of the second metacarpal. Normal metacarpophalangeal joint of the thumb. Normal interphalangeal joint of the thumb. Normal proximal and distal phalanges of the thumb. There is degenerative arthrosis of the metacarpophalangeal (MCP) joints. Normal proximal and distal interphalangeal joints of the second through fifth fingers. Normal phalanges of the second through fifth fingers. Soft tissue swelling. RAD/Hand Min 3 Views IMPRESSION: Degenerative joint disease of the hand, as described above. Soft tissue swelling. Electronically Signed: Yuri Miller MD at 15:12 EST ,
== END | disposition home or self-care (01) ==
LOC: RAD 13:50
PROVIDERS: PCP Family Medicine Geriatric Medicine; Referring Provider Family Medicine Geriatric Medicine; Visit Provider Family Medicine Geriatric Medicine
DX: M79.641 Pain in right hand (principal)
CPT/HCPCS: 73130

== ENCOUNTER → 2023-03-12 | Outpatient (CLI) | payer MEDICARE, OTHER, SELFPAY ==
[2023-03-12 16:54] LABS: Absolute Lymphocyte Count 1.67 X10^3/uL (0.83-4.51); Absolute Neutrophil Count 5.2 X10^3/uL (2.0-7.7); Basophil# 0.05 X10^3/uL; Basophil% 0.6 % (0-1); Eosinophil# 0.28 X10^3/uL; Eosinophils% 3.6 % (0-5); Hematocrit 35.9 % (37-47); Hemoglobin 11.4 g/dL (12.0-15.0); Lymphocyte # 1.67 X10^3/ul (0.83-4.51); Lymphocyte % 21.5 % (19-41); Mean Corp Hgb Conc 31.8 g/dL (32-36); Mean Corpuscular Hgb 30.4 pg (27.0-32.0); Mean Corpuscular Volume 95.7 fL (81-99); Mean Platelet Vol. 10.5 fl (6.2-12.0); Monocyte# 0.54 X10^3/uL; NRBC Flagged by Analyzer 0 % (0-5); Neutrophil # 5.16 X10^3/uL (2.7-7.7); Neutrophil % 66.7 % (47-70); Platelet Count 282 K/mm3 (150-450); RBC Distribution Width CV 13.4 % (11.6-14.6); RBC Distribution Width SD 47.6 fl (35.1-43.9); Red Blood Count 3.75 M/mm3 (4.2-5.4); White Blood Count 7.8 K/mm3 (4.4-11.0)
[2023-03-12 17:18] LABS: Anion Gap 6 (5-15); BNP,B-Type NATRIURETIC PEPTIDE 206.1 pg/mL (0-100); BUN 46 mg/dL (7-18); BUN/Creat Ratio 28.4 RATIO (10-20); Calcium,Total 8.5 mg/dL (8.5-10.1); Chloride 98 mmol/L (98-107); Creatinine, Serum 1.62 mg/dL (0.55-1.02); EST Glomerular Filtration Rate 32 mL/min (>60); Est Glom Filt Rate - Afr Amer 39 mL/min (>60); Glucose 98 mg/dL (74-106); Potassium 3.4 mmol/L (3.5-5.1); Sodium Level 137 mmol/L (136-145)
== END | disposition home or self-care (01) ==
LOC: LAB 16:40
PROVIDERS: PCP Family Medicine Geriatric Medicine; Referring Provider Nurse Practitioner Family; Visit Provider Nurse Practitioner Family
DX: R06.00 Dyspnea, unspecified (principal); I51.81 Takotsubo syndrome
CPT/HCPCS: 36415; 80048; 83880; 85025

== ENCOUNTER → 2023-04-07 | Outpatient (CLI) | payer MEDICARE, OTHER, SELFPAY ==
--- NOTE | 2023-04-07 13:35 | RAD_ITS ---
INDICATION: Other intervertebral disc degeneration, thoracic region EXAMINATION/TECHNIQUE: X-RAY - XR Spine Thoracic 3 Views COMPARISON: No relevant prior comparison study available FINDINGS: VERTEBRAE: Mild anterior wedging of probably T12 and L1 vertebrae. The remainder of the vertebral heights are within normal limits. Grade 1 retrolisthesis of T12 over L1. Difficult to accurately count the vertebral bodies. Increased kyphosis of the thoracic spine. Mild levoscoliosis. Bilateral shoulder arthroplasty. DISCS: Mild disc space narrowing of the lower thoracic spine.. INCLUDED CHEST/ABDOMEN: Moderate size hiatal hernia. RAD/Thoracic Spine 3 Views IMPRESSION: 1. Degenerative changes of the thoracic spine. 2. Increased kyphosis and mild scoliosis. 3. Hiatal hernia. Electronically Signed: Gume Garcia MD at 14:19 EST ,
--- NOTE | 2023-04-07 13:35 | RAD_ITS ---
INDICATION: Other intervertebral disc degeneration, thoracic region EXAMINATION/TECHNIQUE: X-RAY - XR Spine Lumbar Min 4 Views COMPARISON: No relevant prior comparison study available FINDINGS: VERTEBRAE: The examination is markedly limited. Mild decreased height of L4 vertebra. Grade 1 anterolisthesis of L4 over L5. Increased lordosis of the lungs. Mild dextroscoliosis. Total left hip arthroplasty partially visualized on this exam. DISCS: Narrowing of L4-L5 disc space. INCLUDED ABDOMEN: Included bowel gas pattern is non-obstructive. RAD/L/S Spine Min 4 Views IMPRESSION: Degenerative changes of the lumbar spine as described above. Electronically Signed: Gume Garcia MD at 14:15 EST ,
--- OUTSIDE RECORDS SUMMARY | 2023-04-07 13:49 | XMS RPT_ITS | CCD ---
Author Name Unknown Address [address] [place] [address] Organization [facility] Care Team Providers Care Line Fixer Name Role Phone MD Marija, Rome Marin Unavailable PATRICIO Arguello, Carmenza Byers Unavailable Unavailabl e Allison, Catalina Attending Unavailable Catalina Hodges Referring Unavailable Catalina Hodges Primary Care Unavailable Catalina Hodges Primary Care Provider DANISH GOFF Attending Unavailable ALLISON, CATALINA CACERES Primary Care Unavaila ble DENVERDANISH DUGGAN Referring Unavailable ALLISONCATALINA Primary Care Unavaila ble DENVERDANISH DUGGAN Referring Unavailable ALLISONCATALINA Boykin Primary Care Unavaila ble ALLISONCATALINA Primary Care Unavaila ble DANISH GOFF Referring Unavailable Allergies Allergy Classification Reported Allergen(s) Allergy Type Date of Onset Reaction(s) Facility (7 sources) acetaminophen; Translations: [ACETAMINOPHEN] drug allergy 6 Intolerance [facility] Work Phone: [phone] (6 sources) acetaminophen / HYDROcodone drug allergy 5 Severe GI upset, Severe GI upset, 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 [facility] Work Phone: [phone] (10 sources) diazePAM; Translations: [DIAZEPAM] drug allergy 6 Itching [facility] Work Phone: [phone] (10 sources) fentaNYL; Translations: [FENTANYL] drug allergy 1 Other: See Comments [facility] Work Phone: [phone] (6 sources) LORazepam drug allergy 1 Unknown [facility] Work Phone: [phone] (6 sources) propoxyphene drug allergy 1 (Darvocet) Lane[facility], makes patient act [facility] Work Phone: (4 sources) HYDROcodone; Translations: [HYDROCODONE BITARTRATE] Drug Allergy 2 Rash [facility] (4 sources) levoFLOXacin; Translations: [LEVOFLOXACIN] Drug Allergy 6 Vomiting [facility] Work Phone: (4 sources) Non-steroidal anti-inflammatory agent; Translations: [NSAIDS (NON-STEROIDAL ANTI-INFLAMMATORY DRUG)] Propensity to adverse reactions to drug 2 Unknown [facility] (4 sources) predniSONE; Translations: [PREDNISONE] Drug Allergy 2 Other: See Comments [facility] (4 sources) Propoxyphene; Translations: [PROPOXYPHENE] Drug Allergy 2 Unknown [facility] Medications Current Medications Medication Drug Class(es) Dates Sig (Normalized) Sig (Original) enteric contrast (will be provided with radiology test) (1 source) Start: 12-25-2021 End: 12-26-2021 enteric contrast (will be provided with radiology test) For CT ABD/PEL W IVCON Routine order Administer, As Directed One Time Only, via Oral, Rectal, both Oral and Rectal, Enteric Tube, Stoma or Indwelling Catheter, Enteric Contrast as designated per enteric contrast guidelines 1 Each 0 12/25/2021 12/26/2021 Active Completed/Discontinued Medications Medication Drug Class(es) Dates Sig (Normalized) Sig (Original) acetaminophen 325 mg / oxyCODONE hydrochloride 10 mg oral tablet (3 sources) Opioid Agonist Start: 06-04-2008 oxycodone hcl/acetaminophen( PERCOCET 10 MG-325 MG TAB) Take one(1) tablet every six(6) hours as needed for pain. 0 06/04/2008 Active Problems Active Problems Problem Classification Problem Date Documented Da te Episodic/Chronic Abdominal hernia (2 sources) Incisional hernia; Translations: [Incisional hernia without obstruction or gangrene] Onset: 01-01-2022 Episodic Acquired foot deformities (3 sources) Acquired hallux valgus; Translations: [Hallux valgus (acquired), unspecified foot] Onset: 11-05-2011 11-05-2011 Chronic Acute myocardial infarction (3 sources) Subsequent ST elevation (STEMI) myocardial infarction of inferior wall; Translations: [Subsequent ST elevation (STEMI) myocardial infarction of inferior wall] Onset: 12-26-2014 12-26-2014 Chronic Anxiety disorders (3 sources) Panic disorder without agoraphobia; Translations: [Panic disorder [episodic paroxysmal anxiety]] Onset: 05-26-2005 06-06-2008 Chronic Asthma (3 sources) Unspecified asthma, uncomplicated; Translations: [Asthma, unspecified type, unspecified] 05-26-2005 Chronic Congestive heart failure; nonhypertensive (3 sources) Chronic diastolic (congestive) heart failure; Translations: [Chronic diastolic (congestive) heart failure] Onset: 09-16-2015 09-16-2015 Chronic Coronary atherosclerosis and other heart disease (3 sources) Old myocardial infarction; Translations: [Old myocardial infarction] Onset: 12-26-2014 09-16-2015 Chronic Esophageal disorders (3 sources) Gastro-esophageal reflux disease with esophagitis; Translations: [Reflux esophagitis] 05-26-2005 Chronic Essential hypertension (6 sources) Hypertensive disorder; Translations: [Benign essential hypertension] Onset: 11-27-2010 11-27-2010 Chronic Gastrointestinal hemorrhage (3 sources) Acute gastric ulcer with hemorrhage; Translations: [Acute gastric ulcer with hemorrhage] 05-26-2005 Episodic Heart valve disorders (3 sources) Mitral valve disorder; Translations: [Other nonrheumatic mitral valve disorders] Onset: 11-27-2010 11-27-2010 Chronic Osteoarthritis (6 sources) Osteoarthritis; Translations: [Unspecified osteoarthritis, unspecified site] Onset: 03-24-2019 05-26-2005 Chronic Other and ill-defined heart disease (3 sources) Takotsubo cardiomyopathy; Translations: [Takotsubo syndrome] Onset: 01-10-2013 01-10-2013 Chronic Other circulatory disease (2 sources) Personal history of transient ischemic attack (TIA), and cerebral infarction without residual deficits; Translations: [Prsnl hx of TIA (TIA), and cereb infrc w/o resid deficits] Onset: 04-11-2018 Episodic Other connective tissue disease (3 sources) History of reverse prosthetic total arthroplasty of right shoulder; Translations: [Presence of right artificial shoulder joint] Onset: 04-11-2019 04-11-2019 Chronic Other connective tissue disease (1 source) Diastasis recti; Translations: [Separation of muscle (nontraumatic), other site] Episodic Other connective tissue disease (3 sources) Muscle pain; Translations: [Myalgia and myositis, unspecified] 05-26-2005 Episodic Other gastrointestinal disorders (3 sources) Irritable bowel syndrome; Translations: [Irritable bowel syndrome without diarrhea] Onset: 06-25-2005 06-25-2005 Chronic Other liver diseases (1 source) Liver mass; Translations: [Hepatomegaly, not elsewhere classified] Episodic Other liver diseases (1 source) Hepatomegaly, not elsewhere classified; Translations: [Liver mass] Onset: 01-01-2022 Episodic Other nervous system disorders (3 sources) Disorder of the peripheral nervous system; Translations: [Hereditary and idiopathic neuropathy, unspecified] Onset: 11-05-2011 11-05-2011 Chronic Other nervous system disorders (2 sources) Unspecified lack of coordination; Translations: [Unspecified lack of coordination] Onset: 04-11-2018 Episodic Other nutritional; endocrine; and metabolic disorders (3 sources) Body mass index (BMI) 40.0-44.9, adult; Translations: [Body mass index (BMI) 40.0-44.9, adult] Onset: 06-26-2014 06-26-2014 Chronic Residual codes; unclassified (3 sources) Sleep apnea; Translations: [Sleep apnea, unspecified] 06-06-2008 Chronic Spondylosis; intervertebral disc disorders; other back problems (6 sources) Other intervertebral disc degeneration, lumbar region; Translations: [Lumbar post-laminectomy syndrome] Onset: 07-14-2006 07-20-2016 Chronic Unclassified (8 sources) Preoperative cardiovascular examination ; Translations: [Encounter for preprocedural cardiovascular examination] Onset: 01-10-2013 Resolved: 12-24-2014 01-10-2013 Past or Other Problems Problem Classification Problem Date Documented Da te Episodic/Chronic Headache, including migraine (3 sources) Posttraumatic headache; Translations: [Post-traumatic headache, unspecified, not intractable] Onset: 11-06-2015 11-06-2015 Episodic Malaise and fatigue (3 sources) Other malaise; Translations: [Other malaise] Onset: 07-06-2016 07-20-2016 Episodic Noninfectious gastroenteritis (3 sources) Colitis; Translations: [Noninfective gastroenteritis and colitis, unspecified] Onset: 06-09-2015 06-09-2015 Episodic Nonspecific chest pain (6 sources) Chest pain, unspecified; Translations: [Chest pain, unspecified] Onset: 11-27-2010 Resolved: 12-24-2014 11-27-2010 Episodic Other connective tissue disease (3 sources) Abnormal posture; Translations: [Abnormal posture] Onset: 03-24-2019 03-24-2019 Episodic Other gastrointestinal disorders (3 sources) Constipation; Translations: [Constipation, unspecified] Onset: 04-28-2006 04-28-2006 Episodic Other lower respiratory disease (9 sources) Dyspnea; Translations: [H/O: respiratory disease] Onset: 11-27-2010 Resolved: 11-06-2015 11-27-2010 Episodic Other non-traumatic joint disorders (3 sources) Hip pain; Translations: [Pain in left hip] Onset: 07-06-2016 07-06-2016 Episodic Other non-traumatic joint disorders (3 sources) Stiffness of right shoulder; Translations: [Stiffness of right shoulder, not elsewhere classified] Onset: 03-24-2019 03-24-2019 Episodic Pneumonia (3 sources) Pneumonia; Translations: [Pneumonia, unspecified organism] Onset: 05-06-2015 05-06-2015 Episodic Residual codes; unclassified (3 sources) Edema; Translations: [Edema, unspecified] Onset: 11-05-2011 11-05-2011 Episodic Respiratory failure; insufficiency; arrest (3 sources) Acute respiratory failure; Translations: [Acute respiratory failure, unspecified whether with hypoxia or hypercapnia] Onset: 12-24-2014 12-24-2014 Episodic Shock (6 sources) Septic shock; Translations: [Severe sepsis with septic shock] Onset: 12-24-2014 Resolved: 09-19-2015 09-19-2015 Episodic Syncope (6 sources) Syncope and collapse; Translations: [Syncope and collapse] Onset: 11-27-2010 Resolved: 12-24-2014 12-24-2014 Episodic Unclassified (9 sources) FH: Raised blood lipids; Translations: [Hypersomnia] Onset: 05-06-2015 06-26-2014 Episodic Results Test Name Value Interpretation Reference Range Facil ity Vital Signs Date Time Vital Sign Value Performing Clinician Facility 12-25-2021 15:14-0400 Body height 144.8 cm Danish Goff MD Work Phone: [facility] 12-25-2021 15:14-0400 Body temperature 97.39 [degF] Danish Goff MD Work Phone: [facility] 12-25-2021 15:14-0400 Body weight 73.94 kg Danish Goff MD Work Phone: [facility] 12-25-2021 15:14-0400 Diastolic blood pressure 60 mm[Hg] Danish Goff MD Work Phone: [facility] 12-25-2021 15:14-0400 Heart rate 80 /min Danish Goff MD Work Phone: [facility] 12-25-2021 15:14-0400 Respiratory rate 14 /min Danish Goff MD Work Phone: [facility] 12-25-2021 15:14-0400 SaO2% (BldA) [Mass fraction] 95 % Danish Goff MD Work Phone: [facility] 12-25-2021 15:14-0400 Systolic blood pressure 90 mm[Hg] Danish Goff MD Work Phone: [facility] 11-24-2016 14:36-0400 BMI (Body Mass Index) 41.64 kg/m2 Rome Dutton MD [facility] Work Phone: 11-24-2016 14:36-0400 BP Diastolic 60 mm[Hg] Rome Dutton MD [facility] Work Phone: 11-24-2016 14:36-0400 BP Systolic 100 mm[Hg] Rome Dutton MD [facility] Work Phone: 11-24-2016 14:36-0400 Height 149.86 cm Rome Dutton MD [facility] Work Phone: 11-24-2016 14:36-0400 Pulse (Heart Rate) 80 /min Rome Dutton MD [facility] Work Phone: 11-24-2016 14:36-0400 Respiratory Rate 20 /min MD [facility] Work Phone: 11-24-2016 14:36-0400 Weight 93.53 kg MD [facility] Work Phone: 07-06-2016 13:34-0400 BMI (Body Mass Index) 44.43 kg/m2 [facility] Work Phone: 07-06-2016 13:34-0400 Weight 99.79 kg [facility] Work Phone: 05-04-2016 12:48-0500 Body Temperature 98.06 [degF] [facility] Work Phone: 05-04-2016 12:48-0500 Body Temperature 98.1 [degF] [facility] Work Phone: 05-04-2016 12:48-0500 BP Diastolic 81 mm[Hg] [facility] Work Phone: 05-04-2016 12:48-0500 BP Systolic 111 mm[Hg] [facility] Work Phone: 05-04-2016 12:48-0500 Pulse (Heart Rate) 78 /min [facility] Work Phone: 05-04-2016 12:48-0500 Pulse Oximetry 95 % [facility] Work Phone: 05-04-2016 12:48-0500 Respiratory Rate 18 /min [facility] Work Phone: 05-04-2016 12:48-0500 Weight 96.36 kg [facility] Work Phone: 03-19-2016 11:26-0500 BSA (Body Surface Area) 1.92 m2 [facility] Work Phone: 11-06-2015 10:29-0400 Height 149.86 cm [facility] Work Phone: Encounters Encounter Date Encounter Type Care Provider Facility Start: 01-07-2022 Telephone encounter Danish Goff MD Work Phone: General Surgery Procedures Date Procedure Procedure Detail Performing Clinician Start: 07-17-2018 Electrocardiogram Start: 07-06-2016 End: 07-08-2016 X-Ray, Hip, unilateral, with pelvis; 2-3 views Catalina Reid Work Phone: Start: 03-19-2016 End: 03-19-2016 RO[address] COMMISSIONER Amy Jean PA-C Work Phone: Start: 03-19-2016 End: 03-19-2016 Follow Up Appt 6 months Amy saxena PA-C Work Phone: Start: 11-06-2015 End: 05-06-2016 [facility] Work Phone: Start: 11-06-2015 End: 05-06-2016 Follow Up Appt 6 months Hilton Ross Work Phone: Start: 09-19-2015 End: 09-19-2015 Follow Up Appt 6 months Zeeshan Gibbs Start: 09-19-2015 End: 09-19-2015 BEV Dutton MD Start: 08-06-2015 End: 11-06-2015 Follow Up Appt 3 months Miracle lauren CARDIAC CATH TECH Work Phone: Start: 08-06-2015 End: 11-05-2015 Tte w/doppler, complete Miracle lauren CARDIAC CATH TECH Work Phone: Start: 05-06-2015 End: 04-30-2016 Cine/vid x-ray, throat/esoph Miracle Hinton CARDIAC CATH TECH Work Phone: Start: 05-06-2015 End: 11-05-2015 Follow Up Appt 3 months Miracle Patel xin CARDIAC CATH TECH Work Phone: Start: 05-06-2015 End: 11-05-2015 Pulmonary Function Test - complete Miracle Hinton CARDIAC CATH TECH Work Phone: Start: 05-06-2015 End: 04-30-2016 Pulmonary stress test/simple Miracle Hinton CARDIAC CATH TECH Work Phone: Start: 03-07-2015 End: 03-07-2015 RO[address] COMMISSIONER Amy Jean PA-C Work Phone: Start: 03-07-2015 End: 03-07-2015 Follow Up Appt 6 months Amy saxena PA-C Work Phone: Start: 03-07-2015 End: 03-07-2015 Follow Up BP Check Amy Jean PA-C Work Phone: Start: 12-26-2014 End: 01-07-2015 *BMP Rome Dutton MD Start: 12-26-2014 End: 01-07-2015 CBC W Auto Differential panel - Blood Rome Dutton MD Start: 12-26-2014 End: 02-26-2015 Electrocardiogram, complete Rome Bonner i, MD Start: 12-26-2014 End: 12-26-2014 Follow Up Appt 2 months Zeeshan Gibbs Start: 12-26-2014 End: 02-26-2015 Left Heart Cath Rome Dutton MD Start: 12-26-2014 End: 12-26-2014 MMM Rome Dutton MD Start: 06-26-2014 End: 06-27-2014 Documentation of current medications Rome Dutton MD Start: 06-26-2014 End: 06-26-2014 Electrocardiogram, complete Rome Bonner i, MD Start: 06-26-2014 End: 06-26-2014 Follow Up Appt 6 months Zeeshan Gibbs Start: 06-26-2014 End: 06-26-2014 BEV Dutton MD Start: 01-10-2013 End: 01-10-2013 RO[address] COMMISSIONER Amy Jean PA-C Work Phone: Start: 01-10-2013 End: 01-10-2013 Electrocardiogram, complete Amy Le PA-C Work Phone: Start: 01-10-2013 End: 01-10-2013 Follow Up Appt 6 months Amy asxena PA-C Work Phone: Start: 07-08-2012 End: 07-08-2012 Follow Up Appt 6 months Zeeshan Gibbs Start: 07-08-2012 End: 07-08-2012 BEV Dutton MD Start: 04-29-2011 End: 04-29-2011 Follow Up Appt 1 year Rome Dutton MD Plan of Treatment Date Care Activity Detail Author Start: 12-25-2022 BP CONTROLLED (<130/80) BP CONTROLLE D (<130/80) [facility] Start: 09-03-2022 DIABETES SCREEN DIABETES SCREEN [facility] Start: 12-25-2021 End: 02-24-2022 CREATININE BLD CREATININE BLD Lab Routine Incisional hernia, without obstruction or gangrene Liver mass Expected: 12/25/2021, Expires: 02/24/2022 [facility] Work Phone: Immunizations Immunization Date Immunization Notes Care Provider Fa kathy 06-04-2008 pneumococcal polysaccharide vaccine, 23 valent Danish Goff MD Work Phone: [facility] 02-10-2006 influenza virus vacc ine, unspecified formulation Danish Goff MD Work Phone: [facility] Work Phone: Payers Date Payer Category Payer Medicare [id number] 2015 Private Health Insurance 1994 Medicare 1994 Medicare [id number] 1940 Unknown [id number] Social History Date Type Detail Facility Start: 04-30-2017 Tobacco smoking stat us [facility] Never smoked tobacco [facility] Start: 04-30-2017 Tobacco use and exposure Smoke less tobacco non-user [facility] Start: 12-25-2021 Alcohol intake 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 Start: 12-15-2021 End: 12-25-2021 Exposure to SARS-CoV-2 (event) Not sure [facility] Note 01-07-2022 Telephone Encounter - Megha Carey RN - 01/07/2022 12:39 PM EDT Note Date & Type Note Facility 01-07-2022 Miscellaneous Notes Formattin g of this note might be different from the original. MD Megha Hilario RN Please call the patient and let her know that she does not have a hernia, also, her liver cysts are unchanged. Thanks Rich Called Litzy. Reviewed Dr. Goff's message. She voiced understanding. Megha Carey RN documented in this encounter [facility] Progress note 01-01-2022 Note Date & Type Note Facility 01-01-2022 Note HNO ID: [id number] Author: RT Juni(R) Service: ? Author Type: [employer] Salvage Worker Type: Progress Notes Filed: 01/01/2022 4:06 PM Note Text: Radiology Service Progress Note DATE OF SERVICE: January 01, 2022 TIME: 4:06 PM PATIENT IDENTITY VERIFICATION COMPLETED USING TWO (2) STANDARD IDENTIFIERS: Name and Date of confirmed by patient verbally. FALL SCREENING: Has the patient had 2 falls in the last year or 1 fall with injury or currently using an Ambulatory Assistive Device (Walker, Cane, Wheelchair, Crutches, etc.)? No PATIENT GENDER DATA: Female. status: : No status: NO. PATIENT RELEVANT IMPLANT DATA REVIEWED: Yes ALLERGIES: Reviewed and unchanged CONTRAST ALLERGY: NO. EXAM: CT -CONTRAST INDUCED NEPHROPATHY RISK FACTORS: Patient age > 60 years CREATININE: Creatinine Date Value Ref Range Status 01/01/2022 1.34 (H) 0.58 - 0.96 mg/dL Final 09/04/2019 0.99 (H) 0.58 - 0.96 mg/dL Final 07/17/2018 0.87 0.51 - 0.95 mg/dL Final Estimated Glomerular Filtration Rate Date Value Ref Range Status 01/01/2022 40 (L) >=60 mL/min/1.73m? Final Comment: Estimated Glomerular Filtration Rate (eGFR) is calculated using the 2020 CKD-EPI creatinine equation. This equation utilizes serum creatinine, sex, and age as parameters. The creatinine assay has traceable calibration to isotope dilution-mass spectrometry. Refer to KDIGO guidelines for clinical interpretation. In patients with unstable renal function, e.g. those with acute kidney injury, the eGFR may not accurately reflect actual GFR. P.O.C.T. RESULTS: POC done: Yes, See Lab Tab January 01, 2022 TREATMENT: N/A PERIPHERAL IV DATA: Ambulatory: A peripheral IV was started in the Left antecubital site with a Angio cath: 22 gauge. RADIOLOGY DEPARTMENT: CT; Exam(s) Completed: Abdomen/Pelvis SIGNATURE: RT Britton(R) PATIENT NAME: iLtzy Waller DATE: January 01, 2022 TIME: 4:06 PM [facility] Progress note 12-25-2021 Note Date & Type Note Facility 12-25-2021 Note HNO ID: [id number] Author: Danish Goff MD Service: ? Author Type: Physician Type: Progress Notes Filed: 12/25/2021 5:58 PM Note Text: HISTORY AND PHYSICAL Litzy Waller 1940 REFERRING PHYSICIAN: Self CHIEF COMPLAINT: Consult HPI: The patient is a 81 year old female with a complaint of protuberance and excessive tissue in her lower abdomen. The patient has had 3 vaginal births. She was told after her last that she had a very lax abdominal wall and that she should not have additional children. The patient has a history of a previous umbilical hernia repair with mesh. The patient had noted a protuberance in her lower abdomen. She was evaluated in 2019 for possible hernia by Dr Moreno and Abril. CT scan of the abdomen pelvis was obtained which demonstrated diastases but no true hernia. An incidental liver mass felt to be consistent with a liver cyst was noted on contrast CT scan. The patient has lost 80 pounds in the past year at the request of her primary care physician. The patient now notes increased protuberance in her lower abdomen. She is again concerned that this could be an incisional or midline hernia. PAST MEDICAL HISTORY Diagnosis Date Acute gastric ulcer with hemorrhage, without mention of obstruction Essential hypertension, benign Myalgia and myositis, unspecified Fibromyalgia (myalgia and myositis) Osteoarthrosis, unspecified whether generalized or localized, other specified sites Predominant disturbance of emotions Reflux esophagitis Ulcerative colitis, unspecified Unspecified asthma(493.90) Unspecified sleep apnea PAST SURGICAL HISTORY Procedure Laterality Date ARTHRP KNE CONDYLEANDPLATU MEDIALANDLAT COMPARTMENTS Knee replacement, total COLONOSCOPY FLX DX W/COLLJ SPEC WHEN PFRMD 04/2005 Colonoscopy COLONOSCOPY W/BIOPSY SINGLE/MULTIPLE 05/17/15 colitis HYSTERECTOMY 1982 UTERUS AND CERVIX REMOVED INGUINAL HERNIA REPAIR HX Left JOINT REPLACEMENT HX Left 11/27/2016 x2 NEUROPLASTY AND/TRANSPOS MEDIAN NRV CARPAL TUNNE Carpal tunnel decomp OPEN REPAIR OF ROTATOR CUFF ACUTE Rotator cuff repair PAST SURGICAL HISTORY OF 1976 DISC PAST SURGICAL HISTORY OF 10/2005 repaired bottom half of spine-fused last disk together UMBILICAL HERNIA REPAIR 5 OR OLDER Mesh Current Outpatient Medications Medication Sig hydrOXYchloroQUINE (PLAQUENIL) 200 mg tablet Take 200 mg by mouth once daily. lisinopril-hydroCHLOROthiazide (PRINZIDE,ZESTORETIC) 20-12.5 mg per tablet Take 1 tablet by mouth twice daily. potassium chloride SR (MICRO-K) 10 mEq CR capsule Take 10 mEq by mouth twice daily. carvedilol (COREG) 6.25 mg tablet Take 6.25 mg by mouth twice daily. tiZANidine (ZANAFLEX) 4 mg tablet Take 4 mg by mouth three times daily as needed. oxyCODONE IR (ROXICODONE) 10 mg tab Take 1 tablet by mouth three times daily as needed. atorvastatin (LIPITOR) 20 mg tablet Take 20 mg by mouth daily at bedtime. aspirin, enteric coated (ASPIRIN, ENTERIC COATED) 81 mg EC tablet Take 81 mg by mouth once daily. furosemide(LASIX 20 MG TAB) Take 20 mg by mouth once daily. Take additional 20 MG dose at 5 PM for increased leg swelling or weight gain 5 pounds in one weel lorazepam(ATIVAN 1 MG TAB) Take by mouth. Twice daily iv contrast (will be provided with radiology test) CT ABD/PEL -Inject, intravenously, once for 1 dose.No IV access, insert saline lock prior to the beginning of sedation, infusion, injection of imaging exam. Discontinue saline lock post exam. If Pt. has a central line or IVAD, may access for administration according to line specific nursing protocol. Once exam is complete flush line and de-access according to line specific nursing protocol in the CT contrast administration guidelines link. enteric contrast (will be provided with radiology test) For CT ABD/PEL W IVCON Routine order Administer, As Directed One Time Only, via Oral, Rectal, both Oral and Rectal, Enteric Tube, Stoma or Indwelling Catheter, Enteric Contrast as designated per enteric contrast guidelines LORazepam (ATIVAN) 1 mg tablet Take 1 mg by mouth four times daily. (Patient not taking: Reported on 12/25/2021) oxyCODONE IR (ROXICODONE) 20 mg tab Take by mouth four times daily. (Patient not taking: Reported on 12/25/2021) fluticasone-salmeterol (ADVAIR DISKUS) 100-50 mcg/dose inhaler Inhale 1 Puff as instructed twice daily. (Patient not taking: Reported on 12/25/2021) lisinopril (ZESTRIL, PRINIVIL) 20 mg tablet Take 10 mg by mouth once daily. (Patient not taking: Reported on 12/25/2021) traZODone (DESYREL) 50 mg tablet Take 50 mg by mouth daily at bedtime. (Patient not taking: Reported on 12/25/2021) bumetanide (BUMEX) 0.5 mg tablet Take 1 mg by mouth once daily. (Patient not taking: Reported on 12/25/2021) naloxegol (MOVANTIK) 25 mg tablet Take 25 mg by mouth once daily. (Patient not taking: Reported on 12/25/2021) gabapentin (NEURONTIN) 300 (more content not included)... [facility] History of Present illness Narrative 12-25-2021 Danish Goff MD - 12/25/2021 5:55 PM EDTNilsaaleena Vaughn MANAGER CANCER - 12/25/2021 3:47 PM EDSimon Vaughn LPN - 12/25/2021 3:06 PM EDT Note Date & Type Note Facility 12-25-2021 History of Presen t illness Narrative HISTORY AND PHYSICAL Litzy Waller 1940 REFERRING PHYSICIAN: Self CHIEF COMPLAINT: Consult HPI: The patient is a 81 year old female with a complaint of protuberance and excessive tissue in her lower abdomen. The patient has had 3 vaginal births. She was told after her last that she had a very lax abdominal wall and that she should not have additional children. The patient has a history of a previous umbilical hernia repair with mesh. The patient had noted a protuberance in her lower abdomen. She was evaluated in 2019 for possible hernia by Dr Moreno and Abril. CT scan of the abdomen pelvis was obtained which demonstrated diastases but no true hernia. An incidental liver mass felt to be consistent with a liver cyst was noted on contrast CT scan. The patient has lost 80 pounds in the past year at the request of her primary care physician. The patient now notes increased protuberance in her lower abdomen. She is again concerned that this could be an incisional or midline hernia. PAST MEDICAL HISTORY Diagnosis Date Acute gastric ulcer with hemorrhage, without mention of obstruction Essential hypertension, benign Myalgia and myositis, unspecified Fibromyalgia (myalgia and myositis) Osteoarthrosis, unspecified whether generalized or localized, other specified sites Predominant disturbance of emotions Reflux esophagitis Ulcerative colitis, unspecified Unspecified asthma(493.90) Unspecified sleep apnea PAST SURGICAL HISTORY Procedure Laterality Date ARTHRP KNE CONDYLE&PLATU MEDIAL&LAT COMPARTMENTS Knee replacement, total COLONOSCOPY FLX DX W/COLLJ SPEC WHEN PFRMD 04/2005 Colonoscopy COLONOSCOPY W/BIOPSY SINGLE/MULTIPLE 05/17/15 colitis HYSTERECTOMY 1982 UTERUS AND CERVIX REMOVED INGUINAL HERNIA REPAIR HX Left JOINT REPLACEMENT HX Left 11/27/2016 x2 NEUROPLASTY &/TRANSPOS MEDIAN NRV CARPAL TUNNE Carpal tunnel decomp OPEN REPAIR OF ROTATOR CUFF ACUTE Rotator cuff repair PAST SURGICAL HISTORY OF 1975 DISC PAST SURGICAL HISTORY OF 10/2005 repaired bottom half of spine-fused last disk together UMBILICAL HERNIA REPAIR 5 OR OLDER Mesh Current Outpatient Medications Medication Sig hydrOXYchloroQUINE (PLAQUENIL) 200 mg tablet Take 200 mg by mouth once daily. lisinopril-hydroCHLOROthiazide (PRINZIDE,ZESTORETIC) 20-12.5 mg per tablet Take 1 tablet by mouth twice daily. potassium chloride SR (MICRO-K) 10 mEq CR capsule Take 10 mEq by mouth twice daily. carvedilol (COREG) 6.25 mg tablet Take 6.25 mg by mouth twice daily. tiZANidine (ZANAFLEX) 4 mg tablet Take 4 mg by mouth three times daily as needed. oxyCODONE IR (ROXICODONE) 10 mg tab Take 1 tablet by mouth three times daily as needed. atorvastatin (LIPITOR) 20 mg tablet Take 20 mg by mouth daily at bedtime. aspirin, enteric coated (ASPIRIN, ENTERIC COATED) 81 mg EC tablet Take 81 mg by mouth once daily. furosemide(LASIX 20 MG TAB) Take 20 mg by mouth once daily. Take additional 20 MG dose at 5 PM for increased leg swelling or weight gain 5 pounds in one weel lorazepam(ATIVAN 1 MG TAB) Take by mouth. Twice daily iv contrast (will be provided with radiology test) CT ABD/PEL -Inject, intravenously, once for 1 dose.No IV access, insert saline lock prior to the beginning of sedation, infusion, injection of imaging exam. Discontinue saline lock post exam. If Pt. has a central line or IVAD, may access for administration according to line specific nursing protocol. Once exam is complete flush line and de-access according to line specific nursing protocol in the CT contrast administration guidelines link. enteric contrast (will be provided with radiology test) For CT ABD/PEL W IVCON Routine order Administer, As Directed One Time Only, via Oral, Rectal, both Oral and Rectal, Enteric Tube, Stoma or Indwelling Catheter, Enteric Contrast as designated per enteric contrast guidelines LORazepam (ATIVAN) 1 mg tablet Take 1 mg by mouth four times daily. (Patient not taking: Reported on 12/25/2021) oxyCODONE IR (ROXICODONE) 20 mg tab Take by mouth four times daily. (Patient not taking: Reported on 12/25/2021) fluticasone-salmeterol (ADVAIR DISKUS) 100-50 mcg/dose inhaler Inhale 1 Puff as instructed twice daily. (Patient not taking: Reported on 12/25/2021) lisinopril (ZESTRIL, PRINIVIL) 20 mg tablet Take 10 mg by mouth once daily. (Patient not taking: Reported on 12/25/2021) traZODone (DESYREL) 50 mg tablet Take 50 mg by mouth daily at bedtime. (Patient not taking: Reported on 12/25/2021) bumetanide (BUMEX) 0.5 mg tablet Take 1 mg by mouth once daily. (Patient not taking: Reported on 12/25/2021) naloxegol (MOVANTIK) 25 mg tablet Take 25 mg by mouth once daily. (Patient not taking: Reported on 12/25/2021) gabapentin (NEURONTIN) 300 mg capsule 300 mg three times daily. (Patient not taking: Reported on 12/25/2021) MECLIZINE 25 MG TAB 2 tabs 3 times a day (Patient not taking: Reported on 12/25/2021) FERROUS SULFATE SR 325 MG (65 MG IRON) CAP Take one(1) tablet twice daily. (Patient not taking: Reported on 12/25/2021) CEPHALEXIN 500 MG CAP 1 tab (4)four times a day (Patient not taking: Reported on 12/25/2021) valsartan/hydrochlorothiazide(DIOVAN HCT 160 MG-12.5 MG TAB) Take one(1) tablet two(2) times daily. (Patient not taking: Reported on 12/25/2021) NEFAZODONE 100 MG TAB Take 2 tabs three times daily. (Patient not taking: Reported on 12/25/2021) potassium chloride(KLOR-CON M20 20 MEQ TAB) Take one(1) tablet two(2) times daily. (Patient not taking: Reported on 12/25/2021) COMPOUNDED PRESCRIPTION B12 shots once monthly (Patient not taking: Reported on 12/25/2021) TEMAZEPAM 15 MG CAP Take one(1) tablet daily at bedtime. (Patient not taking: Reported on 12/25/2021) oxycodone hcl/acetaminophen(PERCOCET 10 MG-325 MG TAB) Take one(1) tablet every six(6) hours as needed for pain. (Patient not taking: Reported on 12/25/2021) CALCIUM 500 MG TAB Take one(1) tablet twice daily. (Patient not taking: Reported on 12/25/2021) pramipexole di-hcl(MIRAPEX 0.5 MG TAB) one hour before bed as needed (Patient not taking: Reported on 12/25/2021) hydrochlorothiazide 25 mg ORAL Tab Take one(1) tablet daily. (Patient not taking: Reported on 12/25/2021) STOOL SOFTENER 100 MG CAP Take one(1) tablet three times daily. (Patient not taking: Reported on 12/25/2021) No current facility-administered medications for this visit. ALLERGIES: Diazepam, Fentanyl, Hydrocodone Bitartrate, Levaquin [Levofloxacin], Nsaids (Non-Steroidal Anti-Inflammatory Drug), Prednisone, Propoxyphene, and Tylenol [Acetaminophen] PERSONAL HISTORY: Social History Tobacco Use Smoking status: Never Smokeless tobacco: Never Vaping Use Vaping Use: Never used Substance Use Topics Alcohol use: No Drug use: No FAMILY HISTORY: FAMILY HISTORY Problem Relation Age of Onset Diabetes Mother Hypertension Mother Breast Cancer Maternal Grandmother Hypertension Father REVIEW OF SYMPTOMS: The review of systems data was entered by the nurse and reviewed by me There are no exam notes on file for this visit. PHYSICAL EXAMINATION: General: The patient is 81 year old female, well nourished, well hydrated in no acute distress. The patient is oriented to time, place, and person. VITALS: Blood pressure 90/60, pulse 80, temperature 36.3 C (97.4 F), temperature source Temporal, resp. rate 14, height 144.8 cm (4' 9 ), weight 73.9 kg (163 lb), SpO2 95 %. HEENT: Normal cephalic, ataumatic, pupils are equally round, sclera are anicteric, mucous membranes are moist, oropharynx is clear. Neck has no masses, asymmetry or lymphadenopathy. Thyroid is unremarkable. Respiratory: Clear to auscultation and percussion. Normal respiratory excursion and pattern. Cardiac: Examination is regular rate and rhythm. Abdominal exam: Soft, nontender, with no palpable masses. No hepatosplenomegaly. No palpable hernias but likely diastases of the lower midline as seen on the previous CT scan. Rectal exam: exam deferred Extremities: no clubbing, cyanosis or edema. No adenopathy. Other: LABORATORY VALUES: As Noted RADIOLOGIC STUDIES: As Noted Assessment IMPRESSION: Weight loss, further protuberance in the lower abdominal midline, likely diastases versus true hernia. PLAN: I discussed with the patient that clinically I feel she likely has diastases not a true hernia. I discussed with the patient that actual hernia repair or diastases plication increases the risk of true hernia formation in the future. I would plan to repeat the CT scan of the abdomen pelvis given the patient's concern I would repeat this with contrast to also assess her liver lesion that this is truly a cyst that has not changed. Diagnoses: (K43.2) Incisional hernia, without obstruction or gangrene (primary encounter diagnosis) (R16.0) Liver mass (M62.08) Diastasis recti Return to Clinic: The patient is instructed to follow-up with me after the testing has been completed. Danish Goff MD REVIEW OF SYSTEMS: General: The patient denies fatigue, denies weight loss, denies weight gain, denies feeling hot, and denies feelings of cold. Eyes: The patient denies glaucoma, denies eye injury/surgery, wears glasses. Ear/Nose/Throat: The patient notes allergies, denies hayfever, denies ear infections, and denies bloody noses. Cardiovascular: The patient denies chest pain, denies heart disease, notes high blood pressure,denies cardiac stent, denies prior heart attack, denies irregular heart beat, denies high cholesterol, notes poor circulation, denies heart failure, other cardiac issues, notes claudication, denies cold feet, denies peripheral arterial stent. Respiratory: The patient denies tuberculosis, denies pneumonia, denies frequent cough, denies pulmonary embolism, denies shortness of breath, and denies coughing up blood. Gastrointestinal: The patient denies difficulty swallowing, notes acid reflux, denies ulcers, denies vomiting, denies jaundice/hepatitis, denies gallbladder problems, denies black or tarry stools, denies hemorrhoids, denies bleeding from rectum, denies diverticulitis, denies constipation, denies diarrhea, denies loss of stool control, and notes hernias. Kidney/Bladder: The patient denies kidney stones, denies urine infections, and denies bloody urine. Skin: The patient denies a history of skin cancer, denies bleeding/changing moles, and denies a history of skin rash. Neurologic: The patient denies a history of epilepsy/convulsions, notes headaches, denies head/spinal injuries, and denies stroke/TIA. Psychiatric: The patient denies psychiatric medications, denies depression, and denies voices, denies substance abuse. Endocrine: The patient denies thyroid disorders, denies diabetes, and denies hormonal problems. Hematologic: The patient denies a history of bruising, denies bleeding, and denies anemia, denies blood clots. Infections: The patient notes a history of measles and mumps, denies rheumatic fever, and denies sexually transmitted diseases. Musculoskeletal: The patient denies back pain/injury, notes back problems, denies sciatica, notes knee/foot trouble, denies arthritis, or denies gout. When was patient's last Mammogram screening? 2006 according to Epic Last Colonoscopy: 2018 Jolly Vaughn LPN Patient states she sees Dr. Anderson and has called him about her blood pressure but did not follow up evaluation analyst. Encouraged to follow up with provider. Jolly Vaughn LPN documented in this encounter [facility] Progress note 12-25-2021 Note Date & Type Note Facility 12-25-2021 Note HNO ID: [id number] Author: Jolly Vaughn LPN Service: ? Author Type: ? Type: Progress Notes Filed: 12/25/2021 5:58 PM Note Text: REVIEW OF SYSTEMS: General: The patient denies fatigue, denies weight loss, denies weight gain, denies feeling hot, and denies feelings of cold. Eyes: The patient denies glaucoma, denies eye injury/surgery, wears glasses. Ear/Nose/Throat: The patient notes allergies, denies hayfever, denies ear infections, and denies bloody noses. Cardiovascular: The patient denies chest pain, denies heart disease, notes high blood pressure,denies cardiac stent, denies prior heart attack, denies irregular heart beat, denies high cholesterol, notes poor circulation, denies heart failure, other cardiac issues, notes claudication, denies cold feet, denies peripheral arterial stent. Respiratory: The patient denies tuberculosis, denies pneumonia, denies frequent cough, denies pulmonary embolism, denies shortness of breath, and denies coughing up blood. Gastrointestinal: The patient denies difficulty swallowing, notes acid reflux, denies ulcers, denies vomiting, denies jaundice/hepatitis, denies gallbladder problems, denies black or tarry stools, denies hemorrhoids, denies bleeding from rectum, denies diverticulitis, denies constipation, denies diarrhea, denies loss of stool control, and notes hernias. Kidney/Bladder: The patient denies kidney stones, denies urine infections, and denies bloody urine. Skin: The patient denies a history of skin cancer, denies bleeding/changing moles, and denies a history of skin rash. Neurologic: The patient denies a history of epilepsy/convulsions, notes headaches, denies head/spinal injuries, and denies stroke/TIA. Psychiatric: The patient denies psychiatric medications, denies depression, and denies voices, denies substance abuse. Endocrine: The patient denies thyroid disorders, denies diabetes, and denies hormonal problems. Hematologic: The patient denies a history of bruising, denies bleeding, and denies anemia, denies blood clots. Infections: The patient notes a history of measles and mumps, denies rheumatic fever, and denies sexually transmitted diseases. Musculoskeletal: The patient denies back pain/injury, notes back problems, denies sciatica, notes knee/foot trouble, denies arthritis, or denies gout. When was patient's last Mammogram screening? 2006 according to Epic Last Colonoscopy: 2019 Jolly Vaughn LPN [facility] Progress note 12-25-2021 Note Date & Type Note Facility 12-25-2021 Note HNO ID: [id number] Author: Jolly Vaughn IVANA Service: ? Author Type: ? Type: Progress Notes Filed: 12/25/2021 5:58 PM Note Text: Patient states she sees Dr. Anderson and has called him about her blood pressure but did not follow up evaluation analyst. Encouraged to follow up with provider. Jolly Vaughn IVANA [facility] Evaluation note Note Date & Type Note Facility documented in this encounter [facility] Summary Purpose Family History No Family History Records FoundNo Family History Records FoundNo Family History Records FoundNo Family History Records FoundNo Family History Records FoundNo Family History Records Found Advance Directives Documents on File Type Date Recorded Patient Director Mortgage Expl anation Advance Directive(s) 11/01/2017 2:02 PM Documents on File Type Date Recorded Patient Director Mortgage Expl anation Advance Directive(s) 11/01/2017 2:02 PM Reason for Referral Specialty Diagnoses / Procedures Referred By Edouard mckinney Referred To Contact CT IMAGING Diagnoses Incisional hernia, without obstruction or gangrene Liver mass Procedures CT ABD/PEL W IVCON CT ABD & PELVIS W/CONTRAST Danish Goff MD [address] [facility] [place] [address] Ct Imaging Referral ID Status Reason Start Date Expiration Date Visits Requested Visits Authorized [id number] Authorized Auto-Generat ed Referral 12/25/2021 01/24/2023 1 1 Additional Source Comments INFORMATION SOURCE (unrecogn ized section and content) DATE CREATED AUTHOR AUTHOR'S ORGANIZ ATION 03/13/2019 [facility] ([place]) DATE CREATED AUTHOR AUTHOR'S ORGANIZ ATION 04/11/2019 [facility] DATE CREATED AUTHOR AUTHOR'S ORGANIZ ATION 10/18/2019 [facility] DATE CREATED AUTHOR AUTHOR'S ORGANIZ ATION 11/02/2019 [facility] DATE CREATED AUTHOR AUTHOR'S ORGANIZ ATION 01/02/2022 [facility] Source Comments (unrecognize d section and content) In the event this informatio n is protected by the Federal Confidentiality of Alcohol and Drug Abuse Patient Records regulations: The Federal rules restrict any use of the information to criminally investigate or prosecute any alcohol or drug abuse patient.[facility] the event this information is protected by the Federal Confidentiality of Alcohol and Drug Abuse Patient Records regulations: The Federal rules restrict any use of the information to criminally investigate or prosecute any alcohol or drug abuse patient.[facility] the event this information is protected by the Federal Confidentiality of Alcohol and Drug Abuse Patient Records regulations: The Federal rules restrict any use of the information to criminally investigate or prosecute any alcohol or drug abuse patient.[facility] Reason for Visit (unrecogniz ed section and content) Specialty Diagnoses / Procedures Referred By Edouard mckinney Referred To Contact CT IMAGING Diagnoses Incisional hernia, without obstruction or gangrene Liver mass Procedures CT ABD/PEL W IVCON CT ABD & PELVIS W/CONTRAST Danish Goff MD [address] [facility] [place] [address] Ct Imaging Referral ID Status Reason Start Date Expiration Date V isits Requested Visits Authorized [id number] Closed Auto-Generate d Referral 12/25/2021 01/24/2023 [address] scan results Care Teams (unrecognized sec tion and content) Line Fixer Relationship Specialty Start Date End Date Catalina Hodges PCP - General Internal Medicine 09/24/11 Line Fixer Relationship Specialty Start Date End Date Catalina Hodges PCP - General Internal Medicine 09/24/11 FOR RECORDS PERTAINING TO PATIENTS WHO ARE OR HAVE BEEN ENROLLED IN A CHEMICAL DEPENDENCY/SUBSTANCEABUSE PROGRAM, SOME INFORMATION MAY BE OMITTED. This clinical summary was aggregated from multiple sources. Caution should be exercised in using it in the provision of clinical care. This summary normalizes information from multiple sources, and as a consequence, information in this document may materially change the coding, format and clinical context of patient data. In addition, data may be omitted in some cases. CLINICAL DECISIONS SHOULD BE BASED ON THE PRIMARY CLINICAL RECORDS. [employer] [facility]. provides no warranty or guarantee of the accuracy or completeness of information in this document.
== END | disposition home or self-care (01) ==
PROVIDERS: PCP Family Medicine Geriatric Medicine; Referring Provider Anesthesiology Pain Medicine; Visit Provider Anesthesiology Pain Medicine
DX: M51.34 Other intervertebral disc degeneration, thoracic region (principal)
CPT/HCPCS: 72072; 72110

== ENCOUNTER → 2023-05-11 | Outpatient (CLI) | payer MEDICARE, OTHER, SELFPAY ==
[2023-05-11 16:26] LABS: Absolute Lymphocyte Count 0.54 X10^3/uL (0.83-4.51); Absolute Neutrophil Count 4.1 X10^3/uL (2.0-7.7); Basophil# 0.01 X10^3/uL; Basophil% 0.2 % (0-1); Eosinophil# 0.02 X10^3/uL; Eosinophils% 0.4 % (0-5); Hematocrit 35.6 % (37-47); Hemoglobin 11.6 g/dL (12.0-15.0); Lymphocyte # 0.54 X10^3/ul (0.83-4.51); Lymphocyte % 10.9 % (19-41); Mean Corp Hgb Conc 32.6 g/dL (32-36); Mean Corpuscular Hgb 30.1 pg (27.0-32.0); Mean Corpuscular Volume 92.5 fL (81-99); Mean Platelet Vol. 11.6 fl (6.2-12.0); Monocyte# 0.29 X10^3/uL; Monocyte% 5.8 % (0-10); NRBC Flagged by Analyzer 0 % (0-5); Neutrophil # 4.08 X10^3/uL (2.7-7.7); Neutrophil % 82.3 % (47-70); POSITIVE DIFFERENTIAL YES; Platelet Count 166 K/mm3 (150-450); RBC Distribution Width CV 12.8 % (11.6-14.6); RBC Distribution Width SD 43.5 fl (35.1-43.9); Red Blood Count 3.85 M/mm3 (4.2-5.4)
[2023-05-11 16:28] LABS: Differential Indicated SCAN CRITERIA MET
[2023-05-11 16:46] LABS: Anion Gap 17 (5-15); BUN 109 mg/dL (7-18); BUN/Creat Ratio 48.7 RATIO (10-20); Calcium,Total 7.5 mg/dL (8.5-10.1); Chloride 89 mmol/L (98-107); Creatinine, Serum 2.24 mg/dL (0.55-1.02); EST Glomerular Filtration Rate 22 mL/min (>60); Est Glom Filt Rate - Afr Amer 27 mL/min (>60); Glucose 95 mg/dL (74-106); Potassium 2.6 mmol/L (3.5-5.1); Sodium Level 133 mmol/L (136-145)
[2023-05-11 17:00] LABS: Anisocytosis RARE; Macrocytosis RARE; Platelet Estimate ADEQUATE (ADEQ); Red Cell Morphology N CHROM NORMAL (NORM C&C)
[2023-05-11 17:01] LABS: Ovalocyte RARE
--- OUTSIDE RECORDS SUMMARY | 2023-05-11 19:46 | XMS RPT_ITS | CCD ---
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 [facility] Work Phone: [phone] (10 sources) diazePAM; Translations: [DIAZEPAM] drug allergy 6 Itching [facility] Work Phone: [phone] (10 sources) fentaNYL; Translations: [FENTANYL] drug allergy 1 Other: See Comments [facility] Work Phone: [phone] (6 sources) LORazepam drug allergy 1 Unknown [facility] Work Phone: [phone] (6 sources) propoxyphene drug allergy 1 (Darvocet) Laney, makes patient act [facility] Work Phone: (4 sources) HYDROcodone; Translations: [HYDROCODONE BITARTRATE] Drug Allergy 2 Rash [facility] (4 sources) levoFLOXacin; Translations: [LEVOFLOXACIN] Drug Allergy 6 Vomiting [facility] Work Phone: (4 sources) Non-steroidal anti-inflammatory agent; Translations: [NSAIDS (NON-STEROIDAL ANTI-INFLAMMATORY DRUG)] Propensity to adverse reactions to drug 2 Unknown [facility] (4 sources) predniSONE; Translations: [PREDNISONE] Drug Allergy 2 Other: See Comments [facility] (4 sources) Propoxyphene; Translations: [PROPOXYPHENE] Drug Allergy 2 Unknown [facility] Medications Current Medications Medication Drug Class(es) Dates [...] 144.8 cm Danish Goff MD Work Phone: [facility] 12-25-2021 15:14-0400 Body temperature 97.39 [degF] Danish Goff MD Work Phone: [facility] 12-25-2021 15:14-0400 Body weight 73.94 kg Danish Goff MD Work Phone: [facility] 12-25-2021 15:14-0400 Diastolic blood pressure 60 mm[Hg] Danish Goff MD Work Phone: [facility] 12-25-2021 15:14-0400 Heart rate 80 /min Danish Goff MD Work Phone: [facility] 12-25-2021 15:14-0400 Respiratory rate 14 /min Danish Goff MD Work Phone: [facility] 12-25-2021 15:14-0400 SaO2% (BldA) [Mass fraction] 95 % Danish Goff MD Work Phone: [facility] 12-25-2021 15:14-0400 Systolic blood pressure 90 mm[Hg] Danish Goff MD Work Phone: [facility] 11-24-2016 14:36-0400 BMI (Body Mass Index) 41.64 kg/m2 Rome Dutton MD [facility] Work Phone: 11-24-2016 14:36-0400 BP Diastolic 60 mm[Hg] Rome Dutton MD [facility] Work Phone: 11-24-2016 14:36-0400 BP Systolic 100 mm[Hg] Rome Dutton MD [facility] Work Phone: 11-24-2016 14:36-0400 Height 149.86 cm Rome Dutton MD [facility] Work Phone: 11-24-2016 14:36-0400 Pulse (Heart Rate) 80 /min Rome Dutton MD [facility] Work Phone: 11-24-2016 14:36-0400 Respiratory [...] Reid Work Phone: Start: 03-19-2016 End: 03-19-2016 DIRECTOR OF INSTITUTIONAL RESEARCH Amy Jean PA-C Work Phone: Start: 03-19-2016 [...] Follow Up Appt 3 months Miracle lauren SCREED OPERATOR Work Phone: Start: 08-06-2015 End: 11-05-2015 Tte w/doppler, complete Miracle lauren SCREED OPERATOR Work Phone: Start: 05-06-2015 End: 04-30-2016 Cine/vid x-ray, throat/esoph Miracle Hinton SCREED OPERATOR Work Phone: Start: 05-06-2015 End: 11-05-2015 Follow Up Appt 3 months Miracle Patel xin SCREED OPERATOR Work Phone: Start: 05-06-2015 End: 11-05-2015 Pulmonary Function Test - complete Miracle Hinton SCREED OPERATOR Work Phone: Start: 05-06-2015 End: 04-30-2016 Pulmonary stress test/simple Miracle Hinton SCREED OPERATOR Work Phone: Start: 03-07-2015 End: 03-07-2015 DIRECTOR OF INSTITUTIONAL RESEARCH Amy Jean PA-C Work Phone: Start: 03-07-2015 [...] BEV Dutton MD Start: 01-10-2013 End: 01-10-2013 DIRECTOR OF INSTITUTIONAL RESEARCH Amy Jean PA-C Work Phone: Start: 01-10-2013 End: 01-10-2013 Electrocardiogram, complete Amy Le PA-C Work Phone: Start: 01-10-2013 End: 01-10-2013 Follow Up Appt 6 months Amy saxena PA-C Work Phone: Start: 07-08-2012 End: 07-08-2012 Follow Up Appt 6 months Zeeshan Gibbs Start: 07-08-2012 End: 07-08-2012 BEV Dutton MD Start: 04-29-2011 End: 04-29-2011 Follow Up Appt 1 year Rome Dutton MD Plan of Treatment Date Care Activity Detail Author Start: 12-25-2022 BP CONTROLLED (<130/80) BP CONTROLLE D (<130/80) [facility] Start: 09-03-2022 DIABETES SCREEN DIABETES SCREEN [facility] Start: 12-25-2021 End: 02-24-2022 CREATININE BLD CREATININE BLD Lab Routine Incisional hernia, without obstruction or gangrene Liver mass Expected: 12/25/2021, Expires: 02/24/2022 [facility] Work Phone: Immunizations Immunization Date Immunization Notes Care Provider Fa kathy 06-04-2008 pneumococcal polysaccharide vaccine, 23 valent Danish Goff MD Work Phone: [facility] 02-10-2006 influenza virus vacc ine, unspecified formulation Danish Goff MD Work Phone: [facility] Work Phone: Payers Date Payer Category Payer Medicare [id number] 2015 Private Health Insurance 1994 Medicare 1994 Medicare [id number] 1940 Unknown [id number] Social History Date Type Detail Facility Start: 04-30-2017 Tobacco smoking stat us VTIS Never smoked tobacco [facility] Start: 04-30-2017 Tobacco use and exposure Smoke less tobacco non-user [facility] Start: 12-25-2021 Alcohol intake Current non-dr medical records coordinator of alcohol (finding) [facility] Start: 1940 Sex Assigned At Not on file [facility] Start: 12-15-2021 End: 12-25-2021 Exposure to SARS-CoV-2 (event) Not sure [facility] Note 01-07-2022 Telephone Encounter - Megha Carey [...] Megha Carey RN documented in this encounter [facility] Progress note 01-01-2022 Note Date & Type Note Facility 01-01-2022 Note HNO ID: [id number] Author: RT Juni(R) Service: ? Author Type: Media Relations Coordinator Type: Progress Notes Filed: 01/01/2022 4:06 PM [...] DEPARTMENT: CT; Exam(s) Completed: Abdomen/Pelvis SIGNATURE: RT Brtiton(R) PATIENT NAME: Litzy Waller DATE: January 01, 2022 TIME: 4:06 PM [facility] Progress note 12-25-2021 Note Date & Type Note Facility 12-25-2021 Note HNO ID: [id number] Author: Danish Goff MD Service: ? Author [...] gabapentin (NEURONTIN) 300 (more content not included)... [facility] History of Present illness Narrative 12-25-2021 Danish Goff MD - 12/25/2021 5:55 PM EDTNilsaaleena Vaughn MANIFEST CLERK - 12/25/2021 3:47 PM EDSimon Vaughn LPN [...] blood pressure but did not follow up radiation protection technician. Encouraged to follow up with provider. Jolly Vaughn LPN documented in this encounter [facility] Progress note 12-25-2021 Note Date & Type Note Facility 12-25-2021 Note HNO ID: [id number] Author: Jolly Vaughn LPN Service: ? Author [...] Epic Last Colonoscopy: 2019 Jolly Vaughn LPN [facility] Progress note 12-25-2021 Note Date & Type Note Facility 12-25-2021 Note HNO ID: [id number] Author: Jolly Vaughn IVANA Service: ? Author Type: ? Type: Progress Notes Filed: 12/25/2021 5:58 PM Note Text: Patient states she sees Dr. Anderson and has called him about her blood pressure but did not follow up radiation protection technician. Encouraged to follow up with provider. Jolly Vaughn IVANA [facility] Evaluation note Note Date & Type Note Facility documented in this encounter [facility] Summary Purpose Family History No Family History Records FoundNo Family History Records FoundNo Family History Records FoundNo Family History Records FoundNo Family History Records FoundNo Family History Records Found Advance Directives Documents on File Type Date Recorded Patient Cord Tire Builder Expl anation Advance Directive(s) 11/01/2017 2:02 PM Documents on File Type Date Recorded Patient Cord Tire Builder Expl anation Advance Directive(s) 11/01/2017 2:02 PM Reason for Referral Specialty Diagnoses / Procedures Referred By Edouard mckinney Referred To Contact CT IMAGING Diagnoses Incisional hernia, without obstruction or gangrene Liver mass Procedures CT ABD/PEL W IVCON CT ABD & PELVIS W/CONTRAST Danish Goff MD [address] [facility] [place] [address] Ct Imaging Referral ID Status Reason Start Date Expiration Date Visits Requested Visits Authorized [id number] Authorized Auto-Generat ed Referral 12/25/2021 01/24/2023 1 1 Additional Source Comments INFORMATION SOURCE (unrecogn ized section and content) DATE CREATED AUTHOR AUTHOR'S ORGANIZ ATION 03/13/2019 [facility] (MD) DATE CREATED AUTHOR AUTHOR'S ORGANIZ ATION 04/11/2019 [facility] DATE CREATED AUTHOR AUTHOR'S ORGANIZ ATION 10/18/2019 [facility] DATE CREATED AUTHOR AUTHOR'S ORGANIZ ATION 11/02/2019 [facility] DATE CREATED AUTHOR AUTHOR'S ORGANIZ ATION 01/02/2022 [facility] Source Comments (unrecognize d section and content) In the event this informatio n is protected by the Federal Confidentiality of Alcohol and Drug Abuse Patient Records regulations: The Federal rules restrict any use of the information to criminally investigate or prosecute any alcohol or drug abuse patient.[facility] the event this information is protected by the Federal Confidentiality of Alcohol and Drug Abuse Patient Records regulations: The Federal rules restrict any use of the information to criminally investigate or prosecute any alcohol or drug abuse patient.[facility] Foundation[facility] the event this information is protected by the Federal Confidentiality of Alcohol and Drug Abuse Patient Records regulations: The Federal rules restrict any use of the information to criminally investigate or prosecute any alcohol or drug abuse patient.[facility] Reason for Visit (unrecogniz ed section and content) Specialty Diagnoses / Procedures Referred By Edouard mckinney Referred To Contact CT IMAGING Diagnoses Incisional hernia, without obstruction or gangrene Liver mass Procedures CT ABD/PEL W IVCON CT ABD & PELVIS W/CONTRAST Danish Goff MD [address] [facility] [place] [address] Ct Imaging Referral ID Status Reason Start Date Expiration Date V isits Requested Visits Authorized [id number] Closed Auto-Generate d Referral 12/25/2021 01/24/2023 [address] scan results Care Teams (unrecognized sec tion and content) Roading Engineer Relationship Specialty Start Date End Date Catalina Hodges PCP - General Internal Medicine 09/24/11 Roading Engineer Relationship Specialty Start Date End Date Catalina [...] BE BASED ON THE PRIMARY CLINICAL RECORDS. [facility]. provides no warranty or guarantee of the accuracy or completeness of information in this document.
== END | disposition home or self-care (01) ==
LOC: POLAB3 15:22
PROVIDERS: PCP Family Medicine Geriatric Medicine; Visit Provider Family Medicine Geriatric Medicine
DX: E78.5 Hyperlipidemia, unspecified (principal); E86.0 Dehydration
CPT/HCPCS: 36415; 80048; 85025

== ENCOUNTER → 2023-06-29 | Outpatient (CLI) | payer MEDICARE, OTHER, SELFPAY ==
[2023-06-29 14:34] LABS: Absolute Lymphocyte Count 1.67 X10^3/uL (0.83-4.51); Absolute Neutrophil Count 4.5 X10^3/uL (2.0-7.7); Basophil# 0.04 X10^3/uL; Basophil% 0.6 % (0-1); Eosinophil# 0.18 X10^3/uL; Eosinophils% 2.7 % (0-5); Hematocrit 30.7 % (37-47); Hemoglobin 9.6 g/dL (12.0-15.0); Lymphocyte # 1.67 X10^3/ul (0.83-4.51); Lymphocyte % 24.6 % (19-41); Mean Corp Hgb Conc 31.3 g/dL (32-36); Mean Corpuscular Hgb 29.2 pg (27.0-32.0); Mean Corpuscular Volume 93.3 fL (81-99); Mean Platelet Vol. 12.2 fl (6.2-12.0); Monocyte# 0.39 X10^3/uL; Monocyte% 5.7 % (0-10); NRBC Flagged by Analyzer 0 % (0-5); Neutrophil # 4.47 X10^3/uL (2.7-7.7); Neutrophil % 65.8 % (47-70); Platelet Count 154 K/mm3 (150-450); RBC Distribution Width CV 13.8 % (11.6-14.6); RBC Distribution Width SD 47.1 fl (35.1-43.9); Red Blood Count 3.29 M/mm3 (4.2-5.4); White Blood Count 6.8 K/mm3 (4.4-11.0)
[2023-06-29 16:24] LABS: Vitamin D,25 Hydroxy 43.9 ng/mL
[2023-06-29 16:57] LABS: ALB/GLOB Ratio 0.8 RATIO (0.9-2.4); AST(SGOT) 28 U/L (15-37); Alanine Aminotransfer ALT/SGPT 10 U/L (13-56); Albumin, Serum 3.1 g/dL (3.2-5.0); Alkaline Phosphatase 97 U/L (45-117); Anion Gap 11 (5-15); BUN 67 mg/dL (7-18); BUN/Creat Ratio 21.5 RATIO (10-20); Calcium,Total 7.2 mg/dL (8.5-10.1); Chloride 91 mmol/L (98-107); Creatinine, Serum 3.11 mg/dL (0.55-1.02); EST Glomerular Filtration Rate 15 mL/min (>60); Est Glom Filt Rate - Afr Amer 19 mL/min (>60); Globulin 3.9 g/dL (2.2-4.2); Glucose 67 mg/dL (74-106); Potassium 2.7 mmol/L (3.5-5.1); Sodium Level 132 mmol/L (136-145); Thyroid Stim Hormone (TSH) 2.45 uIU/mL (0.358-3.74); Uric Acid 13.3 mg/dL (2.6-6.0)
[2023-06-29 18:03] LABS: M R Staph aureus DNA By PCR Negative (Negative); Probe Check PASS; Specimen Processing Control PASS; Staph aureus DNA By PCR NEGATIVE (Negative)
== END | disposition home or self-care (01) ==
LOC: POLAB3 14:01
PROVIDERS: PCP Family Medicine Geriatric Medicine; Visit Provider Family Medicine Geriatric Medicine
DX: M05.79 Rheumatoid arthritis with rheumatoid factor of multiple sites without organ or systems involvement (principal); M79.7 Fibromyalgia; M10.9 Gout, unspecified; L03.116 Cellulitis of left lower limb; E55.9 Vitamin D deficiency, unspecified; R53.83 Other fatigue; Z79.899 Other long term (current) drug therapy
CPT/HCPCS: 36415; 80053; 82306; 84443; 84550; 85025; 87070; 87205; 87640

== ENCOUNTER 2023-07-07 18:36 | Inpatient (IN) | payer MEDICARE, OTHER, SELFPAY ==
[2023-07-07] VITALS (9 sets, daily range): BP systolic 61–118; BP diastolic 38–73; PULSE 67–84; RESP 14–22; TEMP 36.1–37; O2SAT 93–99
--- NOTE | 2023-07-07 18:43 | ED.RN ---
3 consistant BP readings of systolic less than 70. Pt brought back to room immedietly.
--- NOTE | 2023-07-07 19:09 | EKG12_ITS ---
Test Reason : WOUND Blood Pressure : / mmHG Vent. Rate : 059 BPM Atrial Rate : 059 BPM P-R Int : 172 ms QRS Dur : 126 ms QT Int : 600 ms P-R-T Axes : 019 -44 170 degrees QTc Int : 594 ms Sinus bradycardia with occasional Premature ventricular complexes Left axis deviation Left bundle branch block Abnormal ECG PROLONGED QT Confirmed by Radhames Hernandez ([id number]), deputy editor in chief SRAVANTHI STEPHENS ([id number]) on 07/09/2023 7:16:29 AM Referred By: BREANNE Confirmed By:Radhames Hernandez
--- NOTE | 2023-07-07 19:10 | ED.VIS.LOWEX ---
HPI History of Present Illness Chief Complaint: Wound Narrative Narrative: 83-year-old female presents with her [id number] because of blister on her left heel that she has had over the last few days, since Wednesday. She states that she saw her primary care provider on Wednesday of last week approximately 9 days ago. He took scrapings of the skin on her left lower extremity. She states she has problems with her left leg where she has neuropathy but she is not diabetic, and her leg swells up and she gets sick where she lays in bed for few days. Her [id number]-[id number] noticed a blister on the back of her heel 4 days ago, and patient noticed that the blister had popped, and now it appears dark red to black. She denies any fevers or chills, no nausea or vomiting, no other symptoms. [facility] Medical History (HFpEF) heart failure with preserved ejection fraction Anemia Anxiety Arthritis Aseptic loosening of prosthetic hip Asthma Back problem Blackout Cardiology follow-up encounter Carpal tunnel syndrome CHF (congestive heart failure) Constipation COPD (chronic obstructive pulmonary disease) Coronary artery disease Depression Difficulty swallowing Easy bruising Edema Fibromyalgia Gastric reflux Gastrointestinal problem Generalized weakness GERD (gastroesophageal reflux disease) Gout Heart disease Heart valve problem Hiatal hernia High cholesterol History of blood transfusion History of CHF (congestive heart failure) History of COPD History of echocardiogram History of edema History of emotional problems History of heart attack History of IBS History of pneumonia History of stress test Hyperlipidemia Hypertension Irritable bowel syndrome Leg cramps Neuropathy Non-smoker NSTEMI (non-ST elevated myocardial infarction) Osteoarthritis of left hip Shortness of breath on exertion Ulcer Urinary incontinence Walker as ambulation aid Wears dentures Wears glasses Home Medications lorazepam 0.5 mg tablet 1 mg PO BID 08/26/21 [History Last Taken 01/16/22 07:30] oxycodone 10 mg tablet 10 mg PO TID PRN Pain 10/08/21 [History Last Taken 01/16/22 07:30] tizanidine 4 mg tablet 4 mg PO TID PRN LEG Cramps 10/08/21 [History Last Taken Unknown] cholecalciferol (vitamin D3) 125 mcg (5,000 unit) tablet (Vitamin D3) 125 mcg PO DAILY 01/12/22 [History Last Taken Unknown] diphenhydramine HCl 25 mg capsule (ZzzQuil) 25 mg PO QHS PRN Sleep 01/12/22 [History Last Taken Unknown] fluticasone 100 mcg-salmeterol 50 mcg/dose blistr powdr for inhalation (Advair Diskus) 1 inh inhalation BID PRN PRN BREATHING 01/12/22 [History Last Taken 01/16/22] hydroxychloroquine 200 mg tablet (Plaquenil) 200 mg PO DAILY RA 01/12/22 [History Last Taken Unknown] linaclotide 290 mcg capsule (Linzess) 290 mcg PO DAILY PRN IBS 03/12/23 [History Last Taken Unknown] pantoprazole 40 mg tablet,delayed release 40 mg PO BID 03/12/23 [History Last Taken Unknown] atorvastatin 20 mg tablet 20 mg PO QHS #90 tabs 06/11/23 [Rx Last Taken Unknown] carvedilol 6.25 mg tablet See Rx Instructions .Route .COMPLEX #180 tabs 06/11/23 [Rx Last Taken Unknown] furosemide 20 mg tablet See Rx Instructions .Route .COMPLEX #180 tabs 06/11/23 [Rx Last Taken Unknown] lisinopril 20 mg-hydrochlorothiazide 12.5 mg tablet See Rx Instructions .Route .COMPLEX #180 tabs 06/11/23 [Rx Last Taken Unknown] potassium chloride 20 mEq tablet,extended release(part/cryst) 20 meq PO BID #90 tabs 06/11/23 [Rx Last Taken Unknown] sertraline 50 mg tablet 50 mg PO DAILY #60 tabs 06/11/23 [Rx Last Taken Unknown] Allergy/AdvReac Type Severity Reaction Status Date / Time hydrocodone bitartrate Allergy Unknown Rash Verified 07/07/23 18:39 [From Vicodin] propoxyphene Allergy Unknown Unknown Verified 07/07/23 18:39 fentanyl Allergy feels Verified 07/07/23 18:39 terrible NSAIDS (Non-Steroidal AdvReac Unknown Unknown Verified 07/07/23 18:39 Anti-Inflamma prednisone AdvReac Unknown palpitation Verified 07/07/23 18:39 s acetaminophen [From Tylenol] AdvReac Nausea Verified 07/07/23 18:39 diazepam [From Valium] AdvReac Other Verified 07/07/23 18:39 Family History Father Heart disease Myocardial infarction Mother Hyperlipidemia Diabetes Anxiety Arthritis Depression Sister Thyroid disorder Sister Thyroid disorder Surgical History History of back surgery History of bilateral knee replacement History of colonoscopy History of left heart catheterization (~01/15/15) History of shoulder surgery History of total hysterectomy Status post revision of total hip replacement Social History Smoking Status: Never smoker alcohol intake: never caffeine: No what type of physical activity do you participate in: other frequency: 3-4 times per week ROS ROS ED ROS Narrative Constitutional: No fever, no chills. HEENT: No sore throat. No neck pain. No loss of vision. No rhinorrhea. Cardiovascular: No chest pain. No palpitations. No pedal edema. Respiratory: No cough, no shortness of breath. Abdominal: No abdominal pain. No nausea. No vomiting. Genitourinary: No dysuria. No hematuria. Musculoskeletal: No myalgias. No arthralgias. Neurologic: No headaches. No dizziness. No lightheadedness. Skin: No rash. No change in color. Positive blister left heel, popped, now firm and almost black. Psychiatric: No depression. No anxiety. EXAM Physical Exam Narrative Exam Narrative: Afebrile. Vital signs noted. HEENT: Normocephalic. Atraumatic. PERRL, EOMI. Neck soft and supple. No point tenderness or step off. Cardiovascular: Regular rate and rhythm. No murmurs, rubs, or gallops appreciated. Respiratory: No tachypnea. Lungs clear to auscultation bilaterally. Gastrointestinal: Abdomen soft, nontender, with normoactive bowel sounds. No rebound or guarding. Neurological: Awake. Alert. Nonfocal, nonlateralizing. Skin: No rash. Normal color. No pallor. Positive eschar left heel, approximately 3 cm in diameter, no purulent drainage. Firm to touch, no fluctuance. No surrounding erythema or cellulitis noted. Musculoskeletal: No pedal edema. Full range of motion extremities. Const Vital Signs: 07/07/23 18:37 07/07/23 18:43 07/07/23 18:43 Temperature 96.9 F L 98.4 F Temperature Source Temporal Oral Pulse Rate 76 74 Respiratory Rate 17 14 Blood Pressure 91/49 L 66/45 L 80/54 L Blood Pressure Mean 63 52 62 Pulse Ox 95 96 Oxygen Delivery Method Room Air Room Air 07/07/23 19:17 07/07/23 19:19 07/07/23 19:43 Temperature 98.4 F Temperature Source Temporal Pulse Rate 68 71 Respiratory Rate 18 16 Blood Pressure 61/38 L 91/61 Blood Pressure Mean 45 71 Pulse Ox 96 99 Oxygen Delivery Method Room Air Room Air Room Air 07/07/23 20:00 07/07/23 21:00 07/07/23 22:00 Temperature 98.4 F 98.6 F 97.7 F L Temperature Source Temporal Oral Oral Pulse Rate 76 84 67 Respiratory Rate 18 15 22 H Blood Pressure 79/51 L 82/48 L 98/58 L Blood Pressure Mean 60 59 71 Pulse Ox 97 93 96 Oxygen Delivery Method Room Air Room Air Room Air 07/07/23 22:46 Temperature 97.6 F L Temperature Source Pulse Rate 67 Respiratory Rate 18 Blood Pressure 86/56 L Blood Pressure Mean 66 Pulse Ox 96 Oxygen Delivery Method MDM MDM MDM Narrative Medical decision making narrative: In the differential diagnosis is infected foot ulcer versus hematoma. Patient had low blood pressure upon arrival continues to have low blood pressures. I have lower concern for necrotizing fasciitis. X-rays will be obtained to make sure there is no gas in the tissue. Otherwise, sepsis workup will be pursued as well. EKG was obtained and interpreted by myself independently as sinus bradycardia with PVCs at 59 bpm without other ectopy or acute ST changes. No STEMI. I reviewed her laboratory work and she has normal white count of 5.9, hemoglobin stable at 9.6, platelet count normal at 275. INR is normal at 1.2 with PT of 15, APTT 32.0. This is part of a sepsis workup because initially she was hypotensive, but she remained mentating. Review of her electrolyte panel shows potassium low at 2.5. Family does state that she is on Lasix for CHF and swelling. Her BUN is elevated at 65 with a creatinine of 1.44 but she has chronic kidney injury, glucose appropriately elevated at 140 with a anion gap normal at 5. Lactic acid is normal at 1.9. Given her hypokalemia, I checked a magnesium which is also low at 1.1. I ordered potassium replacement in the form of 40 mill equivalents orally and 40 mill equivalents through her IV. She has a second line and was running 4 g of magnesium as well. X-ray of the left foot was obtained and interpreted by myself independently, and there are chronic changes, and soft tissue swelling noted. I reviewed the radiology report which confirms my independent interpretation. No gas in the tissue. I have low concern for necrotizing fasciitis. I do feel this is probably more of a blood-filled blister/hematoma more than an abscess or large ulceration. Chest x-ray in 1 view was interpreted by myself independently and I see no evidence of pneumonia or pneumothorax. I also reviewed the radiology report which confirms my independent interpretation of the chest x-ray as well. Patient was getting consistently low systolic blood pressures, however her map remained above 65. Additionally, she had a larger cuff on, and her cuff was changed. She had a strong radial pulse on the left with this. I do not feel that she is meeting any sepsis or SIRS criteria. I do feel that she requires admission for her hypokalemia, hypomagnesimia, as well as her low blood pressures although her MAP remains above 65. I will speak with the hospitalist for admission. Patient discussed with Dr. Ordonez for admission to the PCU. History & Record Review Discussion w/independent historian: Patient and Family Additional record(s) reviewed:: Prior ED visit Lab Data Attestation: I reviewed the patient's lab results. Labs: Laboratory Results - last 24 hr 07/07/23 07/07/23 18:50 20:38 WBC 5.9 RBC 3.24 L Hgb 9.6 L Hct 30.6 L MCV 94.4 MCH 29.6 MCHC 31.4 L RDW Std Deviation 49.8 H RDW Coeff of Sin 14.4 Plt Count 275 MPV 11.3 Immature Gran % (Auto) 0.300 Neut % (Auto) 60.3 Lymph % (Auto) 28.9 [place] % (Auto) 6.8 Eos % (Auto) 3.4 Baso % (Auto) 0.3 Absolute Neuts (auto) 3.6 Absolute Lymphs (auto) 1.71 Nucleated RBC % 0 PT 15.0 H INR 1.2 APTT 32.0 Sodium 137 Potassium 2.5 L* Chloride 96 L Carbon Dioxide 36.0 H Anion Gap 5 BUN 65 H Creatinine 1.44 H Est GFR (MDRD) Af Amer 45 L Est GFR (MDRD) Non-Af 37 L BUN/Creatinine Ratio 45.1 H Glucose 140 H Lactic Acid 1.9 Calcium 7.2 L Magnesium 1.1 L Total Bilirubin 0.50 AST 33 ALT 11 L Alkaline Phosphatase 83 Total Protein 6.5 Albumin 2.7 L Globulin 3.8 Albumin/Globulin Ratio 0.7 L Urine Color Yellow Urine Clarity Clear Urine pH 7.0 Ur Specific [place] 1.010 Urine Protein Negative Urine Glucose (UA) Normal Urine Ketones Negative Urine Occult Blood Negative Urine Nitrite Negative Urine Bilirubin Negative Urine Urobilinogen Normal Ur Leukocyte Esterase Negative Urine RBC 0 SEEN Urine WBC 0 SEEN Ur Squamous Epith Cells 0-5 SEEN Urine Bacteria 1+ Urine Mucus 0 SEEN Radiography Diagnostic Testing: Clinical Impression(s) from Imaging Studies Chest X-Ray 07/07/23 19:25 IMPRESSION: No radiographic evidence of acute cardiopulmonary disease. Hiatal hernia. Electronically Signed: Cholo Lieberman DO at 19:45 EDT Reading Location ID and State: [facility] / [place] Tel [phone], Service support , Foot X-Ray 07/07/23 19:25 IMPRESSION: No radiographic evidence of osteomyelitis.. Correlate with MRI if clinical concern persists. Soft tissue swelling. Valgus deformity is noted. Electronically Signed: Cholo Lieberman DO at 20:01 EDT , Discharge Plan Dx/Rx/DC Orders Clinical Impression: Blister (nonthermal), left foot, initial encounter, Hypotension, Hypokalemia, Hypomagnesemia Disposition Disposition: Acute Care [facility]
[2023-07-07] MEDS: 0.9% Normal Saline (1000mL) 1,000 ML 999 ML IV ×2 (19:14→21:57)
[2023-07-07 19:25] LABS: Absolute Lymphocyte Count 1.71 X10^3/uL (0.83-4.51); Absolute Neutrophil Count 3.6 X10^3/uL (2.0-7.7); Basophil# 0.02 X10^3/uL; Basophil% 0.3 % (0-1); Eosinophils% 3.4 % (0-5); Hematocrit 30.6 % (37-47); Hemoglobin 9.6 g/dL (12.0-15.0); Lymphocyte # 1.71 X10^3/ul (0.83-4.51); Lymphocyte % 28.9 % (19-41); Mean Corp Hgb Conc 31.4 g/dL (32-36); Mean Corpuscular Hgb 29.6 pg (27.0-32.0); Mean Corpuscular Volume 94.4 fL (81-99); Mean Platelet Vol. 11.3 fl (6.2-12.0); Monocyte% 6.8 % (0-10); NRBC Flagged by Analyzer 0 % (0-5); Neutrophil # 3.56 X10^3/uL (2.7-7.7); Neutrophil % 60.3 % (47-70); Platelet Count 275 K/mm3 (150-450); RBC Distribution Width CV 14.4 % (11.6-14.6); RBC Distribution Width SD 49.8 fl (35.1-43.9); Red Blood Count 3.24 M/mm3 (4.2-5.4); White Blood Count 5.9 K/mm3 (4.4-11.0)
--- NOTE | 2023-07-07 19:25 | RAD_ITS ---
INDICATION: CAD EXAMINATION/TECHNIQUE: X-RAY - XR Chest 1 View COMPARISON: FINDINGS: LINES/DEVICES: None. LUNGS: No consolidation, edema or effusion. No pneumothorax. MEDIASTINUM AND CARDIOVASCULAR STRUCTURES: Cardiac silhouette not enlarged. Central airways and mediastinal contour are unremarkable. BONES AND SOFT TISSUES: Degenerative vertebral changes and scoliosis. Bilateral shoulder prosthesis. Hiatal hernia. RAD/Chest 1 View (Portable) IMPRESSION: No radiographic evidence of acute cardiopulmonary disease. Hiatal hernia. Electronically Signed: Cholo Lieberman DO at 19:45 EDT ,
--- NOTE | 2023-07-07 19:25 | RAD_ITS ---
INDICATION: Ulcer EXAMINATION/TECHNIQUE: X-RAY - LEFT XR Foot 3 VIEWS COMPARISON: FINDINGS: SOFT TISSUES: There is soft tissue swelling. Mild calcification at the distal Achilles tendon near the insertion. No radiopaque foreign body. BONES/JOINTS: No acute fracture or subluxation.. Severe hallux valgus and valgus deformity of the second and third toes.. Plantar spurring of the calcaneus. Suspect changes at the distal carpal row and the bases of the second through fourth metatarsal bones. RAD/Foot min 3 Views IMPRESSION: No radiographic evidence of osteomyelitis.. Correlate with MRI if clinical concern persists. Soft tissue swelling. Valgus deformity is noted. Electronically Signed: Cholo Lieberman DO at 20:01 EDT Reading Location ID and State: [facility] / [place] Tel [phone], Service support ,
[2023-07-07 19:38] LABS: International Normalized Ratio 1.2
[2023-07-07 19:47] LABS: Lactic Acid 1.9 mmol/L (0.4-1.9)
[2023-07-07 19:55] LABS: ALB/GLOB Ratio 0.7 RATIO (0.9-2.4); AST(SGOT) 33 U/L (15-37); Alanine Aminotransfer ALT/SGPT 11 U/L (13-56); Albumin, Serum 2.7 g/dL (3.2-5.0); Alkaline Phosphatase 83 U/L (45-117); Anion Gap 5 (5-15); BUN 65 mg/dL (7-18); BUN/Creat Ratio 45.1 RATIO (10-20); Calcium,Total 7.2 mg/dL (8.5-10.1); Chloride 96 mmol/L (98-107); Creatinine, Serum 1.44 mg/dL (0.55-1.02); EST Glomerular Filtration Rate 37 mL/min (>60); Est Glom Filt Rate - Afr Amer 45 mL/min (>60); Globulin 3.8 g/dL (2.2-4.2); Glucose 140 mg/dL (74-106); Potassium 2.5 mmol/L (3.5-5.1); Protein, Total 6.5 g/dL (6.4-8.2); Sodium Level 137 mmol/L (136-145)
[2023-07-07 20:46] LABS: Mucous, Urine 0 SEEN /hpf (<or=2+); Red Blood Cells-Urine 0 SEEN /hpf (0-5); White Blood Cells 0 SEEN /hpf (0-5)
[2023-07-07 20:49] LABS: Color, Urine Yellow (Yellow); Glucose, Dipstick Normal (Normal); Ketone-Dipstick Negative (Negative); Leukocyte Esterase-Dipstick Negative /ul (Negative); Nitrite-Dipstick Negative (Negative); Occult Blood-Urine Negative /ul (Negative); Protein-Dipstick Negative (Negative); Urine Bilirubin Dipstick Negative (Negative); Urine Clarity Clear (Clear); Urine Urobilinogen Normal (Normal)
[2023-07-07 20:53] LABS: Magnesium 1.1 mg/dL (1.6-2.6)
[2023-07-07 21:01] LABS: Bacteria 1+ /hpf (None Seen); Squamous Epithelial Cells - UA 0-5 SEEN /hpf (5-10)
[2023-07-07] MEDS: KCL 40mEq in 0.9% NS 40 MEQ/1,000 ML IV.SOLN 250 MEQ IV (21:14)
[2023-07-07] MEDS: Magnesium Sulfate 4gm/100mL 4 GM/100 ML IV.SOLN. IV (21:48)
[2023-07-07] MEDS: Potassium Chloride Oral Tablet 20 MEQ 40 MEQ PO (22:54)
--- NOTE | 2023-07-07 23:02 | PCM.HP.STD ---
[facility] - General General Date of Admission: 07/07/23 Date of Service: 07/07/23 Chief Complaint: Worsening Left Heel Wound. HPI Narrative PADMA DAHL, is a 83 F with a past medical history of essential hypertension, hyperlipidemia, CAD; status post non-ST elevation DE, history of CHF, history of asthma/COPD, peripheral neuropathy; with chronic leg cramps, chronic anemia, IBS; of constipation type on Linzess, fibromyalgia, GERD, depression with anxiety, gout and osteoarthritis who presents to [facility] complaining of worsening left heel wound. Ms. Dahl reports her symptoms began approximately 9 days prior to admission when she saw her PCP on Thursday, June 29, 2023 for a blister that had formed over her left heel. She denies a history of diabetes but she does admit to neuropathy and she states her leg swells up and causes her to feel sick culminating in her laying in the bed for a few days. Her [id number] informed the ER that she noticed the blister apparently ruptured 4 days ago and turned in color from dark red to black without evidence of redness or swelling in the surrounding tissues. She denies associated fever, chills, nausea, vomiting, chest pain or shortness of breath but she did admit to poor mobility and a significant decline in her health and spite of efforts to the contrary. In the ER she was diagnosed with a hematoma of the left heel complicated by clinical evidence of bilateral lower extremity cellulitis plus laboratory evidence of severe hypokalemia of 2.5 mmol/L present on admission and severe hypomagnesemia of 1.1 mg/dL present on admission along with elevated BUN of 65 mg/dL and creatinine of 1.44 mg/dL present on admission due to suspected dehydration likely causing patient to be hypotensive in the ~80 mmHg mercury systolic range that quickly responded to volume resuscitation with the ER physician not suspecting sepsis on admission with supporting evidence of normal white blood cell count of 5.9 present on admission, normal lactate of 1.9 mmol/L present on admission and patient noted to be afebrile at 97.6 degrees Fahrenheit present on admission. She was then admitted to the PCU for ongoing care for stay that is expected to be greater than 48 hours. [facility] Medical History (HFpEF) heart failure with preserved ejection fraction Anemia Anxiety Arthritis Aseptic loosening of prosthetic hip Asthma Back problem [facility] Cardiology follow-up encounter Carpal tunnel syndrome CHF (congestive heart failure) Constipation COPD (chronic obstructive pulmonary disease) Coronary artery disease Depression Difficulty swallowing Easy bruising Edema Fibromyalgia Gastric reflux Gastrointestinal problem Generalized weakness GERD (gastroesophageal reflux disease) Gout Heart disease Heart valve problem Hiatal hernia High cholesterol History of blood transfusion History of CHF (congestive heart failure) History of COPD History of echocardiogram History of edema History of emotional problems History of heart attack History of IBS History of pneumonia History of stress test Hyperlipidemia Hypertension Irritable bowel syndrome Leg cramps Neuropathy Non-smoker NSTEMI (non-ST elevated myocardial infarction) Osteoarthritis of left hip Shortness of breath on exertion Ulcer Urinary incontinence Walker as ambulation aid Wears dentures Wears glasses Home Medications lorazepam 0.5 mg tablet 1 mg PO BID 08/26/21 [History Last Taken 01/16/22 07:30] oxycodone 10 mg tablet 10 mg PO TID PRN Pain 10/08/21 [History Last Taken 01/16/22 07:30] tizanidine 4 mg tablet 4 mg PO TID PRN LEG Cramps 10/08/21 [History Last Taken Unknown] cholecalciferol (vitamin D3) 125 mcg (5,000 unit) tablet (Vitamin D3) 125 mcg PO DAILY 01/12/22 [History Last Taken Unknown] diphenhydramine HCl 25 mg capsule (ZzzQuil) 25 mg PO QHS PRN Sleep 01/12/22 [History Last Taken Unknown] fluticasone 100 mcg-salmeterol 50 mcg/dose blistr powdr for inhalation (Advair Diskus) 1 inh inhalation BID PRN PRN BREATHING 01/12/22 [History Last Taken 01/16/22] hydroxychloroquine 200 mg tablet (Plaquenil) 200 mg PO DAILY RA 01/12/22 [History Last Taken Unknown] linaclotide 290 mcg capsule (Linzess) 290 mcg PO DAILY PRN IBS 03/12/23 [History Last Taken Unknown] pantoprazole 40 mg tablet,delayed release 40 mg PO BID 03/12/23 [History Last Taken Unknown] atorvastatin 20 mg tablet 20 mg PO QHS #90 tabs 06/11/23 [Rx Last Taken Unknown] carvedilol 6.25 mg tablet See Rx Instructions .Route .COMPLEX #180 tabs 06/11/23 [Rx Last Taken Unknown] furosemide 20 mg tablet See Rx Instructions .Route .COMPLEX #180 tabs 06/11/23 [Rx Last Taken Unknown] lisinopril 20 mg-hydrochlorothiazide 12.5 mg tablet See Rx Instructions .Route .COMPLEX #180 tabs 06/11/23 [Rx Last Taken Unknown] potassium chloride 20 mEq tablet,extended release(part/cryst) 20 meq PO BID #90 tabs 06/11/23 [Rx Last Taken Unknown] sertraline 50 mg tablet 50 mg PO DAILY #60 tabs 06/11/23 [Rx Last Taken Unknown] Allergy/AdvReac Type Severity Reaction Status Date / Time hydrocodone bitartrate Allergy Unknown Rash Verified 07/07/23 18:39 [From Vicodin] propoxyphene Allergy Unknown Unknown Verified 07/07/23 18:39 fentanyl Allergy feels Verified 07/07/23 18:39 terrible NSAIDS (Non-Steroidal AdvReac Unknown Unknown Verified 07/07/23 18:39 Anti-Inflamma prednisone AdvReac Unknown palpitation Verified 07/07/23 18:39 s acetaminophen [From Tylenol] AdvReac Nausea Verified 07/07/23 18:39 diazepam [From Valium] AdvReac Other Verified 07/07/23 18:39 Family History Father Heart disease Myocardial infarction Mother Hyperlipidemia Diabetes Anxiety Arthritis Depression Sister Thyroid disorder Sister Thyroid disorder Surgical History History of back surgery History of bilateral knee replacement History of colonoscopy History of left heart catheterization (~01/15/15) History of shoulder surgery History of total hysterectomy Status post revision of total hip replacement Social History Smoking Status: Never smoker alcohol intake: never caffeine: No what type of physical activity do you participate in: other frequency: 3-4 times per week ROS ROS Narrative Review of systems: General: Patient denies fever or chills. HENT: Denies headache, denies stuffy nose, denies sore throat EYES: Denies changes in vision or discharge from eyes. Resp: Denies cough, denies shortness of breath Cardiac: Denies chest pain, palpitations, heart racing or lower extremity edema. GI: Denies abdominal pain, denies changes in bowel, denies nausea or vomiting. : Denies changes in urination Extremity: Denies swelling Musculoskeletal: Patient admits to blister over left heel in the course of the last 9 days along with very poor mobility and overall declining health as per HPI. She denies arthralgias or myalgias. Neuro: Patient admits to chronic neuropathy in her lower extremities with decreased sensation but she denies associated headache or focal neurologic weakness. Heme: Denies any bleeding or bruising Skin: Patient has a large black eschar after recent hematoma of the left heel with recent rupture of blister. Psychiatric: No complaints voiced related to uncontrolled depression or anxiety. Endocrine: No polyuria, polydipsia or polyphagia. The rest of the 14 point ROS was negative except for positives in HPI. Vital Signs Vital Signs Vital Signs: 07/07/23 18:37 07/07/23 18:43 07/07/23 18:43 Temperature 96.9 F L 98.4 F Temperature Source Temporal Oral Pulse Rate 76 74 Respiratory Rate 17 14 Blood Pressure 91/49 L 66/45 L 80/54 L Blood Pressure Mean 63 52 62 Pulse Ox 95 96 Oxygen Delivery Method Room Air Room Air 07/07/23 19:17 07/07/23 19:19 07/07/23 19:43 Temperature 98.4 F Temperature Source Temporal Pulse Rate 68 71 Respiratory Rate 18 16 Blood Pressure 61/38 L 91/61 Blood Pressure Mean 45 71 Pulse Ox 96 99 Oxygen Delivery Method Room Air Room Air Room Air 07/07/23 20:00 07/07/23 21:00 07/07/23 22:00 Temperature 98.4 F 98.6 F 97.7 F L Temperature Source Temporal Oral Oral Pulse Rate 76 84 67 Respiratory Rate 18 15 22 H Blood Pressure 79/51 L 82/48 L 98/58 L Blood Pressure Mean 60 59 71 Pulse Ox 97 93 96 Oxygen Delivery Method Room Air Room Air Room Air 07/07/23 22:46 Temperature 97.6 F L Temperature Source Pulse Rate 67 Respiratory Rate 18 Blood Pressure 86/56 L Blood Pressure Mean 66 Pulse Ox 96 Oxygen Delivery Method Physical Exam Const alert, oriented x3, no apparent distress and average body habitus General Appearance: cooperative HEENT normocephalic and head/scalp atraumatic HEENT Narrative: Mucous membranes dry. Eyes PERRL and EOMs intact bilaterally Neck no lymphadenopathy and supple Resp normal respiratory effort, no retractions, no use of accessory muscles and clear to auscultation bilaterally Cardio regular rate and regular rhythm GI normal to inspection, nondistended, normoactive bowel sounds, soft to palpation, non-tender and non-distended Extremity normal to inspection and full ROM Skin Skin Narrative: Patient has an eschar over the left heel that is approximately 3 cm in diameter with no purulent drainage and there was also redness and streaking going up both lower extremities that was not apparent at the time of admission. Neuro oriented x3, CN's II-XII intact bilaterally, moves all extremities and no focal motor deficits Sensorium / Orientation: awake, alert, oriented to person, oriented to place and oriented to time Speech: speech normal Psych affect normal Results Medical Records Data Attestation: I reviewed the patient's medical records Lab / Micro Data Attestation: I reviewed the patient's lab results. 07/07/23 18:50 07/07/23 18:50 Labs: Laboratory Results - last 24 hr 07/07/23 18:50: WBC 5.9, RBC 3.24 L, Hgb 9.6 L, Hct 30.6 L, MCV 94.4, MCH 29.6, MCHC 31.4 L, RDW Std Deviation 49.8 H, RDW Coeff of Sin 14.4, Plt Count 275, MPV 11.3, Immature Gran % (Auto) 0.300, Neut % (Auto) 60.3, Lymph % (Auto) 28.9, Hyde % (Auto) 6.8, Eos % (Auto) 3.4, Baso % (Auto) 0.3, Absolute Neuts (auto) 3.6, Absolute Lymphs (auto) 1.71, Nucleated RBC % 0, PT 15.0 H, INR 1.2, APTT 32.0, Sodium 137, Potassium 2.5 L*, Chloride 96 L, Carbon Dioxide 36.0 H, Anion Gap 5, BUN 65 H, Creatinine 1.44 H, Est GFR (MDRD) Af Amer 45 L, Est GFR (MDRD) Non-Af 37 L, BUN/Creatinine Ratio 45.1 H, Glucose 140 H, Lactic Acid 1.9, Calcium 7.2 L, Magnesium 1.1 L, Total Bilirubin 0.50, AST 33, ALT 11 L, Alkaline Phosphatase 83, Total Protein 6.5, Albumin 2.7 L, Globulin 3.8, Albumin/Globulin Ratio 0.7 L 07/07/23 20:38: Urine Color Yellow, Urine Clarity Clear, Urine pH 7.0, Ur Specific [place] 1.010, Urine Protein Negative, Urine Glucose (UA) Normal, Urine Ketones Negative, Urine Occult Blood Negative, Urine Nitrite Negative, Urine Bilirubin Negative, Urine Urobilinogen Normal, Ur Leukocyte Esterase Negative, Urine RBC 0 SEEN, Urine WBC 0 SEEN, Ur Squamous Epith Cells 0-5 SEEN, Urine Bacteria 1+, Urine Mucus 0 SEEN Imaging Radiology Impression Chest X-Ray 07/07/23 19:25 IMPRESSION: No radiographic evidence of acute cardiopulmonary disease. Hiatal hernia. Electronically Signed: Cholo Lieberman DO at 19:45 EDT Reading Location ID and State: [facility] / [place] Tel [phone], Service support , Foot X-Ray 07/07/23 19:25 IMPRESSION: No radiographic evidence of osteomyelitis.. Correlate with MRI if clinical concern persists. Soft tissue swelling. Valgus deformity is noted. Electronically Signed: Cholo Lieberman DO at 20:01 EDT , Assessment & Plan Assessment/Plan (1) Hypokalemia: (2) Hypomagnesemia: (3) Dehydration: (4) Adverse drug reaction: QUALIFIERS: Encounter type: initial encounter Qualified Code(s): T50.905A - Adverse effect of unspecified drugs, medicaments and biological substances, initial encounter (5) Hypotension: QUALIFIERS: Hypotension type: unspecified hypotension type Qualified Code(s): I95.9 - Hypotension, unspecified (6) Blister (nonthermal), left foot, initial encounter: (7) Bilateral lower leg cellulitis: PLAN: Plan 1. Severe hypokalemia of 2.5 mmol/L present on admission - Admit to PCU. Give IV and p.o. KCl and then recheck level in a.m. to confirm repletion. 2. Severe hypomagnesemia of 1.1 mg/dL present on admission complicating #1 - Patient given 4 g magnesium sulfate IV in the ER. Recheck magnesium level in a.m. to ensure improvement. 3. Laboratory evidence of dehydration with a BUN of 65 mg/dL and serum creatinine 1.44 mg/dL present on admission compounding #1 & #2 - Give IV fluid and then recheck BMP in a.m. to follow trend. 4. Symptomatic hypotension of ~80 mmHg systolic present on admission adding to the pathology of #1 - #3 - Proceed with vigorous volume resuscitation and maintain surveillance with cardiac monitoring. Patient did require treatment with IV albumin to help bolster her blood pressure but she never required Levophed drip. Patient did not have signs of sepsis present on admission as outlined above in HPI. 5. Adverse drug reaction to combination of Lasix, lisinopril and HCTZ likely causing #1 - #4 - Hold diuretics and LOU inhibitor at this time. When medications are restarted she would likely benefit from being only on Lasix and not on a combination of Lasix and HCTZ. 6. Eschar of the Left heel with recent rupture of blister and suspected early bilateral lower extremity cellulitis in the setting of known chronic peripheral neuropathy with chronic leg cramps - We we will consult wound nurse to see in a.m. for further recommendations. Give Tylenol as needed pain or fever. Otherwise, we will continue home medications and monitor for improvement. Check bilateral lower extremity Doppler with poor mobility and significant chronic illness made acutely worse by #1 - #5. Finally, we will consult Dr. Jones of the podiatry service to see this patient on rounds in the a.m. for further recommendations with help appreciated advance. 7. Essential hypertension - Hold scheduled antihypertensives in light of the above. Give IV hydralazine as needed for systolic blood pressure greater than 160 mmHg. 8. Hyperlipidemia - Resume statin. 9. CAD; status post non-ST elevation DE - Stable. Serialize troponin. 10. History of CHF - Noted. Stable at this time. 11. History of asthma/COPD - Stable with no evidence of acute flare. Continue as needed nebulizers. 12. Chronic anemia - Stable. 13. IBS; constipation type on Linzess - Continue this agent as previous. 14. Fibromyalgia - Stable. 15. GERD - Continue PPI. 16. Depression with anxiety - Resume home regimen. 17. Gout - Stable with no evidence of acute flare. 18. Osteoarthritis - Give Tylenol as needed. 19. DVT prophylaxis - Lovenox 30 mg sq daily. Total time: Approximately 75 minutes. Charges/Coding Visit Charges Inpatient E&M: 99078 Init Hosp L3
[2023-07-08] VITALS (12 sets, daily range): BP systolic 82–141; BP diastolic 47–89; PULSE 61–99; RESP 12–20; TEMP 36.1–36.9; O2SAT 90–99; BMI 29.8
[2023-07-08] MEDS: Albumin Human 25% (100 mL) 25 GM/100 ML BAG IV (00:47)
[2023-07-08] MEDS: 0.9% Normal Saline (500mL Bag) 500 ML 999 ML IV (01:31)
[2023-07-08] MEDS: Potassium Chloride Oral Tablet 20 MEQ 60 MEQ PO (01:34)
[2023-07-08] MEDS: KCL 40mEq in 0.9% NS 40 MEQ/1,000 ML IV.SOLN 250 MEQ IV ×5 (02:04→18:18)
[2023-07-08 05:39] LABS: Absolute Lymphocyte Count 1.17 X10^3/uL (0.83-4.51); Basophil# 0.02 X10^3/uL; Basophil% 0.4 % (0-1); Eosinophil# 0.13 X10^3/uL; Eosinophils% 2.8 % (0-5); Hemoglobin 8.2 g/dL (12.0-15.0); Lymphocyte # 1.17 X10^3/ul (0.83-4.51); Lymphocyte % 25.3 % (19-41); Mean Corp Hgb Conc 31.5 g/dL (32-36); Mean Corpuscular Hgb 30.3 pg (27.0-32.0); Mean Corpuscular Volume 95.9 fL (81-99); Mean Platelet Vol. 10.9 fl (6.2-12.0); Monocyte# 0.25 X10^3/uL; Monocyte% 5.4 % (0-10); NRBC Flagged by Analyzer 0 % (0-5); Neutrophil # 3.04 X10^3/uL (2.7-7.7); Neutrophil % 65.9 % (47-70); Platelet Count 190 K/mm3 (150-450); RBC Distribution Width CV 14.5 % (11.6-14.6); RBC Distribution Width SD 50.3 fl (35.1-43.9); Red Blood Count 2.71 M/mm3 (4.2-5.4); White Blood Count 4.6 K/mm3 (4.4-11.0)
[2023-07-08 05:57] LABS: ALB/GLOB Ratio 0.9 RATIO (0.9-2.4); AST(SGOT) 23 U/L (15-37); Alanine Aminotransfer ALT/SGPT 9 U/L (13-56); Albumin, Serum 2.6 g/dL (3.2-5.0); Alkaline Phosphatase 61 U/L (45-117); Anion Gap 4 (5-15); BUN 49 mg/dL (7-18); BUN/Creat Ratio 53.3 RATIO (10-20); Chloride 107 mmol/L (98-107); Creatinine, Serum 0.92 mg/dL (0.55-1.02); EST Glomerular Filtration Rate 62 mL/min (>60); Est Glom Filt Rate - Afr Amer 75 mL/min (>60); Estimated Creatinine Clearance 40.99 ml/min; Glucose 94 mg/dL (74-106); Magnesium 2.2 mg/dL (1.6-2.6); Phosphorus 2.3 mg/dL (2.5-4.9); Potassium 3.5 mmol/L (3.5-5.1); Protein, Total 5.6 g/dL (6.4-8.2); Sodium Level 141 mmol/L (136-145)
[2023-07-08] MEDS: 0.9% Saline Lock 10 ML Syringe IV (06:10)
[2023-07-08] MEDS: Albuterol 2.5 MG/3 ML VIAL.NEB. INHALATION ×2 (06:46→19:31)
[2023-07-08] MEDS: Budesonide Respules 0.5 MG/2 ML AMPUL.NEB. INHALATION ×2 (06:46→19:31)
[2023-07-08] MEDS: LORazepam 1 MG Tablet PO ×2 (08:34→22:01)
[2023-07-08] MEDS: Hydroxychloroquine 200 MG Tablet PO (08:35)
[2023-07-08] MEDS: Cholecalciferol (Vit D3) 125 MCG CAPSULE (5,000 UNITS) PO (08:35)
[2023-07-08] MEDS: Sertraline 50 MG Tablet PO (08:35)
[2023-07-08] MEDS: Pantoprazole Sodium 40 MG Tablet PO ×2 (08:35→20:53)
[2023-07-08] MEDS: Potassium Chloride Oral Tablet 20 MEQ PO (08:36)
[2023-07-08] MEDS: oxyCODONE 5 MG Tablet 10 MG PO ×3 (08:47→20:56)
--- NOTE | 2023-07-08 09:31 | WOUNDNOTE ---
wound photo: left heel
--- NOTE | 2023-07-08 10:02 | CASEMGMT ---
PATRICIO CRUZ Assessment Face to Face with patient for initial transition planning/care coordination assessment. PATRICIO CRUZ introduced self and role at [facility], pt voices understanding. Pt is A&Ox4 and is resting comfortably in bed and is calm. Care providers, pharmacy, and demographics verified. Admitting dx: Severe Hypokalemia, Severe Hypomagnesemia, Heel Wound LACE Strata: 2 PCP: Dax Specialists: Carroll Dutton, [place], Robert. Pt states that her PCP is wanting the pt to see a Insurance Sales Executive. Provider list given. Preferred Pharmacy: [facility] Insurance: [employer], [employer] Commercial Prescription Benefit: Yes LNOK: Myriam Eisenberg (DAUGHTER), Silvia Waller (DIL) Living Arrangements: Pt lives with her in a single story home with a BM with 3 steps to enter with handrails. Pt states that she does not go downstairs. Pt states that the pt has dementia and that she has to care for him. ADLs/IADLs: States she is normally ind and cooks, cleans, manages own meds, etc. Pt states that she has started to decline and has not been able to do these tasks as of late. Pt is requesting help with these tasks but does not want skilled HHC. KEISHA Fry notified and will give the pt a list of resources regarding mental health aide services. Transportation: Pt states that her license recently on the . Pt DIL drives her. KEISHA gave additional resources for transportation as well. DME: Pt uses a walker at home. Denies home oxygen. Denies DM. Walk-in shower with GB and chair. GB for the toilet. HHC/SNF: History at [facility] and [facility] HHC. Pt denies wanting to go to a SNF at this time. Denies wanting HHC either. Wound: Pt states that she has been caring for her wound per herself lately. Pt states that she has a history at the wound center and is willing to follow up there after DC (if pt does go home from [facility]). Pt states that her daughter works and that she would have to drive her there when she is available. Due to this, the pt states that she wishes to schedule her appt per herself. CM DC plan updated with the [facility] phone number. Pt?s goal: Home with [facility] services and to follow at the Wound Center Plan: TBD. Pt wishes to return home. Therapy has not seen yet. Pt denies HHC or SNF at this time. Will follow. Pt 6-click is 19. CM and SW to follow in regard to safe DC from [facility]. Yassine Jay RN CM
--- NOTE | 2023-07-08 10:39 | CASEMGMT ---
Social Work SW met w/pt, completed SDOH. SW gave pt resources for transportation including [employer], the hospital van, and information for both [place] and [facility] for transportation for seniors([place] [facility]). Pt went on to talk about the difficulty of caring for her at home. She states he has had 3 brain bleeds and is forgetful. She states [facility] the last time, she states pt has been home for a year. She states he used to help her around the house but isn't helping as much anymore. She states he leaves everything out at home, and she expressed frustration w/the situation. SW offered support. SW asked her about the possibility of her going to [place], she states she doesn't want to do that. They have been for 61 years, she became tearful when speaking about and his decline. She then went on to tell SW that her daughter in [place] has an apartment for she and her at her home in [place] when they are ready to move there. However she has two 14 year old cats and her daughter does not want the cats there, so pt is waiting until her cats pass away before she moves. Pt agreeable to a referral to [facility] to see if she would qualify for any services at home. We also spoke about pt's plans from here, pt states she just wants to go home. SW will continue to follow w/CM for appropriate referrals for discharge. SW also gave pt information for food delivery at home([employer] and [employer], does not want Meals on Wheels), private hire aide list, and information the on nephrology physician(requested when she spoke w/CM). SW made the referral to [facility] for a cathead worker care assessment. SW will continue to follow. PEEWEE Brown
[2023-07-08] MEDS: Enoxaparin 40 MG/0.4 ML Syringe SC (10:51)
[2023-07-08 11:03] LABS: Prealbumin 8.2 mg/dL (20.0-40.0)
[2023-07-08] MEDS: Ondansetron 4 MG/2 ML Vial IV (17:16)
--- NOTE | 2023-07-08 18:27 | PCM.PN.HOSP ---
Reason for Visit Reason for Visit: Diagnoses Hypomagnesemia (07/07/23) Dehydration (07/07/23) Hypokalemia (07/07/23) Hypotension, unspecified (07/07/23) Cellulitis of right lower limb (07/07/23) Cellulitis of left lower limb (07/07/23) Blister (nonthermal), left foot, initial encounter (07/07/23) Adverse effect of unspecified drugs, medicaments and biological substances, initial encounter (07/07/23) Subjective Subjective Patient was seen and examined today, she states she is unable to take care of herself or her at home presently, patient has a left heel eschar, I talked briefly with podiatry today and they stated that they would not do surgery on the area. Patient had refused to work with physical therapy today. Objective Data Objective Data Vital Signs: Vital Signs Temp Pulse Resp BP Pulse Ox O2 Del Method O2 Flow Rate 98.5 F 84 16 141/89 H 92 Nasal Cannula 2 07/08/23 16:15 07/08/23 16:15 07/08/23 16:15 07/08/23 16:15 07/08/23 16:15 07/08/23 16:15 07/08/23 16:15 Oxygen Flow Rate (L/min) 2 Oxygen Delivery Method Nasal Cannula Weight: 67.1 kg Body Mass Index (BMI) 29.8 Intake & Output: Intake and Output for Last 24 Hours 07/06/23 07/07/23 07/08/23 23:59 23:59 23:59 Intake Total 1999 6491.67 / 6491.67 Output Total 3200 / 3200 Balance 1999 3291.67 / 3291.67 Lab / Micro Data 07/09/23 06:30 07/09/23 11:12 Labs: Laboratory Results - last 24 hr 07/07/23 18:50: WBC 5.9, RBC 3.24 L, Hgb 9.6 L, Hct 30.6 L, MCV 94.4, MCH 29.6, MCHC 31.4 L, RDW Std Deviation 49.8 H, RDW Coeff of Sin 14.4, Plt Count 275, MPV 11.3, Immature Gran % (Auto) 0.300, Neut % (Auto) 60.3, Lymph % (Auto) 28.9, [place] % (Auto) 6.8, Eos % (Auto) 3.4, Baso % (Auto) 0.3, Absolute Neuts (auto) 3.6, Absolute Lymphs (auto) 1.71, Nucleated RBC % 0, PT 15.0 H, INR 1.2, APTT 32.0, Sodium 137, Potassium 2.5 L*, Chloride 96 L, Carbon Dioxide 36.0 H, Anion Gap 5, BUN 65 H, Creatinine 1.44 H, Est GFR (MDRD) Af Amer 45 L, Est GFR (MDRD) Non-Af 37 L, BUN/Creatinine Ratio 45.1 H, Glucose 140 H, Lactic Acid 1.9, Calcium 7.2 L, Magnesium 1.1 L, Total Bilirubin 0.50, AST 33, ALT 11 L, Alkaline Phosphatase 83, Total Protein 6.5, Albumin 2.7 L, Globulin 3.8, Albumin/Globulin Ratio 0.7 L 07/07/23 20:38: Urine Color Yellow, Urine Clarity Clear, Urine pH 7.0, Ur Specific [place] 1.010, Urine Protein Negative, Urine Glucose (UA) Normal, Urine Ketones Negative, Urine Occult Blood Negative, Urine Nitrite Negative, Urine Bilirubin Negative, Urine Urobilinogen Normal, Ur Leukocyte Esterase Negative, Urine RBC 0 SEEN, Urine WBC 0 SEEN, Ur Squamous Epith Cells 0-5 SEEN, Urine Bacteria 1+, Urine Mucus 0 SEEN 07/08/23 05:00: WBC 4.6, RBC 2.71 L, Hgb 8.2 L, Hct 26.0 L, MCV 95.9, MCH 30.3, MCHC 31.5 L, RDW Std Deviation 50.3 H, RDW Coeff of Sin 14.5, Plt Count 190, MPV 10.9, Immature Gran % (Auto) 0.200, Neut % (Auto) 65.9, Lymph % (Auto) 25.3, [place] % (Auto) 5.4, Eos % (Auto) 2.8, Baso % (Auto) 0.4, Absolute Neuts (auto) 3.0, Absolute Lymphs (auto) 1.17, Nucleated RBC % 0, Sodium 141, Potassium 3.5, Chloride 107, Carbon Dioxide 30.0, Anion Gap 4 L, BUN 49 H, Creatinine 0.92, Estim Creat Clear Calc 40.99, Est GFR (MDRD) Af Amer 75, Est GFR (MDRD) Non-Af 62, BUN/Creatinine Ratio 53.3 H, Glucose 94, Calcium 7.0 L, Phosphorus 2.3 L, Magnesium 2.2, Total Bilirubin 0.60, AST 23, ALT 9 L, Alkaline Phosphatase 61, Total Protein 5.6 L, Albumin 2.6 L, Globulin 3.0, Albumin/Globulin Ratio 0.9, Prealbumin 8.2 L Radiography Diagnostic Testing: Radiology Impression Chest X-Ray 07/07/23 19:25 IMPRESSION: No radiographic evidence of acute cardiopulmonary disease. Hiatal hernia. Electronically Signed: Cholo Lieberman DO at 19:45 EDT , Foot X-Ray 07/07/23 19:25 IMPRESSION: No radiographic evidence of osteomyelitis.. Correlate with MRI if clinical concern persists. Soft tissue swelling. Valgus deformity is noted. Electronically Signed: Cholo Lieberman DO at 20:01 EDT , Physical Exam Const alert, oriented x3, no apparent distress and average body habitus Constitutional Narrative: Patient appears frail and elderly General Appearance: cooperative, well kempt and well developed Orientation / Consciousness: awake, oriented to person, oriented to place and oriented to time HEENT normocephalic, head/scalp atraumatic and moist oral mucous membranes Eyes PERRL, EOMs intact bilaterally and conjunctivae normal Neck no lymphadenopathy, supple, no JVD, thyroid normal and no carotid bruits General: trachea midline Resp normal respiratory effort, no retractions, no use of accessory muscles and clear to auscultation bilaterally Auscultation: Negative for rales, rhonchi or wheezes Cardio regular rate, regular rhythm, no murmurs, no rub and no gallops GI normal to inspection, nondistended, normoactive bowel sounds, soft to palpation, non-tender and non-distended Extremity normal to inspection and full ROM Extremity Narrative: Patient's left heel is wrapped with surgical dressing, this was not removed for examination of the area Skin Skin Narrative: Patient's left heel was wrapped with surgical dressing, this was not removed for examination of the area Neuro oriented x3, CN's II-XII intact bilaterally, moves all extremities, no focal motor deficits and no sensory deficits noted Sensorium / Orientation: awake, alert, oriented to person, oriented to place and oriented to time Speech: speech normal Psych affect normal Assessment & Plan Assessment/Plan (1) Pressure ulcer of left heel, unspecified stage: PLAN: Plan 1. Pressure injury to left ofuh-gldauhpvbra-sesydwet is elected not to perform any surgery on the patient, she will need follow-up wound care after she is discharged from the hospital #2 acute debility-I have instructed the patient to work with PT and OT today, patient told me today she could not take care of herself, I do not know if the patient will want to go to an extended care facility for short-term rehab services. #3 Hypokalemia-patient's potassium today was 3.5, and will be monitored as necessary #4 hyperlipidemia-patient is on atorvastatin #5 essential hypertension-patient will remain on her present medications, blood pressure medications will be adjusted if needed #6 chronic depression-patient is on Zoloft Total clinical time spent by myself addressing the patient's medical issues, reviewing all of her data, and collaborating with patient's care team: 35 minutes Charges/Coding Visit Charges Inpatient E&M: 72017 Subs Hosp L2
--- NOTE | 2023-07-08 18:30 | PCM.CONS.GEN ---
Assessment & Plan Assessment/Plan (1) Pressure ulcer of left heel, unspecified stage: (2) Pain in left foot: (3) Other specified peripheral vascular diseases: (4) Dehydration: (5) Hammer toe of right foot: (6) Rheumatoid arthritis: (7) Venous insufficiency (chronic) (peripheral): PLAN: Plan Patient seen and evaluated There is an eschar noted to the posterior lateral aspect of the left heel with pain to palpation. Eschar measures 2.5 cm x 3 cm with unstageable depth. No signs of infection. WBC currently 5.9 Site was painted with Betadine and dressed with dry sterile dressing and ABD padding. Offloading waffle boot applied to bilateral lower extremities to decrease pressure at the heel. Recommend continued offloading with the foam waffle boot while in bed or at rest in chair. Recommend applying pillows under her legs to aid in floating the heel while at rest in chair. Continue elevating lower extremities at all times of rest for edema control. Patient may continue to bear weight as tolerated to left heel as ulceration is at the posterior lateral aspect of the heel and not in a weightbearing area. Will recommend switching to Santyl pending results of vascular studies. No debridement was performed today. Will await vascular studies prior to use of Santyl and performing debridement to ensure healing status. May take Tylenol for discomfort Medicine currently following for medical management, they are appreciated Wound nurse following for assistance in dressing changes, she is appreciated. No podiatric surgical intervention anticipated at this time. Podiatry will continue to follow while in house. Upon discharge recommend following with me in the wound care center for continued local wound care and likely application of advanced stem cell product to aid in wound healing. Jr. Kimani Dove.P.M. [facility] [phone] HPI Consult Data Date of Consult: 07/08/23 HPI Narrative Reason for Consultation: Left posterior heel ulcer HPI Narrative: PADMA DAHL, is a 83 F who presents to [facility] ED with complaint of left heel pain. 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 Patient states that ulceration started last Wednesday as a painful blister. She had been previously seen in office by Dr. Goff last week but did not have left heel pain with blister at that time. Patient states that her daughter and granddaughter noticed a darkened area of tissue following blister rupture and urged her to go to the ED. In the ED she was diagnosed with a hematoma of the left heel complicated by evidence of bilateral lower extremity cellulitis plus laboratory evidence of hypokalemia and hypomagnesemia and admitted for suspected dehydration. She was consulted to podiatry for continued care of left heel eschar. [facility] Medical History (HFpEF) heart failure with preserved ejection fraction Anemia Anxiety Arthritis Aseptic loosening of prosthetic hip Asthma Back problem [facility] Cardiology follow-up encounter Carpal tunnel syndrome CHF (congestive heart failure) Constipation COPD (chronic obstructive pulmonary disease) Coronary artery disease Depression Difficulty swallowing Easy bruising Edema Fibromyalgia Gastric reflux Gastrointestinal problem Generalized weakness GERD (gastroesophageal reflux disease) Gout Heart disease Heart valve problem Hiatal hernia High cholesterol History of blood transfusion History of CHF (congestive heart failure) History of COPD History of echocardiogram History of edema History of emotional problems History of heart attack History of IBS History of pneumonia History of stress test Hyperlipidemia Hypertension Irritable bowel syndrome Leg cramps Neuropathy Non-smoker NSTEMI (non-ST elevated myocardial infarction) Osteoarthritis of left hip Shortness of breath on exertion Ulcer Urinary incontinence Walker as ambulation aid Wears dentures Wears glasses Home Medications lorazepam 0.5 mg tablet 1 mg PO BID 08/26/21 [History Last Taken 01/16/22 07:30] oxycodone 10 mg tablet 10 mg PO TID PRN Pain 10/08/21 [History Last Taken 01/16/22 07:30] tizanidine 4 mg tablet 4 mg PO TID PRN LEG Cramps 10/08/21 [History Last Taken Unknown] cholecalciferol (vitamin D3) 125 mcg (5,000 unit) tablet (Vitamin D3) 125 mcg PO DAILY 01/12/22 [History Last Taken Unknown] diphenhydramine HCl 25 mg capsule (ZzzQuil) 25 mg PO QHS PRN Sleep 01/12/22 [History Last Taken Unknown] fluticasone 100 mcg-salmeterol 50 mcg/dose blistr powdr for inhalation (Advair Diskus) 1 inh inhalation BID PRN PRN BREATHING 01/12/22 [History Last Taken 01/16/22] hydroxychloroquine 200 mg tablet (Plaquenil) 200 mg PO DAILY RA 01/12/22 [History Last Taken Unknown] linaclotide 290 mcg capsule (Linzess) 290 mcg PO DAILY PRN IBS 03/12/23 [History Last Taken Unknown] pantoprazole 40 mg tablet,delayed release 40 mg PO BID 03/12/23 [History Last Taken Unknown] atorvastatin 20 mg tablet 20 mg PO QHS #90 tabs 06/11/23 [Rx Last Taken Unknown] carvedilol 6.25 mg tablet See Rx Instructions .Route .COMPLEX #180 tabs 06/11/23 [Rx Last Taken Unknown] furosemide 20 mg tablet See Rx Instructions .Route .COMPLEX #180 tabs 06/11/23 [Rx Last Taken Unknown] lisinopril 20 mg-hydrochlorothiazide 12.5 mg tablet See Rx Instructions .Route .COMPLEX #180 tabs 06/11/23 [Rx Last Taken Unknown] potassium chloride 20 mEq tablet,extended release(part/cryst) 20 meq PO BID #90 tabs 06/11/23 [Rx Last Taken Unknown] sertraline 50 mg tablet 50 mg PO DAILY #60 tabs 06/11/23 [Rx Last Taken Unknown] Allergy/AdvReac Type Severity Reaction Status Date / Time hydrocodone bitartrate Allergy Unknown Rash Verified 07/07/23 18:39 [From Vicodin] propoxyphene Allergy Unknown Unknown Verified 07/07/23 18:39 fentanyl Allergy feels Verified 07/07/23 18:39 terrible NSAIDS (Non-Steroidal AdvReac Unknown Unknown Verified 07/07/23 18:39 Anti-Inflamma prednisone AdvReac Unknown palpitation Verified 07/07/23 18:39 s acetaminophen [From Tylenol] AdvReac Nausea Verified 07/07/23 18:39 diazepam [From Valium] AdvReac Other Verified 07/07/23 18:39 Family History Father Heart disease Myocardial infarction Mother Hyperlipidemia Diabetes Anxiety Arthritis Depression Sister Thyroid disorder Sister Thyroid disorder Surgical History History of back surgery History of bilateral knee replacement History of colonoscopy History of left heart catheterization (~01/15/15) History of shoulder surgery History of total hysterectomy Status post revision of total hip replacement Social History Smoking Status: Never smoker alcohol intake: never caffeine: No what type of physical activity do you participate in: other frequency: 3-4 times per week ROS Eyes Eyes: Denies change in vision, diplopia or loss of vision ENT HEENT: Denies dysphagia, nasal congestion, nasal discharge or sore throat Cardiovascular Cardiovascular: Denies chest pain, claudication or palpitations Respiratory/Chest Respiratory/Chest: Denies dyspnea, shortness of breath at rest or wheezing Gastrointestinal Gastrointestinal: Denies abdominal pain, constipation, diarrhea, nausea or vomiting Genitourinary Genitourinary: Denies dysuria, hematuria or urinary urgency Musculoskeletal Musculoskeletal: Denies joint pain, joint stiffness or joint swelling Integumentary Integumentary: Denies jaundice, pruritus or rash Neurologic Neurologic: Denies dizziness, numbness or seizures Psychiatric Psychiatric: Reports anxiety and depression Endocrine Endocrinology: Denies cold intolerance, heat intolerance or polydipsia Hematologic/Lymphatic Hematologic/Lymphatic: Denies easy bleeding or easy bruising Allergic/Immunologic Allergic/Immunologic: Denies wheezing Physical Exam Const alert, oriented x3 and no apparent distress General Appearance: cooperative HEENT normocephalic Eyes General Eye: normal appearance of both eyes Neck General: normal visual inspection Lymph Lymphatic: no lymphadenopathy noted and no lymphedema noted Resp normal respiratory effort Cardio regular rate and regular rhythm Extremity no calf tenderness and no pedal edema Extremity Narrative: Vascular: DP and PT pulses weakly palpable bilateral. Capillary fill time less than 5 seconds to the digits. Normal temperature gradient. Hair growth is absent to digits/foot. Neurological: Gross sensation intact. Light sensation is diminished to the foot bilateral. Does have lack of protective sensation at several points to the plantar foot when tested with a 5.07 g [place] Chandni monofilament consistent with peripheral polyneuropathy. Musculoskeletal: Contractures of the lesser digits noted to be semirigid consistent with hammertoe deformity, bilateral hallux abductovalgus deformity. Decreased first metatarsophalangeal joint range of motion without pain or crepitus. Decreased range of motion of the ankle joint with the knee extended without pain or crepitus bilateral. 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 Dermatologic: Skin is mildly xerotic bilateral. There is multiple lesions consistent with excoriation with dried eschars at the sites. There is a pressure ulceration noted to the posterior lateral aspect of the left heel with stable eschar overlying site of ulceration. No erythema, no palpable fluctuance/bogginess, no visible abscess formation, no lymphangitic streaking, no purulent drainage. Eschar is stable, there is pain to palpation about the site. Neuro moves all extremities Lab / Micro Data 07/08/23 05:00 07/08/23 05:00 Labs: Laboratory Results - last 24 hr 07/07/23 18:50: WBC 5.9, RBC 3.24 L, Hgb 9.6 L, Hct 30.6 L, MCV 94.4, MCH 29.6, MCHC 31.4 L, RDW Std Deviation 49.8 H, RDW Coeff of Sin 14.4, Plt Count 275, MPV 11.3, Immature Gran % (Auto) 0.300, Neut % (Auto) 60.3, Lymph % (Auto) 28.9, [place] % (Auto) 6.8, Eos % (Auto) 3.4, Baso % (Auto) 0.3, Absolute Neuts (auto) 3.6, Absolute Lymphs (auto) 1.71, Nucleated RBC % 0, PT 15.0 H, INR 1.2, APTT 32.0, Sodium 137, Potassium 2.5 L*, Chloride 96 L, Carbon Dioxide 36.0 H, Anion Gap 5, BUN 65 H, Creatinine 1.44 H, Est GFR (MDRD) Af Amer 45 L, Est GFR (MDRD) Non-Af 37 L, BUN/Creatinine Ratio 45.1 H, Glucose 140 H, Lactic Acid 1.9, Calcium 7.2 L, Magnesium 1.1 L, Total Bilirubin 0.50, AST 33, ALT 11 L, Alkaline Phosphatase 83, Total Protein 6.5, Albumin 2.7 L, Globulin 3.8, Albumin/Globulin Ratio 0.7 L 07/07/23 20:38: Urine Color Yellow, Urine Clarity Clear, Urine pH 7.0, Ur Specific [place] 1.010, Urine Protein Negative, Urine Glucose (UA) Normal, Urine Ketones Negative, Urine Occult Blood Negative, Urine Nitrite Negative, Urine Bilirubin Negative, Urine Urobilinogen Normal, Ur Leukocyte Esterase Negative, Urine RBC 0 SEEN, Urine WBC 0 SEEN, Ur Squamous Epith Cells 0-5 SEEN, Urine Bacteria 1+, Urine Mucus 0 SEEN 07/08/23 05:00: WBC 4.6, RBC 2.71 L, Hgb 8.2 L, Hct 26.0 L, MCV 95.9, MCH 30.3, MCHC 31.5 L, RDW Std Deviation 50.3 H, RDW Coeff of Sin 14.5, Plt Count 190, MPV 10.9, Immature Gran % (Auto) 0.200, Neut % (Auto) 65.9, Lymph % (Auto) 25.3, [place] % (Auto) 5.4, Eos % (Auto) 2.8, Baso % (Auto) 0.4, Absolute Neuts (auto) 3.0, Absolute Lymphs (auto) 1.17, Nucleated RBC % 0, Sodium 141, Potassium 3.5, Chloride 107, Carbon Dioxide 30.0, Anion Gap 4 L, BUN 49 H, Creatinine 0.92, Estim Creat Clear Calc 40.99, Est GFR (MDRD) Af Amer 75, Est GFR (MDRD) Non-Af 62, BUN/Creatinine Ratio 53.3 H, Glucose 94, Calcium 7.0 L, Phosphorus 2.3 L, Magnesium 2.2, Total Bilirubin 0.60, AST 23, ALT 9 L, Alkaline Phosphatase 61, Total Protein 5.6 L, Albumin 2.6 L, Globulin 3.0, Albumin/Globulin Ratio 0.9, Prealbumin 8.2 L Imaging Radiology Impression Chest X-Ray 07/07/23 19:25 IMPRESSION: No radiographic evidence of acute cardiopulmonary disease. Hiatal hernia. Electronically Signed: Cholo Lieberman DO at 19:45 EDT , Foot X-Ray 07/07/23 19:25 IMPRESSION: No radiographic evidence of osteomyelitis.. Correlate with MRI if clinical concern persists. Soft tissue swelling. Valgus deformity is noted. Electronically Signed: Cholo Lieberman DO at 20:01 EDT ,
--- NOTE | 2023-07-08 18:58 | ART_ITS ---
Reason For Study: Ulcer Procedure A bilateral lower extremity continuous wave Doppler with analog waveform analysis,segmental pressures,and ankle brachial indexes without exercise. Left Segmental Pressures Left brachial= 137mmHg. Left calf = 152mmHg. Left posterior tibial artery = 124mmHg. Left dorsalis pedis artery = 120mmHg. Left digit = 70 mmHg. The left dorsalis pedis waveforms are biphasic. The left posterior tibial artery waveforms are biphasic. Right Segmental Pressures Right posterior tibial artery = >254mmHg. Right dorsalis pedis artery = 198mmHg. Right digit = 117 mmHg. The right dorsalis pedis waveforms are triphasic. The right posterior tibial artery waveforms are triphasic. Indices The right ankle brachial index by the dorsalis pedis is 1.45. The right ankle brachial index by the posterior tibial artery is NC. The right digital-brachial index is 0.85. The left ankle brachial index by the dorsalis pedis is 0.88. The left ankle brachial index by the posterior tibial artery is 0.91. The left digital-brachial index is 0.51. VL/Lower Ext Art Exam w/o Exercis Interpretation Summary Right HUGH 1.45, normal. TBI and Doppler/PVR waveforms of the right leg normal a t rest. Left HUGH 0.91, mild arterial insufficiency. Doppler/PVR waveforms and segmental pressures reveal infrapopliteal disease Ordering Physician: Radhames Jones Referring Physician: Atr Verduzco Chi Performed By: Madelyn Estrada RVT
[2023-07-08] MEDS: Atorvastatin Calcium 20 MG Tablet PO (20:53)
[2023-07-08] MEDS: DiphenhydrAMINE 25 MG Capsule PO (20:56)
[2023-07-08] MEDS: tiZANidine HCl 2 MG Tablet 4 MG PO (21:00)
[2023-07-09] VITALS (7 sets, daily range): BP systolic 129–144; BP diastolic 81–96; PULSE 90–98; RESP 16–20; TEMP 36.3–36.9; O2SAT 91–99; BMI 30.1
[2023-07-09 07:54] LABS: Absolute Lymphocyte Count 0.72 X10^3/uL (0.83-4.51); Absolute Neutrophil Count 13.2 X10^3/uL (2.0-7.7); Basophil# 0.03 X10^3/uL; Basophil% 0.2 % (0-1); Hematocrit 34.6 % (37-47); Hemoglobin 10.4 g/dL (12.0-15.0); Lymphocyte # 0.72 X10^3/ul (0.83-4.51); Lymphocyte % 4.8 % (19-41); Mean Corp Hgb Conc 30.1 g/dL (32-36); Mean Corpuscular Hgb 29.7 pg (27.0-32.0); Mean Corpuscular Volume 98.9 fL (81-99); Mean Platelet Vol. 11.6 fl (6.2-12.0); Monocyte# 0.78 X10^3/uL; Monocyte% 5.2 % (0-10); NRBC Flagged by Analyzer 0 % (0-5); Neutrophil # 13.22 X10^3/uL (2.7-7.7); Neutrophil % 89.1 % (47-70); POSITIVE COUNT YES; Platelet Count 286 K/mm3 (150-450); RBC Distribution Width CV 14.9 % (11.6-14.6); RBC Distribution Width SD 53.9 fl (35.1-43.9); White Blood Count 14.9 K/mm3 (4.4-11.0)
[2023-07-09] MEDS: Hydroxychloroquine 200 MG Tablet PO (08:47)
[2023-07-09] MEDS: Potassium Chloride Oral Tablet 20 MEQ PO (08:47)
[2023-07-09] MEDS: Juven (unflavored) Packet 1 PACKET PO ×2 (08:47→16:03)
[2023-07-09] MEDS: LINACLOTIDE 290 MCG CAPSULE PO (08:57)
[2023-07-09] MEDS: Enoxaparin 40 MG/0.4 ML Syringe SC (08:58)
[2023-07-09] MEDS: Cholecalciferol (Vit D3) 125 MCG CAPSULE (5,000 UNITS) PO (08:58)
[2023-07-09] MEDS: Pantoprazole Sodium 40 MG Tablet PO ×2 (08:58→21:40)
[2023-07-09] MEDS: Sertraline 50 MG Tablet PO (08:58)
[2023-07-09] MEDS: LORazepam 1 MG Tablet PO ×2 (08:58→21:42)
[2023-07-09] MEDS: oxyCODONE 5 MG Tablet 10 MG PO (08:59)
[2023-07-09 09:48] LABS: Anion Gap 7 (5-15); BUN 32 mg/dL (7-18); BUN/Creat Ratio 32.5 RATIO (10-20); Calcium,Total 8.9 mg/dL (8.5-10.1); Chloride 110 mmol/L (98-107); Creatinine, Serum 0.98 mg/dL (0.55-1.02); EST Glomerular Filtration Rate 58 mL/min (>60); Est Glom Filt Rate - Afr Amer 70 mL/min (>60); Estimated Creatinine Clearance 38.62 ml/min; Glucose 161 mg/dL (74-106); Phosphorus 2.4 mg/dL (2.5-4.9); Potassium 6.1 mmol/L (3.5-5.1); Sodium Level 137 mmol/L (136-145)
[2023-07-09 11:52] LABS: Anion Gap 3 (5-15); BUN 36 mg/dL (7-18); Calcium,Total 9.1 mg/dL (8.5-10.1); Chloride 108 mmol/L (98-107); Creatinine, Serum 1.03 mg/dL (0.55-1.02); EST Glomerular Filtration Rate 55 mL/min (>60); Est Glom Filt Rate - Afr Amer 66 mL/min (>60); Estimated Creatinine Clearance 36.75 ml/min; Glucose 195 mg/dL (74-106); Potassium 5.9 mmol/L (3.5-5.1); Sodium Level 134 mmol/L (136-145)
--- NOTE | 2023-07-09 12:45 | PCM.PROGNOTE ---
Subjective Subjective Patient seen this afternoon resting in bed with offloading boots applied to both feet. She states that she feels okay today but admits to some tenderness if pressure ulcer is pressed upon. Therapy also present about to start therapy for day. Patient denies constitutional symptoms. Patient denies further complaints. Objective Data Objective Data Vital Signs: Vital Signs Temp Pulse Resp BP Pulse Ox O2 Del Method O2 Flow Rate 97.3 F L 90 16 144/93 H 93 Room Air 2 07/09/23 08:37 07/09/23 08:37 07/09/23 08:37 07/09/23 08:37 07/09/23 08:37 07/09/23 08:37 07/09/23 02:35 Oxygen Flow Rate (L/min) 2 Oxygen Delivery Method Room Air Weight: 67.6 kg Body Mass Index (BMI) 30.1 Intake & Output: Intake and Output for Last 24 Hours 07/07/23 07/08/23 07/09/23 23:59 23:59 23:59 Intake Total 1999 7033.34 / 7033.34 600 / 600 Output Total 3500 / 3500 300 / 300 Balance 1999 3533.34 / 3533.34 300 / 300 Lab / Micro Data 07/09/23 06:30 07/09/23 11:12 Labs: Laboratory Results - last 24 hr 07/09/23 06:30: WBC 14.9 H, RBC 3.50 L, Hgb 10.4 L, Hct 34.6 L, MCV 98.9, MCH 29.7, MCHC 30.1 L, RDW Std Deviation 53.9 H, RDW Coeff of Sin 14.9 H, Plt Count 286, MPV 11.6, Immature Gran % (Auto) 0.700, Neut % (Auto) 89.1 H, Lymph % (Auto) 4.8 L, [place] % (Auto) 5.2, Eos % (Auto) 0.0, Baso % (Auto) 0.2, Absolute Neuts (auto) 13.2 H, Absolute Lymphs (auto) 0.72 L, Nucleated RBC % 0, Sodium 137, Potassium 6.1 H*, Chloride 110 H, Carbon Dioxide 20.0 L, Anion Gap 7, BUN 32 H, Creatinine 0.98, Estim Creat Clear Calc 38.62, Est GFR (MDRD) Af Amer 70, Est GFR (MDRD) Non-Af 58 L, BUN/Creatinine Ratio 32.5 H, Glucose 161 H, Calcium 8.9, Phosphorus 2.4 L, Magnesium 2.0 07/09/23 11:12: Sodium 134 L, Potassium 5.9 H, Chloride 108 H, Carbon Dioxide 23.0, Anion Gap 3 L, BUN 36 H, Creatinine 1.03 H, Estim Creat Clear Calc 36.75, Est GFR (MDRD) Af Amer 66, Est GFR (MDRD) Non-Af 55 L, BUN/Creatinine Ratio 35.0 H, Glucose 195 H, Calcium 9.1 Micro: Microbiology 07/07/23 20:38 Urine, Clean Catch Urine Culture - Final Culture exhibits no growth. Physical Exam Const alert, oriented x3 and no apparent distress General Appearance: cooperative HEENT normocephalic Eyes General Eye: normal appearance of both eyes Neck General: normal visual inspection Lymph Lymphatic: no lymphadenopathy noted and no lymphedema noted Resp normal respiratory effort Cardio regular rate and regular rhythm Extremity no calf tenderness and no pedal edema Extremity Narrative: Vascular: DP and PT pulses weakly palpable bilateral. Capillary fill time less than 5 seconds to the digits. Normal temperature gradient. Hair growth is absent to digits/foot. Neurological: Gross sensation intact. Light sensation is diminished to the foot bilateral. Does have lack of protective sensation at several points to the plantar foot when tested with a 5.07 g Linville Chandni monofilament consistent with peripheral polyneuropathy. Musculoskeletal: Contractures of the lesser digits noted to be semirigid consistent with hammertoe deformity, bilateral hallux abductovalgus deformity. Decreased first metatarsophalangeal joint range of motion without pain or crepitus. Decreased range of motion of the ankle joint with the knee extended without pain or crepitus bilateral. 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 Dermatologic: Skin is mildly xerotic bilateral. There is multiple lesions consistent with excoriation with dried eschars at the sites. There is a pressure ulceration noted to the posterior lateral aspect of the left heel with stable eschar overlying site of ulceration. No erythema, no palpable fluctuance/bogginess, no visible abscess formation, no lymphangitic streaking, no purulent drainage. Eschar is stable, there is pain to palpation about the site. Neuro moves all extremities Assessment & Plan Assessment/Plan (1) Pressure ulcer of left heel, unspecified stage: (2) Pain in left foot: (3) Other specified peripheral vascular diseases: (4) Dehydration: (5) Hammer toe of right foot: (6) Rheumatoid arthritis: (7) Venous insufficiency (chronic) (peripheral): PLAN: Plan Patient seen and evaluated I have reviewed prior radiographs for 07/07/23 which were negative for osteomyelitis. There is an eschar noted to the posterior lateral aspect of the left heel with pain to palpation. Eschar measures 2.5 cm x 3 cm with unstageable depth. No signs of infection. There is some rubor about the proximal portion of the pressure ulceration site. WBC currently 14.9, increased from 5.9 yesterday. Site was painted with Betadine and dressed with dry sterile dressing and ABD padding. Offloading waffle boot applied to bilateral lower extremities to decrease pressure at the heel. Change daily. Will switch to Santyl with daily application. Recommend continued offloading with the foam waffle boot while in bed or at rest in chair. Recommend applying pillows under her legs to aid in floating the heel while at rest in chair. Continue elevating lower extremities at all times of rest for edema control. Patient may continue to bear weight as tolerated to left heel as ulceration is at the posterior lateral aspect of the heel and not in a weightbearing area. LEAS were obtained 07/09/23. Right lower extremity demonstrates triphasic DP and PT pulses with HUGH 1.45 at DP with noncompressible PT, and digital indices 0.85. Left lower extremity demonstrates biphasic DP and PT pulses; HUGH 0.91 with digital indices 0.51. Will recommend switching to Santyl with daily dressing changes. No debridement was performed today. Vascular studies demonstrate sufficient blood flow for healing and will start Santyl. Will recommend debridement following discharge in the wound care center with applications of advanced wound care product. May take Tylenol for discomfort Medicine currently following for medical management, they are appreciated. Wound nurse following for assistance in dressing changes, she is appreciated. No podiatric surgical intervention anticipated at this time. Podiatry will continue to follow while in house. Upon discharge recommend following with me in the wound care center for continued local wound care and likely application of advanced stem cell product to aid in wound healing. Jr. Kimani Dove.P.M. [facility] [phone]
--- NOTE | 2023-07-09 13:08 | NURSING ---
Was called to room by SOYBEAN GROWER as pt was requesting BM aid and trying to disimpact herself and make herself bleed, but had a moderate loose BM noted in toilet. Will monitor.
--- NOTE | 2023-07-09 13:58 | CASEMGMT ---
Addendum entered by Madelyn Bro 07/09/23 14:26: PATRICIO CRUZ received call back from [facility] and they are able to accept with planned start of care when seen by Dr. Verduzco. PATRICIO CRUZ updated patient and granddaughter. Original Note: PATRICIO CRUZ in to discuss needs at discharge. RN NANCY reviewed progress with therapy. Patient and granddaughter would like [facility] and prefer [facility], declined list of [facility] agencies. PATRICIO CRUZ updated patient and granddaugther that [facility] cannot start care until patient see Dr. Verduzco per his request. Granddaughter voiced understanding. Granddaughter and daughter in law teachable for wound care. Patient and daughter had no further questions or concerns. PATRICIO CRUZ called [facility] with referral, awaiting acceptance. CM will continue to follow this patient and plan for a safe discharge.
--- NOTE | 2023-07-09 16:55 | PN.HOSP_ITS ---
Reason for Visit Reason for Visit: Diagnoses Hypomagnesemia (07/07/23) Dehydration (07/07/23) Hypokalemia (07/07/23) Other specified peripheral vascular diseases (07/07/23) Venous insufficiency (chronic) (peripheral) (07/07/23) Hypotension, unspecified (07/07/23) Cellulitis of right lower limb (07/07/23) Cellulitis of left lower limb (07/07/23) Pressure ulcer of left heel, unspecified stage (07/07/23) Rheumatoid arthritis, unspecified (07/07/23) Other hammer toe(s) (acquired), right foot (07/07/23) Pain in left foot (07/07/23) Blister (nonthermal), left foot, initial encounter (07/07/23) Adverse effect of unspecified drugs, medicaments and biological substances, initial encounter (07/07/23) Subjective Subjective Patient was seen and examined today, she told this examiner she would prefer to go home rather than go to an extended care facility. Patient's potassium unfortunately was elevated today, I will give the patient 1 dose of Kayexalate and recheck her potassium tomorrow. Objective Data Objective Data Vital Signs: Vital Signs Temp Pulse Resp BP Pulse Ox O2 Del Method O2 Flow Rate 97.8 F 98 16 129/96 H 94 Room Air 2 07/09/23 15:56 07/09/23 15:56 07/09/23 15:56 07/09/23 15:56 07/09/23 15:56 07/09/23 15:56 07/09/23 02:35 Oxygen Flow Rate (L/min) 2 Oxygen Delivery Method Room Air Weight: 67.6 kg Body Mass Index (BMI) 30.1 Intake & Output: Intake and Output for Last 24 Hours 07/07/23 07/08/23 07/09/23 23:59 23:59 23:59 Intake Total 1999 7033.34 / 7033.34 600 / 600 Output Total 3500 / 3500 300 / 300 Balance 1999 3533.34 / 3533.34 300 / 300 Lab / Micro Data 07/09/23 06:30 07/09/23 11:12 Labs: Laboratory Results - last 24 hr 07/09/23 06:30: WBC 14.9 H, RBC 3.50 L, Hgb 10.4 L, Hct 34.6 L, MCV 98.9, MCH 29.7, MCHC 30.1 L, RDW Std Deviation 53.9 H, RDW Coeff of Sin 14.9 H, Plt Count 286, MPV 11.6, Immature Gran % (Auto) 0.700, Neut % (Auto) 89.1 H, Lymph % (Auto) 4.8 L, [place] % (Auto) 5.2, Eos % (Auto) 0.0, Baso % (Auto) 0.2, Absolute Neuts (auto) 13.2 H, Absolute Lymphs (auto) 0.72 L, Nucleated RBC % 0, Sodium 137, Potassium 6.1 H*, Chloride 110 H, Carbon Dioxide 20.0 L, Anion Gap 7, BUN 32 H, Creatinine 0.98, Estim Creat Clear Calc 38.62, Est GFR (MDRD) Af Amer 70, Est GFR (MDRD) Non-Af 58 L, BUN/Creatinine Ratio 32.5 H, Glucose 161 H, Calcium 8.9, Phosphorus 2.4 L, Magnesium 2.0 07/09/23 11:12: Sodium 134 L, Potassium 5.9 H, Chloride 108 H, Carbon Dioxide 23.0, Anion Gap 3 L, BUN 36 H, Creatinine 1.03 H, Estim Creat Clear Calc 36.75, Est GFR (MDRD) Af Amer 66, Est GFR (MDRD) Non-Af 55 L, BUN/Creatinine Ratio 35.0 H, Glucose 195 H, Calcium 9.1 Micro: Microbiology 07/07/23 20:38 Urine, Clean Catch Urine Culture - Final Culture exhibits no growth. Physical Exam Const alert, oriented x3 and no apparent distress Constitutional Narrative: Patient appears frail and elderly General Appearance: cooperative, well kempt and well developed Orientation / Consciousness: awake, oriented to person, oriented to place and oriented to time HEENT normocephalic, head/scalp atraumatic and moist oral mucous membranes Eyes PERRL, EOMs intact bilaterally and conjunctivae normal Neck supple, no JVD, thyroid normal and no carotid bruits General: trachea midline Resp normal respiratory effort and clear to auscultation bilaterally Auscultation: Negative for rales, rhonchi or wheezes Cardio regular rate, regular rhythm, no murmurs, no rub and no gallops GI normal to inspection, nondistended, normoactive bowel sounds, soft to palpation, non-tender and non-distended Extremity Extremity Narrative: Patient's left heel is wrapped with surgical dressing, this was not removed for examination of the area Skin Skin Narrative: Patient's left heel was wrapped with surgical dressing, this was not removed for examination of the area Neuro oriented x3, CN's II-XII intact bilaterally, moves all extremities, no focal motor deficits and no sensory deficits noted Sensorium / Orientation: awake and alert Speech: speech normal Psych affect normal Assessment & Plan Assessment/Plan (1) Pressure ulcer of left heel, unspecified stage: PLAN: Plan 1. Pressure injury to left ghip-djetjmstuml-isqitxop is elected not to perform any surgery on the patient, she will need follow-up wound care after she is discharged from the hospital #2 acute debility-I have instructed the patient to work with PT and OT today, if she is stable tomorrow she will be discharged home #3 hyperkalemia-patient's potassium was discontinued today, I will give her 1 dose of Kayexalate and recheck her potassium tomorrow #4 hyperlipidemia-patient is on atorvastatin #5 essential hypertension-patient will remain on her present medications, blood pressure medications will be adjusted if needed #6 chronic depression-patient is on Zoloft Total clinical time spent by myself addressing the patient's medical issues, reviewing all of her data, and collaborating with patient's care team: 35 minutes Charges/Coding Visit Charges Inpatient E&M: 24550 Subs Hosp L2
[2023-07-09] MEDS: Sodium Polystyrene Sulfonate 15 GM/60 ML UDC PO (18:04)
[2023-07-09] MEDS: Albuterol 2.5 MG/3 ML VIAL.NEB. INHALATION (19:34)
[2023-07-09] MEDS: Budesonide Respules 0.5 MG/2 ML AMPUL.NEB. INHALATION (19:34)
[2023-07-09] MEDS: Atorvastatin Calcium 20 MG Tablet PO (21:40)
[2023-07-10] VITALS (9 sets, daily range): BP systolic 105–125; BP diastolic 62–92; PULSE 93–108; RESP 16–20; TEMP 36.2–37; O2SAT 93–98; BMI 31.7
[2023-07-10 05:34] LABS: Anion Gap 3 (5-15); BUN 47 mg/dL (7-18); BUN/Creat Ratio 43.1 RATIO (10-20); Calcium,Total 8.9 mg/dL (8.5-10.1); Chloride 104 mmol/L (98-107); Creatinine, Serum 1.09 mg/dL (0.55-1.02); EST Glomerular Filtration Rate 51 mL/min (>60); Est Glom Filt Rate - Afr Amer 62 mL/min (>60); Estimated Creatinine Clearance 34.72 ml/min; Ferritin 155 ng/mL (8-252); Glucose 121 mg/dL (74-106); Iron 30 ug/dL (50-170); Iron Binding Capacity,Total 226 ug/dL (250-450); PERCENT IRON SATURATION 13.3 % (15.0-55.0); Potassium 6.8 mmol/L (3.5-5.1); Sodium Level 132 mmol/L (136-145)
[2023-07-10 06:12] LABS: Potassium 6.2 mmol/L (3.5-5.1)
[2023-07-10] MEDS: Insulin Lispro 10 UNIT in Syringe 0 ML 6 UNIT IV (06:25)
[2023-07-10] MEDS: Dextrose 50%-Water 25 GM/50 ML DISP.SYRIN IV (06:31)
[2023-07-10] MEDS: 0.9% Saline Lock 10 ML Syringe IV (06:33)
[2023-07-10] MEDS: Sodium Polystyrene Sulfonate 15 GM/60 ML UDC 30 GM PO (06:33)
[2023-07-10] MEDS: Furosemide 40 MG/4 ML Vial IV (06:33)
[2023-07-10] MEDS: Albuterol 2.5 MG/3 ML VIAL.NEB. INHALATION ×3 (06:54→20:00)
[2023-07-10] MEDS: Budesonide Respules 0.5 MG/2 ML AMPUL.NEB. INHALATION ×2 (06:54→20:00)
[2023-07-10 07:06] LABS: Bedside Glucose 104 mg/dL (74-106)
--- NOTE | 2023-07-10 08:00 | CPS ---
Pt sleeping through aerosol rx. Smi and pep held
[2023-07-10] MEDS: Cholecalciferol (Vit D3) 125 MCG CAPSULE (5,000 UNITS) PO (09:31)
[2023-07-10] MEDS: Hydroxychloroquine 200 MG Tablet PO (09:31)
[2023-07-10] MEDS: Enoxaparin 40 MG/0.4 ML Syringe SC (09:31)
[2023-07-10] MEDS: Sertraline 50 MG Tablet PO (09:32)
[2023-07-10] MEDS: Juven (unflavored) Packet 1 PACKET PO ×2 (09:32→17:03)
[2023-07-10] MEDS: Pantoprazole Sodium 40 MG Tablet PO ×2 (09:32→20:38)
[2023-07-10] MEDS: LINACLOTIDE 290 MCG CAPSULE PO (09:33)
[2023-07-10] MEDS: LORazepam 1 MG Tablet PO ×2 (09:38→20:38)
--- NOTE | 2023-07-10 13:14 | CPS ---
Pt slept through aerosol rx. Pt was instructed to do SMI and Pep on own this afternoon after she wakes up
[2023-07-10 13:25] LABS: Anion Gap 5 (5-15); BUN 47 mg/dL (7-18); BUN/Creat Ratio 44.8 RATIO (10-20); Calcium,Total 9.1 mg/dL (8.5-10.1); Chloride 105 mmol/L (98-107); Creatinine, Serum 1.05 mg/dL (0.55-1.02); EST Glomerular Filtration Rate 54 mL/min (>60); Est Glom Filt Rate - Afr Amer 65 mL/min (>60); Estimated Creatinine Clearance 37.03 ml/min; Glucose 102 mg/dL (74-106); Potassium 4.4 mmol/L (3.5-5.1); Sodium Level 135 mmol/L (136-145)
--- NOTE | 2023-07-10 14:24 | PN.HOSP_ITS ---
Reason for Visit Reason for Visit: Diagnoses Hypomagnesemia (07/07/23) Dehydration (07/07/23) Hypokalemia (07/07/23) Other specified peripheral vascular diseases (07/07/23) Venous insufficiency (chronic) (peripheral) (07/07/23) Hypotension, unspecified (07/07/23) Cellulitis of right lower limb (07/07/23) Cellulitis of left lower limb (07/07/23) Pressure ulcer of left heel, unspecified stage (07/07/23) Rheumatoid arthritis, unspecified (07/07/23) Other hammer toe(s) (acquired), right foot (07/07/23) Pain in left foot (07/07/23) Blister (nonthermal), left foot, initial encounter (07/07/23) Adverse effect of unspecified drugs, medicaments and biological substances, initial encounter (07/07/23) Subjective Subjective Patient was seen and examined today, her potassium at 1:00 this afternoon was normal, patient's serum iron is low, I have elected to give her Venofer. I had a long discussion with the patient's dtrxvxib-pf-wyi and son today by phone, the son is concerned that the patient is not on her Lasix presently and states that she goes into heart failure if she does not get the Lasix. I have elected at this time to restart her Lasix and place her on potassium, BMP will be repeated tomorrow. Patient's son feels that the patient would want to go home and would refuse to go to an extended care facility. Objective Data Objective Data Vital Signs: Vital Signs Temp Pulse Resp BP Pulse Ox O2 Del Method O2 Flow Rate 98.6 F 108 H 20 H 124/92 H 98 Room Air 2 07/10/23 14:00 07/10/23 14:00 07/10/23 14:00 07/10/23 14:00 07/10/23 14:00 07/10/23 14:00 07/09/23 02:35 Oxygen Flow Rate (L/min) 2 Oxygen Delivery Method Room Air Weight: 71.3 kg Body Mass Index (BMI) 31.7 Intake & Output: Intake and Output for Last 24 Hours 07/08/23 07/09/23 07/10/23 23:59 23:59 23:59 Intake Total 7033.34 / 7033.34 1040 / 1040 580 / 580 Output Total 3500 / 3500 700 / 700 600 / 600 Balance 3533.34 / 3533.34 340 / 340 -20 / -20 Lab / Micro Data 07/09/23 06:30 07/10/23 13:03 Labs: Laboratory Results - last 24 hr 07/10/23 04:20: Sodium 132 L, Potassium 6.8 H*, Chloride 104, Carbon Dioxide 25.0, Anion Gap 3 L, BUN 47 H, Creatinine 1.09 H, Estim Creat Clear Calc 34.72, Est GFR (MDRD) Af Amer 62, Est GFR (MDRD) Non-Af 51 L, BUN/Creatinine Ratio 43.1 H, Glucose 121 H, Calcium 8.9, Iron 30 L, TIBC 226 L, Iron Saturation 13.3 L, Ferritin 155 07/10/23 05:47: Potassium 6.2 H* 07/10/23 06:28: POC Glucose 104 07/10/23 13:03: Sodium 135 L, Potassium 4.4, Chloride 105, Carbon Dioxide 25.0, Anion Gap 5, BUN 47 H, Creatinine 1.05 H, Estim Creat Clear Calc 37.03, Est GFR (MDRD) Af Amer 65, Est GFR (MDRD) Non-Af 54 L, BUN/Creatinine Ratio 44.8 H, Glucose 102, Calcium 9.1 Micro: Microbiology 07/07/23 18:50 Blood Culture (Wb) - Anticubital Right Blood Culture - Preliminary No growth in 48 hours. 07/07/23 18:55 Blood Culture (Wb) - No Site/Description Given Blood Culture - Preliminary No growth in 48 hours. 07/07/23 20:38 Urine, Clean Catch Urine Culture - Final Culture exhibits no growth. Physical Exam Narrative alert, oriented x3 and no apparent distress Constitutional Narrative: Patient appears frail and elderly General Appearance: cooperative, well kempt and well developed Orientation / Consciousness: awake, oriented to person, oriented to place and oriented to time HEENT normocephalic, head/scalp atraumatic and moist oral mucous membranes Eyes PERRL, EOMs intact bilaterally and conjunctivae normal Neck supple, no JVD, thyroid normal and no carotid bruits General: trachea midline Resp normal respiratory effort and clear to auscultation bilaterally Auscultation: Negative for rales, rhonchi or wheezes Cardio regular rate, regular rhythm, no murmurs, no rub and no gallops GI normal to inspection, nondistended, normoactive bowel sounds, soft to palpation, non-tender and non-distended Extremity Extremity Narrative: Patient's left heel is wrapped with surgical dressing, this was not removed for examination of the area Skin Skin Narrative: Patient's left heel was wrapped with surgical dressing, this was not removed for examination of the area Neuro oriented x3, CN's II-XII intact bilaterally, moves all extremities, no focal motor deficits and no sensory deficits noted Sensorium / Orientation: awake and alert Speech: speech normal Psych affect normal Assessment & Plan Assessment/Plan (1) Pressure ulcer of left heel, unspecified stage: PLAN: Plan 1. Pressure injury to left kscd-skpzvqdvoyx-kebwjypu is elected not to perform any surgery on the patient, she will need follow-up wound care after she is discharged from the hospital #2 acute debility-I have instructed the patient to work with PT and OT today, patient told me today she could not take care of herself, I do not know if the patient will want to go to an extended care facility for short-term rehab s ervices. #3 Hyperkalemia-resolved at this time, I have elected to place the patient back on potassium and furosemide #4 hyperlipidemia-patient is on atorvastatin #5 essential hypertension-patient will remain on her present medications, blood pressure medications will be adjusted if needed #6 chronic depression-patient is on Zoloft #7 chronic diastolic congestive heart failure-again patient will be placed on furosemide #8 pulmonary hypertension-patient will resume her furosemide #9 iron deficiency anemia-patient will receive Venofer today and I will give her another dose of it tomorrow. Total clinical time spent by myself addressing the patient's medical issues, reviewing all of her data, and collaborating with patient's care team: 35 minutes Charges/Coding Visit Charges Inpatient E&M: 21989 Subs Hosp L2
[2023-07-10] MEDS: Furosemide 40 MG Tablet PO (14:57)
[2023-07-10] MEDS: Sodium Ferric Gluconat/Sucrose 250 MG in 0.9% Normal Saline (250mL Bag) 250 ML 135 MG IV (14:57)
[2023-07-10] MEDS: Potassium Chloride Oral Tablet 10 MEQ 20 MEQ PO (17:00)
[2023-07-10] MEDS: Atorvastatin Calcium 20 MG Tablet PO (20:38)
[2023-07-10] MEDS: Carvedilol 6.25 MG Tablet PO (23:35)
[2023-07-10] MEDS: oxyCODONE 5 MG Tablet 10 MG PO (23:40)
[2023-07-11 04:15] VITALS: BP 94/58; PULSE 82; RESP 18; TEMP 36.6; O2SAT 95
[2023-07-11 04:40] VITALS: BMI 32.1
[2023-07-11 06:47] LABS: Absolute Lymphocyte Count 1.24 X10^3/uL (0.83-4.51); Absolute Neutrophil Count 5.2 X10^3/uL (2.0-7.7); Basophil# 0.02 X10^3/uL; Basophil% 0.3 % (0-1); Eosinophil# 0.18 X10^3/uL; Eosinophils% 2.5 % (0-5); Hematocrit 29.2 % (37-47); Hemoglobin 8.9 g/dL (12.0-15.0); Lymphocyte # 1.24 X10^3/ul (0.83-4.51); Lymphocyte % 17.2 % (19-41); Mean Corp Hgb Conc 30.5 g/dL (32-36); Mean Corpuscular Hgb 28.9 pg (27.0-32.0); Mean Corpuscular Volume 94.8 fL (81-99); Mean Platelet Vol. 11.3 fl (6.2-12.0); Monocyte# 0.51 X10^3/uL; Monocyte% 7.1 % (0-10); NRBC Flagged by Analyzer 0 % (0-5); Neutrophil # 5.21 X10^3/uL (2.7-7.7); Neutrophil % 72.1 % (47-70); Platelet Count 241 K/mm3 (150-450); RBC Distribution Width CV 14.9 % (11.6-14.6); RBC Distribution Width SD 51.1 fl (35.1-43.9); Red Blood Count 3.08 M/mm3 (4.2-5.4); White Blood Count 7.2 K/mm3 (4.4-11.0)
[2023-07-11 07:15] VITALS: PULSE 80; RESP 16
[2023-07-11] MEDS: Albuterol 2.5 MG/3 ML VIAL.NEB. INHALATION (07:15)
[2023-07-11] MEDS: Budesonide Respules 0.5 MG/2 ML AMPUL.NEB. INHALATION (07:15)
[2023-07-11 07:17] LABS: Anion Gap 5 (5-15); BUN 50 mg/dL (7-18); BUN/Creat Ratio 55.6 RATIO (10-20); Calcium,Total 8.3 mg/dL (8.5-10.1); Chloride 105 mmol/L (98-107); EST Glomerular Filtration Rate 64 mL/min (>60); Est Glom Filt Rate - Afr Amer 77 mL/min (>60); Estimated Creatinine Clearance 43.45 ml/min; Glucose 98 mg/dL (74-106); Potassium 3.3 mmol/L (3.5-5.1); Sodium Level 138 mmol/L (136-145)
--- NOTE | 2023-07-11 08:01 | CPS ---
Pt was instructed to use SMI and Pep on her own later this am when she wakes up and is more alert
[2023-07-11] MEDS: LINACLOTIDE 290 MCG CAPSULE PO (09:06)
[2023-07-11] MEDS: Pantoprazole Sodium 40 MG Tablet PO (09:06)
[2023-07-11] MEDS: Enoxaparin 40 MG/0.4 ML Syringe SC (09:06)
[2023-07-11] MEDS: Hydroxychloroquine 200 MG Tablet PO (09:07)
[2023-07-11] MEDS: Juven (unflavored) Packet 1 PACKET PO (09:07)
[2023-07-11] MEDS: Carvedilol 6.25 MG Tablet PO (09:07)
[2023-07-11] MEDS: Sertraline 50 MG Tablet PO (09:07)
[2023-07-11] MEDS: Cholecalciferol (Vit D3) 125 MCG CAPSULE (5,000 UNITS) PO (09:07)
[2023-07-11] MEDS: LORazepam 1 MG Tablet PO (09:18)
[2023-07-11] MEDS: Sodium Ferric Gluconat/Sucrose 250 MG in 0.9% Normal Saline (250mL Bag) 250 ML 135 MG IV (09:18)
[2023-07-11] MEDS: Potassium Chloride Oral Tablet 20 MEQ 40 MEQ PO (09:18)
[2023-07-11] MEDS: Potassium Chloride Oral Tablet 10 MEQ 20 MEQ PO (09:19)
[2023-07-11] MEDS: Furosemide 40 MG Tablet PO (09:19)
[2023-07-11 09:30] VITALS: BP 91/52; PULSE 74; RESP 15; TEMP 36; O2SAT 96
--- NOTE | 2023-07-11 09:58 | PCM.DC ---
Discharge Instructions Diet Discharge Diet: No restrictions Activity Discharge Activity: Return to Normal Activity Weight Bearing Status: Weight bearing as tolerated Follow Up Care Test Results: Test results from this visit will be discussed in further detail at your follow-up appointment, if applicable. Discharge Plan Admission Admit Date/Time: 07/07/23 23:39 Primary Reason for Your Visit: debility,low/high potassium levels, heel ulcer Attending Provider: Vince Broussard Primary Care Provider: Art Verduzco [employer] Providers: Radhames Jones; Noah Ayala Instructions Additional Instructions / Restrictions: Please call [facility] [phone] when follow-up appt scheduled with Dr. Verduzco Do not take Lisinopril/HCT Get over the counter Ferrous Sulfate 325 mg and take one daily on an empty stomach Discharge Orders/Prescriptions Prescriptions: New furosemide 40 mg Tablet 40 mg PO DAILY Qty: 30 0RF potassium chloride 10 mEq tablet extended release 30 meq PO BID Qty: 180 0RF Continued lorazepam 0.5 mg tablet 1 mg PO BID Patient Comments: TAKE 2 TABLETS BY MOUTH TWICE DAILY oxycodone 10 mg tablet 10 mg PO TID PRN (Reason: Pain) tizanidine 4 mg tablet 4 mg PO TID PRN (Reason: LEG Cramps) pantoprazole 40 mg tablet,delayed release (DR/EC) 40 mg PO BID Patient Comments: TAKE 1 TABLET BY MOUTH ONCE DAILY sertraline 50 mg tablet 50 mg PO DAILY Qty: 60 0RF atorvastatin 20 mg tablet 20 mg PO QHS Qty: 90 3RF carvedilol 6.25 mg tablet See Rx Instructions .ROUTE .COMPLEX Qty: 180 3RF Dose Instruction: TAKE 1 TABLET BY MOUTH TWICE A DAY Rx Instructions: TAKE 1 TABLET BY MOUTH TWICE A DAY furosemide 20 mg tablet See Rx Instructions .ROUTE .COMPLEX Qty: 180 3RF Dose Instruction: DAILY: TAKE AN ADDITIONAL 20 MG DOSE AT 5 PM FOR INCREASED LEG SWELLING OR WEIGHT GAIN 5 POUNDS IN 1 WEEK. Rx Instructions: DAILY: TAKE AN ADDITIONAL 20 MG DOSE AT 5 PM FOR INCREASED LEG SWELLING OR WEIGHT GAIN 5 POUNDS IN 1 WEEK. hydroxychloroquine [Plaquenil] 200 mg Tablet 200 mg PO DAILY cholecalciferol (vitamin D3) [Vitamin D3] 125 mcg (5,000 unit) Tablet 125 mcg PO DAILY fluticasone propion-salmeterol [Advair Diskus] 100-50 mcg/dose Blister With Device 1 inh INHALATION BID PRN PRN (Reason: BREATHING) diphenhydramine HCl [ZzzQuil] 25 mg Capsule 25 mg PO QHS PRN (Reason: Sleep) Linzess 290 mcg capsule 290 mcg PO DAILY PRN (Reason: IBS) Discontinued lisinopril-hydrochlorothiazide 20-12.5 mg tablet See Rx Instructions .ROUTE .COMPLEX Qty: 180 3RF Dose Instruction: TAKE 1 TABLET BY MOUTH TWICE A DAY Rx Instructions: TAKE 1 TABLET BY MOUTH TWICE A DAY potassium chloride 20 mEq tablet,ER particles/crystals 20 meq PO BID Qty: 90 3RF Referrals / Follow Up: Radhames Jones DPM [Med Staff - Active Staff] - See Referral Note (Follow up in wound care clinic) Art Verduzco Chi, MD [Primary Care Provider] - In 1 Day Disposition Disposition (needs filled in before D/C Order can be placed): Home, Self Care
--- NOTE | 2023-07-11 10:15 | DS.PCM_ITS ---
Providers Date of Admission: 07/07/23 Date of Discharge: 07/11/23 Primary Care Physician: Dr. Art Verduzco MD Consultations 07/07/23 14:49 Consult: Onc/Wound/lead pharmacy technician Routine Comment: Reason for Consult:: Left heel wound with eschar 07/08/23 00:51 Consult: Podiatry Routine Consulting Provider: Radhames Jones Reason for Consult: L Foot Wound EMERGENT Consult: No MD Notified: Yes Date Notified: 07/08/23 Time Notified: 00:51 Method of Notification: ED Physician Initiated 07/08/23 01:08 Consult: Onc/Wound/lead pharmacy technician Routine Comment: Reason for Consult:: Left heel eschar after recent blister rupture. Reason For Visit: SEVERE HYPOKALEMIA, SEVERE HYPOMAGNESEMIA, Diagnosis Discharge Diagnosis (1) Pressure ulcer of left heel, unspecified stage: Status: Acute Code(s): L89.629 - Pressure ulcer of left heel, unspecified stage Plan 1. Pressure injury to left [id number] is elected not to perform any surgery on the patient, she will need follow-up wound care after she is discharged from the hospital #2 acute debility-I have instructed the patient to work with PT and OT today, patient told me today she could not take care of herself, I do not know if the patient will want to go to an extended care facility for short-term rehab services. #3 Hyperkalemia-resolved at this time, I have elected to place the patient back on potassium and furosemide #4 hyperlipidemia-patient is on atorvastatin #5 essential hypertension-patient will remain on her present medications, blood pressure medications will be adjusted if needed #6 chronic depression-patient is on Zoloft #7 chronic diastolic congestive heart failure-again patient will be placed on furosemide #8 pulmonary hypertension-patient will resume her furosemide #9 iron deficiency anemia-patient will receive Venofer today and I will give her another dose of it tomorrow. #10 hypomagnesemia Total clinical time spent by myself addressing the patient's medical issues, reviewing all of her data, and collaborating with patient's care team: 35 minutes Medications at Discharge Home Medications lorazepam 0.5 mg tablet 1 mg PO BID 08/26/21 oxycodone 10 mg tablet 10 mg PO TID PRN Pain 10/08/21 tizanidine 4 mg tablet 4 mg PO TID PRN LEG Cramps 10/08/21 cholecalciferol (vitamin D3) 125 mcg (5,000 unit) tablet (Vitamin D3) 125 mcg PO DAILY 01/12/22 diphenhydramine HCl 25 mg capsule (ZzzQuil) 25 mg PO QHS PRN Sleep 01/12/22 fluticasone 100 mcg-salmeterol 50 mcg/dose blistr powdr for inhalation (Advair Diskus) 1 inh inhalation BID PRN PRN BREATHING 01/12/22 hydroxychloroquine 200 mg tablet (Plaquenil) 200 mg PO DAILY RA 01/12/22 linaclotide 290 mcg capsule (Linzess) 290 mcg PO DAILY PRN IBS 03/12/23 pantoprazole 40 mg tablet,delayed release 40 mg PO BID 03/12/23 atorvastatin 20 mg tablet 20 mg PO QHS #90 tabs 06/11/23 carvedilol 6.25 mg tablet See Rx Instructions .Route .COMPLEX #180 tabs 06/11/23 furosemide 20 mg tablet See Rx Instructions .Route .COMPLEX #180 tabs 06/11/23 sertraline 50 mg tablet 50 mg PO DAILY #60 tabs 06/11/23 furosemide 40 mg tablet 40 mg PO DAILY #30 tabs 07/11/23 potassium chloride 10 mEq tablet,extended release 30 meq (3 x 10 mEq) PO BID #180 tabs 07/11/23 Hospital Course Operations None Procedures None Summary of Care Provided Minutes Spent on Discharge: 31 Hospital Course: This 83-year-old white female was seen in the emergency room at [facility] with complaints of generalized weakness, she stated she was unable to take care of herself at home, patient lives with her who is had health problems in the past including an intracranial bleed. She also complained of a blister on her left heel, she stated that she saw her primary care doctor several days previously and he took scrapings of the skin on her heel. Daughter got concerned because the heel area appeared to turn black after the blister drained. Workup in the emergency room included a CBC which showed a normal white blood cell count, hemoglobin was 9.6, potassium was low at 2.5, creatinine was elevated 1.44 and BUN was 65. Magnesium level was low at 1.1. Urinalysis was unremarkable and chest x-ray was unremarkable. Foot x-ray showed no radiographic evidence of osteomyelitis. Patient was admitted to [facility] and seen in consultation by the wound care nurse and podiatry, she was also seen by PT and OT and she was given supplemental potassium and labs were monitored. Patient's potassium then elevated and she had to be given Kayexalate. Magnesium was corrected through IV magnesium administration. Patient was given IV iron due to iron deficiency. Conversations were carried out with her son by phone, he stated the patient would not want to go to an extended care facility and would want to be discharged home, patient verified this. On 07/11/2023, patient was seen and examined: On examination she appeared in good health and spirits, she does not appear to be in any distress. Vital signs as documented. Skin warm and dry and without overt rashes. Neck without JVD, thyroid appears normal, trachea is midline, neck is supple. Lungs clear, normal air movement was noted. Heart exam notable for regular rhythm, normal sounds and absence of murmurs, rubs or gallops. Abdomen unremarkable and without evidence of organomegaly, masses, or abdominal aortic enlargement, bowel sounds are present in all 4 quadrants, no abdominal tenderness was noted. Extremities nonedematous, no cyanosis was noted, no clubbing was noted. Left foot was not examined due to surgical dressing. Neuro: Cranial nerves II through XII are grossly intact, no focal motor deficits were noted, sensation to light touch and pinprick is intact, motor exam 5/5 throughout. Psych: Patient is alert and oriented x3, she does not appear anxious or depressed, she does not appear agita montse. Patient was felt to be stable for discharge home on 07/11/2023, arrangements were made by case management for the patient to see her PCP on Wednesday and then home health care would be set up from that point on. Weight / BMI Weight Weight: 72.1 kg Body Mass Index (BMI) 32.1 ABG / Lab / Microbiology Data 07/11/23 06:00 07/11/23 06:00 Laboratory: Laboratory Results - last 24 hr 07/10/23 13:03: Sodium 135 L, Potassium 4.4, Chloride 105, Carbon Dioxide 25.0, Anion Gap 5, BUN 47 H, Creatinine 1.05 H, Estim Creat Clear Calc 37.03, Est GFR (MDRD) Af Amer 65, Est GFR (MDRD) Non-Af 54 L, BUN/Creatinine Ratio 44.8 H, Glucose 102, Calcium 9.1 07/11/23 06:00: WBC 7.2, RBC 3.08 L, Hgb 8.9 L, Hct 29.2 L, MCV 94.8, MCH 28.9, MCHC 30.5 L, RDW Std Deviation 51.1 H, RDW Coeff of Sin 14.9 H, Plt Count 241, MPV 11.3, Immature Gran % (Auto) 0.800, Neut % (Auto) 72.1 H, Lymph % (Auto) 17.2 L, [place]on % (Auto) 7.1, Eos % (Auto) 2.5, Baso % (Auto) 0.3, Absolute Neuts (auto) 5.2, Absolute Lymphs (auto) 1.24, Nucleated RBC % 0, Sodium 138, Potassium 3.3 L, Chloride 105, Carbon Dioxide 28.0, Anion Gap 5, BUN 50 H, Creatinine 0.90, Estim Creat Clear Calc 43.45, Est GFR (MDRD) Af Amer 77, Est GFR (MDRD) Non-Af 64, BUN/Creatinine Ratio 55.6 H, Glucose 98, Calcium 8.3 L Microbiology: Microbiology 07/07/23 18:50 Blood Culture (Wb) - Anticubital Right Blood Culture - Preliminary No growth in 48 hours. 07/07/23 18:55 Blood Culture (Wb) - No Site/Description Given Blood Culture - Preliminary No growth in 48 hours. 07/07/23 20:38 Urine, Clean Catch Urine Culture - Final Culture exhibits no growth. D/C Instructions Discharge Diet: No restrictions Weight Bearing Status: Weight bearing as tolerated Meaningful Use Info Meaningful Use Diagnoses (Choose all that apply): None applicable Discharge Plan Admission Admit Date/Time: 07/07/23 23:39 Primary Reason for Your Visit: debility,low/high potassium levels, heel ulcer Attending Provider: Vince Broussard Primary Care Provider: Art Verduzco Chi Consulting Providers: Radhames Jones; Noah Ayala Instructions Additional Instructions / Restrictions: Please call [facility] [phone] when follow-up appt scheduled with Dr. Verduzco Do not take Lisinopril/HCT Get over the counter Ferrous Sulfate 325 mg and take one daily on an empty stomach Discharge Orders/Prescriptions Prescriptions: New furosemide 40 mg Tablet 40 mg PO DAILY Qty: 30 0RF potassium chloride 10 mEq tablet extended release 30 meq PO BID Qty: 180 0RF Continued lorazepam 0.5 mg tablet 1 mg PO BID Patient Comments: TAKE 2 TABLETS BY MOUTH TWICE DAILY oxycodone 10 mg tablet 10 mg PO TID PRN (Reason: Pain) tizanidine 4 mg tablet 4 mg PO TID PRN (Reason: LEG Cramps) pantoprazole 40 mg tablet,delayed release (DR/EC) 40 mg PO BID Patient Comments: TAKE 1 TABLET BY MOUTH ONCE DAILY sertraline 50 mg tablet 50 mg PO DAILY Qty: 60 0RF atorvastatin 20 mg tablet 20 mg PO QHS Qty: 90 3RF carvedilol 6.25 mg tablet See Rx Instructions .ROUTE .COMPLEX Qty: 180 3RF Dose Instruction: TAKE 1 TABLET BY MOUTH TWICE A DAY Rx Instructions: TAKE 1 TABLET BY MOUTH TWICE A DAY furosemide 20 mg tablet See Rx Instructions .ROUTE .COMPLEX Qty: 180 3RF Dose Instruction: DAILY: TAKE AN ADDITIONAL 20 MG DOSE AT 5 PM FOR INCREASED LEG SWELLING OR WEIGHT GAIN 5 POUNDS IN 1 WEEK. Rx Instructions: DAILY: TAKE AN ADDITIONAL 20 MG DOSE AT 5 PM FOR INCREASED LEG SWELLING OR WEIGHT GAIN 5 POUNDS IN 1 WEEK. hydroxychloroquine [Plaquenil] 200 mg Tablet 200 mg PO DAILY cholecalciferol (vitamin D3) [Vitamin D3] 125 mcg (5,000 unit) Tablet 125 mcg PO DAILY fluticasone propion-salmeterol [Advair Diskus] 100-50 mcg/dose Blister With Device 1 inh INHALATION BID PRN PRN (Reason: BREATHING) diphenhydramine HCl [ZzzQuil] 25 mg Capsule 25 mg PO QHS PRN (Reason: Sleep) Linzess 290 mcg capsule 290 mcg PO DAILY PRN (Reason: IBS) Discontinued lisinopril-hydrochlorothiazide 20-12.5 mg tablet See Rx Instructions .ROUTE .COMPLEX Qty: 180 3RF Dose Instruction: TAKE 1 TABLET BY MOUTH TWICE A DAY Rx Instructions: TAKE 1 TABLET BY MOUTH TWICE A DAY potassium chloride 20 mEq tablet,ER particles/crystals 20 meq PO BID Qty: 90 3RF Referrals / Follow Up: Radhames Jones DPM [Med Staff - Active Staff] - See Referral Note (Follow up in wound care clinic) Art Verduzco Chi, MD [Primary Care Provider] - In 1 Day Disposition Disposition (needs filled in before D/C Order can be placed): Home, Self Care Charges/Coding Visit Charges Inpatient E&M: 57881 Disch Hosp >30min
== END 2023-07-11 12:23 | disposition home or self-care (01) | DRG 593 ==
LOC: ED 22:53 → PCU 23:26 → ICU 07-08 00:47 → PCU 07-09 14:24 → ICU 07-12 15:40 → PCU 07-12 15:42
PROVIDERS: Admitting Provider Internal Medicine; Emergency Provider Emergency Medicine; PCP Family Medicine Geriatric Medicine; Visit Provider Internal Medicine
DX: L89.620 Pressure ulcer of left heel, unstageable (principal); L03.115 Cellulitis of right lower limb; I50.32 Chronic diastolic (congestive) heart failure; L03.116 Cellulitis of left lower limb; I27.20 Pulmonary hypertension, unspecified; I11.0 Hypertensive heart disease with heart failure; J44.9 Chronic obstructive pulmonary disease, unspecified; F32.A Depression, unspecified; E87.6 Hypokalemia; D50.9 Iron deficiency anemia, unspecified; E78.00 Pure hypercholesterolemia, unspecified; K21.9 Gastro-esophageal reflux disease without esophagitis; E83.42 Hypomagnesemia; I25.10 Atherosclerotic heart disease of native coronary artery without angina pectoris; I25.2 Old myocardial infarction; E86.0 Dehydration; I95.2 Hypotension due to drugs; G62.9 Polyneuropathy, unspecified; K58.1 Irritable bowel syndrome with constipation; F41.9 Anxiety disorder, unspecified; Z89.421 Acquired absence of other right toe(s); T50.1X5A Adverse effect of loop [high-ceiling] diuretics, initial encounter; T50.2X5A Adverse effect of carbonic-anhydrase inhibitors, benzothiadiazides and other diuretics, initial encounter; T46.4X5A Adverse effect of angiotensin-converting-enzyme inhibitors, initial encounter; R53.81 Other malaise; Z79.51 Long term (current) use of inhaled steroids; Z79.899 Other long term (current) drug therapy
CPT/HCPCS: 36415; 71045; 73630; 80048; 80053; 81001; 82728; 82962; 83540; 83550; 83605; 83735; 84100; 84132; 84134; 85025; 85610; 85730; 87040; 87086; 93005; 93923; 94640; 94668; 97110; 97162; 97166; 97530; 99285; J7040; J7050; P9047; A4216; J1940; J2405; J2916

== ENCOUNTER → 2023-07-12 | Outpatient (CLI) | payer MEDICARE, OTHER, SELFPAY ==
[2023-07-12 12:29] LABS: Absolute Lymphocyte Count 1.38 X10^3/uL (0.83-4.51); Absolute Neutrophil Count 5.5 X10^3/uL (2.0-7.7); Basophil# 0.02 X10^3/uL; Basophil% 0.3 % (0-1); Eosinophil# 0.36 X10^3/uL; Eosinophils% 4.6 % (0-5); Hematocrit 34.9 % (37-47); Hemoglobin 10.8 g/dL (12.0-15.0); Lymphocyte # 1.38 X10^3/ul (0.83-4.51); Lymphocyte % 17.4 % (19-41); Mean Corp Hgb Conc 30.9 g/dL (32-36); Mean Corpuscular Volume 96.9 fL (81-99); Mean Platelet Vol. 10.9 fl (6.2-12.0); Monocyte# 0.56 X10^3/uL; Monocyte% 7.1 % (0-10); NRBC Flagged by Analyzer 0 % (0-5); Neutrophil # 5.53 X10^3/uL (2.7-7.7); Neutrophil % 69.8 % (47-70); Platelet Count 324 K/mm3 (150-450); RBC Distribution Width CV 14.9 % (11.6-14.6); RBC Distribution Width SD 52.6 fl (35.1-43.9); White Blood Count 7.9 K/mm3 (4.4-11.0)
[2023-07-12 13:20] LABS: Anion Gap 7 (5-15); BUN 41 mg/dL (7-18); BUN/Creat Ratio 39.8 RATIO (10-20); Chloride 102 mmol/L (98-107); Creatinine, Serum 1.03 mg/dL (0.55-1.02); EST Glomerular Filtration Rate 55 mL/min (>60); Est Glom Filt Rate - Afr Amer 66 mL/min (>60); Glucose 81 mg/dL (74-106); Potassium 3.3 mmol/L (3.5-5.1); Sodium Level 136 mmol/L (136-145)
== END | disposition home or self-care (01) ==
LOC: POLAB3 11:52
PROVIDERS: PCP Family Medicine Geriatric Medicine; Visit Provider Family Medicine Geriatric Medicine
DX: I10 Essential (primary) hypertension (principal)
CPT/HCPCS: 36415; 80048; 85025

== ENCOUNTER → 2023-07-28 | Outpatient (CLI) | payer MEDICARE, OTHER, SELFPAY | END | disposition home or self-care (01) | LOC: LABSPEC 07:53 | PROVIDERS: PCP Family Medicine Geriatric Medicine; Referring Provider Podiatrist Foot & Ankle Surgery; Visit Provider Podiatrist Foot & Ankle Surgery | DX: S91.302A Unspecified open wound, left foot, initial encounter (principal) | CPT/HCPCS: 87070; 87075; 87077; 87101; 87186; 87205 ==

== ENCOUNTER 2023-10-06 13:28 | Inpatient (IN) | payer MEDICARE, OTHER, SELFPAY ==
[2023-10-06] VITALS (15 sets, daily range): BP systolic 73–111; BP diastolic 40–59; PULSE 61–81; RESP 14–19; TEMP 36.1–36.9; O2SAT 93–100; BMI 30.6; BMI 28.6
--- NOTE | 2023-10-06 14:32 | EKG12_ITS ---
Test Reason : low bp Blood Pressure : / mmHG Vent. Rate : 062 BPM Atrial Rate : 062 BPM P-R Int : 206 ms QRS Dur : 126 ms QT Int : 446 ms P-R-T Axes : 047 -56 056 degrees QTc Int : 452 ms Sinus rhythm with Premature atrial complexes Left axis deviation Left bundle branch block Abnormal ECG Confirmed by SAMUEL MORRIS, TC ([id number]), mapping editor GRICELDA KOEHLER ([id number]) on 10/13/2023 10:28:02 A M Referred By: Confirmed By:EVIE BAKER MD
--- NOTE | 2023-10-06 14:32 | CT_ITS ---
STUDY: CT BRAIN WITHOUT CONTRAST REASON FOR EXAM: Female, 83 years old. Dizziness. Hypotension. RADIATION DOSAGE (If Supplied By Facility): CTDIvol = ( 44.99 ) mGy, DLP = ( 796.11 ) mGycm TECHNIQUE: Transaxial CT imaging of the brain was performed without administration of intravenous contrast material. Individualized dose optimization techniques were used for this CT. COMPARISON: Comparison is made with prior study dated May 01, 2017. FINDINGS: Normal soft tissue structures. Normal calvarium. There is mild cerebral atrophy with widening of the extra-axial spaces and ventricular dilatation. There are areas of decreased attenuation within the white matter tracts of the supratentorial brain, consistent with microvascular disease changes. Normal basal ganglia and thalami. Normal brainstem. There is mild cerebellar atrophy. There is no intracranial hemorrhage. There are no findings of an acute ischemic infarction. Atherosclerotic calcification of the vertebral arteries and cavernous portions of the internal carotid arteries bilaterally. Normal visualized paranasal sinuses. CT/Brain/Head without Contrast IMPRESSION: Chronic involutional changes of the brain. Electronically Signed: Yuri Miller MD at 15:32 EDT ,
--- NOTE | 2023-10-06 14:39 | EX.ED.DYSGE1 ---
HPI History of Present Illness Chief Complaint: Hypotension Informant: patient and family Narrative Narrative: 83-year-old female presenting to the emergency room chief complaint of low blood pressure. Patient states that since June she has not been taking her blood pressure medications other than Lasix due to lower than normal blood pressure. She states that her systolic reading tends to be around 85-95. The patient states that she has a chronic wound to the left heel for which she sees Dr. Goff and has had a skin graft. She states that up until about a week ago she was on antibiotics but is unsure which 1. She states that she has felt generally weak and more short of breath than normal. Wednesday morning she states she had a fall while she was dizzy. She states she landed more in a sitting position onto her back. She states that she felt pain in the low back up to her head. She continues to have a headache. She continues to have generalized back pain with movement. She denies any fever or cough. No shortness of breath at rest. She notes that she chronically has lymphedema. She states that her legs are swelling. Patient has a history of CHF, CAD, COPD, fibromyalgia, anemia. [facility] Medical History Hiatal hernia Gout Wears glasses Wears dentures Walker as ambulation aid Urinary incontinence High cholesterol Easy bruising Blackout Difficulty swallowing History of IBS Gastric reflux Non-smoker Neuropathy Shortness of breath on exertion Leg cramps History of CHF (congestive heart failure) History of heart attack History of edema History of stress test History of echocardiogram Cardiology follow-up encounter History of COPD CHF (congestive heart failure) (HFpEF) heart failure with preserved ejection fraction History of pneumonia Heart valve problem Ulcer Heart disease Gastrointestinal problem History of emotional problems Carpal tunnel syndrome History of blood transfusion Back problem Asthma Arthritis Generalized weakness Coronary artery disease COPD (chronic obstructive pulmonary disease) Anemia Depression Anxiety Irritable bowel syndrome Constipation Edema Osteoarthritis of left hip Aseptic loosening of prosthetic hip NSTEMI (non-ST elevated myocardial infarction) Fibromyalgia GERD (gastroesophageal reflux disease) Hyperlipidemia Hypertension Home Medications ?Medication ?Instructions ?Recorded ?Last Taken ?Type lorazepam 0.5 mg tablet 1 mg PO BID 08/26/21 01/16/22 07:30 History oxycodone 10 mg tablet 10 mg PO TID PRN Pain 10/08/21 01/16/22 07:30 History tizanidine 4 mg tablet 4 mg PO TID PRN LEG Cramps 10/08/21 Unknown History cholecalciferol (vitamin D3) 125 125 mcg PO DAILY 01/12/22 Unknown History mcg (5,000 unit) tablet (Vitamin D3) diphenhydramine HCl 25 mg capsule 25 mg PO QHS PRN Sleep 01/12/22 Unknown History (ZzzQuil) fluticasone 100 mcg-salmeterol 50 1 inh inhalation BID PRN PRN 01/12/22 01/16/22 History mcg/dose blistr powdr for BREATHING inhalation (Advair Diskus) hydroxychloroquine 200 mg tablet 200 mg PO DAILY RA 01/12/22 Unknown History (Plaquenil) linaclotide 290 mcg capsule 290 mcg PO DAILY PRN IBS 03/12/23 Unknown History (Linzess) pantoprazole 40 mg tablet,delayed 40 mg PO BID 03/12/23 Unknown History release atorvastatin 20 mg tablet 20 mg PO QHS #90 tabs 06/11/23 Unknown Rx carvedilol 6.25 mg tablet See Rx Instructions .Route 06/11/23 Unknown Rx .COMPLEX #180 tabs furosemide 20 mg tablet See Rx Instructions .Route 06/11/23 Unknown Rx .COMPLEX #180 tabs sertraline 50 mg tablet 50 mg PO DAILY #60 tabs 06/11/23 Unknown Rx furosemide 40 mg tablet 40 mg PO DAILY #30 tabs 07/11/23 Unknown Rx potassium chloride 10 mEq 30 meq (3 x 10 mEq) PO BID #180 07/11/23 Unknown Rx tablet,extended release tabs ciprofloxacin HCl 750 mg tablet 750 mg PO BID 7 days #14 tabs 08/18/23 Unknown Rx Allergy/AdvReac Type Severity Reaction Status Date / Time hydrocodone bitartrate (From Allergy Unknown Rash Verified 07/07/23 18:39 Vicodin) propoxyphene Allergy Unknown Unknown Verified 07/07/23 18:39 fentanyl Allergy feels Verified 07/07/23 18:39 terrible NSAIDS (Non-Steroidal AdvReac Unknown Unknown Verified 07/07/23 18:39 Anti-Inflamma prednisone AdvReac Unknown palpitation Verified 07/07/23 18:39 s acetaminophen (From Tylenol) AdvReac Nausea Verified 07/07/23 18:39 diazepam (From Valium) AdvReac Other Verified 07/07/23 18:39 Family History Father Heart disease Myocardial infarction Mother Hyperlipidemia Diabetes Anxiety Arthritis Depression Sister Thyroid disorder Sister Thyroid disorder Surgical History History of colonoscopy History of shoulder surgery History of back surgery History of bilateral knee replacement History of total hysterectomy History of left heart catheterization (~01/15/15) Status post revision of total hip replacement Social History Smoking Status: Never smoker alcohol intake: never caffeine: No what type of physical activity do you participate in: other frequency: 3-4 times per week ROS ROS ED Constitutional Constitutional ED: Denies chills, fever(s) or weight loss Eyes Eyes: Denies change in vision or diplopia ENT ENT ED: Denies ear pain, rhinorrhea or sore throat Cardiovascular Cardiovascular: Denies chest pain, orthopnea, palpitations or racing heartbeat Respiratory/Chest Respiratory/Chest: Reports dyspnea on exertion; Denies cough, dyspnea or orthopnea Gastrointestinal Gastrointestinal: Denies abdominal pain, diarrhea, nausea or vomiting Genitourinary Genitourinary ED: Denies dysuria, hematuria or urinary frequency Musculoskeletal Musculoskeletal: Reports back pain, neck pain and other Details: Left leg chronically more swollen than right ; Denies arthralgias or myalgias Integumentary Reports other Details: Chronic wound left heel. Left leg weeping ; Denies abscess or rash Neurologic Neurologic: Reports headache(s); Denies paresthesias or weakness Psychiatric Psychiatric: Denies anxiety, depression, suicidal ideation or suicidal thoughts Endocrine Endocrinology: Denies polydipsia, polyphagia or polyuria Allergic/Immunologic Allergic/Immunologic ED: Denies mouth swelling, tongue swelling or urticaria EXAM Physical Exam Const Vital Signs: 10/06/23 13:29 10/06/23 13:30 10/06/23 13:52 Temperature 97 F L 98.2 F Temperature Source Temporal Oral Pulse Rate 63 64 Respiratory Rate 15 16 Blood Pressure 73/40 L 111/56 L Blood Pressure Mean 51 74 Pulse Ox 99 98 97 Oxygen Delivery Method Room Air Room Air Room Air 10/06/23 13:52 Temperature Temperature Source Pulse Rate Respiratory Rate Blood Pressure Blood Pressure Mean Pulse Ox Oxygen Delivery Method Room Air Positive well nourished, well developed and obese General Appearance ED: well developed Nutritional Appearance: obese HEENT Reports normocephalic, head/scalp atraumatic and moist mucous membranes Negative for trauma Eyes PERRL and EOMs intact bilaterally Neck no lymphadenopathy, supple and no JVD Resp normal respiratory effort and clear to auscultation bilaterally Cardio regular rate, regular rhythm and no murmurs GI normal to inspection, nondistended, normoactive bowel sounds and non-tender Palpation: soft Back/Spine no CVA tenderness Back/Spine Narrative: Patient reports mild tenderness palpation over the high lumbar lower thoracic spine/paraspinal musculature Extremity Extremity Narrative: Bilateral leg swelling with weeping of the left leg. Chronic venous stasis changes. Has a chronic wound of the left heel. I do not see any obvious cellulitic changes. No purulent drainage. Neuro oriented x3 and CN's II-XII intact bilaterally Sensorium / Orientation: alert Motor Exam: strength 5/5 throughout Psych Psych Narrative: Patient cries when lifting her leg to examine the wound of her left heel. She states she just wants to go home and does not care that she I will just get by. Mood & Affect: depressed and tearful Skin no rashes or lesions noted MDM MDM History & Record Review Discussion w/independent historian: Patient and Family EKG Initial EKG: Attestation: I personally reviewed and interpreted this EKG as follows: Comments: Sinus rhythm with PAC. Bundle branch block noted. Ventricular rate 62 bpm Discharge Plan Triage Chief Complaint: Hypotension ED Provider: Flex Scott Dx/Rx/DC Orders Prescriptions: No Action lorazepam 0.5 mg tablet 1 mg PO BID Patient Comments: TAKE 2 TABLETS BY MOUTH TWICE DAILY oxycodone 10 mg tablet 10 mg PO TID PRN (Reason: Pain) tizanidine 4 mg tablet 4 mg PO TID PRN (Reason: LEG Cramps) pantoprazole 40 mg tablet,delayed release (DR/EC) 40 mg PO BID Patient Comments: TAKE 1 TABLET BY MOUTH ONCE DAILY sertraline 50 mg tablet 50 mg PO DAILY Qty: 60 0RF atorvastatin 20 mg tablet 20 mg PO QHS Qty: 90 3RF carvedilol 6.25 mg tablet See Rx Instructions .ROUTE .COMPLEX Qty: 180 3RF Dose Instruction: TAKE 1 TABLET BY MOUTH TWICE A DAY Rx Instructions: TAKE 1 TABLET BY MOUTH TWICE A DAY furosemide 20 mg tablet See Rx Instructions .ROUTE .COMPLEX Qty: 180 3RF Dose Instruction: DAILY: TAKE AN ADDITIONAL 20 MG DOSE AT 5 PM FOR INCREASED LEG SWELLING OR WEIGHT GAIN 5 POUNDS IN 1 WEEK. Rx Instructions: DAILY: TAKE AN ADDITIONAL 20 MG DOSE AT 5 PM FOR INCREASED LEG SWELLING OR WEIGHT GAIN 5 POUNDS IN 1 WEEK. hydroxychloroquine [Plaquenil] 200 mg Tablet 200 mg PO DAILY cholecalciferol (vitamin D3) [Vitamin D3] 125 mcg (5,000 unit) Tablet 125 mcg PO DAILY fluticasone propion-salmeterol [Advair Diskus] 100-50 mcg/dose Blister With Device 1 inh INHALATION BID PRN PRN (Reason: BREATHING) diphenhydramine HCl [ZzzQuil] 25 mg Capsule 25 mg PO QHS PRN (Reason: Sleep) Linzess 290 mcg capsule 290 mcg PO DAILY PRN (Reason: IBS) ciprofloxacin HCl 750 mg tablet 750 mg PO BID 7 Days Qty: 14 0RF furosemide 40 mg Tablet 40 mg PO DAILY Qty: 30 0RF potassium chloride 10 mEq tablet extended release 30 meq PO BID Qty: 180 0RF Primary Care Provider: Art Verduzco Chi Referrals: Art Verduzco Chi, MD [Primary Care Provider] - Print Language: Chinese
[2023-10-06 14:47] LABS: Absolute Lymphocyte Count 1.39 X10^3/uL (0.83-4.51); Absolute Neutrophil Count 2.2 X10^3/uL (2.0-7.7); Basophil# 0.01 X10^3/uL; Basophil% 0.2 % (0-1); Eosinophil# 0.15 X10^3/uL; Eosinophils% 3.7 % (0-5); Hematocrit 27.9 % (37-47); Lymphocyte # 1.39 X10^3/ul (0.83-4.51); Lymphocyte % 33.9 % (19-41); Mean Corp Hgb Conc 32.3 g/dL (32-36); Mean Corpuscular Hgb 30.6 pg (27.0-32.0); Mean Corpuscular Volume 94.9 fL (81-99); Mean Platelet Vol. 11.4 fl (6.2-12.0); Monocyte# 0.34 X10^3/uL; Monocyte% 8.3 % (0-10); NRBC Flagged by Analyzer 0 % (0-5); Neutrophil % 53.7 % (47-70); Platelet Count 165 K/mm3 (150-450); RBC Distribution Width CV 13.4 % (11.6-14.6); RBC Distribution Width SD 46.5 fl (35.1-43.9); Red Blood Count 2.94 M/mm3 (4.2-5.4); White Blood Count 4.1 K/mm3 (4.4-11.0)
[2023-10-06 14:48] LABS: International Normalized Ratio 1.3; Prothrombin Time (Protime)PT. 16.3 SECONDS (11.7-14.9)
[2023-10-06 14:49] LABS: Lactic Acid 1.2 mmol/L (0.4-1.9); Partial Thromboplast Time 33.3 Seconds (24.1-36.2)
[2023-10-06 15:18] LABS: BNP,B-Type NATRIURETIC PEPTIDE 29.5 pg/mL (0-100)
[2023-10-06 15:31] LABS: Mucous, Urine 0 SEEN /hpf (<or=2+); Red Blood Cells-Urine 0 SEEN /hpf (0-5); White Blood Cells 0 SEEN /hpf (0-5)
[2023-10-06 15:46] LABS: Color, Urine Yellow (Yellow); Glucose, Dipstick Normal (Normal); Ketone-Dipstick Negative (Negative); Leukocyte Esterase-Dipstick 25 /ul (Negative); Nitrite-Dipstick Negative (Negative); Occult Blood-Urine Negative /ul (Negative); Protein-Dipstick Negative (Negative); Urine Bilirubin Dipstick Negative (Negative); Urine Clarity Clear (Clear); Urine Urobilinogen Normal (Normal)
[2023-10-06 15:58] LABS: Hyaline Cast 0-5 SEEN /lpf (0-5)
[2023-10-06 15:59] LABS: Bacteria 1+ /hpf (None Seen); Squamous Epithelial Cells - UA 0-5 SEEN /hpf (5-10)
[2023-10-06 16:17] LABS: AST(SGOT) 21 U/L (15-37); Alanine Aminotransfer ALT/SGPT 13 U/L (13-56); Albumin, Serum 3.1 g/dL (3.2-5.0); Alkaline Phosphatase 73 U/L (45-117); Anion Gap 9 (5-15); BUN 93 mg/dL (7-18); BUN/Creat Ratio 28.7 RATIO (10-20); Bilirubin, Direct 0.14 mg/dL (0.00-0.30); Calcium,Total 8.5 mg/dL (8.5-10.1); Chloride 93 mmol/L (98-107); Creatinine, Serum 3.24 mg/dL (0.55-1.02); EST Glomerular Filtration Rate 15 mL/min (>60); Est Glom Filt Rate - Afr Amer 18 mL/min (>60); Estimated Creatinine Clearance 11.79 ml/min; Globulin 4.2 g/dL (2.2-4.2); Glucose 99 mg/dL (74-106); Lipase 13 U/L (13-75); Protein, Total 7.3 g/dL (6.4-8.2); Sodium Level 128 mmol/L (136-145); Troponin-I HS 8 pg/mL (3.0-54.0)
--- NOTE | 2023-10-06 16:24 | CT_ITS ---
STUDY: CT CHEST, ABDOMEN T PELVIS WITHOUT CONTRAST REASON FOR EXAM: Female, 83 years old. hypotension, acute renal failure RADIATION DOSAGE (If Supplied By Facility): CTDIvol = ( 14.58 ) mGy, DLP = ( 1251.41 ) mGycm TECHNIQUE: Transaxial imaging was performed without the administration of intravenous contrast material. Individualized dose optimization techniques were used for this CT. COMPARISON: No relevant priors. FINDINGS: CHEST Minor atelectasis within the dependent portion of the lower lobes.. Tiny noncalcified nodule in the right lower lobe measuring approximately 3.3 mm There is no demonstrated pleural abnormality. Heart size is normal. There is multilevel vessel coronary artery calcification. Normal mediastinum. Normal hilar regions. Normal unenhanced pulmonary arteries. Atherosclerotic changes of the aorta without evidence for aneurysm. Dorsal spine demonstrates exaggerated kyphosis degenerative changes and multilevel chronic compression deformities. Large intrathoracic hiatal hernia is noted. ABDOMEN . Normal liver. Normal gallbladder and extrahepatic biliary system. Normal spleen. Atrophic fatty infiltrated pancreas.. Normal bilateral adrenal glands. No evidence for renal obstruction. There is a tiny hemorrhagic cyst in each kidney. Normal visualized stomach. Normal small intestine. No evidence for acute appendicitis Mild atherosclerotic change of the aorta without evidence for aneurysm. Normal inferior vena cava. Normal retroperitoneum. Normal abdominal wall. Normal osseous structures. PELVIS Incompletely distended mildly thick walled bladder likely of no significance. Uterus not visualized status post hysterectomy Normal visualized small intestine. There is diffusely distended fecal filled colon There is no pelvic fluid. There is no pelvic lymphadenopathy or mass lesion. Normal visualized pelvic arteries. Small bilateral inguinal nodes most likely benign.. Lumbar spine demonstrates degenerative changes. There is grade 1 spondylolisthesis at L5-S1 and grade 1 retrolisthesis at L2-3. Postop change status post bilateral laminectomy at L3-4 through L5-S1. Left hip prosthesis noted. CT/CT Chest, Abd, Pelvis WO Cont IMPRESSION: Atherosclerotic changes and minor atelectasis within the dependent portion of both lower lobes. . Tiny noncalcified nodule right lower lobe most likely benign. However would recommend follow-up imaging utilizing Fleischner Society criteria if clinically warranted No acute abnormality within the abdomen and pelvis with incidental finding of diffusely distended fecal filled colon Electronically Signed: David Escobar MD at 18:15 EDT ,
--- NOTE | 2023-10-06 18:21 | ED.RN ---
Pts BP continues to be low last being 80/44. Dr. Lopez informed
--- NOTE | 2023-10-06 19:38 | HP.PCM.HOS_ITS ---
HPI - General General Date of Admission: 10/06/23 Date of Service: 10/06/23 Chief Complaint: LH/dizziness/low BPs. HPI Narrative The patient is an 83 y/o F w/ PMHx: Obesity, Hx ND, CAD with history of Takotsubo cardiomyopathy, HFpEF, GERD, Chronic neuropathy, Chronic anemia, COPD, Anxiety and Depression, HTN, HLD who presents to the [facility] ED on 10/06/23 with history of low blood pressure reporting that since June she has not been taking any of her medications aside Lasix secondary to lower blood pressures with her systolic normal reading tending to be 85-95 with also a chronic wound to the left heel for which she is following with Dr. Goff and has had a skin graft on Wednesday which has been well appearing with no discharge or drainage but she does report being fatigued with reported fall on Wednesday morning secondary to dizziness landing in a seated position eventually then onto her back with ongoing lumbar discomfort, worse with lumbar back movement with complaints of mild increased swelling to her legs with chronic underlying lymphedema but she has been less active given the discomfort. She notes the lightheadedness and dizziness are worse with significant positional changes especially going from sitting to standing attempts. Workup in the ED included T97, heart rate 63, BP initial 73/40, respiratory rate 15, 99% on room air with most recent repeat vitals T97.2, heart rate 78, BP 80/44, respiratory rate 19, 97% on room air with review of vital signs in the ED and the highest MAP 74 however that was at 1330, CBC with WC 4.1, hemoglobin 9.0, MCV 94.9, platelet 165 without marked shift, coags unremarkable aside PT 16.3, CMP with sodium 128, chloride 93, BUN/creatinine 93/3.24, GFR 15, lactic acid 1.2, hepatic profile unremarkable, troponin 8, BNP 29.5, lipase 13, urinalysis not marked appearing with only leukocyte estrace 25 with no urine WBCs but noted 1+ bacteria, blood culture x 2 pending per ED, CT brain with chronic involutional changes, CT chest/abdomen/pelvis without contrast with noted atherosclerotic changes and minor atelectasis within the dependent portion of both lower lobes, tiny noncalcified nodule right lower lobe most likely benign, no acute abnormality within the abdomen or pelvis with incidental findings of diffusely distended fecal filled colon, EKG with sinus rhythm with PAC with bundle branch block with no acute evidence of ischemia. In the ED patient administered IV fluids. [facility] Medical History Hiatal hernia Gout Wears glasses Wears dentures Walker as ambulation aid Urinary incontinence High cholesterol Easy bruising Blackout Difficulty swallowing History of IBS Gastric reflux Non-smoker Neuropathy Shortness of breath on exertion Leg cramps History of CHF (congestive heart failure) History of heart attack History of edema History of stress test History of echocardiogram Cardiology follow-up encounter History of COPD CHF (congestive heart failure) (HFpEF) heart failure with preserved ejection fraction History of pneumonia Heart valve problem Ulcer Heart disease Gastrointestinal problem History of emotional problems Carpal tunnel syndrome History of blood transfusion Back problem Asthma Arthritis Generalized weakness Coronary artery disease COPD (chronic obstructive pulmonary disease) Anemia Depression Anxiety Irritable bowel syndrome Constipation Edema Osteoarthritis of left hip Aseptic loosening of prosthetic hip NSTEMI (non-ST elevated myocardial infarction) Fibromyalgia GERD (gastroesophageal reflux disease) Hyperlipidemia Hypertension Home Medications ?Medication ?Instructions ?Recorded ?Last Taken ?Type lorazepam 0.5 mg tablet 1 mg PO BID 08/26/21 01/16/22 07:30 History oxycodone 10 mg tablet 10 mg PO TID PRN Pain 10/08/21 01/16/22 07:30 History tizanidine 4 mg tablet 4 mg PO QHS PRN LEG Cramps 10/08/21 Unknown History hydroxychloroquine 200 mg tablet 200 mg PO DAILY RA 01/12/22 Unknown History (Plaquenil) linaclotide 290 mcg capsule 290 mcg PO DAILY PRN IBS 03/12/23 Unknown History (Linzess) pantoprazole 40 mg tablet,delayed 40 mg PO BID 03/12/23 Unknown History release atorvastatin 20 mg tablet 20 mg PO QHS #90 tabs 06/11/23 Unknown Rx carvedilol 6.25 mg tablet See Rx Instructions .Route 06/11/23 Unknown Rx .COMPLEX #180 tabs furosemide 40 mg tablet 40 mg PO DAILY #30 tabs 07/11/23 Unknown Rx potassium chloride 10 mEq 30 meq (3 x 10 mEq) PO BID #180 07/11/23 Unknown Rx tablet,extended release tabs ciprofloxacin HCl 250 mg tablet 250 mg PO BID 10/06/23 Unknown History doxepin 25 mg capsule 25 mg PO DAILY 10/06/23 Unknown History Allergy/AdvReac Type Severity Reaction Status Date / Time hydrocodone bitartrate (From Allergy Unknown Rash Verified 07/07/23 18:39 Vicodin) propoxyphene Allergy Unknown Unknown Verified 07/07/23 18:39 fentanyl Allergy feels Verified 07/07/23 18:39 terrible NSAIDS (Non-Steroidal AdvReac Unknown Unknown Verified 07/07/23 18:39 Anti-Inflamma prednisone AdvReac Unknown palpitation Verified 07/07/23 18:39 s acetaminophen (From Tylenol) AdvReac Nausea Verified 07/07/23 18:39 diazepam (From Valium) AdvReac Other Verified 07/07/23 18:39 Family History Father Heart disease Myocardial infarction Mother Hyperlipidemia Diabetes Anxiety Arthritis Depression Sister Thyroid disorder Sister Thyroid disorder Surgical History History of colonoscopy History of shoulder surgery History of back surgery History of bilateral knee replacement History of total hysterectomy History of left heart catheterization (~01/15/15) Status post revision of total hip replacement Social History household members: spouse Smoking Status: Never smoker alcohol intake: never caffeine: No what type of physical activity do you participate in: other frequency: 3-4 times per week ROS ROS Narrative Admission Review of Systems: CONSTITUTIONAL: No weight loss, fever, chills, + weakness or fatigue. HEENT: + Headache, lightheadedness, dizziness. Eyes: No visual loss, blurred vision, double vision or yellow sclerae. Ears, Nose, Throat: No hearing loss, sneezing, congestion, runny nose or sore throat. SKIN: + Chronic left heel ulcer status post recent debridement and skin graft. CARDIOVASCULAR: + Chronic lymphedema bilateral lower extremities, near syncopal sensation, lightheadedness, dizziness. No chest pain, chest pressure or chest discomfort, palpitations, edema, orthopnea. RESPIRATORY: + Chronic dyspnea and occasional chronic cough but no marked sputum production nor any recent increased wheezing or hemoptysis. GASTROINTESTINAL: No anorexia, nausea, vomiting or diarrhea, abdominal pain, melena, BRBPR. GENITOURINARY: No dysuria, frequency, urgency or retention. NEUROLOGICAL: + Headache, lightheadedness, dizziness, near syncopal sensation. No paralysis, ataxia, numbness or tingling in the extremities, focal weakness, change in bowel or bladder control, seizure. MUSCULOSKELETAL: + muscle, back pain, joint pain or stiffness. HEMATOLOGIC: + Chronic anemia, easy bleeding/bruising. LYMPHATICS: No enlarged nodes. No history of splenectomy. PSYCHIATRIC: + History of anxiety and depression. ENDOCRINOLOGIC: No reports of sweating, cold or heat intolerance. No polyuria or polydipsia. ALLERGIES: No history of asthma, hives, eczema or rhinitis. Vital Signs Vital Signs Vital Signs: 10/06/23 13:29 10/06/23 13:30 10/06/23 13:52 Temperature 97 F L 98.2 F Temperature Source Temporal Oral Pulse Rate 63 64 Respiratory Rate 15 16 Blood Pressure 73/40 L 111/56 L Blood Pressure Mean 51 74 Pulse Ox 99 98 97 Oxygen Delivery Method Room Air Room Air Room Air 10/06/23 13:52 10/06/23 14:30 10/06/23 15:00 Temperature 98.1 F Temperature Source Oral Pulse Rate 81 61 Respiratory Rate 17 15 Blood Pressure 83/44 L 93/59 L Blood Pressure Mean 57 70 Pulse Ox 97 100 Oxygen Delivery Method Room Air Room Air 10/06/23 16:00 10/06/23 16:48 10/06/23 17:00 Temperature 97.6 F L 97.6 F L Temperature Source Temporal Temporal Pulse Rate 66 68 Respiratory Rate 15 17 Blood Pressure 99/53 L 88/42 L 84/51 L Blood Pressure Mean 68 57 62 Pulse Ox 99 98 Oxygen Delivery Method Room Air Room Air 10/06/23 18:00 10/06/23 19:00 10/06/23 19:00 Temperature 97.2 F L 98.0 F 98.0 F Temperature Source Temporal Oral Oral Pulse Rate 78 72 72 Respiratory Rate 19 H 14 14 Blood Pressure 80/44 L 103/48 L 103/48 L Blood Pressure Mean 56 66 66 Pulse Ox 97 97 97 Oxygen Delivery Method Room Air Room Air Room Air 10/06/23 19:26 Temperature 98.0 F Temperature Source Pulse Rate 72 Respiratory Rate 16 Blood Pressure 103/48 L Blood Pressure Mean 66 Pulse Ox 97 Oxygen Delivery Method Weight Weight: 151 lb 10.848 oz Body Mass Index (BMI) 30.6 Physical Exam Narrative Physical Examination: General: Awake, alert, oriented x 3 and cooperative, laying in the ED bed, fatigued, no acute distress. Skin: Normal color, normal turgor, no icterus, no cyanosis except for bilateral lower extremity venous stasis skin changes as well as chronic left heel status post recent debridement and graft Wednesday, well-appearing, appears absorbed, no drainage. HEENT: AT/NC, EOMI, PERRLA, mildly dry MM, no carotid bruits or JVD noted. Lungs: Diminished, greater bases, appropriate effort, no rales, ronchi or wheezing. Heart: Regular rate and rhythm; no gallop, rub audible. Abdomen: Soft, obese, NTTP, ND, mildly hyperactive BS, no appreciated HSM. Extremities: No cyanosis, no clubbing, chronic lymphedema evident, see skin. Neurological: Patient awake, alert, oriented as noted, cognitive function intact; pupils equally reactive to light and accommodation, cranial nerves grossly normal, moving all 4 extremities, no focal deficits, strength moderately to severely globally decreased secondary to acute presentation complaints. Psychiatric: Affect appears fatigued, no acute evidence of depressive or anxiety feelings but does have underlying history. Results Lab / Micro Data 10/06/23 13:32 10/06/23 13:32 Labs: Laboratory Results - last 24 hr 10/06/23 13:32: WBC 4.1 L, RBC 2.94 L, Hgb 9.0 L, Hct 27.9 L, MCV 94.9, MCH 30.6, MCHC 32.3, RDW Std Deviation 46.5 H, RDW Coeff of Sin 13.4, Plt Count 165, MPV 11.4, Immature Gran % (Auto) 0.200, Neut % (Auto) 53.7, Lymph % (Auto) 33.9, [place] % (Auto) 8.3, Eos % (Auto) 3.7, Baso % (Auto) 0.2, Absolute Neuts (auto) 2.2, Absolute Lymphs (auto) 1.39, Nucleated RBC % 0, PT 16.3 H, INR 1.3, APTT 33.3, Sodium 128 L, Potassium 5.0, Chloride 93 L, Carbon Dioxide 26.0, Anion Gap 9, BUN 93 H, Creatinine 3.24 H, Estim Creat Clear Calc 11.79, Est GFR (MDRD) Af Amer 18 L, Est GFR (MDRD) Non-Af 15 L, BUN/Creatinine Ratio 28.7 H, Glucose 99, Lactic Acid 1.2, Calcium 8.5, Total Bilirubin 0.40, Direct Bilirubin 0.14, AST 21, ALT 13, Alkaline Phosphatase 73, Troponin I High Sens 8, B-Natriuretic Peptide 29.5, Total Protein 7.3, Albumin 3.1 L, Globulin 4.2, Lipase 13 10/06/23 15:19: Urine Color Yellow, Urine Clarity Clear, Urine pH 6.0, Ur Specific [place] 1.010, Urine Protein Negative, Urine Glucose (UA) Normal, Urine Ketones Negative, Urine Occult Blood Negative, Urine Nitrite Negative, Urine Bilirubin Negative, Urine Urobilinogen Normal, Ur Leukocyte Esterase 25 H, Urine RBC 0 SEEN, Urine WBC 0 SEEN, Ur Squamous Epith Cells 0-5 SEEN, Urine Bacteria 1+, Hyaline Casts 0-5 SEEN, Urine Mucus 0 SEEN Imaging Radiology Impression Brain CT 10/06/23 14:32 IMPRESSION: Chronic involutional changes of the brain. Electronically Signed: Yuri Miller MD at 15:32 EDT , Chest/Abdomen/Pelvis CT 10/06/23 16:24 IMPRESSION: Atherosclerotic changes and minor atelectasis within the dependent portion of both lower lobes. . Tiny noncalcified nodule right lower lobe most likely benign. However would recommend follow-up imaging utilizing Fleischner Society criteria if clinically warranted No acute abnormality within the abdomen and pelvis with incidental finding of diffusely distended fecal filled colon Electronically Signed: David Escobar MD at 18:15 EDT , Assessment & Plan Assessment/Plan (1) WERNER (acute kidney injury): (2) Hypotension: PLAN: Plan The patient is an 83 y/o F w/ PMHx: Obesity, Hx ND, CAD with history of Takotsubo cardiomyopathy, HFpEF, GERD, Chronic neuropathy, Chronic anemia, COPD, Anxiety and Depression, HTN, HLD who presents to the [facility] ED on 10/06/23 with history of low blood pressure reporting that since June she has not been taking any of her medications aside Lasix secondary to lower blood pressures with her systolic normal reading tending to be 85-95 with also a chronic wound to the left heel for which she is following with Dr. Koroma and has had a skin graft however up until a week ago she had been on antibiotic therapy but since then has been more weak, fatigued with a reported fall on Wednesday morning secondary to dizziness landing in a seated position eventually then onto her back with ongoing lumbar discomfort and an ongoing headache associated with discomfort to the back worse with movement with complaints of mild increased swelling to her legs with chronic underlying lymphedema but she has been less active given the discomfort. #1. Hypotension, possibly multifactorial with associated #2, #3 but certainly other etiologies are possibility including potentially adrenal insufficiency, overdiuresis: EKG with sinus rhythm with PAC with bundle branch block with no acute evidence of ischemia, CT C/A/P without acute marked findings, initial trop normal. Will admit to PCU, place on a monitored bed to assure no acute myocardial infarction with serial cardiac enzymes and EKGs. Will initiate cosyntropin stimulation test to assess possibility of adrenal insufficiency. Will maintain on fall precautions, obtain admission orthostatic and AM orthostatic VS and increase hydration judiciously if appropriate. Will obtain ECHO as last noted 2021. PT/OT consultation to ascertain stability and discharge needs. Procalcitonin pending. LA normal. No obvious evidence of infection. Will place dose x 1 with midodrine in the interim and monitor response. #2. Acute kidney injury on CKD stage III based on prior GFR trending, unclear subtype: Secondary to diuretics, dehydration. Admission BUN/Cr 93/3.24, prior baseline creatinine noted to be 0.9-1.0. Will judiciously hydrate given underlying heart failure history, hold nephrotoxic medications and repeat chemistry in AM. Will obtain renal US and FeNa assessment. Patient following with Dr. Guerrero Nephrology, will consult. #3. Hyponatremia, hypochloremia, suspected some component of hypovolemia especially given ongoing usage of diuretic therapy: Admission CMP with sodium 128, chloride 93, holding diuretic therapy, continue judicious hydration given history, repeat CMP in AM. #4. Adult FTT, multifactorial: Notable underlying comorbidities, notable presentation acutely as noted above #1, #2, #3, will consult PT/OT/CM to assist with discharge planning. #5. Chronic left heel wound with recent skin graft: Following with podiatry, Dr. Goff, will continue to offload, elevate, PT/OT/case management consulted for discharge planning. Will consult per his request following discussion upon patient admission Dr. Goff and in the interim per discussion with him we will continue Adaptic, 4 x 4 mount, ABD and Kerlix with overlapping piero wraps. Of note last abx noted 07/2023 cipro 750 mg po BID x 7 days but not noted since. #6. HFpEF/history of Takotsubo cardiomyopathy with chronic BL LE lymphedema: 10/06/2021 echocardiogram with normal LV size, LV systolic function normal, EF 60%, PASP 60 mmHg consistent with moderate pulmonary hypertension. Will continue patient aspirin, statin, temporarily holding Coreg, Lasix, lisinopril and hydrochlorothiazide component given significant hypotension, resume once clinically appropriate but may need adjustment. Will place neck Piero wraps with elevation especially given need to temporarily hold Lasix with acute kidney injury and hypotension. #7. CAD, reported history ND, history of Takotsubo cardiomyopathy: Cardiac catheterization 01/14/2015 with normal LV size and function, essential hypertension, normal left main coronary artery, left circumflex artery with no high-grade stenosis, first diagonal vessel with ostial 60 to 70% stenosis, right coronary artery with no significant stenosis with recommended medication adjustments at that time and continue medical management only. Will continue aspirin, statin, temporarily holding Coreg, lisinopril given significant hypotension upon presentation. #8. Chronic normocytic anemia/Fe deficiency anemia: Admission hemoglobin 9.0, MCV 94.9, baseline hemoglobin primarily has been 9-10, stable, continue to trend. #9. Chronic COPD: Will temporarily hold home inhaler in the interim transition to ATC budesonide therapy, PRN albuterol, HOB, IS parameters. #10. Anxiety and depression: We will continue patient sertraline and lorazepam home regimen cautiously given blood pressure with low threshold to hold. #11. Rheumatoid arthritis: We will continue patient home Plaquenil regimen, encourage continued outpatient follow-up with rheumatology as previously arranged. Will continue patient chronic oxycodone as BP allows to avoid any withdrawal. Encourage movement, positional changes, PT and OT consulted as noted. #12. Chronic IBS: Will continue patient as needed Linzess home regimen. #13. Obesity: Weight loss and lifestyle changes encouraged. #14. Hyperlipidemia: Will continue patient on statin therapy. #15. GERD: We will continue patient on PPI. #16. DVT prophylaxis: Heparin. #17. CODE status: Patient STANFORD is her daughter and son and living will is currently in place. Discussed CODE status at length including difference between FULL code, DNR-CCA and DNR-CC status. Following discussions about the differences in these status, requested DNR-CCA with allowance of intubation. Advanced Care Planning Face to Face Time: 16 minutes. Charges/Coding Visit Charges Inpatient E&M: 26541 Init Hosp L3 Procedures Hospitalists Procedures: 79121 Advncd Care Plan 30 Min
--- NOTE | 2023-10-06 20:57 | ECHOD_ITS ---
Version 2 Reason For Study: SYNCOPE Procedure This was a 2D Doppler, Color Flow transthoracic echocardiogram. Exam performed portable in patient room. Left Ventricle Normal LV size. Mild concentric left ventricular hypertrophy. Mid cavitary false tendon noted. The left ventricular ejection fraction is 65 %. Stage 2 diastolic dysfunction. Right Ventricle Normal right ventricle. Atria The left atrium is severely enlarged. The right atrium is mildly enlarged. Bubble contrast study is negative for PFO/ASD. Mitral Valve Trivial mitral valve insufficiency. Tricuspid Valve Mild tricuspid valve insufficiency. Right ventricular systolic pressure estimated to be 48 mmHg. Aortic Valve Trisinus/trileaflet aortic valve. Mild diffuse aortic valve calcification. Mild aortic stenosis. Pulmonic Valve The pulmonic valve is not well visualized. Great Vessels Calcified aortic root. Pericardium/Pleural No pericardial effusion. Medication Performed a rapid injection of agitated mix of 9 cc saline and 1cc air to assess for atrial septal defect. MMode/2D Measurements & Calculations LVIDd: 4.0 cm IVSd: 1.1 cm LVOT diam: 1.9 cm LVIDs: 2.6 cm LVPWd: 1.2 cm RVDd: 3.3 cm FS: 34.2 % LVOT area: 2.9 cm2 LAV(MOD-bp): 80.7 ml LVAd ap4: 28.2 cm2 SV(MOD-sp4): 71.1 ml LAV(MOD-bp) Indexed: 51.4 ml/m2 LVLd ap4: 7.3 cm LAV(MOD-sp2): 72.4 ml EDV(MOD-sp4): 93.4 ml LAV(MOD-sp4): 88.8 ml EDV(sp4-el): 92.9 ml LVAs ap4: 11.5 cm2 LVLs ap4: 5.4 cm ESV(MOD-sp4): 22.3 ml ESV(sp4-el): 20.8 ml EF(MOD-sp4): 76.1 % EF(sp4-el): 77.6 % SV(sp4-el): 72.1 ml LA A4 area: 25.8 cm2 RA A4 area: 12.7 cm2 TAPSE: 2.3 cm Time Measurements MV dec time: 0.23 sec Doppler Measurements & Calculations MV E max darien: 86.2 cm/sec Lat Peak E' [place]: 14.3 cm/sec Med Peak E' [place]: 7.3 cm/sec MV A max darien: 103.6 cm/sec E/E' lat: 6.0 E/E' med: 11.9 MV E/A: 0.83 MV V2 max: 126.9 cm/sec Ao V2 max: 215.5 cm/sec MV max P.4 mmHg MV dec slope: 389.0 cm/sec2 Ao max P.6 mmHg MV V2 mean: 75.1 cm/sec Ao V2 mean: 148.0 cm/sec MV mean P.7 mmHg Ao mean P.0 mmHg MV V2 VTI: 29.7 cm Ao V2 VTI: 46.5 cm AV (velocity ratio): 0.60 MVA(VTI): 2.7 cm2 MASSIEL(I,D): 1.7 cm2 MASSIEL(V,D): 1.6 cm2 LV V1 max: 120.4 cm/sec SV(LVOT): 81.2 ml PA V2 max: 100.1 cm/sec LV V1 max P.8 mmHg PA max PG (full): 1.9 mmHg LV V1 mean P.0 mmHg LV V1 mean: 96.1 cm/sec LV V1 VTI: 27.8 cm TR max darien: 329.7 cm/sec TR max P.5 mmHg ECHO/Echo Complete Interpretation Summary Mild concentric left ventricular hypertrophy. The left ventricular ejection fraction is 65 %. Stage 2 diastolic dysfunction. The left atrium is severely enlarged. The right atrium is mildly enlarged. Mild tricuspid valve insufficiency. Right ventricular systolic pressure estimated to be 48 mmHg. Mild aortic stenosis. Calcified aortic root. Ordering Physician: Sharifa Garcia Referring Physician: Art Verduzco Chi Performed By: Diya Traore and Student
--- NOTE | 2023-10-06 20:57 | US_ITS ---
INDICATION: WERNER on CKD EXAMINATION: Ultrasound US Kidney(s) complete (eg, kidneys and bladder) TECHNIQUE: Mccormick scale and color doppler images were obtained of the kidneys and urinary bladder. COMPARISON: None. FINDINGS: RIGHT KIDNEY: 9.7 cm in length. No Hydronephrosis. No sonographic evidence of a renal stone. No evidence of a mass. Normal vascular flow demonstrated with color Doppler. LEFT KIDNEY: 9.7 cm in length. No Hydronephrosis. No sonographic evidence of a renal stone. Simple 7 mm cyst with no follow-up recommended. Normal vascular flow demonstrated with color Doppler. URINARY BLADDER: Unremarkable. US/Kidney and Bladder IMPRESSION: Unremarkable renal ultrasound. Electronically Signed: David Ngo DO at 7:45 EDT ,
[2023-10-06 22:30] LABS: Urine Sodium 64 mmol/L (Not Establ.)
[2023-10-06 22:39] LABS: Magnesium 1.6 mg/dL (1.6-2.6); Phosphorus 4.6 mg/dL (2.5-4.9); Troponin-I HS 7 pg/mL (3.0-54.0)
[2023-10-06] MEDS: 0.9% Normal Saline (1000mL) 1,000 ML 100 ML IV (22:41)
[2023-10-06] MEDS: Heparin Injection (Vial) 5,000 UNIT/ML VIAL 5000 UNIT SC (22:42)
[2023-10-06] MEDS: Midodrine HCl 5 MG Tablet 10 MG PO (22:42)
[2023-10-06 22:45] LABS: Procalcitonin 0.06 ng/mL (0.00-0.09)
[2023-10-07] VITALS (11 sets, daily range): BP systolic 84–146; BP diastolic 43–86; PULSE 58–96; RESP 16–18; TEMP 36.1–37.1; O2SAT 93–98; BMI 28.6
[2023-10-07 00:57] LABS: Troponin-I HS 8 pg/mL (3.0-54.0)
[2023-10-07] MEDS: Magnesium Sulfate 2 GM in Dextrose 5%-Water (100mL Bag) 100 ML IV (02:31)
[2023-10-07 04:38] LABS: Absolute Lymphocyte Count 1.25 X10^3/uL (0.83-4.51); Absolute Neutrophil Count 2.2 X10^3/uL (2.0-7.7); Basophil# 0.02 X10^3/uL; Basophil% 0.5 % (0-1); Eosinophil# 0.18 X10^3/uL; Eosinophils% 4.5 % (0-5); Hematocrit 27.4 % (37-47); Lymphocyte # 1.25 X10^3/ul (0.83-4.51); Lymphocyte % 31.5 % (19-41); Mean Corp Hgb Conc 32.8 g/dL (32-36); Mean Corpuscular Hgb 30.7 pg (27.0-32.0); Mean Corpuscular Volume 93.5 fL (81-99); Mean Platelet Vol. 11.5 fl (6.2-12.0); Monocyte# 0.31 X10^3/uL; Monocyte% 7.8 % (0-10); NRBC Flagged by Analyzer 0 % (0-5); Neutrophil % 55.4 % (47-70); Platelet Count 175 K/mm3 (150-450); RBC Distribution Width CV 13.3 % (11.6-14.6); RBC Distribution Width SD 45.6 fl (35.1-43.9); Red Blood Count 2.93 M/mm3 (4.2-5.4)
[2023-10-07] MEDS: Cosyntropin 0.25 MG in 0.9% Normal Saline (Pres. free 4 ML 150 MG IV (05:13)
[2023-10-07 05:29] LABS: ALB/GLOB Ratio 0.7 RATIO (0.9-2.4); AST(SGOT) 19 U/L (15-37); Alanine Aminotransfer ALT/SGPT 8 U/L (13-56); Albumin, Serum 2.7 g/dL (3.2-5.0); Alkaline Phosphatase 68 U/L (45-117); Anion Gap 9 (5-15); BUN 87 mg/dL (7-18); BUN/Creat Ratio 38.5 RATIO (10-20); Calcium,Total 8.2 mg/dL (8.5-10.1); Chloride 97 mmol/L (98-107); Creatinine, Serum 2.26 mg/dL (0.55-1.02); EST Glomerular Filtration Rate 22 mL/min (>60); Est Glom Filt Rate - Afr Amer 27 mL/min (>60); Estimated Creatinine Clearance 16.35 ml/min; Globulin 3.8 g/dL (2.2-4.2); Glucose 111 mg/dL (74-106); Magnesium 2.2 mg/dL (1.6-2.6); Potassium 3.6 mmol/L (3.5-5.1); Protein, Total 6.5 g/dL (6.4-8.2); Sodium Level 134 mmol/L (136-145); Troponin-I HS 9 pg/mL (3.0-54.0)
[2023-10-07] MEDS: Budesonide Respules 0.5 MG/2 ML AMPUL.NEB. INHALATION ×2 (06:55→19:55)
--- NOTE | 2023-10-07 07:34 | PCM.CONS.R ---
Assessment & Plan Assessment/Plan (1) WERNER (acute kidney injury): PLAN: Creatinine 3.24 on admit improved to 2.26 likely due to hypoperfusion state from hypotension, poor oral intake at home. (2) CKD (chronic kidney disease) stage 2, GFR 60-89 ml/min: PLAN: baseline creatinine 1.03 in June 2023 (3) Lymphedema: PLAN: on chronic lasix (4) Hypotension: PLAN: BP improved with iv hydration. [place] cultured, procalcitonin 0.06. Hold BP medications. Cortisol level pending. Pt with anorexia, poor oral intake at home. (5) Non-pressure chronic ulcer of left heel and midfoot with fat layer exposed: PLAN: podiatry mgmt HPI Consult Data Date of Consult: 10/07/23 HPI Narrative Reason for Consultation: acute on CKD HPI Narrative: PADMA DAHL, is a 83 F who presents with weakness, edema, hypotension. Complains of lightheadedness with postural change. No syncope. She held her BP meds at home but continued her diuretic therapy for chronic leg edema.Echo from 2021 showed normal LVEF. Denied CP, mild dyspnea with exertion. Continues to take potassium and magnesium supplements. Denied NSAID use. Creatinine 3.24 on admit improved to 2.26 eGFR 27cc/min today with iv fluids. Baseline creatinie 1.03 eGGR 66-77cc/min in June 2023. She is under a lot of stress at home taking care of her spouse who is ill and FTT. [facility] Medical History Hiatal hernia Gout Wears glasses Wears dentures Walker as ambulation aid Urinary incontinence High cholesterol Easy bruising Blackout Difficulty swallowing History of IBS Gastric reflux Non-smoker Neuropathy Shortness of breath on exertion Leg cramps History of CHF (congestive heart failure) History of heart attack History of edema History of stress test History of echocardiogram Cardiology follow-up encounter History of COPD CHF (congestive heart failure) (HFpEF) heart failure with preserved ejection fraction History of pneumonia Heart valve problem Ulcer Heart disease Gastrointestinal problem History of emotional problems Carpal tunnel syndrome History of blood transfusion Back problem Asthma Arthritis Generalized weakness Coronary artery disease COPD (chronic obstructive pulmonary disease) Anemia Depression Anxiety Irritable bowel syndrome Constipation Edema Osteoarthritis of left hip Aseptic loosening of prosthetic hip NSTEMI (non-ST elevated myocardial infarction) Fibromyalgia GERD (gastroesophageal reflux disease) Hyperlipidemia Hypertension Home Medications ?Medication ?Instructions ?Recorded ?Last Taken ?Type lorazepam 0.5 mg tablet 1 mg PO BID anxiety 08/26/21 10/06/23 08:00 History oxycodone 10 mg tablet 10 mg PO TID PRN Pain 10/08/21 10/06/23 08:00 History tizanidine 4 mg tablet 4 mg PO QHS PRN LEG Cramps 10/08/21 10/05/23 20:00 History hydroxychloroquine 200 mg tablet 200 mg PO DAILY RA 01/12/22 10/06/23 08:00 History (Plaquenil) linaclotide 290 mcg capsule 290 mcg PO DAILY PRN IBS 03/12/23 10/05/23 09:00 History (Linzess) pantoprazole 40 mg tablet,delayed 40 mg PO BID acid reflux 03/12/23 10/06/23 08:00 History release atorvastatin 20 mg tablet 20 mg PO QHS high cholesterol #90 06/11/23 10/05/23 Rx tabs carvedilol 6.25 mg tablet See Rx Instructions .Route 06/11/23 10/06/23 08:00 Rx .COMPLEX heart failure #180 tabs furosemide 40 mg tablet 40 mg PO DAILY swelling #30 tabs 07/11/23 10/06/23 08:00 Rx potassium chloride 10 mEq 30 meq (3 x 10 mEq) PO BID 07/11/23 10/06/23 08:00 Rx tablet,extended release supplement #180 tabs doxepin 25 mg capsule 25 mg PO DAILY depression 10/06/23 10/05/23 12:00 History Allergy/AdvReac Type Severity Reaction Status Date / Time hydrocodone bitartrate (From Allergy Unknown Rash Verified 07/07/23 18:39 Vicodin) propoxyphene Allergy Unknown Unknown Verified 07/07/23 18:39 fentanyl Allergy feels Verified 07/07/23 18:39 terrible NSAIDS (Non-Steroidal AdvReac Unknown Unknown Verified 07/07/23 18:39 Anti-Inflamma prednisone AdvReac Unknown palpitation Verified 07/07/23 18:39 s acetaminophen (From Tylenol) AdvReac Nausea Verified 07/07/23 18:39 diazepam (From Valium) AdvReac Other Verified 07/07/23 18:39 Family History Father Heart disease Myocardial infarction Mother Hyperlipidemia Diabetes Anxiety Arthritis Depression Sister Thyroid disorder Sister Thyroid disorder Surgical History History of colonoscopy History of shoulder surgery History of back surgery History of bilateral knee replacement History of total hysterectomy History of left heart catheterization (~01/15/15) Status post revision of total hip replacement Social History household members: spouse Smoking Status: Never smoker alcohol intake: never caffeine: No what type of physical activity do you participate in: other frequency: 3-4 times per week ROS Constitutional Constitutional: Reports weakness Cardiovascular Cardiovascular: Reports edema; Denies chest pain or syncope Gastrointestinal Gastrointestinal: Reports anorexia; Denies abdominal pain, diarrhea, nausea or vomiting Genitourinary Genitourinary: Denies change in urinary stream Musculoskeletal Musculoskeletal: Reports other Details: RA managed by rheumatology on plaquenil Neurologic Neurologic: Reports weakness Psychiatric Psychiatric: Denies confusion Endocrine Endocrinology: Reports fatigue Physical Exam Const alert and oriented x3 HEENT HEENT Narrative: dry mucous membrane Eyes no scleral icterus Resp clear to auscultation bilaterally Cardio regular rate GI non-tender and non-distended Auscultation: normoactive bowel sounds Palpation: soft Extremity General Extremity: edema bilateral lower extremity Details: mild (legs wrapped) Neuro CN's II-XII intact bilaterally Lab / Micro Data 10/07/23 04:20 10/07/23 04:20 Labs: Laboratory Results - last 24 hr 10/06/23 13:32: WBC 4.1 L, RBC 2.94 L, Hgb 9.0 L, Hct 27.9 L, MCV 94.9, MCH 30.6, MCHC 32.3, RDW Std Deviation 46.5 H, RDW Coeff of Sin 13.4, Plt Count 165, MPV 11.4, Immature Gran % (Auto) 0.200, Neut % (Auto) 53.7, Lymph % (Auto) 33.9, [place] % (Auto) 8.3, Eos % (Auto) 3.7, Baso % (Auto) 0.2, Absolute Neuts (auto) 2.2, Absolute Lymphs (auto) 1.39, Nucleated RBC % 0, PT 16.3 H, INR 1.3, APTT 33.3, Sodium 128 L, Potassium 5.0, Chloride 93 L, Carbon Dioxide 26.0, Anion Gap 9, BUN 93 H, Creatinine 3.24 H, Estim Creat Clear Calc 11.79, Est GFR (MDRD) Af Amer 18 L, Est GFR (MDRD) Non-Af 15 L, BUN/Creatinine Ratio 28.7 H, Glucose 99, Lactic Acid 1.2, Calcium 8.5, Total Bilirubin 0.40, Direct Bilirubin 0.14, AST 21, ALT 13, Alkaline Phosphatase 73, Troponin I High Sens 8, B-Natriuretic Peptide 29.5, Total Protein 7.3, Albumin 3.1 L, Globulin 4.2, Lipase 13 10/06/23 15:19: Urine Color Yellow, Urine Clarity Clear, Urine pH 6.0, Ur Specific [place] 1.010, Urine Protein Negative, Urine Glucose (UA) Normal, Urine Ketones Negative, Urine Occult Blood Negative, Urine Nitrite Negative, Urine Bilirubin Negative, Urine Urobilinogen Normal, Ur Leukocyte Esterase 25 H, Urine RBC 0 SEEN, Urine WBC 0 SEEN, Ur Squamous Epith Cells 0-5 SEEN, Urine Bacteria 1+, Hyaline Casts 0-5 SEEN, Urine Mucus 0 SEEN 10/06/23 21:45: Phosphorus 4.6, Magnesium 1.6, Troponin I High Sens 7, Procalcitonin 0.06 10/06/23 22:09: Ur Random Sodium 64, Urine Creatinine 16.90 10/07/23 00:22: Troponin I High Sens 8 10/07/23 04:20: WBC 4.0 L, RBC 2.93 L, Hgb 9.0 L, Hct 27.4 L, MCV 93.5, MCH 30.7, MCHC 32.8, RDW Std Deviation 45.6 H, RDW Coeff of Sin 13.3, Plt Count 175, MPV 11.5, Immature Gran % (Auto) 0.300, Neut % (Auto) 55.4, Lymph % (Auto) 31.5, [place] % (Auto) 7.8, Eos % (Auto) 4.5, Baso % (Auto) 0.5, Absolute Neuts (auto) 2.2, Absolute Lymphs (auto) 1.25, Nucleated RBC % 0, Sodium 134 L, Potassium 3.6, Chloride 97 L, Carbon Dioxide 28.0, Anion Gap 9, BUN 87 H, Creatinine 2.26 H, Estim Creat Clear Calc 16.35, Est GFR (MDRD) Af Amer 27 L, Est GFR (MDRD) Non-Af 22 L, BUN/Creatinine Ratio 38.5 H, Glucose 111 H, Calcium 8.2 L, Magnesium 2.2, Total Bilirubin 0.40, AST 19, ALT 8 L, Alkaline Phosphatase 68, Troponin I High Sens 9, Total Protein 6.5, Albumin 2.7 L, Globulin 3.8, Albumin/Globulin Ratio 0.7 L 10/07/23 05:06: Cortisol 14.90 Imaging Radiology Impression Brain CT 10/06/23 14:32 IMPRESSION: Chronic involutional changes of the brain. Electronically Signed: Yuri Miller MD at 15:32 EDT , Chest/Abdomen/Pelvis CT 10/06/23 16:24 IMPRESSION: Atherosclerotic changes and minor atelectasis within the dependent portion of both lower lobes. . Tiny noncalcified nodule right lower lobe most likely benign. However would recommend follow-up imaging utilizing Fleischner Society criteria if clinically warranted No acute abnormality within the abdomen and pelvis with incidental finding of diffusely distended fecal filled colon Electronically Signed: David Escobar MD at 18:15 EDT ,
--- NOTE | 2023-10-07 08:06 | PCM.CONS.GEN ---
Assessment & Plan Assessment/Plan (1) Non-pressure chronic ulcer of left heel and midfoot with fat layer exposed: PLAN: Patient was examined and evaluated. All findings were discussed with the patient. All questions were answered to the patient satisfaction. Brain CT: Chronic involutional changes of the brain. Chest/abdomen/pelvis CT: Atherosclerotic changes and minor atelectasis within the dependent portion of both lower lobes. Tiny noncalcified nodule right lower lobe most likely benign. However would recommend follow-up imaging utilizing Fleischner Society criteria if clinically warranted. No acute abnormality within the abdomen and pelvis with incidental finding of diffusely distended fecal filled colon. Renal ultrasound:RIGHT KIDNEY: 9.7 cm in length. No Hydronephrosis. No sonographic evidence of a renal stone. No evidence of a mass. Normal vascular flow demonstrated with color Doppler. LEFT KIDNEY: 9.7 cm in length. No Hydronephrosis. No sonographic evidence of a renal stone. Simple 7 mm cyst with no follow-up recommended. Normal vascular flow demonstrated with color Doppler. The patient's bilateral leg swelling has improved with compression overnight. The patient's full-thickness wound to the left heel with amniotic skin graft substitute is stable with no sign of infection. The left heel was dressed with Adaptic, dry sterile dressing and a single layer Cage compression bandage was donned to the left/right lower extremity. Wound care orders will be submitted for every other day dressing changes. The patient is very understanding of the need for continued compression whenever ambulatory. No plan for surgical debridement while in house. The patient's left heel full-thickness wound is stable and will continue office wound care. Medicine: On board, medical management Nephrology: On board PT/OT: Consult pending Social work: Consult pending, for discharge planning Podiatry will continue to follow from a distance where the patient is in house. Please reach out to Dr. Goff for any questions or concerns. Thank you for the consultation! (2) Lymphedema: HPI Consult Data Date of Consult: 10/07/23 HPI Narrative Reason for Consultation: Swelling, full-thickness wound left heel HPI Narrative: PADMA DAHL, is a 83 F w/ PMHx: Obesity, Hx CT, CAD with history of Takotsubo cardiomyopathy, HFpEF, GERD, Chronic neuropathy, Chronic anemia, COPD, Anxiety and Depression, HTN, HLD who presents to the [facility] ED on 10/06/23 with history of low blood pressure reporting that since June she has not been taking any of her medications aside Lasix secondary to lower blood pressures with her systolic normal reading tending to be 85-95. Patient states that she has noticed some lightheadedness and dizziness which are worse with with significant positional changes especially going from a sitting to standing motion. Patient is well-known to my service and has been getting amniotic skin graft substitute to the full-thickness wound to left heel which has been improving the size and appearance of her wound. There is no infection to the left heel. Patient is admitted for hypotension where she is being managed by medicine, with nephrology and nutrition on consult. Podiatry was consulted for management of full-thickness wound to the left heel as well as bilateral leg swelling. Patient only admits to dizziness with a fall on Wednesday. She denies any constitutional symptoms during my interview today at bedside. No other pedal complaints at this time. [facility] Medical History Hiatal hernia Gout Wears glasses Wears dentures Walker as ambulation aid Urinary incontinence High cholesterol Easy bruising Blackout Difficulty swallowing History of IBS Gastric reflux Non-smoker Neuropathy Shortness of breath on exertion Leg cramps History of CHF (congestive heart failure) History of heart attack History of edema History of stress test History of echocardiogram Cardiology follow-up encounter History of COPD CHF (congestive heart failure) (HFpEF) heart failure with preserved ejection fraction History of pneumonia Heart valve problem Ulcer Heart disease Gastrointestinal problem History of emotional problems Carpal tunnel syndrome History of blood transfusion Back problem Asthma Arthritis Generalized weakness Coronary artery disease COPD (chronic obstructive pulmonary disease) Anemia Depression Anxiety Irritable bowel syndrome Constipation Edema Osteoarthritis of left hip Aseptic loosening of prosthetic hip NSTEMI (non-ST elevated myocardial infarction) Fibromyalgia GERD (gastroesophageal reflux disease) Hyperlipidemia Hypertension Home Medications ?Medication ?Instructions ?Recorded ?Last Taken ?Type lorazepam 0.5 mg tablet 1 mg PO BID anxiety 08/26/21 10/06/23 08:00 History oxycodone 10 mg tablet 10 mg PO TID PRN Pain 10/08/21 10/06/23 08:00 History tizanidine 4 mg tablet 4 mg PO QHS PRN LEG Cramps 10/08/21 10/05/23 20:00 History hydroxychloroquine 200 mg tablet 200 mg PO DAILY RA 01/12/22 10/06/23 08:00 History (Plaquenil) linaclotide 290 mcg capsule 290 mcg PO DAILY PRN IBS 03/12/23 10/05/23 09:00 History (Linzess) pantoprazole 40 mg tablet,delayed 40 mg PO BID acid reflux 03/12/23 10/06/23 08:00 History release atorvastatin 20 mg tablet 20 mg PO QHS high cholesterol #90 06/11/23 10/05/23 Rx tabs carvedilol 6.25 mg tablet See Rx Instructions .Route 06/11/23 10/06/23 08:00 Rx .COMPLEX heart failure #180 tabs furosemide 40 mg tablet 40 mg PO DAILY swelling #30 tabs 07/11/23 10/06/23 08:00 Rx potassium chloride 10 mEq 30 meq (3 x 10 mEq) PO BID 07/11/23 10/06/23 08:00 Rx tablet,extended release supplement #180 tabs doxepin 25 mg capsule 25 mg PO DAILY depression 10/06/23 10/05/23 12:00 History Allergy/AdvReac Type Severity Reaction Status Date / Time hydrocodone bitartrate (From Allergy Unknown Rash Verified 07/07/23 18:39 Vicodin) propoxyphene Allergy Unknown Unknown Verified 07/07/23 18:39 fentanyl Allergy feels Verified 07/07/23 18:39 terrible NSAIDS (Non-Steroidal AdvReac Unknown Unknown Verified 07/07/23 18:39 Anti-Inflamma prednisone AdvReac Unknown palpitation Verified 07/07/23 18:39 s acetaminophen (From Tylenol) AdvReac Nausea Verified 07/07/23 18:39 diazepam (From Valium) AdvReac Other Verified 07/07/23 18:39 Family History Father Heart disease Myocardial infarction Mother Hyperlipidemia Diabetes Anxiety Arthritis Depression Sister Thyroid disorder Sister Thyroid disorder Surgical History History of colonoscopy History of shoulder surgery History of back surgery History of bilateral knee replacement History of total hysterectomy History of left heart catheterization (~01/15/15) Status post revision of total hip replacement Social History household members: spouse Smoking Status: Never smoker alcohol intake: never caffeine: No what type of physical activity do you participate in: other frequency: 3-4 times per week Physical Exam Narrative Vascular: DP and PT pulses are palpable bilateral. CFT is brisk bilateral. Skin temperature great is warm to warm from proximal ankle to distal digits bilateral. No increase in focal warmth is appreciated bilaterally. Nonpitting edema has improved secondary to +1 pitting edema which was seen in the office on Wednesday. Neurological: Light touch intact. Patient response to painful stimuli. Dermatological: Full-thickness ulceration with amniotic skin graft substitute applied. Full-thickness wound measures 2.2 x 3.8 x 0.1 cm. Wound base is granular nature with skin graft intact. No erythema, no drainage, no probe to bone, no sign of infection. Musculoskeletal: No pain on palpation to the full-thickness ulceration left heel. No pain with calf pressure. Lab / Micro Data 10/07/23 04:20 10/07/23 04:20 Labs: Laboratory Results - last 24 hr 10/06/23 13:32: WBC 4.1 L, RBC 2.94 L, Hgb 9.0 L, Hct 27.9 L, MCV 94.9, MCH 30.6, MCHC 32.3, RDW Std Deviation 46.5 H, RDW Coeff of Sin 13.4, Plt Count 165, MPV 11.4, Immature Gran % (Auto) 0.200, Neut % (Auto) 53.7, Lymph % (Auto) 33.9, [place] % (Auto) 8.3, Eos % (Auto) 3.7, Baso % (Auto) 0.2, Absolute Neuts (auto) 2.2, Absolute Lymphs (auto) 1.39, Nucleated RBC % 0, PT 16.3 H, INR 1.3, APTT 33.3, Sodium 128 L, Potassium 5.0, Chloride 93 L, Carbon Dioxide 26.0, Anion Gap 9, BUN 93 H, Creatinine 3.24 H, Estim Creat Clear Calc 11.79, Est GFR (MDRD) Af Amer 18 L, Est GFR (MDRD) Non-Af 15 L, BUN/Creatinine Ratio 28.7 H, Glucose 99, Lactic Acid 1.2, Calcium 8.5, Total Bilirubin 0.40, Direct Bilirubin 0.14, AST 21, ALT 13, Alkaline Phosphatase 73, Troponin I High Sens 8, B-Natriuretic Peptide 29.5, Total Protein 7.3, Albumin 3.1 L, Globulin 4.2, Lipase 13 10/06/23 15:19: Urine Color Yellow, Urine Clarity Clear, Urine pH 6.0, Ur Specific [place] 1.010, Urine Protein Negative, Urine Glucose (UA) Normal, Urine Ketones Negative, Urine Occult Blood Negative, Urine Nitrite Negative, Urine Bilirubin Negative, Urine Urobilinogen Normal, Ur Leukocyte Esterase 25 H, Urine RBC 0 SEEN, Urine WBC 0 SEEN, Ur Squamous Epith Cells 0-5 SEEN, Urine Bacteria 1+, Hyaline Casts 0-5 SEEN, Urine Mucus 0 SEEN 10/06/23 21:45: Phosphorus 4.6, Magnesium 1.6, Troponin I High Sens 7, Procalcitonin 0.06 10/06/23 22:09: Ur Random Sodium 64, Urine Creatinine 16.90 10/07/23 00:22: Troponin I High Sens 8 10/07/23 04:20: WBC 4.0 L, RBC 2.93 L, Hgb 9.0 L, Hct 27.4 L, MCV 93.5, MCH 30.7, MCHC 32.8, RDW Std Deviation 45.6 H, RDW Coeff of Sin 13.3, Plt Count 175, MPV 11.5, Immature Gran % (Auto) 0.300, Neut % (Auto) 55.4, Lymph % (Auto) 31.5, [place] % (Auto) 7.8, Eos % (Auto) 4.5, Baso % (Auto) 0.5, Absolute Neuts (auto) 2.2, Absolute Lymphs (auto) 1.25, Nucleated RBC % 0, Sodium 134 L, Potassium 3.6, Chloride 97 L, Carbon Dioxide 28.0, Anion Gap 9, BUN 87 H, Creatinine 2.26 H, Estim Creat Clear Calc 16.35, Est GFR (MDRD) Af Amer 27 L, Est GFR (MDRD) Non-Af 22 L, BUN/Creatinine Ratio 38.5 H, Glucose 111 H, Calcium 8.2 L, Magnesium 2.2, Total Bilirubin 0.40, AST 19, ALT 8 L, Alkaline Phosphatase 68, Troponin I High Sens 9, Total Protein 6.5, Albumin 2.7 L, Globulin 3.8, Albumin/Globulin Ratio 0.7 L 10/07/23 05:06: Cortisol 14.90 Imaging Radiology Impression Brain CT 10/06/23 14:32 IMPRESSION: Chronic involutional changes of the brain. Electronically Signed: Yuri Miller MD at 15:32 EDT , Chest/Abdomen/Pelvis CT 10/06/23 16:24 IMPRESSION: Atherosclerotic changes and minor atelectasis within the dependent portion of both lower lobes. . Tiny noncalcified nodule right lower lobe most likely benign. However would recommend follow-up imaging utilizing Fleischner Society criteria if clinically warranted No acute abnormality within the abdomen and pelvis with incidental finding of diffusely distended fecal filled colon Electronically Signed: David Escobar MD at 18:15 EDT , Renal Ultrasound 10/06/23 20:57 IMPRESSION: Unremarkable renal ultrasound. Electronically Signed: David Ngo DO at 7:45 EDT ,
--- NOTE | 2023-10-07 10:00 | CASEMGMT ---
SW met with patient regarding SDOH transportation concerns. SW provided patient with [facility] program, [facility] transportation, and [facility] resources. Cecilia GARCIA
[2023-10-07] MEDS: 0.9% Normal Saline (1000mL) 1,000 ML 100 ML IV (10:09)
[2023-10-07] MEDS: LORazepam 1 MG Tablet PO ×2 (10:11→21:25)
[2023-10-07] MEDS: Doxepin Hcl 25 MG Capsule PO (10:11)
[2023-10-07] MEDS: Heparin Injection (Vial) 5,000 UNIT/ML VIAL 5000 UNIT SC ×2 (10:11→21:25)
[2023-10-07] MEDS: Pantoprazole Sodium 40 MG Tablet PO ×2 (10:11→21:25)
[2023-10-07] MEDS: Hydroxychloroquine 200 MG Tablet PO (10:11)
--- NOTE | 2023-10-07 11:20 | CASEMGMT ---
PATRICIO CRUZ Assessment: Face to Face with pt for initial transition planning/care coordination assessment. PATRICIO CRUZ introduced self and role at [facility], pt voices understanding and consents to assessment. Pt is A&O x4 and answers all questions appropriately at this time. Pt lying in bed in no distress. Care providers, pharmacy, and demographics verified/updated. Admitting Dx: WERNER Hypotension PCP: Dax Specialists: Suhas, Orthopedic; [place], Podiatry; RA [place]; [place], Pain Management Preferred Pharmacy: [facility] [place] Insurance: [employer] Prescription Benefit: yes LNOK: Daughter, SHREYAS Living Arrangements: Pt lives with in a ranch home with 2 steps and rails to enter. Pt states I with ADLs. Cooks and cleans herself, DIL helps with groceries. Transportation: Pt friends and family transport pt when needed. DIL will pick pt up at DC. DME: Walker, grab bars, shower bench. HHC/SNF: Previously at [facility], currently active with [facility]. Pt states would like to continue using [facility] upon DC, denies wanting a list of local [facility] agencies. Pt states no concerns with going home at time of dc. Pt states no further concerns/needs. CM to follow. Advised pt to ask CM if any further question/concerns/needs arise, voices understanding. Pt Goal: Home with [facility] Plan: Home with [facility], will follow plan of care. Niki CURRY CM
--- NOTE | 2023-10-07 13:53 | CHAPLAIN ---
Type of Pastoral Visit _x__ Initial Visit ___ Follow-up Visit ___ On-call Visit ___ General Patient Visit ___ Spiritual Assessment ___ Family Conference ___ Bereavement ___ Rapid Response ___ Code Blue ___ Other (describe below) Pastoral Care Referral From _x__ Patient ___ Family _x__ Nurse ___ Physician ___ Game Attendant ___ Radiological Technologist _x__ Other (describe below) Sacrament/Intervention _x__ Active listening ___ Anointing ___ Scientology _x__ Bereavement ___ Communion _x__ Naty exploration ___ _x__ Life review _x__ Prayer ___ Reconciliation ___ Sacrament of Sick _x__ Supportive presence ___ Wedding ___ Other (describe below) Pastoral Comments patient was listed as a referral but staff members also stopped this bsw in the hallway to request a visit for patient due to her anxiety and tears; pt was welcoming of this bsw and she began a long story of her griefs including loss of a home, of her son, 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, health crisis of her , decisions pending for selling current home, and her feelings of overwhelm; as patient shares these issues she also reviews early life history of family; pt was seen before in previous admissions and when she speaks of early life it is remembered; past early life is a topic patient always addresses; time given to listen, to ask questions about who does support her, offering perspective of receiving help to do her tasks, what brings her peace, and how naty plays a role in her life; pt wants to move to [place] to be near her daughter; pt states that family can agree on that and discussion goes to how to make that happen and to accept help from others to make it happen; pt welcomes prayer and states you have been very helpful to me and thank you for coming
[2023-10-07] MEDS: oxyCODONE 5 MG Tablet 10 MG PO (17:32)
--- NOTE | 2023-10-07 17:53 | PCM.PN.HOSP ---
Reason for Visit Reason for Visit: Diagnoses Lymphedema, not elsewhere classified (10/06/23) Hypotension, unspecified (10/06/23) Non-pressure chronic ulcer of left heel and midfoot with fat layer exposed (10/06/23) Acute kidney failure, unspecified (10/06/23) Subjective Subjective Patient was seen and examined today, her creatinine has improved from yesterday. She is being seen in consultation by nephrology. I asked the patient today if she thought she was able to return home when she is discharged from the hospital-patient states she does not know. Objective Data Objective Data Vital Signs: Vital Signs Temp Pulse Resp BP Pulse Ox O2 Del Method 98.8 F 87 16 115/68 93 Room Air 10/07/23 15:14 10/07/23 15:14 10/07/23 15:14 10/07/23 15:14 10/07/23 15:14 10/07/23 15:14 Oxygen Delivery Method Room Air Weight: 64.4 kg Body Mass Index (BMI) 28.6 Intake & Output: Intake and Output for Last 24 Hours 10/05/23 10/06/23 10/07/23 23:59 23:59 23:59 Intake Total 2509 / 2509 Output Total 2100 / 2100 Balance 409 / 409 Lab / Micro Data 10/07/23 04:20 10/07/23 04:20 Labs: Laboratory Results - last 24 hr 10/06/23 21:45: Phosphorus 4.6, Magnesium 1.6, Troponin I High Sens 7, Procalcitonin 0.06 10/06/23 22:09: Ur Random Sodium 64, Urine Creatinine 16.90 10/07/23 00:22: Troponin I High Sens 8 10/07/23 04:20: WBC 4.0 L, RBC 2.93 L, Hgb 9.0 L, Hct 27.4 L, MCV 93.5, MCH 30.7, MCHC 32.8, RDW Std Deviation 45.6 H, RDW Coeff of Sin 13.3, Plt Count 175, MPV 11.5, Immature Gran % (Auto) 0.300, Neut % (Auto) 55.4, Lymph % (Auto) 31.5, [place] % (Auto) 7.8, Eos % (Auto) 4.5, Baso % (Auto) 0.5, Absolute Neuts (auto) 2.2, Absolute Lymphs (auto) 1.25, Nucleated RBC % 0, Sodium 134 L, Potassium 3.6, Chloride 97 L, Carbon Dioxide 28.0, Anion Gap 9, BUN 87 H, Creatinine 2.26 H, Estim Creat Clear Calc 16.35, Est GFR (MDRD) Af Amer 27 L, Est GFR (MDRD) Non-Af 22 L, BUN/Creatinine Ratio 38.5 H, Glucose 111 H, Calcium 8.2 L, Magnesium 2.2, Total Bilirubin 0.40, AST 19, ALT 8 L, Alkaline Phosphatase 68, Troponin I High Sens 9, Total Protein 6.5, Albumin 2.7 L, Globulin 3.8, Albumin/Globulin Ratio 0.7 L 10/07/23 05:06: Cortisol 14.90 10/07/23 06:15: Cortisol 29.90 H Radiography Diagnostic Testing: Radiology Impression Chest/Abdomen/Pelvis CT 10/06/23 16:24 IMPRESSION: Atherosclerotic changes and minor atelectasis within the dependent portion of both lower lobes. . Tiny noncalcified nodule right lower lobe most likely benign. However would recommend follow-up imaging utilizing Fleischner Society criteria if clinically warranted No acute abnormality within the abdomen and pelvis with incidental finding of diffusely distended fecal filled colon Electronically Signed: David Escobar MD at 18:15 EDT Reading Location ID and State: [facility] / [place] Tel , Service support , Echocardiogram 10/06/23 20:57 Interpretation Summary Mild concentric left ventricular hypertrophy. The left ventricular ejection fraction is 65 %. Stage 2 diastolic dysfunction. The left atrium is severely enlarged. The right atrium is mildly enlarged. Mild tricuspid valve insufficiency. Right ventricular systolic pressure estimated to be 48 mmHg. Mild aortic stenosis. Calcified aortic root. Ordering Physician: Sharifa Garcia Referring Physician: Dax, Art Chi Performed By: Diya Traore and Student Renal Ultrasound 10/06/23 20:57 IMPRESSION: Unremarkable renal ultrasound. Electronically Signed: David NgoDO at 7:45 EDT Reading Location ID and State: [facility] / [place] Tel , Service support , Physical Exam Const alert, oriented x3 and no apparent distress Constitutional Narrative: Patient appears frail General Appearance: cooperative, well kempt and well developed Orientation / Consciousness: awake, oriented to person and oriented to place HEENT normocephalic, head/scalp atraumatic and moist oral mucous membranes Eyes PERRL, EOMs intact bilaterally and conjunctivae normal Neck supple, no JVD, thyroid normal and no carotid bruits General: trachea midline Resp normal respiratory effort, no retractions, no use of accessory muscles and clear to auscultation bilaterally Auscultation: Negative for rales, rhonchi or wheezes Cardio regular rate, regular rhythm, S1 normal heart sound, S2 normal heart sound, no murmurs, no rub and no gallops GI normal to inspection, nondistended, normoactive bowel sounds, soft to palpation, non-tender and non-distended Extremity no clubbing, cyanosis or edema Skin no rashes or lesions noted General Skin Exam: no breakdown Neuro CN's II-XII intact bilaterally, moves all extremities, no focal motor deficits and no sensory deficits noted Sensorium / Orientation: awake, alert, oriented to person and oriented to place Speech: speech normal Psych affect normal Assessment & Plan Assessment/Plan (1) WERNER (acute kidney injury): PLAN: Plan 1. Hypotension-as a result of acute kidney injury with dehydration, patient will remain on IV fluids at the direction of nephrology patient's last blood pressure today was not low, patient's Lasix and carvedilol are being held. #2 acute kidney injury on a backdrop of stage IIIa chronic kidney disease-Labs will be monitored, nephrology is seeing the patient in consultation #3 acute debility-PT and OT are working with the patient #4 hyperlipidemia-patient is on atorvastatin Total clinical time spent by myself addressing the patient's medical issues, reviewing all of her data, and collaborating with patient's care team: 55 minutes Charges/Coding Visit Charges Inpatient E&M: 99666 Subs Hosp L2
[2023-10-07] MEDS: Acetaminophen 325 MG Tablet 650 MG PO (19:40)
[2023-10-07] MEDS: Atorvastatin Calcium 20 MG Tablet PO (21:25)
[2023-10-08 03:30] VITALS: BP 119/80; PULSE 66; RESP 18; TEMP 36.1; O2SAT 99
[2023-10-08 04:13] VITALS: BMI 29.3
[2023-10-08 05:13] LABS: Hemoglobin 9.5 g/dL (12.0-15.0)
[2023-10-08 05:25] LABS: Albumin, Serum 2.8 g/dL (3.2-5.0); BUN 64 mg/dL (7-18); BUN/Creat Ratio 45.1 RATIO (10-20); Calcium,Total 8.8 mg/dL (8.5-10.1); Chloride 106 mmol/L (98-107); Creatinine, Serum 1.42 mg/dL (0.55-1.02); EST Glomerular Filtration Rate 38 mL/min (>60); Est Glom Filt Rate - Afr Amer 46 mL/min (>60); Estimated Creatinine Clearance 26.34 ml/min; Glucose 110 mg/dL (74-106); Phosphorus 2.6 mg/dL (2.5-4.9); Potassium 3.2 mmol/L (3.5-5.1); Sodium Level 145 mmol/L (136-145)
[2023-10-08] MEDS: oxyCODONE 5 MG Tablet 10 MG PO (05:33)
[2023-10-08 07:27] VITALS: PULSE 83; RESP 17; O2SAT 95
[2023-10-08] MEDS: Budesonide Respules 0.5 MG/2 ML AMPUL.NEB. INHALATION (07:28)
[2023-10-08 08:36] VITALS: BP 149/79; PULSE 70; RESP 18; TEMP 36.4; O2SAT 100
[2023-10-08] MEDS: Hydroxychloroquine 200 MG Tablet PO (08:39)
[2023-10-08] MEDS: Doxepin Hcl 25 MG Capsule PO (08:39)
[2023-10-08] MEDS: Heparin Injection (Vial) 5,000 UNIT/ML VIAL 5000 UNIT SC (08:39)
[2023-10-08] MEDS: Pantoprazole Sodium 40 MG Tablet PO (08:40)
[2023-10-08] MEDS: LORazepam 1 MG Tablet PO (08:45)
--- NOTE | 2023-10-08 10:24 | PCM.DC ---
Discharge Instructions Diet Discharge Diet: No restrictions Activity Discharge Activity: Return to Normal Activity Weight Bearing Status: Full weight bearing (right foot) and Partial weight bearing (left foot) Follow Up Care Test Results: Test results from this visit will be discussed in further detail at your follow-up appointment, if applicable. Discharge Plan Admission Admit Date/Time: 10/06/23 19:38 Primary Reason for Your Visit: acute kidney injury Attending Provider: Vince Broussard Primary Care Provider: Art Verduzco Chi Consulting Providers: Kiara Guerrero; Jeremiah Goff; Sharifa Garcia Instructions Additional Instructions / Restrictions: Hold your Carvedilol until you see Dr. Verduzco, he may have you resume it See Dr. Guerrero in the office for followup Discharge Orders/Prescriptions Prescriptions: Continued lorazepam 0.5 mg tablet 1 mg PO BID Patient Comments: TAKE 2 TABLETS BY MOUTH in the AM, 1 tab in the afternoon, and 2 tabs in the evening oxycodone 10 mg tablet 10 mg PO TID PRN (Reason: Pain) tizanidine 4 mg tablet 4 mg PO QHS PRN (Reason: LEG Cramps) pantoprazole 40 mg tablet,delayed release (DR/EC) 40 mg PO BID Patient Comments: pt. states she takes 2 once a day in AM atorvastatin 20 mg tablet 20 mg PO QHS Qty: 90 3RF hydroxychloroquine [Plaquenil] 200 mg Tablet 200 mg PO DAILY Linzess 290 mcg capsule 290 mcg PO DAILY PRN (Reason: IBS) doxepin 25 mg capsule 25 mg PO DAILY furosemide 40 mg Tablet 40 mg PO DAILY Qty: 30 0RF potassium chloride 10 mEq tablet extended release 30 meq PO BID Qty: 180 0RF Patient Comments: pt. states that she only takes once a day, ordered for twice a day on instructions in computer Discontinued carvedilol 6.25 mg tablet See Rx Instructions .ROUTE .COMPLEX Qty: 180 3RF Dose Instruction: TAKE 1 TABLET BY MOUTH TWICE A DAY Rx Instructions: TAKE 1 TABLET BY MOUTH TWICE A DAY Referrals / Follow Up: Jeremiah Goff DPM [Med Staff - Active Staff] - See Referral Note (as directed) Art Verduzco Chi, MD [Primary Care Provider] - 10/11/23 3:20 pm Disposition Disposition (needs filled in before D/C Order can be placed): Home, Self Care
--- NOTE | 2023-10-08 10:33 | DS.PCM_ITS ---
Providers Date of Admission: 10/06/23 Date of Discharge: 10/08/23 Primary Care Physician: Dr. Art Verduzco MD Consultations 10/06/23 20:57 Consult: Nephrology Routine Consulting Provider: Kiara Guerrero Reason for Consult: WERNER on CKD EMERGENT Consult: No Notified: Yes Date Notified: 10/06/23 Time Notified: 19:39 Method of Notification: Text Consult: Podiatry Routine Consulting Provider: Jeremiah Goff Reason for Consult: L heel wound, recent graft. EMERGENT Consult: No Notified: Yes Date Notified: 10/06/23 Time Notified: 20:45 Method of Notification: Verbal Reason For Visit: WERNER, HYPOTENSION Diagnosis Discharge Diagnosis (1) WERNER (acute kidney injury): Status: Acute Code(s): N17.9 - Acute kidney failure, unspecified Plan 1. Hypotension-as a result of acute kidney injury with dehydration, patient will remain on IV fluids at the direction of nephrology patient's last blood pressure today was not low, patient's Lasix and carvedilol are being held. #2 acute kidney injury on a backdrop of stage IIIa chronic kidney disease-Labs will be monitored, nephrology is seeing the patient in consultation #3 acute debility-PT and OT are working with the patient #4 hyperlipidemia-patient is on atorvastatin #5 mild pulmonary hypertension #6 nonpressure chronic ulceration of left heel and midfoot with fat layer exposed Total clinical time spent by myself addressing the patient's medical issues, reviewing all of her data, and collaborating with patient's care team: 55 minutes Medications at Discharge Home Medications lorazepam 0.5 mg tablet 1 mg PO BID anxiety 08/26/21 oxycodone 10 mg tablet 10 mg PO TID PRN Pain 10/08/21 tizanidine 4 mg tablet 4 mg PO QHS PRN LEG Cramps 10/08/21 hydroxychloroquine 200 mg tablet (Plaquenil) 200 mg PO DAILY RA 01/12/22 linaclotide 290 mcg capsule (Linzess) 290 mcg PO DAILY PRN IBS 03/12/23 pantoprazole 40 mg tablet,delayed release 40 mg PO BID acid reflux 03/12/23 atorvastatin 20 mg tablet 20 mg PO QHS high cholesterol #90 tabs 06/11/23 furosemide 40 mg tablet 40 mg PO DAILY swelling #30 tabs 07/11/23 potassium chloride 10 mEq tablet,extended release 30 meq (3 x 10 mEq) PO BID supplement #180 tabs 07/11/23 doxepin 25 mg capsule 25 mg PO DAILY depression 10/06/23 Hospital Course Operations None Procedures 2-D Echocardiogram Summary of Care Provided Minutes Spent on Discharge: 31 Hospital Course: This 83-year-old white female was seen in the emergency room at [facility] with complaints of low blood pressure. She had only been taking Lasix at home and had stopped her other blood pressure medications. She remained on Lasix due to chronic leg edema. Patient's blood pressure on admission to the emergency room was 73/40, CBC was abnormal for a white blood cell count of 4.1 and hemoglobin of 9, patient's sodium was 128, creatinine was 3.24 and BUN was 93. Patient was admitted to PCU and given IV fluids, she was seen in consultation by nephrology, labs were monitored. Patient's creatinine improved during her hospital stay, she was seen by PT and OT during her hospital stay. Patient was seen by podiatry due to a chronic ulceration of her left heel and midfoot. On 10/08/2023, patient was seen and examined:alert, oriented x3 and no apparent distress Constitutional Narrative: Patient appears frail General Appearance: cooperative, well kempt and well developed Orientation / Consciousness: awake, oriented to person and oriented to place HEENT normocephalic, head/scalp atraumatic and moist oral mucous membranes Eyes PERRL, EOMs intact bilaterally and conjunctivae normal Neck supple, no JVD, thyroid normal and no carotid bruits General: trachea midline Resp normal respiratory effort, no retractions, no use of accessory muscles and clear to auscultation bilaterally Auscultation: Negative for rales, rhonchi or wheezes Cardio regular rate, regular rhythm, S1 normal heart sound, S2 normal heart sound, no murmurs, no rub and no gallops GI normal to inspection, nondistended, normoactive bowel sounds, soft to palpation, non-tender and non-distended Extremity no clubbing or cyanosis, both lower legs were edematous Skin no rashes or lesions noted General Skin Exam: no breakdown Neuro CN's II-XII intact bilaterally, moves all extremities, no focal motor deficits and no sensory deficits noted Sensorium / Orientation: awake, alert, oriented to person and oriented to place Speech: speech normal Psych affect normal On 10/08/2023, patient was discharged home in stable condition Weight / BMI Weight Weight: 66 kg Body Mass Index (BMI) 29.3 ABG / Lab / Microbiology Data 10/08/23 04:48 10/08/23 04:48 Laboratory: Laboratory Results - last 24 hr 10/08/23 04:48: Hgb 9.5 L, Hct 29.0 L, Sodium 145, Potassium 3.2 L, Chloride 106, Carbon Dioxide 32.0, BUN 64 H, Creatinine 1.42 H, Estim Creat Clear Calc 26.34, Est GFR (MDRD) Af Amer 46 L, Est GFR (MDRD) Non-Af 38 L, BUN/Creatinine Ratio 45.1 H, Glucose 110 H, Calcium 8.8, Phosphorus 2.6, Albumin 2.8 L Radiography Diagnostic Testing: Radiology Impression Echocardiogram 10/06/23 20:57 Interpretation Summary Mild concentric left ventricular hypertrophy. The left ventricular ejection fraction is 65 %. Stage 2 diastolic dysfunction. The left atrium is severely enlarged. The right atrium is mildly enlarged. Mild tricuspid valve insufficiency. Right ventricular systolic pressure estimated to be 48 mmHg. Mild aortic stenosis. Calcified aortic root. Ordering Physician: Sharifa Garcia Referring Physician: Art Verduzco Chi Performed By: Diya Traore and Student D/C Instructions Discharge Diet: No restrictions Weight Bearing Status: Full weight bearing (right foot) and Partial weight bearing (left foot) Meaningful Use Info Meaningful Use Meaningful Use Diagnoses (Choose all that apply): None applicable Ischemic Stroke Statin Dosing Therapy Reference: STATIN DOSE THERAPY REFERENCE: * Patients > 75 years receive moderate or high dose statin therapy. * Patients 75 years or YOUNGER should receive HIGH intensity statin dose unless contraindicated. You will be required to document reason for non-treatment if statin daily dose does not meet guidelines. HIGH DOSE STATIN THERAPY DAILY Atorvastatin > than or = to 40 mg Rosuvastatin > than or = to 20 mg Amlodipine + Atorvastatin > than or = to 2.5/40 mg Ezetimibe + Simvastatin 10/80 mg Simvastatin 80mg Discharge Plan Admission Admit Date/Time: 10/06/23 19:38 Primary Reason for Your Visit: acute kidney injury Attending Provider: Vince Broussard Primary Care Provider: Art Verduzco Chi Consulting Providers: Kiara Guerrero; Jeremiah Goff; Sharifa Garcia Instructions Additional Instructions / Restrictions: Hold your Carvedilol until you see Dr. Verduzco, he may have you resume it See Dr. Guerrero in the office for followup Discharge Orders/Prescriptions Prescriptions: Continued lorazepam 0.5 mg tablet 1 mg PO BID Patient Comments: TAKE 2 TABLETS BY MOUTH in the AM, 1 tab in the afternoon, and 2 tabs in the evening oxycodone 10 mg tablet 10 mg PO TID PRN (Reason: Pain) tizanidine 4 mg tablet 4 mg PO QHS PRN (Reason: LEG Cramps) pantoprazole 40 mg tablet,delayed release (DR/EC) 40 mg PO BID Patient Comments: pt. states she takes 2 once a day in AM atorvastatin 20 mg tablet 20 mg PO QHS Qty: 90 3RF hydroxychloroquine [Plaquenil] 200 mg Tablet 200 mg PO DAILY Linzess 290 mcg capsule 290 mcg PO DAILY PRN (Reason: IBS) doxepin 25 mg capsule 25 mg PO DAILY furosemide 40 mg Tablet 40 mg PO DAILY Qty: 30 0RF potassium chloride 10 mEq tablet extended release 30 meq PO BID Qty: 180 0RF Patient Comments: pt. states that she only takes once a day, ordered for twice a day on instructions in computer Discontinued carvedilol 6.25 mg tablet See Rx Instructions .ROUTE .COMPLEX Qty: 180 3RF Dose Instruction: TAKE 1 TABLET BY MOUTH TWICE A DAY Rx Instructions: TAKE 1 TABLET BY MOUTH TWICE A DAY Referrals / Follow Up: Jeremiah Goff DPM [Med Staff - Active Staff] - See Referral Note (as directed) Art Verduczo Chi, MD [Primary Care Provider] - 10/11/23 3:20 pm Disposition Disposition (needs filled in before D/C Order can be placed): Home, Self Care Charges/Coding Visit Charges Inpatient E&M: 89698 Disch Hosp >30min
--- NOTE | 2023-10-08 10:39 | PHA.DC.MR.R ---
Pharmacy [place] Med Reconciliation Pharmacy Service has performed discharge medication reconciliation for this patient. The patient's discharge medication list was reviewed for discrepancies and discrepancies were resolved. Medications at Discharge Home Medications lorazepam 0.5 mg tablet 1 mg PO BID anxiety 08/26/21 oxycodone 10 mg tablet 10 mg PO TID PRN Pain 10/08/21 tizanidine 4 mg tablet 4 mg PO QHS PRN LEG Cramps 10/08/21 hydroxychloroquine 200 mg tablet (Plaquenil) 200 mg PO DAILY RA 01/12/22 linaclotide 290 mcg capsule (Linzess) 290 mcg PO DAILY PRN IBS 03/12/23 pantoprazole 40 mg tablet,delayed release 40 mg PO BID acid reflux 03/12/23 atorvastatin 20 mg tablet 20 mg PO QHS high cholesterol #90 tabs 06/11/23 furosemide 40 mg tablet 40 mg PO DAILY swelling #30 tabs 07/11/23 potassium chloride 10 mEq tablet,extended release 30 meq (3 x 10 mEq) PO BID supplement #180 tabs 07/11/23 doxepin 25 mg capsule 25 mg PO DAILY depression 10/06/23
--- NOTE | 2023-10-08 10:55 | CASEMGMT ---
Patient has order for discharge. PATRICIO CRUZ called [facility], resumption of care for tomorrow. PATRICIO CRUZ in to updated patient regarding resumption of HHC. Patient denied further needs or help at discharge. Patient had no further questions or concerns.
== END 2023-10-08 12:08 | disposition home health service (06) | DRG 683 ==
LOC: ED 19:49 → PCU 20:24
PROVIDERS: Internal Medicine Nephrology; Admitting Provider Family Medicine; Emergency Provider Emergency Medicine; PCP Family Medicine Geriatric Medicine; Visit Provider Internal Medicine
DX: N17.9 Acute kidney failure, unspecified (principal); E87.1 Hypo-osmolality and hyponatremia; I13.0 Hypertensive heart and chronic kidney disease with heart failure and stage 1 through stage 4 chronic kidney disease, or unspecified chronic kidney disease; I50.32 Chronic diastolic (congestive) heart failure; L97.422 Non-pressure chronic ulcer of left heel and midfoot with fat layer exposed; I27.20 Pulmonary hypertension, unspecified; I95.9 Hypotension, unspecified; J44.9 Chronic obstructive pulmonary disease, unspecified; N18.31 Chronic kidney disease, stage 3a; M06.9 Rheumatoid arthritis, unspecified; F32.A Depression, unspecified; D50.9 Iron deficiency anemia, unspecified; E87.8 Other disorders of electrolyte and fluid balance, not elsewhere classified; K21.9 Gastro-esophageal reflux disease without esophagitis; I25.10 Atherosclerotic heart disease of native coronary artery without angina pectoris; I89.0 Lymphedema, not elsewhere classified; K58.9 Irritable bowel syndrome, unspecified; E78.00 Pure hypercholesterolemia, unspecified; M79.7 Fibromyalgia; E86.1 Hypovolemia; F41.9 Anxiety disorder, unspecified; E86.0 Dehydration; E66.9 Obesity, unspecified; Z68.30 Body mass index [BMI] 30.0-30.9, adult; R62.7 Adult failure to thrive; R53.81 Other malaise; Z79.890 Hormone replacement therapy
CPT/HCPCS: 36415; 70450; 71250; 74176; 76770; 80048; 80053; 80069; 80076; 81001; 82533; 82570; 83605; 83690; 83735; 83880; 84100; 84145; 84300; 84484; 85014; 85018; 85025; 85610; 85730; 87040; 93005; 93306; 94640; 94668; 94760; 97162; 97166; 97802; 99252; 99285; J7030; A4216; G0463; J0834; J3490

== ENCOUNTER → 2023-10-11 | Outpatient (CLI) | payer MEDICARE, OTHER, SELFPAY ==
[2023-10-11 17:08] LABS: Absolute Lymphocyte Count 1.45 X10^3/uL (0.83-4.51); Absolute Neutrophil Count 3.4 X10^3/uL (2.0-7.7); Basophil# 0.01 X10^3/uL; Basophil% 0.2 % (0-1); Eosinophil# 0.28 X10^3/uL; Hematocrit 31.4 % (37-47); Hemoglobin 9.9 g/dL (12.0-15.0); Lymphocyte # 1.45 X10^3/ul (0.83-4.51); Mean Corp Hgb Conc 31.5 g/dL (32-36); Mean Corpuscular Hgb 29.8 pg (27.0-32.0); Mean Corpuscular Volume 94.6 fL (81-99); Mean Platelet Vol. 11.1 fl (6.2-12.0); Monocyte# 0.38 X10^3/uL; Monocyte% 6.8 % (0-10); NRBC Flagged by Analyzer 0 % (0-5); Neutrophil # 3.39 X10^3/uL (2.7-7.7); Neutrophil % 60.9 % (47-70); Platelet Count 215 K/mm3 (150-450); RBC Distribution Width CV 13.3 % (11.6-14.6); RBC Distribution Width SD 46.3 fl (35.1-43.9); Red Blood Count 3.32 M/mm3 (4.2-5.4); White Blood Count 5.6 K/mm3 (4.4-11.0)
[2023-10-11 17:44] LABS: Anion Gap 8 (5-15); BUN 69 mg/dL (7-18); Calcium,Total 8.7 mg/dL (8.5-10.1); Chloride 93 mmol/L (98-107); Creatinine, Serum 2.76 mg/dL (0.55-1.02); EST Glomerular Filtration Rate 18 mL/min (>60); Est Glom Filt Rate - Afr Amer 21 mL/min (>60); Glucose 85 mg/dL (74-106); Potassium 4.4 mmol/L (3.5-5.1); Sodium Level 131 mmol/L (136-145)
== END | disposition home or self-care (01) ==
LOC: POLAB3 16:14
PROVIDERS: PCP Family Medicine Geriatric Medicine; Visit Provider Family Medicine Geriatric Medicine
DX: I10 Essential (primary) hypertension (principal)
CPT/HCPCS: 36415; 80048; 85025

== ENCOUNTER 2023-10-18 16:38 | Emergency (ER) | payer MEDICARE, OTHER, SELFPAY ==
[2023-10-18 16:38] VITALS: BP 151/108; PULSE 106; RESP 18; TEMP 36.5; O2SAT 100
[2023-10-18 16:45] VITALS: BMI 29.9
--- NOTE | 2023-10-18 16:51 | ED.RN ---
patient tearful in triage. patient states she would rather go see Dr. Verduzco. Rn asks patient what she would like for us to do. daughter in law in triage states there is a lot going on. we are trying to get her to have home health but [place] [facility] so its been difficult. Daughter in last states she can be very dramatic sometimes but it is stressful lately.
[2023-10-18 17:38] VITALS: BP 132/97; PULSE 98; RESP 16; O2SAT 97
--- NOTE | 2023-10-18 17:44 | EKG12_ITS ---
Test Reason : Blood Pressure : / mmHG Vent. Rate : 109 BPM Atrial Rate : 109 BPM P-R Int : 184 ms QRS Dur : 114 ms QT Int : 336 ms P-R-T Axes : 054 -51 105 degrees QTc Int : 452 ms Sinus tachycardia Left anterior fascicular block Minimal voltage criteria for LVH, may be normal variant ( [place] product ) Septal infarct , age undetermined T wave abnormality, consider lateral ischemia Abnormal ECG Confirmed by NII MORRIS, RODRIGO ([id number]), book or script editor SRAVANTHI STEPHENS ([id number]) on 10/19/2023 8:38:39 AM Referred By: RANDA Confirmed By:RODRIGO BALES MD
--- NOTE | 2023-10-18 17:45 | ED.VIS.CHEST ---
HPI History of Present Illness Chief Complaint: Chest Pain Informant: patient Onset/Context/Timing Onset: Today Narrative Narrative: Patient present secondary to chest pain. She reports waxing waning chest pain since this morning. She states it is secondary to anxiety and she did not have her afternoon dose of Ativan. She states that she is been seen for this multiple times and as soon as she is given a dose of Ativan she feels well and goes home. Dr. Verduzco recently has been trying to taper down her Ativan. I did speak with the patient's [id number] as well. There has been increased stressors at home with patient caring for her ill . There is talks of them moving into assisted living either here locally or in [place] near family. Patient was in the emergency room recently secondary to hypotension and dehydration. Her blood pressure medications and Lasix have been stopped. She was supposed to come to the hospital today for repeat lab work. Patient does note that her blood pressures have been high again at home now. [facility] Medical History Hiatal hernia Gout Wears glasses Wears dentures Walker as ambulation aid Urinary incontinence High cholesterol Easy bruising Blackout Difficulty swallowing History of IBS Gastric reflux Non-smoker Neuropathy Shortness of breath on exertion Leg cramps History of CHF (congestive heart failure) History of heart attack History of edema History of stress test History of echocardiogram Cardiology follow-up encounter History of COPD CHF (congestive heart failure) (HFpEF) heart failure with preserved ejection fraction History of pneumonia Heart valve problem Ulcer Heart disease Gastrointestinal problem History of emotional problems Carpal tunnel syndrome History of blood transfusion Back problem Asthma Arthritis Generalized weakness Coronary artery disease COPD (chronic obstructive pulmonary disease) Anemia Depression Anxiety Irritable bowel syndrome Constipation Edema Osteoarthritis of left hip Aseptic loosening of prosthetic hip NSTEMI (non-ST elevated myocardial infarction) Fibromyalgia GERD (gastroesophageal reflux disease) Hyperlipidemia Hypertension Home Medications ?Medication ?Instructions ?Recorded ?Last Taken ?Type lorazepam 0.5 mg tablet 1 mg PO BID anxiety 08/26/21 10/18/23 History oxycodone 10 mg tablet 10 mg PO TID PRN Pain 10/08/21 10/06/23 08:00 History tizanidine 4 mg tablet 4 mg PO QHS PRN LEG Cramps 10/08/21 10/05/23 20:00 History hydroxychloroquine 200 mg tablet 200 mg PO DAILY RA 01/12/22 10/18/23 History (Plaquenil) linaclotide 290 mcg capsule 290 mcg PO DAILY PRN IBS 03/12/23 10/05/23 09:00 History (Linzess) pantoprazole 40 mg tablet,delayed 40 mg PO BID acid reflux 03/12/23 10/18/23 History release atorvastatin 20 mg tablet 20 mg PO QHS high cholesterol #90 06/11/23 10/17/23 Rx tabs furosemide 40 mg tablet 40 mg PO DAILY swelling #30 tabs 07/11/23 10/18/23 Rx potassium chloride 10 mEq 30 meq (3 x 10 mEq) PO BID 07/11/23 10/18/23 Rx tablet,extended release supplement #180 tabs doxepin 25 mg capsule 25 mg PO DAILY depression 10/06/23 10/18/23 History carvedilol 6.25 mg tablet 6.25 mg PO BID 10/18/23 10/18/23 History cholecalciferol (vitamin D3) 25 25 mcg PO DAILY 10/18/23 10/18/23 History mcg (1,000 unit) tablet (Vitamin D3) citalopram 20 mg tablet 20 mg PO DAILY 10/18/23 10/18/23 History doxepin 10 mg capsule 10 mg PO QHS 10/18/23 10/17/23 History furosemide 20 mg tablet 20 mg PO DAILY 10/18/23 10/18/23 History Allergy/AdvReac Type Severity Reaction Status Date / Time hydrocodone bitartrate (From Allergy Unknown Rash Verified 10/18/23 16:38 Vicodin) propoxyphene Allergy Unknown Unknown Verified 10/18/23 16:38 fentanyl Allergy feels Verified 10/18/23 16:38 terrible NSAIDS (Non-Steroidal AdvReac Unknown Unknown Verified 10/18/23 16:38 Anti-Inflamma prednisone AdvReac Unknown palpitation Verified 10/18/23 16:38 s acetaminophen (From Tylenol) AdvReac Nausea Verified 10/18/23 16:38 diazepam (From Valium) AdvReac Other Verified 10/18/23 16:38 Family History Father Heart disease Myocardial infarction Mother Hyperlipidemia Diabetes Anxiety Arthritis Depression Sister Thyroid disorder Sister Thyroid disorder Surgical History History of colonoscopy History of shoulder surgery History of back surgery History of bilateral knee replacement History of total hysterectomy History of left heart catheterization (~01/15/15) Status post revision of total hip replacement Social History household members: spouse Smoking Status: Never smoker alcohol intake: never caffeine: No what type of physical activity do you participate in: other frequency: 3-4 times per week ROS ROS ED Constitutional Constitutional ED: Denies chills or fever(s) Eyes Eyes: Denies discharge from eye(s) ENT ENT ED: Denies discharge from eye(s), rhinorrhea or sore throat Cardiovascular Cardiovascular: Reports chest pain; Denies palpitations Respiratory/Chest Respiratory/Chest: Denies cough or dyspnea Gastrointestinal Gastrointestinal: Denies abdominal pain, nausea or vomiting Genitourinary Genitourinary ED: Denies dysuria Musculoskeletal Musculoskeletal: Denies back pain or extremity pain Integumentary Denies Abrasions or rash Neurologic Neurologic: Denies headache(s) or weakness Psychiatric Psychiatric: Denies anxiety or depression Allergic/Immunologic Allergic/Immunologic ED: Denies lip swelling or urticaria EXAM Physical Exam Const Vital Signs: 10/18/23 16:38 10/18/23 17:38 10/18/23 17:38 Temperature 97.7 F L Temperature Source Temporal Pulse Rate 106 H 98 Respiratory Rate 18 16 Respiratory Effort Normal Non-Labored Respiratory Pattern Normal Blood Pressure 151/108 H 132/97 H Blood Pressure Mean 122 108 Pulse Ox 100 97 Oxygen Delivery Method Room Air Room Air 10/18/23 18:00 10/18/23 19:54 10/18/23 19:54 Temperature 97.9 F 97.9 F Temperature Source Oral Pulse Rate 97 97 97 Respiratory Rate 18 16 16 Respiratory Effort Respiratory Pattern Blood Pressure 138/98 H 135/78 H 138/78 H Blood Pressure Mean 111 97 98 Pulse Ox 98 97 97 Oxygen Delivery Method Room Air Room Air Positive well nourished and well developed General Appearance ED: well developed HEENT Reports normocephalic and head/scalp atraumatic Eyes PERRL and EOMs intact bilaterally Neck supple Chest Wall inspection of chest normal and palpation of chest normal Resp normal respiratory effort and clear to auscultation bilaterally Cardio regular rate and regular rhythm GI normal to inspection, nondistended, normoactive bowel sounds Palpation: soft Extremity normal to inspection Neuro oriented x3 and no sensory deficits noted Sensorium / Orientation: alert Motor Exam: strength 5/5 throughout Psych Mood & Affect: anxious Skin no rashes or lesions noted MDM MDM MDM Narrative Medical decision making narrative: Patient refuses an IV line. She did consent to blood draw. Labwork obtained to evaluate for leukocytosis, anemia, and electrolyte derangement. EKG obtained to evaluate for cardiac arrhythmia/ischemia. Chest x-ray obtained to evaluate for acute lung pathology, cardiac size, or mediastinal abnormality. Patient be given 0.5 mg of p.o. Ativan which she was due for this afternoon. History & Record Review Discussion w/independent historian: Patient and Family Additional record(s) reviewed:: Prior inpatient record, Prior ED visit and Prior labs Lab Data Attestation: I reviewed the patient's lab results. Labs: Laboratory Results - last 24 hr 10/18/23 17:55 WBC 7.1 RBC 3.85 L Hgb 11.6 L Hct 36.5 L MCV 94.8 MCH 30.1 MCHC 31.8 L RDW Std Deviation 46.1 H RDW Coeff of Sin 13.3 Plt Count 301 MPV 10.0 Immature Gran % (Auto) 0.300 Neut % (Auto) 71.1 H Lymph % (Auto) 21.5 Kane % (Auto) 5.2 Eos % (Auto) 1.5 Baso % (Auto) 0.4 Absolute Neuts (auto) 5.1 Absolute Lymphs (auto) 1.53 Nucleated RBC % 0 Sodium 138 Potassium 3.9 Chloride 106 Carbon Dioxide 26.0 Anion Gap 6 BUN 34 H Creatinine 1.30 H Estim Creat Clear Calc 29.03 Est GFR (MDRD) Af Amer 51 L Est GFR (MDRD) Non-Af 42 L BUN/Creatinine Ratio 26.2 H Glucose 115 H Calcium 9.2 Troponin I High Sens 180 H* Radiography Chest X-Ray - ED: 1 View, Read by ED Physician, Chronic Changes and Cardiomegaly Diagnostic Testing: Clinical Impression(s) from Imaging Studies Chest X-Ray 10/18/23 18:15 IMPRESSION: Interval appearance of irregular opacification of the right infrahilar region suggesting pneumonic infiltrate or crowding of the bronchovascular structures due to developing volume overload or CHF. Noncontrast CT of the chest can be obtained for further assessment if clinically unresolved. Electronically Signed: Hal Michelle MD at 19:30 EDT , EKG Initial EKG: Attestation: I personally reviewed and interpreted this EKG as follows: Interpretation: Sinus Tachycardia (Sinus tachycardia at 109 with a left anterior fascicular block.) Treatment and Re-Evaluation :: CBC was a white count of 7.1 with 71% neutrophils. Hemoglobin is 11.6. Chemistry studies reveal a BUN of 34 and a creatinine of 1.30. This is actually at her even slightly improved from her baseline. Troponin is elevated at 180. EKG reveals sinus tachycardia at 109 with a left anterior fascicular block. Baseline artifact is noted but no significant ST change appreciated. EKG appears similar to prior study from 10/06/2023. Chest x-ray reveals chronic changes per my interpretation. Radiology interpretation is reviewed. They do feel patient has possible pneumonic infiltrate or crowding of the bronchovascular structures on the right compared to a prior x-ray. When patient was here 2 weeks ago she did not have a chest x-ray, but did have a CT scan of the chest and per my comparison no significant change noted. Patient has no symptoms of pneumonia. On repeat evaluation patient is sitting at bedside chair. She states she feels better and wants to go home. I instructed her that her troponin value is elevated raising concern for a heart attack. When she was seen 2 days ago she had 4 high-sensitivity troponins that were all normal. I advised her that this is a new change from when she was recently seen. She states that she does not care and she wants to go home. She understands that she might be having a heart attack and she may from this. She wishes to sign out AGAINST MEDICAL ADVICE. Patient's [id number] is in the room with us during this discussion. Patient was advised that she can return at any time. Discharge Plan Triage Chief Complaint: Chest Pain ED Provider: Monique Guillermo Dx/Rx/DC Orders Clinical Impression: Chest pain, Elevated troponin Prescriptions: No Action lorazepam 0.5 mg tablet 1 mg PO BID Patient Comments: TAKE 2 TABLETS BY MOUTH in the AM, 1 tab in the afternoon, and 2 tabs in the evening oxycodone 10 mg tablet 10 mg PO TID PRN (Reason: Pain) tizanidine 4 mg tablet 4 mg PO QHS PRN (Reason: LEG Cramps) pantoprazole 40 mg tablet,delayed release (DR/EC) 40 mg PO BID Patient Comments: pt. states she takes 2 once a day in AM atorvastatin 20 mg tablet 20 mg PO QHS Qty: 90 3RF hydroxychloroquine [Plaquenil] 200 mg Tablet 200 mg PO DAILY Linzess 290 mcg capsule 290 mcg PO DAILY PRN (Reason: IBS) doxepin 25 mg capsule 25 mg PO DAILY furosemide 40 mg Tablet 40 mg PO DAILY Qty: 30 0RF potassium chloride 10 mEq tablet extended release 30 meq PO BID Qty: 180 0RF Patient Comments: pt. states that she only takes once a day, ordered for twice a day on instructions in computer carvedilol 6.25 mg tablet 6.25 mg PO BID doxepin 10 mg capsule 10 mg PO QHS citalopram 20 mg tablet 20 mg PO DAILY furosemide 20 mg tablet 20 mg PO DAILY Rx Instructions: take additional dose at 5 pm for weight gain or increased swelling cholecalciferol (vitamin D3) [Vitamin D3] 25 mcg (1,000 unit) tablet 25 mcg PO DAILY Primary Care Provider: Art Verduzco Chi Referrals: Art Verduzco Chi, MD [Primary Care Provider] - Activity Restrictions/Additional Instructions: Your blood work indicates elevated cardiac enzymes which is concerning that you may be having a heart attack. We do need to keep you for repeat blood work and possible further heart testing, however you voiced understanding of your current condition and want to leave AGAINST MEDICAL ADVICE. You understand that you may be having a heart attack and you might without further medical care. You are welcome to return anytime for further care. Print Language: Argentine Disposition Disposition: Against Medical Advice Discharge Date/Time: 10/18/23 19:56
[2023-10-18 18:00] VITALS: BP 138/98; PULSE 97; RESP 18; O2SAT 98
[2023-10-18] MEDS: LORazepam 0.5 MG Tablet PO (18:06)
[2023-10-18 18:09] LABS: Absolute Lymphocyte Count 1.53 X10^3/uL (0.83-4.51); Absolute Neutrophil Count 5.1 X10^3/uL (2.0-7.7); Basophil# 0.03 X10^3/uL; Basophil% 0.4 % (0-1); Eosinophil# 0.11 X10^3/uL; Eosinophils% 1.5 % (0-5); Hematocrit 36.5 % (37-47); Hemoglobin 11.6 g/dL (12.0-15.0); Lymphocyte # 1.53 X10^3/ul (0.83-4.51); Lymphocyte % 21.5 % (19-41); Mean Corp Hgb Conc 31.8 g/dL (32-36); Mean Corpuscular Hgb 30.1 pg (27.0-32.0); Mean Corpuscular Volume 94.8 fL (81-99); Monocyte# 0.37 X10^3/uL; Monocyte% 5.2 % (0-10); NRBC Flagged by Analyzer 0 % (0-5); Neutrophil # 5.07 X10^3/uL (2.7-7.7); Neutrophil % 71.1 % (47-70); Platelet Count 301 K/mm3 (150-450); RBC Distribution Width CV 13.3 % (11.6-14.6); RBC Distribution Width SD 46.1 fl (35.1-43.9); Red Blood Count 3.85 M/mm3 (4.2-5.4); White Blood Count 7.1 K/mm3 (4.4-11.0)
--- NOTE | 2023-10-18 18:15 | RAD_ITS ---
STUDY: X-RAY CHEST REASON FOR EXAM: Female, 83 years old. cp C/O CHEST PAIN STARTING THIS MORNING. PT STATES I HAVE A LOT GOING ON AT HOME. I HAVE A SICK THAT I HAVE TO TAKE CARE OF AND NO HELP TECHNIQUE: Single AP portable view of the chest. COMPARISON: July 07, 2023 FINDINGS: 1. 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 Interval appearance of irregular opacification of the right infrahilar region suggesting pneumonic infiltrate or crowding of the bronchovascular structures due to developing volume overload or CHF. Noncontrast CT of the chest can be obtained for further assessment if clinically unresolved. 3. No visualized pleural effusion 4. Normal heart size 5. Stable osseous structures 6. Stable bilateral shoulder prostheses. The lungs are clear and expanded. There is no demonstrated pleural abnormality. Normal size heart. Normal mediastinum and jose. Normal visualized pulmonary arteries. Normal visualized aortic arch and descending thoracic aorta. Normal visualized thoracic spine. Normal visualized ribs, clavicles, and shoulders. There is no demonstrated abnormality of the visualized soft tissue structures of the upper abdomen. RAD/Chest 1 View (Portable) IMPRESSION: Interval appearance of irregular opacification of the right infrahilar region suggesting pneumonic infiltrate or crowding of the bronchovascular structures due to developing volume overload or CHF. Noncontrast CT of the chest can be obtained for further assessment if clinically unresolved. Electronically Signed: Hal Michelle MD at 19:30 EDT ,
[2023-10-18 18:31] LABS: Anion Gap 6 (5-15); BUN 34 mg/dL (7-18); BUN/Creat Ratio 26.2 RATIO (10-20); Calcium,Total 9.2 mg/dL (8.5-10.1); Chloride 106 mmol/L (98-107); EST Glomerular Filtration Rate 42 mL/min (>60); Est Glom Filt Rate - Afr Amer 51 mL/min (>60); Estimated Creatinine Clearance 29.03 ml/min; Glucose 115 mg/dL (74-106); Potassium 3.9 mmol/L (3.5-5.1); Sodium Level 138 mmol/L (136-145); Troponin-I HS 180 pg/mL (3.0-54.0)
[2023-10-18] MEDS: Acetaminophen 500 MG Tablet 1000 MG PO (18:55)
[2023-10-18 19:54] VITALS: BP 135/78; BP 138/78; PULSE 97; RESP 16; TEMP 36.6; O2SAT 97
== END 2023-10-18 19:56 | disposition left against medical advice (07) ==
PROVIDERS: Emergency Provider Emergency Medicine; PCP Family Medicine Geriatric Medicine; Visit Provider Emergency Medicine
DX: R07.9 Chest pain, unspecified (principal); I11.0 Hypertensive heart disease with heart failure; I50.32 Chronic diastolic (congestive) heart failure; J44.9 Chronic obstructive pulmonary disease, unspecified; R77.8 Other specified abnormalities of plasma proteins; E78.00 Pure hypercholesterolemia, unspecified; I25.10 Atherosclerotic heart disease of native coronary artery without angina pectoris; I25.2 Old myocardial infarction; F32.A Depression, unspecified; F41.9 Anxiety disorder, unspecified; Z63.6 Dependent relative needing care at home; Z79.899 Other long term (current) drug therapy; Z53.29 Procedure and treatment not carried out because of patient's decision for other reasons
CPT/HCPCS: 71045; 80048; 84484; 85025; 93005; 99283

== ENCOUNTER → 2023-10-20 | Outpatient (CLI) | payer MEDICARE, OTHER, SELFPAY ==
[2023-10-20 12:32] LABS: Absolute Lymphocyte Count 1.49 X10^3/uL (0.83-4.51); Absolute Neutrophil Count 4.6 X10^3/uL (2.0-7.7); Basophil# 0.03 X10^3/uL; Basophil% 0.5 % (0-1); Eosinophils% 1.5 % (0-5); Hematocrit 32.6 % (37-47); Hemoglobin 10.1 g/dL (12.0-15.0); Lymphocyte # 1.49 X10^3/ul (0.83-4.51); Lymphocyte % 22.7 % (19-41); Mean Corpuscular Hgb 29.5 pg (27.0-32.0); Mean Corpuscular Volume 95.3 fL (81-99); Mean Platelet Vol. 10.7 fl (6.2-12.0); Monocyte# 0.36 X10^3/uL; Monocyte% 5.5 % (0-10); NRBC Flagged by Analyzer 0 % (0-5); Neutrophil # 4.57 X10^3/uL (2.7-7.7); Neutrophil % 69.5 % (47-70); Platelet Count 240 K/mm3 (150-450); RBC Distribution Width CV 13.6 % (11.6-14.6); RBC Distribution Width SD 47.6 fl (35.1-43.9); Red Blood Count 3.42 M/mm3 (4.2-5.4); White Blood Count 6.6 K/mm3 (4.4-11.0)
[2023-10-20 13:19] LABS: ALB/GLOB Ratio 0.6 RATIO (0.9-2.4); AST(SGOT) 39 U/L (15-37); Alanine Aminotransfer ALT/SGPT 19 U/L (13-56); Alkaline Phosphatase 75 U/L (45-117); Anion Gap 6 (5-15); BUN 35 mg/dL (7-18); Calcium,Total 8.8 mg/dL (8.5-10.1); Chloride 104 mmol/L (98-107); Creatinine, Serum 1.67 mg/dL (0.55-1.02); EST Glomerular Filtration Rate 31 mL/min (>60); Est Glom Filt Rate - Afr Amer 38 mL/min (>60); Globulin 4.8 g/dL (2.2-4.2); Glucose 86 mg/dL (74-106); Potassium 3.6 mmol/L (3.5-5.1); Protein, Total 7.8 g/dL (6.4-8.2); Sodium Level 137 mmol/L (136-145); Troponin-I HS 82 pg/mL (3.0-54.0)
== END | disposition home or self-care (01) ==
PROVIDERS: PCP Family Medicine Geriatric Medicine; Referring Provider Family Medicine Geriatric Medicine; Visit Provider Family Medicine Geriatric Medicine
DX: I12.9 Hypertensive chronic kidney disease with stage 1 through stage 4 chronic kidney disease, or unspecified chronic kidney disease (principal); N18.32 Chronic kidney disease, stage 3b; R07.9 Chest pain, unspecified
CPT/HCPCS: 36415; 80053; 84484; 85025

== ENCOUNTER → 2023-11-04 | Outpatient (CLI) | payer MEDICARE, OTHER, SELFPAY ==
[2023-11-04 16:35] LABS: Anion Gap 5 (5-15); BUN 22 mg/dL (7-18); BUN/Creat Ratio 22.3 RATIO (10-20); Calcium,Total 8.6 mg/dL (8.5-10.1); Chloride 102 mmol/L (98-107); Creatinine, Serum 0.98 mg/dL (0.55-1.02); EST Glomerular Filtration Rate 58 mL/min (>60); Est Glom Filt Rate - Afr Amer 70 mL/min (>60); Glucose 127 mg/dL (74-106); Potassium 4.3 mmol/L (3.5-5.1); Sodium Level 133 mmol/L (136-145)
== END | disposition home or self-care (01) ==
LOC: POLAB3 15:25
PROVIDERS: PCP Family Medicine Geriatric Medicine; Visit Provider Family Medicine Geriatric Medicine
DX: I10 Essential (primary) hypertension (principal)
CPT/HCPCS: 36415; 80048

== ENCOUNTER → 2023-11-16 | Outpatient (CLI) | payer MEDICARE, OTHER, SELFPAY ==
[2023-11-16 16:53] LABS: Absolute Lymphocyte Count 1.56 X10^3/uL (0.83-4.51); Absolute Neutrophil Count 4.9 X10^3/uL (2.0-7.7); Basophil# 0.03 X10^3/uL; Basophil% 0.4 % (0-1); Eosinophil# 0.23 X10^3/uL; Eosinophils% 3.1 % (0-5); Hematocrit 31.7 % (37-47); Hemoglobin 9.9 g/dL (12.0-15.0); Lymphocyte # 1.56 X10^3/ul (0.83-4.51); Lymphocyte % 21.3 % (19-41); Mean Corp Hgb Conc 31.2 g/dL (32-36); Mean Corpuscular Hgb 30.3 pg (27.0-32.0); Mean Corpuscular Volume 96.9 fL (81-99); Mean Platelet Vol. 10.3 fl (6.2-12.0); Monocyte# 0.55 X10^3/uL; Monocyte% 7.5 % (0-10); NRBC Flagged by Analyzer 0 % (0-5); Neutrophil # 4.92 X10^3/uL (2.7-7.7); Neutrophil % 67.4 % (47-70); Platelet Count 309 K/mm3 (150-450); RBC Distribution Width CV 15.8 % (11.6-14.6); RBC Distribution Width SD 55.8 fl (35.1-43.9); Red Blood Count 3.27 M/mm3 (4.2-5.4); White Blood Count 7.3 K/mm3 (4.4-11.0)
[2023-11-16 17:17] LABS: Anion Gap 3 (5-15); BUN 20 mg/dL (7-18); BUN/Creat Ratio 21.3 RATIO (10-20); Calcium,Total 8.8 mg/dL (8.5-10.1); Chloride 102 mmol/L (98-107); Creatinine, Serum 0.94 mg/dL (0.55-1.02); EST Glomerular Filtration Rate 61 mL/min (>60); Est Glom Filt Rate - Afr Amer 73 mL/min (>60); Glucose 95 mg/dL (74-106); Potassium 3.7 mmol/L (3.5-5.1); Sodium Level 135 mmol/L (136-145)
== END | disposition home or self-care (01) ==
LOC: POLAB3 15:29
PROVIDERS: PCP Family Medicine Geriatric Medicine; Visit Provider Family Medicine Geriatric Medicine
DX: I10 Essential (primary) hypertension (principal); L03.115 Cellulitis of right lower limb; B95.62 Methicillin resistant Staphylococcus aureus infection as the cause of diseases classified elsewhere
CPT/HCPCS: 36415; 80048; 85025; 87070; 87075; 87077; 87186; 87205; 87640

== ENCOUNTER → 2023-11-25 | Outpatient (CLI) | payer MEDICARE, OTHER, SELFPAY ==
[2023-11-25 18:12] LABS: Anion Gap 4 (5-15); BUN 34 mg/dL (7-18); BUN/Creat Ratio 34.9 RATIO (10-20); Calcium,Total 8.8 mg/dL (8.5-10.1); Chloride 97 mmol/L (98-107); Creatinine, Serum 0.97 mg/dL (0.55-1.02); EST Glomerular Filtration Rate 58 mL/min (>60); Est Glom Filt Rate - Afr Amer 71 mL/min (>60); Glucose 106 mg/dL (74-106); Potassium 3.5 mmol/L (3.5-5.1); Sodium Level 135 mmol/L (136-145)
== END | disposition home or self-care (01) ==
LOC: POLAB3 17:08
PROVIDERS: PCP Family Medicine Geriatric Medicine; Visit Provider Family Medicine Geriatric Medicine
DX: I10 Essential (primary) hypertension (principal)
CPT/HCPCS: 36415; 80048

== ENCOUNTER → 2023-12-07 | Outpatient (CLI) | payer MEDICARE, OTHER, SELFPAY ==
[2023-12-07 17:21] LABS: Absolute Lymphocyte Count 1.78 X10^3/uL (0.83-4.51); Absolute Neutrophil Count 4.9 X10^3/uL (2.0-7.7); Basophil# 0.03 X10^3/uL; Basophil% 0.4 % (0-1); Eosinophil# 0.22 X10^3/uL; Eosinophils% 2.9 % (0-5); Hematocrit 32.4 % (37-47); Hemoglobin 10.1 g/dL (12.0-15.0); Lymphocyte # 1.78 X10^3/ul (0.83-4.51); Lymphocyte % 23.7 % (19-41); Mean Corp Hgb Conc 31.2 g/dL (32-36); Mean Corpuscular Volume 96.1 fL (81-99); Mean Platelet Vol. 10.7 fl (6.2-12.0); Monocyte# 0.55 X10^3/uL; Monocyte% 7.3 % (0-10); NRBC Flagged by Analyzer 0 % (0-5); Neutrophil % 65.4 % (47-70); Platelet Count 282 K/mm3 (150-450); RBC Distribution Width CV 15.2 % (11.6-14.6); RBC Distribution Width SD 53.9 fl (35.1-43.9); Red Blood Count 3.37 M/mm3 (4.2-5.4); White Blood Count 7.5 K/mm3 (4.4-11.0)
[2023-12-07 17:50] LABS: Anion Gap 4 (5-15); BUN 22 mg/dL (7-18); BUN/Creat Ratio 20.2 RATIO (10-20); Calcium,Total 9.4 mg/dL (8.5-10.1); Chloride 99 mmol/L (98-107); Creatinine, Serum 1.09 mg/dL (0.55-1.02); EST Glomerular Filtration Rate 51 mL/min (>60); Est Glom Filt Rate - Afr Amer 62 mL/min (>60); Glucose 101 mg/dL (74-106); Potassium 3.6 mmol/L (3.5-5.1); Sodium Level 135 mmol/L (136-145)
== END | disposition home or self-care (01) ==
LOC: POLAB3 16:57
PROVIDERS: PCP Family Medicine Geriatric Medicine; Visit Provider Family Medicine Geriatric Medicine
DX: I10 Essential (primary) hypertension (principal)
CPT/HCPCS: 36415; 80048; 85025

== ENCOUNTER → 2023-12-10 | Outpatient (CLI) | payer MEDICARE, OTHER, SELFPAY ==
[2023-12-10 13:53] LABS: Anion Gap 4 (5-15); BUN 21 mg/dL (7-18); BUN/Creat Ratio 18.9 RATIO (10-20); Calcium,Total 9.2 mg/dL (8.5-10.1); Chloride 100 mmol/L (98-107); Creatinine, Serum 1.11 mg/dL (0.55-1.02); EST Glomerular Filtration Rate 50 mL/min (>60); Est Glom Filt Rate - Afr Amer 61 mL/min (>60); Glucose 94 mg/dL (74-106); Potassium 3.5 mmol/L (3.5-5.1); Sodium Level 138 mmol/L (136-145)
== END | disposition home or self-care (01) ==
PROVIDERS: PCP Family Medicine Geriatric Medicine; Referring Provider Family Medicine Geriatric Medicine; Visit Provider Family Medicine Geriatric Medicine
DX: E78.5 Hyperlipidemia, unspecified (principal)
CPT/HCPCS: 36415; 80048

== ENCOUNTER → 2023-12-31 | Outpatient (CLI) | payer MEDICARE, OTHER, SELFPAY ==
[2023-12-31 12:22] LABS: Absolute Lymphocyte Count 1.27 X10^3/uL (0.83-4.51); Absolute Neutrophil Count 4.3 X10^3/uL (2.0-7.7); Basophil# 0.02 X10^3/uL; Basophil% 0.3 % (0-1); Eosinophil# 0.15 X10^3/uL; Eosinophils% 2.4 % (0-5); Hematocrit 32.3 % (37-47); Hemoglobin 9.9 g/dL (12.0-15.0); Lymphocyte # 1.27 X10^3/ul (0.83-4.51); Lymphocyte % 20.5 % (19-41); Mean Corp Hgb Conc 30.7 g/dL (32-36); Mean Corpuscular Hgb 29.1 pg (27.0-32.0); Mean Platelet Vol. 10.4 fl (6.2-12.0); Monocyte% 6.5 % (0-10); NRBC Flagged by Analyzer 0 % (0-5); Neutrophil # 4.33 X10^3/uL (2.7-7.7); Platelet Count 252 K/mm3 (150-450); RBC Distribution Width CV 13.5 % (11.6-14.6); RBC Distribution Width SD 47.8 fl (35.1-43.9); White Blood Count 6.2 K/mm3 (4.4-11.0)
[2023-12-31 12:50] LABS: Vitamin D,25 Hydroxy 35.4 ng/mL
[2023-12-31 13:08] LABS: ALB/GLOB Ratio 0.7 RATIO (0.9-2.4); AST(SGOT) 30 U/L (15-37); Alanine Aminotransfer ALT/SGPT 17 U/L (13-56); Albumin, Serum 3.3 g/dL (3.2-5.0); Alkaline Phosphatase 154 U/L (45-117); Anion Gap 7 (5-15); BUN 21 mg/dL (7-18); BUN/Creat Ratio 19.1 RATIO (10-20); Chloride 100 mmol/L (98-107); EST Glomerular Filtration Rate 51 mL/min (>60); Est Glom Filt Rate - Afr Amer 61 mL/min (>60); Glucose 110 mg/dL (74-106); Protein, Total 8.3 g/dL (6.4-8.2); Sodium Level 138 mmol/L (136-145); Uric Acid 8.3 mg/dL (2.6-6.0)
== END | disposition home or self-care (01) ==
LOC: POLAB3 11:58
PROVIDERS: PCP Family Medicine Geriatric Medicine; Visit Provider Family Medicine Geriatric Medicine
DX: I10 Essential (primary) hypertension (principal); E55.9 Vitamin D deficiency, unspecified; M10.9 Gout, unspecified
CPT/HCPCS: 36415; 80053; 82306; 84443; 84550; 85025

== ENCOUNTER → 2024-01-10 | Outpatient (CLI) | payer MEDICARE, OTHER, SELFPAY ==
[2024-01-10 17:16] LABS: Anion Gap 7 (5-15); BUN 22 mg/dL (7-18); BUN/Creat Ratio 20.8 RATIO (10-20); Calcium,Total 9.3 mg/dL (8.5-10.1); Chloride 99 mmol/L (98-107); Creatinine, Serum 1.06 mg/dL (0.55-1.02); EST Glomerular Filtration Rate 53 mL/min (>60); Est Glom Filt Rate - Afr Amer 64 mL/min (>60); Glucose 101 mg/dL (74-106); Potassium 3.5 mmol/L (3.5-5.1); Sodium Level 138 mmol/L (136-145)
== END | disposition home or self-care (01) ==
LOC: LAB 01-11 09:48
PROVIDERS: PCP Family Medicine Geriatric Medicine; Referring Provider Family Medicine Geriatric Medicine; Visit Provider Family Medicine Geriatric Medicine
DX: I10 Essential (primary) hypertension (principal)
CPT/HCPCS: 36415; 80048

== ENCOUNTER → 2024-02-14 | Outpatient (CLI) | payer MEDICARE, OTHER, SELFPAY ==
--- NOTE | 2024-02-14 13:14 | CT_ITS ---
STUDY: CT ABDOMEN AND PELVIS WITH CONTRAST REASON FOR EXAM: Female, 83 years old. ABD PAIN RADIATION DOSAGE (If Supplied By Facility): CTDIvol = ( 15.26 ) mGy, DLP = ( 785.26 ) mGycm TECHNIQUE: Oral and amp; IV Readi-CAT and amp; 100mL Isovue-300 was administered. Transaxial images were obtained from the dome of the diaphragm to the symphysis pubis. Multiplanar coronal and sagittal images were reformatted. The protocol utilizes one or more of the following dose reduction techniques: automated exposure control, adjustment of mA and/or kV according to patient size,and/or use of iterative reconstruction technique. COMPARISON: Prior study dated: 10/06/2023 FINDINGS: The visualized lung bases are essentially unremarkable. The visualized portions of the heart are within normal limits. Coronary calcifications. 7 mm low-density lesion in the right lobe liver probably cyst. Questionable mild thickening of the gallbladder wall without evidence of gallstones. Slightly prominent common bile duct. Normal spleen. Normal pancreas. Normal bilateral adrenal glands. Bilateral extrarenal pelvis. Small simple cyst in the left kidney for which no further follow-up exam is needed. No evidence of hydronephrosis. Moderate size hiatal hernia. Normal in caliber small bowel loops. Fecal retention concerning for constipation. No evidence of acute diverticulitis. There is non-visualization of the appendix. There is diffuse atherosclerotic calcification of the abdominal aorta, without a demonstrated aneurysm. No retroperitoneal adenopathy. Normal urinary bladder. There is absence of the uterus consistent with a prior hysterectomy. Normal abdominal wall. [Arthroplasty creating significant artifacts. Multilevel degenerative changes unchanged. CT/Abdomen/Pelvis WITH Contrast IMPRESSION: 1. Fecal retention concerning for constipation. 2. No focal acute inflammatory process. Electronically Signed: Gume Garcia MD at 15:05 EST ,
[2024-02-14 13:43] LABS: CREATININE FINGERSTICK < 1.0 mg/dL (0.55-1.02); EGFR FINGERSTICK > 60.0000 mL/min (>60)
== END | disposition home or self-care (01) ==
LOC: CT 13:11
PROVIDERS: PCP Family Medicine Geriatric Medicine; Referring Provider Family Medicine Geriatric Medicine; Visit Provider Family Medicine Geriatric Medicine
DX: R10.9 Unspecified abdominal pain (principal)
CPT/HCPCS: 74177; Q9967

== ENCOUNTER → 2024-03-14 | Outpatient (CLI) | payer MEDICARE, OTHER, SELFPAY ==
[2024-03-14 17:41] LABS: Absolute Lymphocyte Count 1.64 X10^3/uL (0.83-4.51); Absolute Neutrophil Count 3.6 X10^3/uL (2.0-7.7); Basophil# 0.02 X10^3/uL; Basophil% 0.3 % (0-1); Eosinophil# 0.24 X10^3/uL; Hematocrit 34.3 % (37-47); Hemoglobin 10.4 g/dL (12.0-15.0); Lymphocyte # 1.64 X10^3/ul (0.83-4.51); Lymphocyte % 27.3 % (19-41); Mean Corp Hgb Conc 30.3 g/dL (32-36); Mean Corpuscular Hgb 27.4 pg (27.0-32.0); Mean Corpuscular Volume 90.5 fL (81-99); Mean Platelet Vol. 10.2 fl (6.2-12.0); Monocyte% 8.3 % (0-10); NRBC Flagged by Analyzer 0 % (0-5); Neutrophil # 3.59 X10^3/uL (2.7-7.7); Neutrophil % 59.8 % (47-70); Platelet Count 291 K/mm3 (150-450); RBC Distribution Width CV 14.2 % (11.6-14.6); RBC Distribution Width SD 46.5 fl (35.1-43.9); Red Blood Count 3.79 M/mm3 (4.2-5.4)
[2024-03-14 18:40] LABS: ALB/GLOB Ratio 0.6 RATIO (0.9-2.4); AST(SGOT) 15 U/L (15-37); Alanine Aminotransfer ALT/SGPT 12 U/L (13-56); Albumin, Serum 3.4 g/dL (3.2-5.0); Alkaline Phosphatase 135 U/L (45-117); Anion Gap 5 (5-15); BUN 26 mg/dL (7-18); BUN/Creat Ratio 25.5 RATIO (10-20); Calcium,Total 8.9 mg/dL (8.5-10.1); Chloride 98 mmol/L (98-107); Creatinine, Serum 1.02 mg/dL (0.55-1.02); EST Glomerular Filtration Rate 55 mL/min (>60); Est Glom Filt Rate - Afr Amer 67 mL/min (>60); Globulin 5.4 g/dL (2.2-4.2); Glucose 109 mg/dL (74-106); Potassium 3.6 mmol/L (3.5-5.1); Protein, Total 8.8 g/dL (6.4-8.2); Sodium Level 136 mmol/L (136-145)
[2024-03-16 00:57] LABS: Vitamin D,25 Hydroxy 24.6 ng/mL
== END | disposition home or self-care (01) ==
LOC: LAB 17:24
PROVIDERS: PCP Family Medicine Geriatric Medicine; Referring Provider Family Medicine Geriatric Medicine; Visit Provider Family Medicine Geriatric Medicine
DX: I10 Essential (primary) hypertension (principal); E55.9 Vitamin D deficiency, unspecified; M10.9 Gout, unspecified
CPT/HCPCS: 36415; 80053; 82306; 84443; 84550; 85025

== ENCOUNTER → 2024-06-29 | Outpatient (CLI) | payer MEDICARE, OTHER, SELFPAY ==
[2024-06-29 16:37] LABS: Absolute Lymphocyte Count 1.03 X10^3/uL (0.83-4.51); Absolute Neutrophil Count 3.3 X10^3/uL (2.0-7.7); Basophil# 0.02 X10^3/uL; Basophil% 0.4 % (0-1); Eosinophil# 0.21 X10^3/uL; Eosinophils% 4.3 % (0-5); Hematocrit 32.6 % (37-47); Hemoglobin 10.1 g/dL (12.0-15.0); Lymphocyte # 1.03 X10^3/ul (0.83-4.51); Lymphocyte % 21.1 % (19-41); Mean Corpuscular Hgb 27.4 pg (27.0-32.0); Mean Corpuscular Volume 88.3 fL (81-99); Mean Platelet Vol. 10.3 fl (6.2-12.0); Monocyte# 0.37 X10^3/uL; Monocyte% 7.6 % (0-10); NRBC Flagged by Analyzer 0 % (0-5); Neutrophil # 3.25 X10^3/uL (2.7-7.7); Neutrophil % 66.4 % (47-70); Platelet Count 246 K/mm3 (150-450); RBC Distribution Width CV 14.9 % (11.6-14.6); RBC Distribution Width SD 48.1 fl (35.1-43.9); Red Blood Count 3.69 M/mm3 (4.2-5.4); White Blood Count 4.9 K/mm3 (4.4-11.0)
[2024-06-29 17:57] LABS: ALB/GLOB Ratio 0.9 RATIO (0.9-2.4); AST(SGOT) 19 U/L (<=31); Alanine Aminotransfer ALT/SGPT 8 U/L (<=34); Albumin, Serum 3.7 g/dL (3.4-4.8); Alkaline Phosphatase 155 U/L (35-104); Anion Gap 11 (5-15); BUN 18 mg/dL (4-19); BUN/Creat Ratio 17.7 RATIO (10-20); Calcium,Total 8.7 mg/dL (7.6-11.0); Carbon Dioxide 27.7 mmol/L (21.0-32.0); Chloride 100 mmol/L (98-108); EST Glomerular Filtration Rate 57 (>60); Globulin 4.1 g/dL (2.2-4.2); Glucose 110 mg/dL (70-99); Potassium 3.7 mmol/L (3.3-5.1); Protein, Total 7.7 g/dL (5.9-8.4); Sodium Level 138 mmol/L (133-145); Total Bilirubin 0.38 mg/dL (0.00-1.30)
[2024-06-29 18:37] LABS: Uric Acid 8.4 mg/dL (2.6-6.0)
[2024-06-29 18:59] LABS: Vitamin D,25 Hydroxy 16.5 ng/mL (30-100)
== END | disposition home or self-care (01) ==
LOC: LAB 15:22
PROVIDERS: PCP Family Medicine Geriatric Medicine; Referring Provider Family Medicine Geriatric Medicine; Visit Provider Family Medicine Geriatric Medicine
DX: I10 Essential (primary) hypertension (principal); E55.9 Vitamin D deficiency, unspecified; M10.9 Gout, unspecified
CPT/HCPCS: 36415; 80053; 82306; 84443; 84550; 85025

== ENCOUNTER → 2024-06-29 | Outpatient (CLI) | payer MEDICARE, OTHER, SELFPAY | END | disposition home or self-care (01) | PROVIDERS: PCP Family Medicine Geriatric Medicine; Referring Provider Family Medicine Geriatric Medicine; Visit Provider Family Medicine Geriatric Medicine | DX: J20.9 Acute bronchitis, unspecified (principal) | CPT/HCPCS: 87631 ==

== ENCOUNTER → 2024-07-11 | Outpatient (CLI) | payer MEDICARE, OTHER, SELFPAY ==
[2024-07-11 17:35] LABS: Pro- Brain NATRIURETIC PEPTIDE 784 pg/mL (<=1800)
== END | disposition home or self-care (01) ==
LOC: LAB 16:32
PROVIDERS: PCP Family Medicine Geriatric Medicine; Referring Provider Student in an Organized Health Care Education/Training Program; Visit Provider Student in an Organized Health Care Education/Training Program
DX: R06.01 Orthopnea (principal); I51.81 Takotsubo syndrome
CPT/HCPCS: 36415; 83880